=== PATIENT | female | born 1970 | race Caucasian/White ===

== ENCOUNTER 2017-10-12 15:49 | Inpatient (IN) ==
[2017-10-12] MEDS ORDERED: Ondansetron 4 MG/2 ML VIAL IVP ONE ×2 (16:13→19:28)
[2017-10-12] MEDS ORDERED: *HR* FentaNYL (PF) 100 MCG/2 ML VIAL IVP ONE ×2 (16:13→17:16)
--- NOTE | 2017-10-12 16:13 | Emergency Department Note ---
Disposition Clinical Impression: Pyelonephritis, Ureterolithiasis Urinary tract infection Qualifiers: Urinary tract infection type: site unspecified Hematuria presence: without hematuria Qualified Code(s): N39.0 - Urinary tract infection, site not specified Disposition: Admitted As Inpatient Condition: Fair General Adult HPI - General Chief complaint: ED Urogenital-Female Stated complaint: r/o sepsis Time Seen by Provider: 10/12/17 15:53 Source: patient Limitations: no limitations Nursing Notes Reviewed: Yes Vital Signs Reviewed: Yes - History of Present Illness Pain Scale: 7 - Related Data Allergies Allergy/AdvReac Type Severity Reaction Status Date / Time Hydromorphone [From Dilaudid] Allergy Itching Verified 10/12/17 15:51 levofloxacin [From Levaquin] Allergy See Verified 10/12/17 15:51 Comments prochlorperazine Allergy Anxiety Verified 10/12/17 15:51 [From Compazine] Past Medical History - Past Medical History Medical history: Reports: fibromyalgia - Social History Smoking Status: Never smoker Smokeless Tobacco Status: No Alcohol use: Reports: none Drug use: Reports: none Physical Exam - General Limitations: no limitations General appearance: alert Course Vital Signs Temperature 99.8 F H 10/12/17 15:51 Pulse Rate 136 10/12/17 15:51 Respiratory Rate 18 10/12/17 15:51 Blood Pressure 131/80 10/12/17 15:51 O2 Sat by Pulse Oximetry 93 10/12/17 15:51 Temperature 99.8 F H 10/12/17 15:58 Pulse Rate 117 10/12/17 17:55 Respiratory Rate 14 10/12/17 17:55 Blood Pressure 124/85 10/12/17 17:55 O2 Sat by Pulse Oximetry 96 10/12/17 17:55 Oxygen Delivery Oxygen Delivery Nasal Cannula Medical Decision Making - [facility] Narrative Medical decision making narrative: Chest X-Ray 10/12/17 16:09 IMPRESSION: No evidence of acute cardiopulmonary disease. D/ / Darien Hasnen MD / Darien Hansen MD Interpreting Provider: Darien Hansen MD Abdomen/Pelvis CT 10/12/17 16:10 IMPRESSION: 1. Acute obstructing calculus mid to distal left ureter (within the pelvis) measures 4 x 4 mm with mild left hydronephrosis. 2. Bilateral nephrolithiasis. 3. Bilateral benign adrenal adenomas requiring no additional evaluation or follow-up. 4. Mild hepatic steatosis and mild hepatomegaly. D/ / Tomy Rodriguez / Tomy Rodriguez Interpreting Provider: Tomy Rodriguez 1810 hrs.: We will admit her with the stone on CT, the urine and her elevated white count things important to bring her and we will speak with urology probably admit her hospitalist and then urology consult N. The determine if that stone needs to be removed or not. Patient says she said she has had stones removed in the past she has been seen here before but cannot remember who she saw as it was many years ago she has had a history of multiple stones in the past also. She is in agreement this plan. 1850 hrs.: Admit to hospitalist with urology consult N. Urology contacted. - Lab Data Result diagrams: 10/12/17 16:12 10/12/17 16:12 Lab Results 10/12/17 10/12/17 10/12/17 Range/Units 16:12 16:12 16:12 WBC 12.7 H (4.3-11.1) K/mcL RBC 4.84 (3.82-4.97) M/mcL Hgb 15.4 (11.5-15.4) g/dL Hct 44.1 (35.3-44.9) % MCV 91.1 (83.0-100.0) fL MCH 31.8 (28.0-33.3) pg MCHC 34.9 (31.6-35.5) g/dL RDW 12.5 (11.5-14.5) % Plt Count 273 (140-400) K/mcL MPV 11.0 (9.4-12.4) fL Immature Gran % 0.3 (0-4) % Seg Neutrophils % 73.1 % Lymphocytes % 17.2 % Monocytes % 8.2 % Eosinophils % 0.8 % Basophils % 0.4 % Neutrophils # 9.3 H (1.6-8.9) K/mcL Lymphocytes # 2.2 (0.6-4.6) K/mcL Monocytes # 1.0 (0.0-1.3) K/mcL Eosinophils # 0.1 (0.0-0.6) K/mcL Basophils # 0.1 (0.0-0.2) K/mcL Sodium 138 (136-145) mEq/L Potassium 4.1 (3.5-5.1) mEq/L Chloride 101 (98-107) mEq/L Carbon Dioxide 24 (23-29) mEq/L BUN 11 (6-20) mg/dL Creatinine 0.75 (0.60-1.20) mg/dL Est GFR ( Amer) > 60 (> 60) Est GFR (Non-Af Amer) > 60 (> 60) BUN/Creatinine Ratio 15 (6-26) Glucose 131 H (70-105) mg/dL Calculated Osmolality 287 (280-300) Lactic Acid 1.9 (0.5-2.2) mmol/L Calcium 9.9 (8.6-10.3) mg/dL Phosphorus 1.8 L (2.7-4.5) mg/dL Magnesium 1.6 (1.6-2.6) mg/dL Total Bilirubin 0.8 (0.3-1.0) mg/dL Direct Bilirubin 0.2 (0.0-0.2) mg/dL Indirect Bilirubin 0.6 (0.0-1.2) mg/dL AST 41 H (13-39) Units/L ALT 52 (7-52) Units/L Alkaline Phosphatase 116 H (34-104) Units/L Troponin I < 0.03 (< 0.04) ng/mL Serum Total Protein 7.4 (6.4-8.9) g/dL Albumin 4.5 (3.5-5.7) g/dL Globulin 2.9 (2.4-3.5) g/dL Albumin/Globulin Ratio 1.6 (1.1-2.2) Urine Color (Yellow) Urine Clarity (Clear) Urine pH (5.0-8.0) pH Units Ur Specific [place] (1.010-1.025) Urine Protein (Neg-Trace) mg/dL Urine Glucose (UA) (Normal) mg/dL Urine Ketones (Negative) mg/dL Urine Blood (Negative) Urine Nitrite (Negative) Urine Bilirubin (Negative) Urine Urobilinogen (Normal) mg/dL Ur Leukocyte Esterase (Negative) Urine Microscopic RBC (0-3) per hpf Urine Microscopic WBC (0-3) per hpf Ur Squamous Epith Cells (None-Few) per lpf Urine Bacteria (None-Few) per hpf Hyaline Casts (None-Few) per lpf Ur Culture Indicated? (NO) 10/12/17 Range/Units 16:14 WBC (4.3-11.1) K/mcL RBC (3.82-4.97) M/mcL Hgb (11.5-15.4) g/dL Hct (35.3-44.9) % MCV (83.0-100.0) fL MCH (28.0-33.3) pg MCHC (31.6-35.5) g/dL RDW (11.5-14.5) % Plt Count (140-400) K/mcL MPV (9.4-12.4) fL Immature Gran % (0-4) % Seg Neutrophils % % Lymphocytes % % Monocytes % % Eosinophils % % Basophils % % Neutrophils # (1.6-8.9) K/mcL Lymphocytes # (0.6-4.6) K/mcL Monocytes # (0.0-1.3) K/mcL Eosinophils # (0.0-0.6) K/mcL Basophils # (0.0-0.2) K/mcL Sodium (136-145) mEq/L Potassium (3.5-5.1) mEq/L Chloride (98-107) mEq/L Carbon Dioxide (23-29) mEq/L BUN (6-20) mg/dL Creatinine (0.60-1.20) mg/dL Est GFR ( Amer) (> 60) Est GFR (Non-Af Amer) (> 60) BUN/Creatinine Ratio (6-26) Glucose (70-105) mg/dL Calculated Osmolality (280-300) Lactic Acid (0.5-2.2) mmol/L Calcium (8.6-10.3) mg/dL Phosphorus (2.7-4.5) mg/dL Magnesium (1.6-2.6) mg/dL Total Bilirubin (0.3-1.0) mg/dL Direct Bilirubin (0.0-0.2) mg/dL Indirect Bilirubin (0.0-1.2) mg/dL AST (13-39) Units/L ALT (7-52) Units/L Alkaline Phosphatase (34-104) Units/L Troponin I (< 0.04) ng/mL Serum Total Protein (6.4-8.9) g/dL Albumin (3.5-5.7) g/dL Globulin (2.4-3.5) g/dL Albumin/Globulin Ratio (1.1-2.2) Urine Color Yellow (Yellow) Urine Clarity Cloudy A (Clear) Urine pH 7.0 (5.0-8.0) pH Units Ur Specific [place] 1.014 (1.010-1.025) Urine Protein 30 H (Neg-Trace) mg/dL Urine Glucose (UA) Normal (Normal) mg/dL Urine Ketones Negative (Negative) mg/dL Urine Blood Large H (Negative) Urine Nitrite Positive A (Negative) Urine Bilirubin Negative (Negative) Urine Urobilinogen Normal (Normal) mg/dL Ur Leukocyte Esterase Large H (Negative) Urine Microscopic RBC 50-100 H (0-3) per hpf Urine Microscopic WBC TNTC H (0-3) per hpf Ur Squamous Epith Cells Many H (None-Few) per lpf Urine Bacteria Many H (None-Few) per hpf Hyaline Casts None Seen (None-Few) per lpf Ur Culture Indicated? NO. A (NO) Attestation Statement - Attestation Attestation: This documentation is done with the assistance of Dragon dictation. Despite efforts made to ensure accuracy, there may be inaccuracies in as400 analyst or spelling and typographical errors. I examined this patient and my medical decision-making was reviewed with the Resident Physician. I agree with the documented findings, disposition and treatment plan as described except to the extent set forth below. Patient seen and evaluated by Dr. Fitch and myself, I agree with her evaluation and management plan, supervise care the patient's stay. Patient presents today after being at the urgent care she said some urinary symptoms right lower quadrant pain and tachycardia. They sent her over here to rule out Bill. When a CT her abdomen rule out Bill and appendicitis. Check urinalysis and labs and reassess. She is in agreement with this plan.
[2017-10-12 16:26] LABS: Basophils # 0.1 K/mcL (0.0-0.2); Basophils % 0.4 %; Eosinophils # 0.1 K/mcL (0.0-0.6); Eosinophils % 0.8 %; Hematocrit 44.1 % (35.3-44.9); Hemoglobin 15.4 g/dL (11.5-15.4); Immature Granulocytes % 0.3 % (0-4); Lymphocytes # 2.2 K/mcL (0.6-4.6); Lymphocytes % 17.2 %; Mean Corpuscular HGB Conc 34.9 g/dL (31.6-35.5); Mean Corpuscular Hemoglobin 31.8 pg (28.0-33.3); Mean Corpuscular Volume 91.1 fL (83.0-100.0); Monocytes % 8.2 %; Neutrophils # 9.3 K/mcL (1.6-8.9); Platelet Count 273 K/mcL (140-400); Red Blood Count 4.84 M/mcL (3.82-4.97); Red Cell Distribution Width 12.5 % (11.5-14.5); Segmented Neutrophils % 73.1 %
[2017-10-12 16:27] LABS: Bilirubin,Urine Negative (Negative); Blood,Urine Large (Negative); Clarity,Urine Cloudy (Clear); Color,Urine Yellow (Yellow); Glucose,Urine (UA) Normal (Normal); Ketones,Urine Negative (Negative); Leukocyte Esterase,Urine Large (Negative); Nitrite,Urine Positive (Negative); Protein,Urine 30 mg/dL (Neg-Trace); Specific Gravity,Urine 1.014 (1.010-1.025); Urobilinogen,Urine Normal (Normal)
[2017-10-12 16:29] LABS: Bacteria,Urine Many per hpf (None-Few); Hyaline Casts,Urine None Seen per lpf (None-Few); RBC,Urine 50-100 per hpf (0-3); Squamous Epithelial Cell,Urine Many per lpf (None-Few); WBC,Urine TNTC per hpf (0-3)
[2017-10-12] MEDS ORDERED: cefTRIAXone 2,000 MG in Water for inj. (sterile) 20 ML 20 ML IVP ONE (16:30)
[2017-10-12] MEDS: 0.9 % Sodium Chloride 1,000 ML IVC SCH ×3 (16:30→23:06)
--- NOTE | 2017-10-12 16:33 | Emergency Department Note ---
Disposition Clinical Impression: Pyelonephritis, Ureterolithiasis Urinary tract infection Qualifiers: Urinary tract infection type: site unspecified Hematuria presence: without hematuria Qualified Code(s): N39.0 - Urinary tract infection, site not specified Disposition: Admitted As Inpatient Condition: Fair Referrals: Jesse Lovelace MD [Primary Care Provider] - Forms: ED Satisfaction Letter Time of Disposition: 18:39 General Adult HPI - General Chief complaint: ED Urogenital-Female Stated complaint: r/o sepsis Time Seen by Provider: 10/12/17 15:53 Source: patient Limitations: no limitations Nursing Notes Reviewed: Yes Vital Signs Reviewed: Yes - History of Present Illness HPI Narrative: Patient is a 47-year-old female who presents to [facility] ED with a chief complaint of back pain and joint pains as well as subjective fevers. Patient was transferred from the urgent care with concern for possible pyelonephritis. Urine analysis showed signs of urinary tract infection. Patient was tachycardic and had a fever of 100.9 there. Patient states her symptoms started approximately one week ago with the fever. States she has had some urinary frequency. Denies any chest pain. No difficulty breathing at rest though she has had some exertional dyspnea. Onset (ago): week(s) (1) Location: back, abdomen Pain Severity: moderate Pain Scale: 7 Quality: aching Consistency: Worsening Improves with: nothing Worsens with: nothing Associated symptoms: Reports: fever/chills, loss of appetite, malaise, shortness of breath, weakness. Denies: chest pain, cough, headaches, nausea/ vomiting, rash Treatments Prior to Arrival: NSAID - Related Data Allergies Allergy/AdvReac Type Severity Reaction Status Date / Time Hydromorphone [From Dilaudid] Allergy Itching Verified 10/12/17 15:51 levofloxacin [From Levaquin] Allergy See Verified 10/12/17 15:51 Comments prochlorperazine Allergy Anxiety Verified 10/12/17 15:51 [From Compazine] All systems ED: reviewed and negative except as stated. Past Medical History - Past Medical History Attestation: Yes The following information was validated with the patient. Source: patient Medical history: Reports: fibromyalgia - Social History Smoking Status: Never smoker Smokeless Tobacco Status: No Alcohol use: Reports: none Drug use: Reports: none Physical Exam - General Limitations: no limitations General appearance: alert - Head Head exam: atraumatic, normocephalic, normal inspection - Eye Eye exam: Present: normal appearance, PERRL, EOMI - ENT ENT exam: normal exam, normal oropharynx, mucous membranes moist - Neck Neck exam: Present: normal inspection, full ROM, trachea midline - Chest Chest inspection: Present: normal inspection, symmetric chest wall rise - Respiratory Respiratory exam: Present: normal lung sounds bilaterally - Cardiovascular Cardiovascular exam: Present: normal rhythm, tachycardia - Abdominal Exam Abdominal exam: Present: soft, tenderness Abdominal tenderness: Present: RLQ, moderate - Extremities Exam Extremities exam: Present: normal inspection, full ROM. Absent: tenderness, pedal edema - Back Exam Back exam: Present: CVA tenderness (R) - Neurological Exam Neurological exam: Present: alert, oriented X3 - Psychiatric Psychiatric exam: Present: normal affect, normal mood - Skin Skin exam: Present: warm, dry, intact, normal color Course Course Narrative: Patient seen and examined. Abdominal pain and back pain with urine analysis suggestive of possible pyelonephritis. Patient is tachycardic with a low-grade temperature. We will go ahead and do a septic workup on patient. We will repeat a urine analysis. Since she has had some exertional dyspnea with this, we will go ahead and get EKG, chest x-ray and troponin level. She does not have any pleuritic chest pain. I do not feel that this is secondary to a pulmonary embolus. With her fever, this is more likely suggestive of infection. - Reevaluation(s) Reevaluation #1: Labwork shows mild leukocytosis of 12.7. Renal function normal. Urine analysis shows signs of urinary tract infection. 2 g of Rocephin was ordered. CT of the abdomen and pelvis shows an obstructing 4 x 4 millimeter stone in the mid to distal left ureter. With her signs of pyelonephritis, I discussed with the on-call urologist Dr. Benson who will consult on her and likely take her to the OR tonight. I discussed with the hospitalist who has accepted patient for admission. Time: 18:37 Vital Signs Temperature 99.8 F H 10/12/17 15:51 Pulse Rate 136 10/12/17 15:51 Respiratory Rate 18 10/12/17 15:51 Blood Pressure 131/80 10/12/17 15:51 O2 Sat by Pulse Oximetry 93 10/12/17 15:51 Temperature 99.8 F H 10/12/17 15:58 Pulse Rate 117 10/12/17 17:55 Respiratory Rate 14 10/12/17 17:55 Blood Pressure 124/85 10/12/17 17:55 O2 Sat by Pulse Oximetry 96 10/12/17 17:55 Oxygen Delivery Oxygen Delivery Nasal Cannula Medical Decision Making - Medical Records Medical records reviewed: Yes I reviewed the patient's medical records. - Lab Data Lab results reviewed: Yes I reviewed the patient's lab results. Result diagrams: 10/12/17 16:12 10/12/17 16:12 Lab Results 10/12/17 10/12/17 10/12/17 Range/Units 16:12 16:12 16:12 WBC 12.7 H (4.3-11.1) K/mcL RBC 4.84 (3.82-4.97) M/mcL Hgb 15.4 (11.5-15.4) g/dL Hct 44.1 (35.3-44.9) % MCV 91.1 (83.0-100.0) fL MCH 31.8 (28.0-33.3) pg MCHC 34.9 (31.6-35.5) g/dL RDW 12.5 (11.5-14.5) % Plt Count 273 (140-400) K/mcL MPV 11.0 (9.4-12.4) fL Immature Gran % 0.3 (0-4) % Seg Neutrophils % 73.1 % Lymphocytes % 17.2 % Monocytes % 8.2 % Eosinophils % 0.8 % Basophils % 0.4 % Neutrophils # 9.3 H (1.6-8.9) K/mcL Lymphocytes # 2.2 (0.6-4.6) K/mcL Monocytes # 1.0 (0.0-1.3) K/mcL Eosinophils # 0.1 (0.0-0.6) K/mcL Basophils # 0.1 (0.0-0.2) K/mcL Sodium 138 (136-145) mEq/L Potassium 4.1 (3.5-5.1) mEq/L Chloride 101 (98-107) mEq/L Carbon Dioxide 24 (23-29) mEq/L BUN 11 (6-20) mg/dL Creatinine 0.75 (0.60-1.20) mg/dL Est GFR ( Amer) > 60 (> 60) Est GFR (Non-Af Amer) > 60 (> 60) BUN/Creatinine Ratio 15 (6-26) Glucose 131 H (70-105) mg/dL Calculated Osmolality 287 (280-300) Lactic Acid 1.9 (0.5-2.2) mmol/L Calcium 9.9 (8.6-10.3) mg/dL Phosphorus 1.8 L (2.7-4.5) mg/dL Magnesium 1.6 (1.6-2.6) mg/dL Total Bilirubin 0.8 (0.3-1.0) mg/dL Direct Bilirubin 0.2 (0.0-0.2) mg/dL Indirect Bilirubin 0.6 (0.0-1.2) mg/dL AST 41 H (13-39) Units/L ALT 52 (7-52) Units/L Alkaline Phosphatase 116 H (34-104) Units/L Troponin I < 0.03 (< 0.04) ng/mL Serum Total Protein 7.4 (6.4-8.9) g/dL Albumin 4.5 (3.5-5.7) g/dL Globulin 2.9 (2.4-3.5) g/dL Albumin/Globulin Ratio 1.6 (1.1-2.2) Urine Color (Yellow) Urine Clarity (Clear) Urine pH (5.0-8.0) pH Units Ur Specific [place] (1.010-1.025) Urine Protein (Neg-Trace) mg/dL Urine Glucose (UA) (Normal) mg/dL Urine Ketones (Negative) mg/dL Urine Blood (Negative) Urine Nitrite (Negative) Urine Bilirubin (Negative) Urine Urobilinogen (Normal) mg/dL Ur Leukocyte Esterase (Negative) Urine Microscopic RBC (0-3) per hpf Urine Microscopic WBC (0-3) per hpf Ur Squamous Epith Cells (None-Few) per lpf Urine Bacteria (None-Few) per hpf Hyaline Casts (None-Few) per lpf Ur Culture Indicated? (NO) 10/12/17 Range/Units 16:14 WBC (4.3-11.1) K/mcL RBC (3.82-4.97) M/mcL Hgb (11.5-15.4) g/dL Hct (35.3-44.9) % MCV (83.0-100.0) fL MCH (28.0-33.3) pg MCHC (31.6-35.5) g/dL RDW (11.5-14.5) % Plt Count (140-400) K/mcL MPV (9.4-12.4) fL Immature Gran % (0-4) % Seg Neutrophils % % Lymphocytes % % Monocytes % % Eosinophils % % Basophils % % Neutrophils # (1.6-8.9) K/mcL Lymphocytes # (0.6-4.6) K/mcL Monocytes # (0.0-1.3) K/mcL Eosinophils # (0.0-0.6) K/mcL Basophils # (0.0-0.2) K/mcL Sodium (136-145) mEq/L Potassium (3.5-5.1) mEq/L Chloride (98-107) mEq/L Carbon Dioxide (23-29) mEq/L BUN (6-20) mg/dL Creatinine (0.60-1.20) mg/dL Est GFR ( Amer) (> 60) Est GFR (Non-Af Amer) (> 60) BUN/Creatinine Ratio (6-26) Glucose (70-105) mg/dL Calculated Osmolality (280-300) Lactic Acid (0.5-2.2) mmol/L Calcium (8.6-10.3) mg/dL Phosphorus (2.7-4.5) mg/dL Magnesium (1.6-2.6) mg/dL Total Bilirubin (0.3-1.0) mg/dL Direct Bilirubin (0.0-0.2) mg/dL Indirect Bilirubin (0.0-1.2) mg/dL AST (13-39) Units/L ALT (7-52) Units/L Alkaline Phosphatase (34-104) Units/L Troponin I (< 0.04) ng/mL Serum Total Protein (6.4-8.9) g/dL Albumin (3.5-5.7) g/dL Globulin (2.4-3.5) g/dL Albumin/Globulin Ratio (1.1-2.2) Urine Color Yellow (Yellow) Urine Clarity Cloudy A (Clear) Urine pH 7.0 (5.0-8.0) pH Units Ur Specific [place] 1.014 (1.010-1.025) Urine Protein 30 H (Neg-Trace) mg/dL Urine Glucose (UA) Normal (Normal) mg/dL Urine Ketones Negative (Negative) mg/dL Urine Blood Large H (Negative) Urine Nitrite Positive A (Negative) Urine Bilirubin Negative (Negative) Urine Urobilinogen Normal (Normal) mg/dL Ur Leukocyte Esterase Large H (Negative) Urine Microscopic RBC 50-100 H (0-3) per hpf Urine Microscopic WBC TNTC H (0-3) per hpf Ur Squamous Epith Cells Many H (None-Few) per lpf Urine Bacteria Many H (None-Few) per hpf Hyaline Casts None Seen (None-Few) per lpf Ur Culture Indicated? NO. A (NO) - Radiology Data Radiology results reviewed: Yes I reviewed the patient's radiology results. Chest X-Ray 10/12/17 16:09 IMPRESSION: No evidence of acute cardiopulmonary disease. D/ / Darien Hansen MD / Darien Hansen MD Interpreting Provider: Darien Hansen MD Abdomen/Pelvis CT 10/12/17 16:10 IMPRESSION: 1. Acute obstructing calculus mid to distal left ureter (within the pelvis) measures 4 x 4 mm with mild left hydronephrosis. 2. Bilateral nephrolithiasis. 3. Bilateral benign adrenal adenomas requiring no additional evaluation or follow-up. 4. Mild hepatic steatosis and mild hepatomegaly. D/ / Tomy Rodriguez / Tomy Rodriguez Interpreting Provider: Tomy Rodriguez - EKG Data EKG #1 EKG attestation: Yes I reviewed and interpreted this EKG. EKG results narrative: EKG done at 1621 shows sinus tachycardia with a rate of [address] elevation or depression. Normal axis. Inverted T waves noted in lead 3. This is new compared to prior EKG done 07/18/2013.
[2017-10-12 16:48] LABS: Alanine Aminotransferase 52 Units/L (7-52); Albumin 4.5 g/dL (3.5-5.7); Albumin/Globulin Ratio 1.6 (1.1-2.2); Alkaline Phosphatase 116 Units/L (34-104); Aspartate Amino Transferase 41 Units/L (13-39); BUN/Creatinine Ratio 15 (6-26); Bilirubin,Direct 0.2 mg/dL (0.0-0.2); Bilirubin,Indirect 0.6 mg/dL (0.0-1.2); Bilirubin,Total 0.8 mg/dL (0.3-1.0); Blood Urea Nitrogen 11 mg/dL (6-20); Calcium 9.9 mg/dL (8.6-10.3); Carbon Dioxide 24 mEq/L (23-29); Chloride 101 mEq/L (98-107); Globulin 2.9 g/dL (2.4-3.5); Glucose 131 mg/dL (70-105); Magnesium 1.6 mg/dL (1.6-2.6); Osmolality,Calculated 287 (280-300); Phosphorous 1.8 mg/dL (2.7-4.5); Potassium 4.1 mEq/L (3.5-5.1); Sodium 138 mEq/L (136-145); Total Protein 7.4 g/dL (6.4-8.9); Troponin I < 0.03 ng/mL (< 0.04); eGFR For Non-African Americans > 60 (> 60)
[2017-10-12] MEDS ORDERED: Acetaminophen 325 MG TABLET PO ONE (18:04)
--- NOTE | 2017-10-12 19:07 | Anesthesia Evaluation PreOp ---
Date of Encounter: 10/12/17 Time of Encounter: 19:05 - Past History Planned Operation: Cytoscopy, Left stent insertion Cardiac History: Denies any Significant Hx Pulmonary History: Smoker MANAGER SQL History: Other (depression) Other Medical History: Renal (stones), Other (Fibromyalgia, obese) Anesthesia History: No Prior Anesthetic Complications, Past Anesthesia (tummy tuck, renal stones, JOCELYN) : No (JOCELYN) Alcohol Use: none Drug use: none Medications and Allergies 3 Allergy/AdvReac Type Severity Reaction Status Date / Time Hydromorphone [From Dilaudid] Allergy Itching Verified 10/12/17 15:51 levofloxacin [From Levaquin] Allergy See Verified 10/12/17 15:51 Comments prochlorperazine Allergy Anxiety Verified 10/12/17 15:51 [From Compazine] - Meds/Allergy Pre-op Review Medications Reviewed: Yes Allergies Reviewed: Yes Beta Blockers on Current Med List: No Anesthesia Results - Labs 10/12/17 16:12 10/12/17 16:12 Anesthesia Exam O2 Sat Height 1.57 m Height 1.57 m Weight 81.647 kg Weight 81.647 kg O2 Sat by Pulse Oximetry 96 O2 Sat by Pulse Oximetry 95 O2 Sat by Pulse Oximetry 94 O2 Sat by Pulse Oximetry 95 O2 Sat by Pulse Oximetry 98 O2 Sat by Pulse Oximetry 93 O2 Sat by Pulse Oximetry 93 Vital Signs Temp Pulse Resp BP Pulse Ox 99.8 F H 136 18 131/80 93 10/12/17 15:51 10/12/17 15:51 10/12/17 15:51 10/12/17 15:51 10/12/17 15:51 NPO (# of Hours): > 8 hrs - HEENT Pupil (Motor): Pupils equal, EOMI Mallampati: III Teeth: Normal Oral Opening: Greater than 3 - MANAGER SQL LOC: Oriented MANAGER SQL Motor: Normal RUE, Normal LUE, Normal RLE, Normal LLE, Normal Face MANAGER SQL Sensory: Normal: RUE, LUE, RLE, LLE, Face - Cardiac Rhythm: Regular Murmur: None JVD: No Carotid Bruit: No - Pulmonary Breath Sounds: bilateral Clear Respiratory Effort: Symmetrical Anesthesia Assess/Plan ASA Score: 3 Modified [place] Scale for Level of Consciousness: Cooperative, oriented, and tranquil Anesthetic Plan: General Autologous Blood: Yes Monitoring Plan: Standard Monitors Recovery Plan: PACU
[2017-10-12] MEDS ORDERED: *HR* FentaNYL (PF) 100 MCG/2 ML VIAL ONE (19:12)
[2017-10-12] MEDS ORDERED: *HR* Propofol 200 MG/20 ML VIAL IVP ONE (19:12)
[2017-10-12] MEDS ORDERED: Lidocaine -MPF 2% 2 ML VIAL ONE (19:13)
[2017-10-12] MEDS ORDERED: Ondansetron 4 MG/2 ML VIAL ONE (19:13)
[2017-10-12] MEDS ORDERED: Dexamethasone 4 MG/ML VIAL ONE (19:13)
[2017-10-12] MEDS ORDERED: *HR* Succinylcholine 200 MG/10 ML VIAL IVP ONE (19:13)
--- NOTE | 2017-10-12 19:14 | Urology - Consult Note ---
Date of Encounter: 10/12/17 Time of Encounter: 19:12 - Assessment and Plan (1) Ureterolithiasis Current Visit: Yes Status: Acute Assessment and plan: 47-year-old woman with a history of a mid left ureteral stone and urinary tract infection. I recommend proceeding with a cystoscopy and left ureteral stent placement. She was informed of the risks of the procedure which include but are not limited to bleeding, infection, injury to other structures, need for further procedures, stent irritation, need for nephrostomy tube, and the risk of anesthesia. She is willing to proceed. (2) Urinary tract infection Current Visit: Yes Status: Acute Assessment and plan: She received a dose of Rocephin. We will continue IV antibiotic and await results of her urine cultures. Qualifiers: Urinary tract infection type: site unspecified Hematuria presence: without hematuria Qualified Code(s): N39.0 - Urinary tract infection, site not specified Urology CN:HPI Consult date: 10/12/17 Reason for consult Urology: Other (left ureteral stone, uti) Requesting physician: Apple Fitch History of present illness: 47-year-old woman presents with a one-week history of left flank pain. She reports having intermittent fevers. The pain became more severe today and she went to urgent care. Reportedly, she had a temperature to 103 degrees. She was transferred to the [facility] for further care. The pain has been severe and it radiates to the groin. She describes it as being sharp. Pain medication has improved the pain somewhat while she is here. She has a history of nephrolithiasis. She appears to have shockwave lithotripsy. Her CT scan was reviewed. There is a left mid ureteral stone causing hydronephrosis. Within the left kidney there are 2 stones. One of the left renal stone stones is approximately 1 cm in maximal width. There is also a small stone within the right kidney. She had an elevated white blood cell count and is being admitted for IV antibiotic. Past Med Surg Social Fam HX - Past Medical History Medical history: fibromyalgia Additional medical history: kidney stones Psychiatric history: depression - Past Surgical History Additional surgical history: breast reduction - Social History Smoking Status: Never smoker Smokeless Tobacco Status: No Alcohol use: none Drug use: none - Family History Father Hx Family Genitourinary Disorders: No (No family history of kidney stones.) Medications and Allergies 3 Allergy/AdvReac Type Severity Reaction Status Date / Time Hydromorphone [From Dilaudid] Allergy Itching Verified 10/12/17 15:51 levofloxacin [From Levaquin] Allergy See Verified 10/12/17 15:51 Comments prochlorperazine Allergy Anxiety Verified 10/12/17 15:51 [From Compazine] Review of Systems - Constitutional chills, fever(s) - EENT Nose, mouth and throat: no dizziness - Cardiovascular no chest pain - Respiratory no dyspnea - Gastrointestinal nausea - Genitourinary Genitourinary: flank pain, no hematuria - Musculoskeletal no back pain - Integumentary no erythema, no rash - Neurological no weakness - Psychiatric no suicidal ideation - Hematologic/Lymphatic no easy bleeding - Allergic/Immunologic no wheezing Exam Initial Vital Signs Temp Pulse Resp BP Pulse Ox 99.8 F H 136 18 131/80 93 10/12/17 15:51 10/12/17 15:51 10/12/17 15:51 10/12/17 15:51 10/12/17 15:51 - General physical appearance Present: well developed, well nourished, no distress - Eyes Absent: icteric - ENT Present: normal nares - Neck Present: trachea midline - Respiratory Present: normal respiratory effort - Cardiovascular Cardiovascular exam IM: RRR - Abdomen Abdomen: Present: soft - Integumentary Present: no rash - Neurologic Present: normal coordination - Musculoskeletal Present: normal gait Urology Results - Labs 10/12/17 16:12 10/12/17 16:12 Abnormal lab results WBC 12.7 K/mcL (4.3-11.1) H 10/12/17 16:12 Neutrophils # 9.3 K/mcL (1.6-8.9) H 10/12/17 16:12 Glucose 131 mg/dL (70-105) H 10/12/17 16:12 Phosphorus 1.8 mg/dL (2.7-4.5) L 10/12/17 16:12 AST 41 Units/L (13-39) H 10/12/17 16:12 Alkaline Phosphatase 116 Units/L (34-104) H 10/12/17 16:12 Urine Clarity Cloudy (Clear) A 10/12/17 16:14 Urine Protein 30 mg/dL (Neg-Trace) H 10/12/17 16:14 Urine Blood Large (Negative) H 10/12/17 16:14 Urine Nitrite Positive (Negative) A 10/12/17 16:14 Ur Leukocyte Esterase Large (Negative) H 10/12/17 16:14 Urine Microscopic RBC 50-100 per hpf (0-3) H 10/12/17 16:14 Urine Microscopic WBC TNTC per hpf (0-3) H 10/12/17 16:14 Ur Squamous Epith Cells Many per lpf (None-Few) H 10/12/17 16:14 Urine Bacteria Many per hpf (None-Few) H 10/12/17 16:14 Ur Culture Indicated? NO. (NO) A 10/12/17 16:14 All other labs normal. - Imaging CT scan - abdomen: report reviewed, image reviewed CT scan - pelvis: report reviewed, image reviewed Consult Discharge Plan - Plan Referrals: Jesse Lovelace MD [Primary Care Provider] -
[2017-10-12] MEDS ORDERED: Albuterol 2.5 MG/3 ML NEBULIZER ONE (19:24)
[2017-10-12] MEDS ORDERED: *HR* Labetalol 100 MG/20 ML MDV IVP PRN (19:28)
[2017-10-12] MEDS ORDERED: Albuterol 2.5 MG/3 ML NEBULIZER IH ONE ×2 (19:28→19:35)
[2017-10-12] MEDS ORDERED: *HR* Promethazine 25 MG/ML VIAL IVP PRN ×2 (19:28→21:42)
[2017-10-12] MEDS ORDERED: *HR* OxyCODONE/APAP 5/325 TABLET PO PRN (19:28)
[2017-10-12] MEDS ORDERED: *HR* FentaNYL (PF) 100 MCG/2 ML VIAL IVP PRN (19:28)
[2017-10-12] MEDS ORDERED: Acetaminophen IV 1,000 MG/100 ML INFUS..BTL IVPB ONE (19:28)
[2017-10-12] MEDS ORDERED: Isovue-300 50 ML VIAL IVP ONE (19:29)
[2017-10-12] MEDS ORDERED: *HR* HYDROcodone/Acet 5/325 mg TABLET PO PRN (19:38)
[2017-10-12] MEDS ORDERED: Acetaminophen 325 MG TABLET PO PRN ×2 (19:38→21:42)
[2017-10-12] MEDS ORDERED: *HR* OxyCODONE Immed Rel 5 MG TABLET PO PRN (19:38)
[2017-10-12] MEDS ORDERED: Naloxone 0.4 MG/ML INJ IVP PRN ×2 (19:38→21:42)
--- NOTE | 2017-10-12 20:00 | Internal Med History&Physical ---
Date of Encounter: 10/12/17 Time of Encounter: 22:10 Internal Medicine - H&P: HPI Chief complaint: Left flank pain Admitted From: Home History of present illness: Ms. Colon is a 47 year old female with history of nephrolithiasis presented to the ED with one-week history of left flank pain. Sharp, radiates to her left groin, no aggravating or relieving factors. Associated with intermittent subjective fever at home and chills. Her pain got more severe today hence she went to the urgent care and she was noted to have fever and was sent to the ED for further evaluation. Denies any chest pain, shortness of breath, cough, sputum production, abdominal pain, or change in bowel habits. No headache, blurring of vision, or focal weakness/numbness. No joint pain or rash. In the ED, she had low-grade temperature of 99.8 and was tachycardic at 136. Blood pressure was stable and she was saturating well on room air. Workup showed leukocytosis of 12.7 and creatinine of 0.75. Urinalysis revealed large amount of leukocyte esterase and nitrite. CT scan was subsequently performed which revealed acute obstructing calculus mid to distal left ureter associated with mild left-sided hydronephrosis. Urology was consulted and she was taken to the or for cystoscopy and left ureteric stent insertion. She was started on IV Rocephin in the ED and admitted for further management. Past Med Surg Social Fam HX - Past Medical History Attestation: Yes The following information was validated with the patient. Medical history: fibromyalgia Additional medical history: kidney stones Psychiatric history: depression - Past Surgical History Additional surgical history: breast reduction - Social History Smoking Status: Never smoker Smokeless Tobacco Status: No Alcohol use: none Drug use: none - Family History Father Hx Family Genitourinary Disorders: No (No family history of kidney stones.) Internal Medicine - H&P: Meds 3 Allergy/AdvReac Type Severity Reaction Status Date / Time Hydromorphone [From Dilaudid] Allergy Itching Verified 10/12/17 15:51 levofloxacin [From Levaquin] Allergy See Verified 10/12/17 15:51 Comments prochlorperazine Allergy Anxiety Verified 10/12/17 15:51 [From Compazine] All Systems PM: A 10-system review of systems was performed and is negative for pertinent findings except as documented above in the HPI. - Constitutional Vitals: Temp Pulse Resp BP Pulse Ox 99.8 F H 117 14 124/85 96 10/12/17 15:58 10/12/17 17:55 10/12/17 17:55 10/12/17 17:55 10/12/17 17:55 Exam: General: Alert and oriented, mild distress due to pain HEENT:EOM, pupils equal, round, and reactive. Cardiovascular: Normal S1 & S2, no murmurs or gallops. No JVD. Pulse regular. Lungs: Normal breath sounds, no wheezes or crackles. Abdomen:Soft, non-tender. Mild L sided CVA tenderness. Extremities: No deformity, no edema or tenderness, no joint swelling Neurological: Normal cognition and motor skills. Skin: Normal color, no rash, no lesions. Pulses:Carotid and radial pulses normal +2. Rest of the physical exam is non-contributory Internal Med - H&P Results - Labs CBC & Chem 7: 10/12/17 16:12 10/12/17 16:12 - Assessment and plan (1) Sepsis Current Visit: Yes Status: Acute Assessment and plan: Leukocytosis of 12.7 and tachycardia on presentation satisfying 2/4 SIRS criteria. Also had a low-grade temperature on presentation Secondary to complicated UTI Lactic acid normal, no end organ dysfunction Started on IV Rocephin, continue follow up on blood and urine cultures Qualifiers: Sepsis type: sepsis due to unspecified organism Qualified Code(s): A41.9 - Sepsis, unspecified organism (2) Ureterolithiasis Current Visit: Yes Status: Acute Assessment and plan: Presented with left-sided flank pain radiating to the groin, CT finding positive for obstructing ureteric calculus associated with mild hydronephrosis. Urinalysis positive for leukocyte esterase and nitrite as well. s/p cystoscopy and left-sided ureteric stent placement BNO suppository and IV toradol for spasms Follow with urology (3) Urinary tract infection Current Visit: Yes Status: Acute Assessment and plan: Management as above Qualifiers: Urinary tract infection type: site unspecified Hematuria presence: without hematuria Qualified Code(s): N39.0 - Urinary tract infection, site not specified (4) Elevated transaminase level Current Visit: Yes Status: Acute Assessment and plan: Likely due to fatty liver (5) Adrenal adenoma Current Visit: Yes Status: Acute Assessment and plan: Appears to be benign radiologically Qualifiers: Laterality: unspecified laterality Qualified Code(s): D35.00 - Benign neoplasm of unspecified adrenal gland (6) DVT prophylaxis Current Visit: Yes Status: Acute Assessment and plan: Sub-cutaneous heparin - Time Spent With Patient Total time spent is greater than 50% in coordination of care (as documented) at patient's floor/unit and/or counseling patient:
--- NOTE | 2017-10-12 20:36 | Operative Note ---
Date of procedure: 10/12/17 Pre-op diagnosis: Left ureteral stone, urinary tract infection Post-op diagnosis: same Procedure: Cystoscopy, left ureteral stent placement, left retrograde pyelogram Implants: 6-Serbian by 24 cm double-J stent Complications: None Anesthesia: JAMESON Surgeon: Brock Benson Was there an custody assistant present: No Estimated blood loss (cc): 1 Specimen: Left renal aspirate for culture Condition: stable Disposition: PACU Procedure in Detail: Indications: Erika is a 47-year-old woman who has a history of nephrolithiasis. She had a CT which showed a left mid ureteral stone. She has concern for urinary tract infection and fever. She elected to undergo a cystoscopy and left ureteral stent placement. She was aware of the risks of the procedure including but not limited to bleeding, infection, injury to other structures, need for further procedures, stent irritation, need for nephrostomy tube, need for open repair, risks otherwise unforeseen, and the risk of anesthesia. She is willing to proceed. Procedure in Detail: After informed consent was obtained the patient was brought back to the operating room and placed in supine position. A time out was performed. General anesthesia was administered and an endotracheal tube was placed. She was then placed in the lithotomy position. She was prepped and draped in the usual sterile fashion. Cystoscopy was performed. The anterior urethra was normal. There was no evidence of bladder tumors. The ureteral orifices were in the normal orthotopic position. There was no duplication of the ureteral orifices. With the assistance of the open-ended catheter the zip wire was placed in the left ureteral orifice. The wire was brought into the kidney under fluoroscopic guidance. The open-ended catheter was placed over the wire but could not move past the stone. The dual-lumen catheter was placed up to the level the stone. A retrograde pyelogram was performed which showed a filling defect and narrowing of the ureter. Contrast move past this and showed a hydronephrotic left kidney. I then was able to pass a sensor wire through the dual-lumen catheter to have a safety wire. I attempted to pass the stent over the sensor wire, but it did not pass. The dual-lumen catheter was replaced again to the level of the stone. The sensor wire was removed. I did a repeat retrograde pyelogram with some lubrication mixed with the contrast. The sensor wire was then placed again. The dual-lumen catheter was removed. I then passed the open-ended catheter over top of the zip wire and this was able to move past the stone into the kidney. Fluid was obtained from the kidney for culture. Using the cystoscope I was able to pass the 6-Serbian by 24 cm double-J stent over top of the zip wire into the kidney. There was some resistance met at the level of the stone but with some gentle pressure the stent moved past the stone. A good curl was seen in the kidney and the bladder. The dangle string was removed. A Valentin catheter was left in place. The patient was then awakened from general anesthesia and brought to recovery room in good condition. All sponge, needle, and instrument counts were correct.
--- NOTE | 2017-10-12 21:02 | Anesthesia Evaluation Post Op ---
Date of Encounter: 10/12/17 Time of Encounter: 21:01 - Vital Signs Vital Signs: Vital Signs/O2 Sat, Most Current Temp Pulse Resp BP Pulse Ox 98.4 F 99 16 134/92 94 10/12/17 20:37 10/12/17 20:57 10/12/17 20:57 10/12/17 20:57 10/12/17 20:57 - Lungs Lungs: Clear Ascult./Percussion - Airway Airway: Non-obstructed - Cardiovascular Regular Rate - Mental Status Mental Status: Alert & Oriented, Answers Appropriately - Pain Pain Scale: 0 Pain Scale used: Numeric (1 - 10) - Nausea Vomiting Nausea Vomiting: Not Present - Hydration Hydration: Ice chips, Valentin catheter - Discharge PostOp Status: Transfer Patient to floor
[2017-10-12] MEDS: *HR* OxyCODONE Immed Rel 5 MG TABLET PO PRN (21:55)
[2017-10-12] MEDS: Ketorolac 30 MG/ML VIAL IVP PRN (21:56)
[2017-10-12] MEDS: *HR* Belladonna Alkaloids/Opium 60 MG RECTAL SUPPOSITORY RC PRN (23:07)
[2017-10-13] MEDS: *HR* HYDROcodone/Acet 5/325 mg TABLET PO PRN ×3 (00:42→20:40)
[2017-10-13] MEDS: *HR* OxyCODONE Immed Rel 5 MG TABLET PO PRN ×4 (02:49→22:59)
[2017-10-13] MEDS ORDERED: *HR* HYDROcodone/Acet 5/325 mg TABLET PO ONE (03:05)
[2017-10-13] MEDS ORDERED: *HR* LORazepam 0.5 MG TABLET PO ONE (03:06)
[2017-10-13] MEDS: *HR* Belladonna Alkaloids/Opium 60 MG RECTAL SUPPOSITORY RC PRN (05:11)
[2017-10-13] MEDS: Ketorolac 30 MG/ML VIAL IVP PRN ×3 (05:11→18:24)
[2017-10-13 05:15] LABS: Basophils % 0.2 %; Hematocrit 37.6 % (35.3-44.9); Immature Granulocytes % 0.6 % (0-4); Lymphocytes # 1.3 K/mcL (0.6-4.6); Lymphocytes % 12.1 %; Mean Corpuscular HGB Conc 33.2 g/dL (31.6-35.5); Mean Corpuscular Hemoglobin 31.3 pg (28.0-33.3); Mean Corpuscular Volume 94.2 fL (83.0-100.0); Mean Platelet Volume 11.4 fL (9.4-12.4); Monocytes # 0.6 K/mcL (0.0-1.3); Monocytes % 5.9 %; Neutrophils # 8.5 K/mcL (1.6-8.9); Platelet Count 243 K/mcL (140-400); Red Blood Count 3.99 M/mcL (3.82-4.97); Red Cell Distribution Width 12.7 % (11.5-14.5); Segmented Neutrophils % 81.2 %
[2017-10-13 05:17] LABS: Hemoglobin 12.5 g/dL (11.5-15.4)
[2017-10-13 05:34] LABS: BUN/Creatinine Ratio 14 (6-26); Blood Urea Nitrogen 13 mg/dL (6-20); Calcium 8.8 mg/dL (8.6-10.3); Carbon Dioxide 24 mEq/L (23-29); Chloride 104 mEq/L (98-107); Glucose 198 mg/dL (70-105); Magnesium 1.5 mg/dL (1.6-2.6); Osmolality,Calculated 288 (280-300); Potassium 4.3 mEq/L (3.5-5.1); Sodium 136 mEq/L (136-145); eGFR For Non-African Americans > 60 (> 60)
[2017-10-13] MEDS ORDERED: *HR* Heparin 5,000 UNIT/ML VIAL SQ SCH (06:00)
[2017-10-13] MEDS: *HR* Heparin 5,000 UNIT/ML VIAL SQ SCH ×2 (06:10→18:25)
[2017-10-13] MEDS ORDERED: *HR* FentaNYL (PF) 100 MCG/2 ML VIAL IVP ONE (06:20)
[2017-10-13] MEDS: cefTRIAXone 1,000 MG in Water for inj. (sterile) 20 ML 10 ML IVPB SCH (09:05)
[2017-10-13] MEDS: 0.9 % Sodium Chloride 1,000 ML IVC SCH (09:06)
--- NOTE | 2017-10-13 09:11 | Urology Progress Note ---
Date of Encounter: 10/13/17 Time of Encounter: 09:10 - Assessment and Plan (1) Ureterolithiasis Current Visit: Yes Status: Acute Assessment and plan: Postop day #1 status post left ureteral stent placement. Her stone was impacted and it was difficult to get the stent passed the stone. Okay to KAMRON Valentin today. We will see how she does throughout the course of the day. Urine cultures are pending. (2) Urinary tract infection Current Visit: Yes Status: Acute Qualifiers: Urinary tract infection type: site unspecified Hematuria presence: without hematuria Qualified Code(s): N39.0 - Urinary tract infection, site not specified Progress Note Narrative: Postop day #1 status post cystoscopy and left renal stent placement. She is still having some pain issues. She has been ordered narcotics, Toradol, B&O suppository, and Pyridium. No fevers overnight. Objective Initial Vital Signs Temp Pulse Resp BP Pulse Ox 99.8 F H 136 18 131/80 93 10/12/17 15:51 10/12/17 15:51 10/12/17 15:51 10/12/17 15:51 10/12/17 15:51 - General physical appearance Present: well developed, well nourished, no distress - Respiratory Present: normal respiratory effort - Abdomen Present: soft - Genitourinary Urine Appearance: Present: Clear, Hematuria (Clear to orange color.) - Labs 10/13/17 04:26 10/13/17 04:26 Diabetes panel 10/13/17 Range/Units 04:26 Sodium 136 (136-145) mEq/L Potassium 4.3 (3.5-5.1) mEq/L Chloride 104 (98-107) mEq/L Carbon Dioxide 24 (23-29) mEq/L BUN 13 (6-20) mg/dL Creatinine 0.94 (0.60-1.20) mg/dL Glucose 198 H (70-105) mg/dL Calcium 8.8 (8.6-10.3) mg/dL Calcium panel 10/13/17 10/13/17 Range/Units 04:26 04:26 Calcium 8.8 (8.6-10.3) mg/dL Phosphorus 2.7 (2.7-4.5) mg/dL Pituitary panel 10/13/17 Range/Units 04:26 Sodium 136 (136-145) mEq/L Potassium 4.3 (3.5-5.1) mEq/L Chloride 104 (98-107) mEq/L Carbon Dioxide 24 (23-29) mEq/L BUN 13 (6-20) mg/dL Creatinine 0.94 (0.60-1.20) mg/dL Glucose 198 H (70-105) mg/dL Calcium 8.8 (8.6-10.3) mg/dL Adrenal panel 10/13/17 Range/Units 04:26 Sodium 136 (136-145) mEq/L Potassium 4.3 (3.5-5.1) mEq/L Chloride 104 (98-107) mEq/L Carbon Dioxide 24 (23-29) mEq/L BUN 13 (6-20) mg/dL Creatinine 0.94 (0.60-1.20) mg/dL Glucose 198 H (70-105) mg/dL Calcium 8.8 (8.6-10.3) mg/dL - VTE Documentation of Mechanical Device: Intermittent pneumatic compression device Consult Discharge Plan - Plan Referrals: Jesse Lovelace MD [Primary Care Provider] -
--- NOTE | 2017-10-13 09:42 | Internal Med Progress Note ---
Hospitalist Progress Note - Encounter Date of Encounter: 10/13/17 Time of Encounter: 09:29 - Subjective Interval History: Patient was having a lot of pain overnight due to Valentin catheter. Pain has improved after Valentin catheter was removed just this morning. She denies any fevers or chills overnight. No nausea or vomiting at this time. - Exam Vitals: Temp Pulse Resp BP Pulse Ox 97.6 F 95 18 115/67 95 10/13/17 07:22 10/13/17 07:22 10/13/17 07:22 10/13/17 07:22 10/13/17 07:22 Exam: General: Patient is alert, no acute distress, oriented x 3 Head: atraumatic, normocephalic, Eye: normal appearance, PERRL, no scleral icterus, no conjunctival injection Neck: normal inspection, trachea midline, full ROM, no carotid bruits Chest: normal inspection, symmetric chest rise Respiratory: Good respiratory effort. Normal breath sounds. No wheezing or crackles. Cardiovascular: Regular rate and rhythm. s1 and s2 No clicks, rubs, gallops, or murmurs. No pedal edema Abdomen: Abdomen is soft, nontender. Bowel sounds are present Musculoskeletal: Spontaneously moving all extremities Skin: warm, dry, intact. Neuro: Alert oriented x 3 normal cranial nerves, no focal deficits Psych: Patient's affect is normal - Assessment and Plan (1) Urinary tract infection Current Visit: Yes Status: Acute Assessment and Plan: Due to left ureteral stone. Continue IV antibiotics while we await urine culture results. Moderate risk for complications. (2) Ureterolithiasis Current Visit: Yes Status: Acute Assessment and Plan: Status post cystoscopy with left ureteral stent placement and left retrograde pyelogram done yesterday. Patient had impacted stone. Continue Pyridium for pain control. Urology following. (3) Elevated transaminase level Current Visit: Yes Status: Acute Assessment and Plan: Likely related to steatohepatitis (4) Adrenal adenoma Current Visit: Yes Status: Chronic Assessment and Plan: Incidental bilateral benign-appearing adrenal adenomas. No further workup recommended at this time. (5) DVT prophylaxis Current Visit: Yes Status: Acute Assessment and Plan: On subcutaneous heparin (6) Sepsis Current Visit: Yes Status: Suspected Assessment and Plan: On IV antibiotics. Follow culture results. - Time Spent with Patient Total time spent is greater than 50% in coordination of care (as documented) at patient's floor/unit and/or counseling patient: Plan of Care Discussed with: patient Internal Medicine: Result - Labs CBC & Chem 7: 10/13/17 04:26 10/13/17 04:26 Labs: Short CBC 10/13/17 Range/Units 04:26 WBC 10.4 (4.3-11.1) K/mcL Hgb 12.5 D (11.5-15.4) g/dL Hct 37.6 (35.3-44.9) % Plt Count 243 (140-400) K/mcL Neutrophils # 8.5 (1.6-8.9) K/mcL BMP 10/13/17 04:26 Sodium 136 Potassium 4.3 Chloride 104 Carbon Dioxide 24 BUN 13 Creatinine 0.94 Glucose 198 H Calcium 8.8 - VTE Documentation of Mechanical Device: Intermittent pneumatic compression device Consult Discharge Plan - Plan Referrals: Jesse Lovelace MD [Primary Care Provider] - (1) Urinary tract infection Qualifiers: Urinary tract infection type: site unspecified Hematuria presence: without hematuria Qualified Code(s): N39.0 - Urinary tract infection, site not specified (4) Adrenal adenoma Qualifiers: Laterality: unspecified laterality Qualified Code(s): D35.00 - Benign neoplasm of unspecified adrenal gland (6) Sepsis Qualifiers: Sepsis type: Escherichia coli Qualified Code(s): A41.51 - Sepsis due to Escherichia coli [E. coli]
[2017-10-13] MEDS ORDERED: SUMAtriptan succinate 50 MG TABLET PO PRN (14:14)
[2017-10-13] MEDS ORDERED: MODAFINIL 200 MG PO PRN (14:14)
[2017-10-14] MEDS: Ketorolac 30 MG/ML VIAL IVP PRN (00:44)
[2017-10-14] MEDS: *HR* Belladonna Alkaloids/Opium 60 MG RECTAL SUPPOSITORY RC PRN (03:12)
[2017-10-14] MEDS: *HR* HYDROcodone/Acet 5/325 mg TABLET PO PRN ×2 (03:17→09:27)
[2017-10-14] MEDS: *HR* OxyCODONE Immed Rel 5 MG TABLET PO PRN (05:55)
[2017-10-14] MEDS: *HR* Heparin 5,000 UNIT/ML VIAL SQ SCH (05:55)
[2017-10-14 07:03] VITALS: BP 107/64
--- NOTE | 2017-10-14 07:54 | Urology Progress Note ---
Date of Encounter: 10/14/17 Time of Encounter: 07:52 - Assessment and Plan (1) Ureterolithiasis Current Visit: Yes Status: Acute Assessment and plan: Postoperative day #2 status post cystoscopy and left ureteral stent placement. Urine culture is growing out Escherichia coli. She has been afebrile. She would like to be discharged home. I think it is reasonable to discharge her on Omnicef for 10 days. We will arrange for left ureteroscopic stone extraction at a later date. (2) Urinary tract infection Current Visit: Yes Status: Acute Qualifiers: Urinary tract infection type: site unspecified Hematuria presence: without hematuria Qualified Code(s): N39.0 - Urinary tract infection, site not specified Progress Note Narrative: Postop day #2 status post cystoscopy and left ureteral stent placement. Catheter removed yesterday. She has been afebrile. Still with some bladder spasms, but she would like to go home. Objective Initial Vital Signs Temp Pulse Resp BP Pulse Ox 99.8 F H 136 18 131/80 93 10/12/17 15:51 10/12/17 15:51 10/12/17 15:51 10/12/17 15:51 10/12/17 15:51 - General physical appearance Present: well developed, well nourished, no distress - Respiratory Present: normal respiratory effort - Abdomen Present: soft - Labs 10/13/17 04:26 10/13/17 04:26 - VTE Documentation of Mechanical Device: Intermittent pneumatic compression device Consult Discharge Plan - Plan Referrals: Jesse Lovelace MD [Primary Care Provider] -
[2017-10-14] MEDS ORDERED: Multivit/Ca/Min/Fe/FA 1 TAB TABLET PO SCH (09:00)
[2017-10-14] MEDS: cefTRIAXone 1,000 MG in Water for inj. (sterile) 20 ML 10 ML IVPB SCH (09:00)
[2017-10-14] MEDS ORDERED: diazePAM 5 MG TABLET PO SCH (09:00)
--- NOTE | 2017-10-14 09:09 | Discharge Summary ---
- NOTES TO OUTPATIENT PROVIDER Notes to Outpatient Provider: Patient hospitalized with left ureteral colic related to an impacted stone. She was treated with IV antibiotics and fluids and cystoscopy with left ureteral stent placement. Her urine culture is positive for Escherichia coli. Urology is cleared for discharge. She will follow up with urology as outpatient for further management. She will complete antibiotic course for Escherichia coli. Orders not resulted at time of discharge: Pending orders 10/12/17 20:27 Culture,Urine [RM] Routine Date of Encounter: 10/14/17 Time of Encounter: 09:06 - Discharge Diagnosis (1) Urinary tract infection Priority: Primary Status: Acute Qualifiers: Urinary tract infection type: site unspecified Hematuria presence: without hematuria Qualified Code(s): N39.0 - Urinary tract infection, site not specified (2) Ureterolithiasis Priority: Secondary Status: Acute (3) Elevated transaminase level Priority: Secondary Status: Acute (4) Adrenal adenoma Priority: Secondary Status: Chronic Qualifiers: Laterality: unspecified laterality Qualified Code(s): D35.00 - Benign neoplasm of unspecified adrenal gland (5) DVT prophylaxis Priority: Secondary Status: Acute (6) Sepsis Priority: Secondary Status: Acute Qualifiers: Sepsis type: Escherichia coli Qualified Code(s): A41.51 - Sepsis due to Escherichia coli [E. coli] Hospital course: Ms. Colon is a 47 year old female Patient with history of nephrolithiasis was hospitalized with left ureteral colic related to an impacted stone. She was treated with IV antibiotics and fluids . Urology was concentrated and patient underwent cystoscopy with left ureteral stent placement. Her urine culture is positive for Escherichia coli. Urology has cleared her for discharge. She will follow up with urology as outpatient for further management. She will complete antibiotic course for Escherichia coli. Discharge discussed with: patient, nurse - Time Spent with Patient Total time spent providing and/or coordinating discharge services: Greater than 30 minutes (45 min) - Discharge Medications Prescriptions: Belladonna Alkaloids/Opium [B + O] 60 mg RC Q6HR PRN 7 Days #20 supp.rect PRN Reason: Pain Cefdinir [Omnicef] 300 mg PO BID #22 capsule Diaper,Brief,Adult, Disposable [Depend Fit-Flex] 1 each MC TID #30 each Fluconazole [Diflucan] 150 mg PO DAILY PRN #3 tab PRN Reason: Yeast Infection OxyCODONE Immed Rel [Roxicodone 10 MG] 10 mg PO Q8H 5 Days #20 tab Phenazopyridine [Pyridium] 200 mg PO TID PRN #30 tablet PRN Reason: See Comments Home Medications: Cyclobenzaprine [Flexeril] 10 mg PO TID PRN 10/13/17 [History] Dexlansoprazole [Dexilant] 60 mg PO DAILY 10/13/17 [History] Duloxetine HCl [Cymbalta] 60 mg PO BID 10/13/17 [History] Modafinil [Provigil] 200 mg PO DAILY PRN 10/13/17 [History] Multivit-Min/FA/Lycopen/Lutein [A Thru Z Select Multivit Tab] 1 tab PO DAILY 02/18 [History] Promethazine [Phenergan] 25 mg PO Q6HR PRN 10/13/17 [History] SUMAtriptan Succinate [Imitrex] 50 mg PO DAILY PRN 10/13/17 [History] diazePAM [Valium] 5 mg PO DAILY 10/13/17 [History] Belladonna Alkaloids/Opium [B + O] 60 mg RC Q6HR PRN 7 Days #20 supp.rect [Rx] Cefdinir [Omnicef] 300 mg PO BID #22 capsule 10/14/17 [Rx] Diaper,Brief,Adult, Disposable [Depend Fit-Flex] 1 each MC TID #30 each [Rx] Fluconazole [Diflucan] 150 mg PO DAILY PRN #3 tab 10/14/17 [Rx] OxyCODONE Immed Rel [Roxicodone 10 MG] 10 mg PO Q8H 5 Days #20 tab 10/14/17 [Rx] Phenazopyridine [Pyridium] 200 mg PO TID PRN #30 tablet 10/14/17 [Rx] Allergies/Adverse Reactions: 3 Allergy/AdvReac Type Severity Reaction Status Date / Time Hydromorphone [From Dilaudid] Allergy Itching Verified 10/12/17 15:51 levofloxacin [From Levaquin] Allergy See Verified 10/12/17 15:51 Comments prochlorperazine Allergy Anxiety Verified 08/11/18 15:51 [From Compazine] Date of admission: 10/12/17 19:39 Primary care physician: Jesse Lovelace MD Consults: 10/12/17 18:15 Consult to Urology [CONS] Routine Consulting Provider: Urology Patricia Reason for Consult: obstructing stone Time Notified: 18:15 Call Completed: Yes Discharging clinician: Zina Richmond Anticipated date of discharge: 10/14/17 - Constitutional Vitals: Temp Pulse Resp BP Pulse Ox 97.6 F 80 16 107/64 93 10/14/17 07:02 10/14/17 07:02 10/14/17 07:02 10/14/17 07:02 10/14/17 08:50 General appearance: Present: mild distress, A&O X 3, obese, answers questions appropriately Exam: . - Respiratory Respiratory exam: Present: CTAB. Absent: accessory muscle use, rales, rhonchi, wheezes - Cardiovascular Cardiovascular exam: Present: RRR, +S1, +S2. Absent: diastolic murmur, gallop, rubs, systolic murmur - GI/Abdominal GI/Abdominal exam: Present: normal bowel sounds, soft, tenderness (flank and lower quadrants), no peritoneal signs. Absent: distended - Extremities Exam Extremities exam: Present: warm, radial pulses palpable and symmetrical. Absent : calf tenderness, cyanotic, pedal edema - Patient Status Disposition: Home, Self-Care Condition: Good Functional capacity at discharge: independent ambulation Overall status at discharge: patient is back to baseline - Discharge Instructions Instructions: Urinary Tract Infection in Women (DC) Follow Up With: Brock Benson MD [Partnered Physician] - (1-2 weeks Office will call you with a surgery time and date. Thank you) - Diet and Activity Activity: increase activity as tolerated Diet: advance to your usual diet - VTE Documentation of Mechanical Device: Intermittent pneumatic compression device
--- NOTE | 2017-10-14 16:32 | Electrocardiograph Report ---
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
== END 2017-10-14 09:58 | disposition home or self-care (01) | DRG 872 ==
LOC: EMEROO 15:49 → 3ANU 15:49 → SUATTDRO 19:39
PROVIDERS: ADMIT Internal Medicine; ATTEND Internal Medicine

== ENCOUNTER 2017-10-27 11:57 | Inpatient (IN) ==
[2017-10-27] MEDS ORDERED: 0.9 % Sodium Chloride 1,000 ML IVC ONE (12:13)
--- NOTE | 2017-10-27 12:19 | Emergency Department Note ---
Disposition Clinical Impression: Pyelonephritis, Ureteral stent retained Disposition: Admitted As Inpatient Condition: Good Fever HPI - General Chief Complaint: ED Fever Stated Complaint: fever, recent kidney stones Time Seen by Provider: 10/27/17 12:05 Source: patient Mode of arrival: ambulatory Limitations: no limitations Nursing Notes Reviewed: Yes Vital Signs Reviewed: Yes - History of Present Illness HPI Narrative: Patient presents for evaluation of fever. Patient had recent urologic procedure and stent placement secondary to kidney stone. Patient has had urinary tract infections most recently which was diagnosed on 10/12 with culture showing sanchez sensitivity. The patient presents today she has been having fevers as well as feelings of generalized malice. Patient had a fall last night. No significant injury after the fall. Patient's urologic procedure and discharge summary have been evaluated. Patient was told to remove stent after about 3 days. The patient has left this in secondary to the request of the urologist. They called and antibiotics but the patient has not been feeling any better. - Related Data Home Medications Medication Instructions Recorded Confirmed Cyclobenzaprine [Flexeril] 10 mg PO TID PRN 10/13/17 10/27/17 Dexlansoprazole [Dexilant] 60 mg PO DAILY 10/13/17 10/27/17 Duloxetine HCl [Cymbalta] 60 mg PO BID 10/13/17 10/27/17 Modafinil [Provigil] 200 mg PO DAILY PRN 10/13/17 10/27/17 Multivit-Min/FA/Lycopen/Lutein [A 1 tab PO DAILY 10/13/17 10/27/17 Thru Z Select Multivit Tab] Promethazine [Phenergan] 25 mg PO Q6HR PRN 10/13/17 10/27/17 SUMAtriptan Succinate [Imitrex] 50 mg PO DAILY PRN 10/13/17 10/27/17 diazePAM [Valium] 5 mg PO DAILY 10/13/17 10/27/17 ARIPiprazole [Abilify] 2 mg PO DAILY 10/27/17 10/27/17 Previous Rx's Medication Instructions Recorded Fluconazole [Diflucan] 150 mg PO DAILY PRN #7 tab 10/22/17 OxyCODONE Immed Rel [Roxicodone 10 10 mg PO Q8H 5 Days #20 tab 10/22/17 MG] Phenazopyridine [Pyridium] 200 mg PO TID PRN #14 tablet 10/22/17 Allergies Allergy/AdvReac Type Severity Reaction Status Date / Time Hydromorphone [From Dilaudid] Allergy Itching Verified 10/27/17 12:17 levofloxacin [From Levaquin] Allergy Itching Verified 10/27/17 12:17 prochlorperazine Allergy Anxiety Verified 10/27/17 12:17 [From Compazine] Review of Systems: As Per HPI Constitutional: Reports: fever, chills, weakness Cardiovascular: Denies: chest pain, palpitations Respiratory: Denies: cough, dyspnea Gastrointestinal: Reports: abdominal pain (Suprapubic), nausea Genitourinary: Reports: frequency Musculoskeletal: Denies: back pain Fever PMH - Past Medical History Medical history: Reports: fibromyalgia Psychiatric history: Reports: depression - Social History Smoking Status: Never smoker Alcohol use: Reports: none Drug use: Reports: none Physical Exam General: Patient with tears on exam stating that she feels something is wrong. Head: Normocephalic Atraumatic Eyes: PERRL, EOMI ENT: Airway patent, no stridor Neck: supple, no meningismus Chest: Lungs clear to auscultation bilateral Cardiac: Regular rhythm Abdomen: soft, nontender, nondistended; no guarding, rebound, or tenderness to percussion Musculoskeletal: Calves symmetric, nontender Skin: No rash, normal skin tone Neuro: Alert and Oriented to person, place, and time; No focal deficit Course - Reevaluation(s) Reevaluation #1: Patient receiving fluids and antibiotics. Patient and updated about condition and need for antibiotics and admission. Both are in agreement. - Consultations Consultation #1: Discussed with urology. Patient to have stent left in place secondary to concern for complications of worsening hydronephrosis. Recommends broad- spectrum antibiotics and he will evaluate later today. Requests admission to hospitalist. Discussed with hospitalist. Patient accepted for admission. Vital Signs Temperature 100 F H 10/27/17 12:10 Pulse Rate 107 10/27/17 12:10 Respiratory Rate 22 10/27/17 12:10 Blood Pressure 103/64 10/27/17 12:10 O2 Sat by Pulse Oximetry 96 10/27/17 12:10 Temperature 100 F H 10/27/17 12:24 Pulse Rate 100 10/27/17 13:43 Respiratory Rate 20 10/27/17 13:43 Blood Pressure 116/61 10/27/17 13:43 O2 Sat by Pulse Oximetry 92 10/27/17 13:43 Oxygen Delivery Oxygen Delivery Room Air Fever - Medical Records Medical records reviewed: Yes I reviewed the patient's medical records. - Lab Data Lab results reviewed: Yes I reviewed the patient's lab results. Result diagrams: 10/27/17 12:35 10/27/17 12:35 Lab Results 10/27/17 10/27/17 10/27/17 Range/Units 12:21 12:35 12:35 WBC 18.8 H (4.3-11.1) K/mcL RBC 4.30 (3.82-4.97) M/mcL Hgb 13.5 (11.5-15.4) g/dL Hct 40.2 (35.3-44.9) % MCV 93.5 (83.0-100.0) fL MCH 31.4 (28.0-33.3) pg MCHC 33.6 (31.6-35.5) g/dL RDW 13.5 (11.5-14.5) % Plt Count 181 (140-400) K/mcL MPV 11.3 (9.4-12.4) fL Immature Gran % 1.6 (0-4) % Seg Neutrophils % 85.9 % Lymphocytes % 6.0 % Monocytes % 6.2 % Eosinophils % 0.1 % Basophils % 0.2 % Neutrophils # 16.2 H (1.6-8.9) K/mcL Lymphocytes # 1.1 (0.6-4.6) K/mcL Monocytes # 1.2 (0.0-1.3) K/mcL Eosinophils # 0.0 (0.0-0.6) K/mcL Basophils # 0.0 (0.0-0.2) K/mcL Sodium 132 L (136-145) mEq/L Potassium 3.7 (3.5-5.1) mEq/L Chloride 97 L (98-107) mEq/L Carbon Dioxide 23 (23-29) mEq/L BUN 16 (6-20) mg/dL Creatinine 1.21 H (0.60-1.20) mg/dL Est GFR ( Amer) 57 L (> 60) Est GFR (Non-Af Amer) 47 L (> 60) BUN/Creatinine Ratio 13 (6-26) Glucose 113 H (70-105) mg/dL Calculated Osmolality 276 L (280-300) Lactic Acid (0.5-2.2) mmol/L Calcium 9.7 (8.6-10.3) mg/dL Total Bilirubin 1.7 H (0.3-1.0) mg/dL AST 27 (13-39) Units/L ALT 30 (7-52) Units/L Alkaline Phosphatase 111 H (34-104) Units/L Serum Total Protein 7.0 (6.4-8.9) g/dL Albumin 3.8 (3.5-5.7) g/dL Globulin 3.2 (2.4-3.5) g/dL Albumin/Globulin Ratio 1.2 (1.1-2.2) Urine Color Yellow (Yellow) Urine Clarity Cloudy A (Clear) Urine pH 6.5 (5.0-8.0) pH Units Ur Specific [place] 1.020 (1.010-1.025) Urine Protein 100 H (Neg-Trace) mg/dL Urine Glucose (UA) Normal (Normal) mg/dL Urine Ketones Trace H (Negative) mg/dL Urine Blood Large H (Negative) Urine Nitrite Positive A (Negative) Urine Bilirubin Small H (Negative) Urine Urobilinogen Normal (Normal) mg/dL Ur Leukocyte Esterase Large H (Negative) Urine Microscopic RBC TNTC H (0-3) per hpf Urine Microscopic WBC TNTC H (0-3) per hpf Ur Squamous Epith Cells Many H (None-Few) per lpf Urine Bacteria None Seen (None-Few) per hpf Hyaline Casts None Seen (None-Few) per lpf Ur Culture Indicated? NO. A (NO) 10/27/17 Range/Units 12:35 WBC (4.3-11.1) K/mcL RBC (3.82-4.97) M/mcL Hgb (11.5-15.4) g/dL Hct (35.3-44.9) % MCV (83.0-100.0) fL MCH (28.0-33.3) pg MCHC (31.6-35.5) g/dL RDW (11.5-14.5) % Plt Count (140-400) K/mcL MPV (9.4-12.4) fL Immature Gran % (0-4) % Seg Neutrophils % % Lymphocytes % % Monocytes % % Eosinophils % % Basophils % % Neutrophils # (1.6-8.9) K/mcL Lymphocytes # (0.6-4.6) K/mcL Monocytes # (0.0-1.3) K/mcL Eosinophils # (0.0-0.6) K/mcL Basophils # (0.0-0.2) K/mcL Sodium (136-145) mEq/L Potassium (3.5-5.1) mEq/L Chloride (98-107) mEq/L Carbon Dioxide (23-29) mEq/L BUN (6-20) mg/dL Creatinine (0.60-1.20) mg/dL Est GFR ( Amer) (> 60) Est GFR (Non-Af Amer) (> 60) BUN/Creatinine Ratio (6-26) Glucose (70-105) mg/dL Calculated Osmolality (280-300) Lactic Acid 2.5 H (0.5-2.2) mmol/L Calcium (8.6-10.3) mg/dL Total Bilirubin (0.3-1.0) mg/dL AST (13-39) Units/L ALT (7-52) Units/L Alkaline Phosphatase (34-104) Units/L Serum Total Protein (6.4-8.9) g/dL Albumin (3.5-5.7) g/dL Globulin (2.4-3.5) g/dL Albumin/Globulin Ratio (1.1-2.2) Urine Color (Yellow) Urine Clarity (Clear) Urine pH (5.0-8.0) pH Units Ur Specific [place] (1.010-1.025) Urine Protein (Neg-Trace) mg/dL Urine Glucose (UA) (Normal) mg/dL Urine Ketones (Negative) mg/dL Urine Blood (Negative) Urine Nitrite (Negative) Urine Bilirubin (Negative) Urine Urobilinogen (Normal) mg/dL Ur Leukocyte Esterase (Negative) Urine Microscopic RBC (0-3) per hpf Urine Microscopic WBC (0-3) per hpf Ur Squamous Epith Cells (None-Few) per lpf Urine Bacteria (None-Few) per hpf Hyaline Casts (None-Few) per lpf Ur Culture Indicated? (NO) - Radiology Data Radiology results reviewed: Yes I reviewed the patient's radiology results. - EKG Data EKG attestation: Yes I reviewed and interpreted this EKG. EKG results narrative: EKG shows sinus rhythm with a heart rate of 112. MS 150. QRS 86. QTC 440. Patient has no significant ST elevations or depressions. She does have T-wave inversions in lead 3. No significant change from 10/12/17.
[2017-10-27 12:28] LABS: Bilirubin,Urine Small (Negative); Blood,Urine Large (Negative); Clarity,Urine Cloudy (Clear); Glucose,Urine (UA) Normal (Normal); Ketones,Urine Trace mg/dL (Negative); Leukocyte Esterase,Urine Large (Negative); Nitrite,Urine Positive (Negative); PH,Urine 6.5 pH Units (5.0-8.0); Protein,Urine 100 mg/dL (Neg-Trace); Urobilinogen,Urine Normal (Normal)
[2017-10-27 12:30] LABS: Bacteria,Urine None Seen per hpf (None-Few); Hyaline Casts,Urine None Seen per lpf (None-Few); RBC,Urine TNTC per hpf (0-3); Squamous Epithelial Cell,Urine Many per lpf (None-Few); WBC,Urine TNTC per hpf (0-3)
[2017-10-27 12:33] LABS: Color,Urine Yellow (Yellow)
[2017-10-27] MEDS ORDERED: *HR* OxyCODONE/APAP 5/325 TABLET PO ONE (12:33)
[2017-10-27] MEDS ORDERED: Ondansetron 4 MG/2 ML VIAL IVP ONE (12:33)
[2017-10-27] MEDS ORDERED: Ipratropium/Albuterol Neb 3 ML IH ONE (12:33)
[2017-10-27 13:11] LABS: Basophils % 0.2 %; Eosinophils % 0.1 %; Hematocrit 40.2 % (35.3-44.9); Hemoglobin 13.5 g/dL (11.5-15.4); Immature Granulocytes % 1.6 % (0-4); Lymphocytes # 1.1 K/mcL (0.6-4.6); Mean Corpuscular HGB Conc 33.6 g/dL (31.6-35.5); Mean Corpuscular Hemoglobin 31.4 pg (28.0-33.3); Mean Corpuscular Volume 93.5 fL (83.0-100.0); Mean Platelet Volume 11.3 fL (9.4-12.4); Monocytes # 1.2 K/mcL (0.0-1.3); Monocytes % 6.2 %; Neutrophils # 16.2 K/mcL (1.6-8.9); Platelet Count 181 K/mcL (140-400); Red Cell Distribution Width 13.5 % (11.5-14.5); Segmented Neutrophils % 85.9 %
[2017-10-27 13:25] LABS: Albumin 3.8 g/dL (3.5-5.7); Albumin/Globulin Ratio 1.2 (1.1-2.2); Bilirubin,Total 1.7 mg/dL (0.3-1.0); Calcium 9.7 mg/dL (8.6-10.3); Globulin 3.2 g/dL (2.4-3.5); Potassium 3.7 mEq/L (3.5-5.1)
[2017-10-27] MEDS ORDERED: Piperacillin/Tazobactam 3.375 GM in 0.9 % Sodium Chloride Mini Bag 100 ML IVPB ONE (13:27)
[2017-10-27] MEDS ORDERED: Naloxone 0.4 MG/ML INJ IVP PRN (17:02)
--- NOTE | 2017-10-27 17:12 | Internal Med History&Physical ---
Date of Encounter: 10/27/17 Time of Encounter: 17:08 Internal Medicine - H&P: HPI Chief complaint: fever Admitted From: Home Plans for Post Hospital Care: Home History of present illness: Ms. Colon is a 47 year old female presents for evaluation of fever. Patient had recent urologic procedure and stent placement secondary to kidney stone. Patient has had urinary tract infections most recently which was diagnosed on with culture showing sanchez sensitivity. The patient presents today she has been having fevers as well as feelings of generalized malaise. Patient had a fall last night. No significant injury after the fall. Patient's urologic procedure and discharge summary have been evaluated. Patient was told to remove stent after about 3 days. The patient has left this in secondary to the request of the urologist. Abx was prescribed by urology as well but the patient has not been feeling any better. At the ED, she was found to have low fever and tachycardia, labs revealed elevated creatinine and lactic acid. Repeat KUB showed left side JJ stent. Pt received one dose of abx and will be admitted for further evaluation and management. Urology was consulted. Past Med Surg Social Fam HX - Past Medical History Medical history: fibromyalgia Additional medical history: menieres disease Psychiatric history: depression - Past Surgical History Additional surgical history: breast reduction - Social History Smoking Status: Current some day smoker Smokeless Tobacco Status: No Alcohol use: none Drug use: none Internal Medicine - H&P: Meds Cyclobenzaprine [Flexeril] 10 mg PO TID PRN 10/13/17 [History] Dexlansoprazole [Dexilant] 60 mg PO DAILY 10/13/17 [History] Duloxetine HCl [Cymbalta] 60 mg PO BID 10/13/17 [History] Modafinil [Provigil] 200 mg PO DAILY PRN 10/13/17 [History] Multivit-Min/FA/Lycopen/Lutein [A Thru Z Select Multivit Tab] 1 tab PO DAILY 02/18 [History] Promethazine [Phenergan] 25 mg PO Q6HR PRN 10/13/17 [History] SUMAtriptan Succinate [Imitrex] 50 mg PO DAILY PRN 10/13/17 [History] diazePAM [Valium] 5 mg PO DAILY 10/13/17 [History] Fluconazole [Diflucan] 150 mg PO DAILY PRN #7 tab 10/22/17 [Rx] OxyCODONE Immed Rel [Roxicodone 10 MG] 10 mg PO Q8H 5 Days #20 tab 10/22/17 [Rx] Phenazopyridine [Pyridium] 200 mg PO TID PRN #14 tablet 10/22/17 [Rx] ARIPiprazole [Abilify] 2 mg PO DAILY 10/27/17 [History] 3 Allergy/AdvReac Type Severity Reaction Status Date / Time Hydromorphone [From Dilaudid] Allergy Itching Verified 10/27/17 12:17 levofloxacin [From Levaquin] Allergy Itching Verified 10/27/17 12:17 prochlorperazine Allergy Anxiety Verified 10/27/17 12:17 [From Compazine] All Systems PM: A 10-system review of systems was performed and is negative for pertinent findings except as documented above in the HPI. Review of systems: REVIEW OF SYSTEMS: CONSTITUTIONAL: see HPI. HEENT: Eyes: No visual loss, blurred vision, double vision or yellow sclerae. Ears, Nose, Throat: No hearing loss, sneezing, congestion, runny nose or sore throat. SKIN: No rash or itching. CARDIOVASCULAR: No chest pain, chest pressure or chest discomfort. No palpitations or edema. RESPIRATORY: No shortness of breath, cough or sputum. GASTROINTESTINAL: No anorexia, nausea, vomiting or diarrhea. No abdominal pain or blood. GENITOURINARY: No dysuria, urgency, or frequency, see HPI. NEUROLOGICAL: No headache, dizziness, syncope, paralysis, ataxia, numbness or tingling in the extremities. No change in bowel or bladder control. MUSCULOSKELETAL: No muscle, back pain, joint pain or stiffness. HEMATOLOGIC: No anemia, bleeding or bruising. LYMPHATICS: No enlarged nodes. No history of splenectomy. PSYCHIATRIC: No history of depression or anxiety. ENDOCRINOLOGIC: No reports of sweating, cold or heat intolerance. No polyuria or polydipsia. - Constitutional Vitals: Temp Pulse Resp BP Pulse Ox 98.6 F 100 14 110/72 93 10/27/17 16:41 10/27/17 16:41 10/27/17 16:41 10/27/17 16:41 10/27/17 16:41 General appearance: Present: cooperative, A&O X 3, answers questions appropriately Exam: PHYSICAL EXAMINATION: GENERAL APPEARANCE: The patient is alert, oriented and in no acute distress. HEENT: Head is normocephalic. The sinuses are nontender. Pupils are equal and reactive. The nares are patent. Oropharynx clear without lesions. NECK: Supple without lymphadenopathy. HEART: Regular rate and rhythm. LUNGS: No crackles or wheezes are heard. ABDOMEN: Soft, nontender, nondistended with good bowel sounds heard. Inguinal area is normal. EXTREMITIES: Without cyanosis, clubbing or edema. NEUROLOGICAL: Gross nonfocal. SKIN: Warm and dry without any rash. Internal Med - H&P Results - Labs CBC & Chem 7: 10/27/17 12:35 10/27/17 12:35 - Assessment and plan (1) Sepsis Current Visit: No Status: Acute Assessment and plan: Hx of nephrolithiasis, recent JJ stents placement, complicated with UTI, received oral abx as outpatient, presented with fever and fatique, labs showed elevated lactic acid and creatinine, urosepsis was suspected, Pt received one dose of Zosyn at the ED. - Had UTI in last admission, urine culture showed E. Coli, sensitive to all the abx tested including Zosyn. we will continue Zosyn, started IVF. - Cycle lactic acid. monitor renal function. - KUB showed ureteral stents in the left side, Urology following. Qualifiers: Sepsis type: sepsis due to unspecified organism Qualified Code(s): A41.9 - Sepsis, unspecified organism (2) Urinary tract infection Current Visit: No Status: Acute Assessment and plan: - same as above Qualifiers: Urinary tract infection type: site unspecified Hematuria presence: without hematuria Qualified Code(s): N39.0 - Urinary tract infection, site not specified (3) Depression Current Visit: Yes Status: Acute Assessment and plan: continue home meds. Qualifiers: Depression Type: unspecified Qualified Code(s): F32.9 - Major depressive disorder, single episode, unspecified (4) Fibromyalgia Current Visit: Yes Status: Acute Assessment and plan: continue home meds. (5) DVT prophylaxis Current Visit: Yes Status: Acute Assessment and plan: heparin sq (6) Ureteral stent retained Current Visit: Yes Status: Acute Assessment and plan: urology following. - Time Spent With Patient Total time spent is greater than 50% in coordination of care (as documented) at patient's floor/unit and/or counseling patient: Greater than 35 minutes
[2017-10-27] MEDS: Acetaminophen 325 MG TABLET PO PRN (20:36)
[2017-10-27] MEDS: *HR* Heparin 5,000 UNIT/ML VIAL SQ SCH (20:47)
[2017-10-27] MEDS ORDERED: NON-FORMULARY MEDICATION 1 EACH EACH (Duloxetine Hcl [Cymbalta] 60 MG) PO SCH (21:00)
[2017-10-27] MEDS: Ondansetron 4 MG/2 ML VIAL IVP PRN (21:44)
[2017-10-28] MEDS ORDERED: Ondansetron 4 MG/2 ML VIAL IVP SCH
[2017-10-28] MEDS: Piperacillin/Tazobactam 3.375 GM in 0.9 % Sodium Chloride Mini Bag 100 ML IVPB SCH ×4 (00:12→23:49)
[2017-10-28] MEDS: traMADol 50 MG TABLET PO PRN ×3 (00:12→19:00)
[2017-10-28] MEDS: SUMAtriptan succinate 50 MG TABLET PO PRN (01:18)
[2017-10-28] MEDS: Ondansetron 4 MG/2 ML VIAL IVP PRN ×2 (03:50→16:51)
[2017-10-28] MEDS: Acetaminophen 325 MG TABLET PO PRN ×2 (03:57→16:51)
[2017-10-28 04:23] LABS: Basophils % 0.2 %; Eosinophils % 0.3 %; Immature Granulocytes % 1.4 % (0-4); Lymphocytes # 1.4 K/mcL (0.6-4.6); Lymphocytes % 11.8 %; Mean Corpuscular HGB Conc 33.6 g/dL (31.6-35.5); Mean Corpuscular Hemoglobin 31.7 pg (28.0-33.3); Mean Corpuscular Volume 94.3 fL (83.0-100.0); Mean Platelet Volume 11.9 fL (9.4-12.4); Monocytes # 1.5 K/mcL (0.0-1.3); Monocytes % 12.4 %; Neutrophils # 8.9 K/mcL (1.6-8.9); Platelet Count 134 K/mcL (140-400); Red Cell Distribution Width 13.4 % (11.5-14.5); Segmented Neutrophils % 73.9 %
[2017-10-28 04:24] LABS: Hemoglobin 11.1 g/dL (11.5-15.4)
[2017-10-28 04:38] LABS: BUN/Creatinine Ratio 12 (6-26); Blood Urea Nitrogen 13 mg/dL (6-20); Calcium 8.6 mg/dL (8.6-10.3); Carbon Dioxide 23 mEq/L (23-29); Chloride 103 mEq/L (98-107); Glucose 109 mg/dL (70-105); Osmolality,Calculated 263 (280-300); Potassium 3.8 mEq/L (3.5-5.1); Sodium 126 mEq/L (136-145); eGFR For Non-African Americans 54 (> 60)
[2017-10-28] MEDS: *HR* Heparin 5,000 UNIT/ML VIAL SQ SCH ×2 (06:09→18:59)
[2017-10-28] MEDS: Multivit/Ca/Min/Fe/FA 1 TAB TABLET PO SCH (08:09)
[2017-10-28] MEDS: diazePAM 5 MG TABLET PO SCH (08:09)
[2017-10-28] MEDS: ARIPiprazole 2 MG TABLET PO SCH (08:10)
--- NOTE | 2017-10-28 08:49 | Urology - Consult Note ---
<JuanbarbieRomina N - Last Filed: 10/28/17 08:44> Date of Encounter: 10/28/17 Time of Encounter: 08:44 - Assessment and Plan (1) Ureteral stent retained Current Visit: Yes Status: Acute Assessment and plan: Will continue with stent placement until patient is afebrile for at least 24 hours and blood cultures are resulted. (2) Urinary tract infection Current Visit: No Status: Acute Assessment and plan: Patient is a 47 year old female 6 days status post left ureteral stent removal, left distal ureteroscopy, laser lithotripsy, basket stone extraction, stent placement, staged left proximal ureteroscopy, laser lithotripsy. Patient presents with urinary tract infection for which she is being treated with IV Zosyn. Patient feeling overall improvement. Last documented fever approximately 8 hours ago. Will continue to monitor, await blood cultures, and discuss stent removal once patient remains afebrile. Qualifiers: Urinary tract infection type: site unspecified Hematuria presence: without hematuria Qualified Code(s): N39.0 - Urinary tract infection, site not specified Urology CN:HPI Consult date: 10/28/17 Reason for consult Urology: Other (UTI) History of present illness: Patient is a 47-year-old female who is 6 days post operative from left ureteral stent removal, left distal ureteroscopy, laser lithotripsy, basket stone extraction, stent placemen, staged left proximal ureteroscopy, laser lithotripsy. Patient presented to the emergency department with febrile illness , weakness and dysuria. Patient was admitted and placed on IV Zosyn. Urine culture was positive for E. Coli with broad sensitivity on 10/12/17. Blood culture is pending. Patient is sitting upright in bed eating breakfast and states she is feeling better. Patient admits to stent discomfort, dysuria, frequency. Patient denies gross hematuria, flank pain, chills or diaphoresis. Past Med Surg Social Fam HX - Past Medical History Medical history: fibromyalgia Additional medical history: menieres disease Psychiatric history: depression - Past Surgical History Additional surgical history: breast reduction - Social History Smoking Status: Current some day smoker Smokeless Tobacco Status: No Alcohol use: none Drug use: none Medications and Allergies Cyclobenzaprine [Flexeril] 10 mg PO TID PRN 10/13/17 [History] Dexlansoprazole [Dexilant] 60 mg PO DAILY 10/13/17 [History] Duloxetine HCl [Cymbalta] 60 mg PO BID 10/13/17 [History] Modafinil [Provigil] 200 mg PO DAILY PRN 10/13/17 [History] Multivit-Min/FA/Lycopen/Lutein [A Thru Z Select Multivit Tab] 1 tab PO DAILY 02/18 [History] Promethazine [Phenergan] 25 mg PO Q6HR PRN 10/13/17 [History] SUMAtriptan Succinate [Imitrex] 50 mg PO DAILY PRN 10/13/17 [History] diazePAM [Valium] 5 mg PO DAILY 10/13/17 [History] Fluconazole [Diflucan] 150 mg PO DAILY PRN #7 tab 10/22/17 [Rx] OxyCODONE Immed Rel [Roxicodone 10 MG] 10 mg PO Q8H 5 Days #20 tab 10/22/17 [Rx] Phenazopyridine [Pyridium] 200 mg PO TID PRN #14 tablet 10/22/17 [Rx] ARIPiprazole [Abilify] 2 mg PO DAILY 10/27/17 [History] 3 Allergy/AdvReac Type Severity Reaction Status Date / Time Hydromorphone [From Dilaudid] Allergy Itching Verified 10/27/17 12:17 levofloxacin [From Levaquin] Allergy Itching Verified 10/27/17 12:17 prochlorperazine Allergy Anxiety Verified 10/27/17 12:17 [From Compazine] Review of Systems - Constitutional chills, fatigue, fever(s), weakness - EENT Nose, mouth and throat: headache(s), no dizziness - Cardiovascular no chest pain, no dyspnea - Respiratory no cough, no dyspnea - Gastrointestinal nausea, no abdominal pain, no vomiting - Genitourinary Genitourinary: dysuria, urinary frequency, urinary urgency, no flank pain, no hematuria, no urinary hesitancy, no urinary incontinence - Musculoskeletal no back pain, no muscle weakness - Integumentary no erythema, no lesions, no rash - Neurological weakness, other (patient had fall at home but not syncopal episode), no confusion, no syncope - Psychiatric no anxiety, no confusion Exam Initial Vital Signs Temp Pulse Resp BP Pulse Ox 100 F H 107 22 103/64 96 10/27/17 12:10 10/27/17 12:10 10/27/17 12:10 10/27/17 12:10 10/27/17 12:10 - General physical appearance Present: well developed, well nourished, no distress, no pain - Eyes Present: PERRL, normal ocular movement - ENT Present: normal nares, no hearing loss. Absent: nasal discharge - Neck Present: no masses, trachea midline - Respiratory Present: normal respiratory effort - Cardiovascular Cardiovascular exam IM: RRR - Abdomen Abdomen: Present: soft, non tender. Absent: distended - Integumentary Present: no rash, no abnormal pigmentation - Neurologic Present: normal coordination. Absent: disoriented - Musculoskeletal Present: other (normal posture, no pedal edema ) Urology Results - Labs 10/28/17 03:25 10/28/17 03:25 Abnormal lab results WBC 12.0 K/mcL (4.3-11.1) H 10/28/17 03:25 RBC 3.50 M/mcL (3.82-4.97) L 10/28/17 03:25 Hgb 11.1 g/dL (11.5-15.4) L D 10/28/17 03:25 Hct 33.0 % (35.3-44.9) L 10/28/17 03:25 Plt Count 134 K/mcL (140-400) L 10/28/17 03:25 Monocytes # 1.5 K/mcL (0.0-1.3) H 10/28/17 03:25 Sodium 126 mEq/L (136-145) L 10/28/17 03:25 Est GFR (Non-Af Amer) 54 (> 60) L 10/28/17 03:25 Glucose 109 mg/dL (70-105) H 10/28/17 03:25 Calculated Osmolality 263 (280-300) L 10/28/17 03:25 Total Bilirubin 1.7 mg/dL (0.3-1.0) H 10/27/17 12:35 Alkaline Phosphatase 111 Units/L (34-104) H 10/27/17 12:35 Urine Clarity Cloudy (Clear) A 10/27/17 12:21 Urine Protein 100 mg/dL (Neg-Trace) H 10/27/17 12:21 Urine Ketones Trace mg/dL (Negative) H 10/27/17 12:21 Urine Blood Large (Negative) H 10/27/17 12:21 Urine Nitrite Positive (Negative) A 10/27/17 12:21 Urine Bilirubin Small (Negative) H 10/27/17 12:21 Ur Leukocyte Esterase Large (Negative) H 10/27/17 12:21 Urine Microscopic RBC TNTC per hpf (0-3) H 10/27/17 12:21 Urine Microscopic WBC TNTC per hpf (0-3) H 10/27/17 12:21 Ur Squamous Epith Cells Many per lpf (None-Few) H 10/27/17 12:21 Ur Culture Indicated? NO. (NO) A 10/27/17 12:21 Diabetes panel 10/28/17 Range/Units 03:25 Sodium 126 L (136-145) mEq/L Potassium 3.8 (3.5-5.1) mEq/L Chloride 103 (98-107) mEq/L Carbon Dioxide 23 (23-29) mEq/L BUN 13 (6-20) mg/dL Creatinine 1.08 (0.60-1.20) mg/dL Glucose 109 H (70-105) mg/dL Calcium 8.6 (8.6-10.3) mg/dL Calcium panel 10/28/17 Range/Units 03:25 Calcium 8.6 (8.6-10.3) mg/dL Pituitary panel 10/28/17 Range/Units 03:25 Sodium 126 L (136-145) mEq/L Potassium 3.8 (3.5-5.1) mEq/L Chloride 103 (98-107) mEq/L Carbon Dioxide 23 (23-29) mEq/L BUN 13 (6-20) mg/dL Creatinine 1.08 (0.60-1.20) mg/dL Glucose 109 H (70-105) mg/dL Calcium 8.6 (8.6-10.3) mg/dL Adrenal panel 10/28/17 Range/Units 03:25 Sodium 126 L (136-145) mEq/L Potassium 3.8 (3.5-5.1) mEq/L Chloride 103 (98-107) mEq/L Carbon Dioxide 23 (23-29) mEq/L BUN 13 (6-20) mg/dL Creatinine 1.08 (0.60-1.20) mg/dL Glucose 109 H (70-105) mg/dL Calcium 8.6 (8.6-10.3) mg/dL All other labs normal. Consult Discharge Plan - Plan Referrals: Jesse Lovelace MD [Primary Care Provider] - <Brock Benson - Last Filed: 10/28/17 12:46> Date of Encounter: 10/28/17 Exam Initial Vital Signs Temp Pulse Resp BP Pulse Ox 100 F H 107 22 103/64 96 10/27/17 12:10 10/27/17 12:10 10/27/17 12:10 10/27/17 12:10 10/27/17 12:10 Urology Results - Labs 10/28/17 03:25 10/28/17 03:25 Abnormal lab results WBC 12.0 K/mcL (4.3-11.1) H 10/28/17 03:25 RBC 3.50 M/mcL (3.82-4.97) L 10/28/17 03:25 Hgb 11.1 g/dL (11.5-15.4) L D 10/28/17 03:25 Hct 33.0 % (35.3-44.9) L 10/28/17 03:25 Plt Count 134 K/mcL (140-400) L 10/28/17 03:25 Monocytes # 1.5 K/mcL (0.0-1.3) H 10/28/17 03:25 Sodium 126 mEq/L (136-145) L 10/28/17 03:25 Est GFR (Non-Af Amer) 54 (> 60) L 10/28/17 03:25 Glucose 109 mg/dL (70-105) H 10/28/17 03:25 Calculated Osmolality 263 (280-300) L 10/28/17 03:25 Total Bilirubin 1.7 mg/dL (0.3-1.0) H 10/27/17 12:35 Alkaline Phosphatase 111 Units/L (34-104) H 10/27/17 12:35 Urine Clarity Cloudy (Clear) A 10/27/17 12:21 Urine Protein 100 mg/dL (Neg-Trace) H 10/27/17 12:21 Urine Ketones Trace mg/dL (Negative) H 10/27/17 12:21 Urine Blood Large (Negative) H 10/27/17 12:21 Urine Nitrite Positive (Negative) A 10/27/17 12:21 Urine Bilirubin Small (Negative) H 10/27/17 12:21 Ur Leukocyte Esterase Large (Negative) H 10/27/17 12:21 Urine Microscopic RBC TNTC per hpf (0-3) H 10/27/17 12:21 Urine Microscopic WBC TNTC per hpf (0-3) H 10/27/17 12:21 Ur Squamous Epith Cells Many per lpf (None-Few) H 10/27/17 12:21 Ur Culture Indicated? NO. (NO) A 10/27/17 12:21 Diabetes panel 10/28/17 Range/Units 03:25 Sodium 126 L (136-145) mEq/L Potassium 3.8 (3.5-5.1) mEq/L Chloride 103 (98-107) mEq/L Carbon Dioxide 23 (23-29) mEq/L BUN 13 (6-20) mg/dL Creatinine 1.08 (0.60-1.20) mg/dL Glucose 109 H (70-105) mg/dL Calcium 8.6 (8.6-10.3) mg/dL Calcium panel 10/28/17 Range/Units 03:25 Calcium 8.6 (8.6-10.3) mg/dL Pituitary panel 10/28/17 Range/Units 03:25 Sodium 126 L (136-145) mEq/L Potassium 3.8 (3.5-5.1) mEq/L Chloride 103 (98-107) mEq/L Carbon Dioxide 23 (23-29) mEq/L BUN 13 (6-20) mg/dL Creatinine 1.08 (0.60-1.20) mg/dL Glucose 109 H (70-105) mg/dL Calcium 8.6 (8.6-10.3) mg/dL Adrenal panel 10/28/17 Range/Units 03:25 Sodium 126 L (136-145) mEq/L Potassium 3.8 (3.5-5.1) mEq/L Chloride 103 (98-107) mEq/L Carbon Dioxide 23 (23-29) mEq/L BUN 13 (6-20) mg/dL Creatinine 1.08 (0.60-1.20) mg/dL Glucose 109 H (70-105) mg/dL Calcium 8.6 (8.6-10.3) mg/dL All other labs normal. - Attending Attestation Patient seen and examined with the PA. She had left ureteroscopy last week with an indwelling stent with string attached. She has UTI with concern for SIRS. HR and BP are stable. Continue IV antibiotics. Await until her fever has resolved prior to removing stent. Urology will continue to follow along.
--- NOTE | 2017-10-28 10:01 | Internal Med Progress Note ---
Hospitalist Progress Note - Encounter Date of Encounter: 10/28/17 Time of Encounter: 09:59 - Subjective Interval History: Pt had episodes of fever overnight, with associated chills and malaise. No back or flank pain. - Exam Vitals: Temp Pulse Resp BP Pulse Ox 98.9 F 96 16 94/60 92 10/28/17 06:31 10/28/17 06:31 10/28/17 06:31 10/28/17 06:31 10/28/17 06:31 Exam: PHYSICAL EXAMINATION: GENERAL APPEARANCE: The patient is alert, oriented and in no acute distress. HEENT: Head is normocephalic. The sinuses are nontender. Pupils are equal and reactive. The nares are patent. Oropharynx clear without lesions. NECK: Supple without lymphadenopathy. HEART: Regular rate and rhythm. LUNGS: No crackles or wheezes are heard. ABDOMEN: Soft, nontender, nondistended with good bowel sounds heard. Inguinal area is normal. EXTREMITIES: Without cyanosis, clubbing or edema. NEUROLOGICAL: Gross nonfocal. SKIN: Warm and dry without any rash. - Assessment and Plan (1) Sepsis Current Visit: No Status: Acute Assessment and Plan: Hx of nephrolithiasis, recent JJ stents placement, complicated with UTI, received oral abx as outpatient, presented with fever and fatique, labs showed elevated lactic acid and creatinine, urosepsis was suspected, Pt received one dose of Zosyn at the ED. - Had UTI in last admission, urine culture showed E. Coli, sensitive to all the abx tested including Zosyn. we will continue Zosyn, started IVF. - Cycle lactic acid normalized. renal function improved. Leukocytosis improved. - KUB showed ureteral stents in the left side. Had fever overnight, urology rec to leave stents for now. - Urology following. (2) Urinary tract infection Current Visit: No Status: Acute Assessment and Plan: - same as above (3) Depression Current Visit: Yes Status: Acute Assessment and Plan: continue home meds. (4) Fibromyalgia Current Visit: Yes Status: Acute Assessment and Plan: continue home meds. (5) Ureteral stent retained Current Visit: Yes Status: Acute Assessment and Plan: urology following. (6) DVT prophylaxis Current Visit: Yes Status: Acute Assessment and Plan: heparin sq - Time Spent with Patient Total time spent is greater than 50% in coordination of care (as documented) at patient's floor/unit and/or counseling patient: Greater than 35 minutes Plan of Care Discussed with: patient Internal Medicine: Result - Labs CBC & Chem 7: 10/28/17 03:25 10/28/17 03:25 Labs: Short CBC 10/28/17 Range/Units 03:25 WBC 12.0 H (4.3-11.1) K/mcL Hgb 11.1 L D (11.5-15.4) g/dL Hct 33.0 L (35.3-44.9) % Plt Count 134 L (140-400) K/mcL Neutrophils # 8.9 (1.6-8.9) K/mcL BMP 10/28/17 03:25 Sodium 126 L Potassium 3.8 Chloride 103 Carbon Dioxide 23 BUN 13 Creatinine 1.08 Glucose 109 H Calcium 8.6 Consult Discharge Plan - Plan Referrals: Jesse Lovelace MD [Primary Care Provider] - (1) Sepsis Qualifiers: Sepsis type: sepsis due to unspecified organism Qualified Code(s): A41.9 - Sepsis, unspecified organism (2) Urinary tract infection Qualifiers: Urinary tract infection type: site unspecified Hematuria presence: without hematuria Qualified Code(s): N39.0 - Urinary tract infection, site not specified (3) Depression Qualifiers: Depression Type: unspecified Qualified Code(s): F32.9 - Major depressive disorder, single episode, unspecified
[2017-10-28] MEDS: Albuterol 2.5 MG/3 ML NEBULIZER IH PRN (19:29)
[2017-10-29] MEDS: traMADol 50 MG TABLET PO PRN (03:09)
[2017-10-29] MEDS: Ondansetron 4 MG/2 ML VIAL IVP PRN (03:10)
[2017-10-29] MEDS: *HR* Heparin 5,000 UNIT/ML VIAL SQ SCH ×2 (05:26→18:19)
[2017-10-29 06:00] LABS: Hematocrit 33.7 % (35.3-44.9); Hemoglobin 11.2 g/dL (11.5-15.4); Mean Corpuscular HGB Conc 33.2 g/dL (31.6-35.5); Mean Corpuscular Hemoglobin 31.5 pg (28.0-33.3); Mean Corpuscular Volume 94.7 fL (83.0-100.0); Mean Platelet Volume 11.6 fL (9.4-12.4); Platelet Count 178 K/mcL (140-400); Red Blood Count 3.56 M/mcL (3.82-4.97); Red Cell Distribution Width 13.7 % (11.5-14.5)
[2017-10-29 06:14] LABS: BUN/Creatinine Ratio 14 (6-26); Blood Urea Nitrogen 11 mg/dL (6-20); Calcium 8.5 mg/dL (8.6-10.3); Carbon Dioxide 23 mEq/L (23-29); Chloride 104 mEq/L (98-107); Glucose 87 mg/dL (70-105); Osmolality,Calculated 273 (280-300); Potassium 4.1 mEq/L (3.5-5.1); Sodium 132 mEq/L (136-145); eGFR For Non-African Americans > 60 (> 60)
[2017-10-29 06:57] LABS: Lymphocytes # 2.5 K/mcL (0.6-4.6); Monocytes # 0.7 K/mcL (0.0-1.3); Neutrophils # 5.2 K/mcL (1.6-8.9); Platelet Estimate Normal (Normal)
--- NOTE | 2017-10-29 07:56 | Event Note ---
Date of Encounter: 10/29/17 Time of Encounter: 07:54 Patient seen and examined sitting upright in bed. States feeling much better. Ureteral stent was successfully removed at bedside. Patient tolerated well with no complications or concerns.
--- NOTE | 2017-10-29 07:59 | Urology Progress Note ---
Date of Encounter: 10/29/17 Time of Encounter: 07:56 - Assessment and Plan (1) Ureteral stent retained Current Visit: Yes Status: Acute Assessment and plan: Patient is a 47 year old female who is 7 days postoperative from left ureteral stent removal, left distal ureteroscopy, laser lithotripsy, basket stone extraction, stent placement, staged left proximal ureteroscopy, laser lithotripsy. Ureteral stent was removed successfully at bedside, and patient tolerated well. (2) Urinary tract infection Current Visit: No Status: Acute Assessment and plan: Patient is a 47 year old female who presents with urinary tract infection that is culture positive for gram negative rods. Sensitivity report is pending. Blood cultures pending. Patient has been treated with IV Zosyn and is greatly improved. Patient is now 24 hours afebrile and status post ureteral stent removal. Will discharge patient with oral antibiotics after sensitivity report is resulted. Qualifiers: Urinary tract infection type: site unspecified Hematuria presence: without hematuria Qualified Code(s): N39.0 - Urinary tract infection, site not specified Progress Note Subjective: no new complaints, feels better, tolerating a regular diet, voiding w/o difficulty, afebrile Narrative: Patient seen and examined sitting upright in bed in no apparent distress. Patient tolerating normal diet. Voiding without difficulty. Admits to frequency , urgency and mild dysuria. Denies gross hematuria, flank pain, fever, chills. Vital signs stable, and patient is afebrile. Objective Initial Vital Signs Temp Pulse Resp BP Pulse Ox 100 F H 107 22 103/64 96 10/27/17 12:10 10/27/17 12:10 10/27/17 12:10 10/27/17 12:10 10/27/17 12:10 - General physical appearance Present: well developed, well nourished, no distress, no pain - Respiratory Present: normal expansion, normal respiratory effort - Abdomen Present: soft, non tender. Absent: guarding, distended - Genitourinary Present: normal external genitalia - Integumentary Present: no rash, no abnormal pigmentation - Musculoskeletal Present: normal posture, other (no pedal edema ) - Psychiatric Present: oriented to time, oriented to person, oriented to place, speech is normal, memory intact - Labs 10/29/17 04:52 10/29/17 04:52 Diabetes panel 10/29/17 Range/Units 04:52 Sodium 132 L (136-145) mEq/L Potassium 4.1 (3.5-5.1) mEq/L Chloride 104 (98-107) mEq/L Carbon Dioxide 23 (23-29) mEq/L BUN 11 (6-20) mg/dL Creatinine 0.79 (0.60-1.20) mg/dL Glucose 87 (70-105) mg/dL Calcium 8.5 L (8.6-10.3) mg/dL Calcium panel 10/29/17 Range/Units 04:52 Calcium 8.5 L (8.6-10.3) mg/dL Pituitary panel 10/29/17 Range/Units 04:52 Sodium 132 L (136-145) mEq/L Potassium 4.1 (3.5-5.1) mEq/L Chloride 104 (98-107) mEq/L Carbon Dioxide 23 (23-29) mEq/L BUN 11 (6-20) mg/dL Creatinine 0.79 (0.60-1.20) mg/dL Glucose 87 (70-105) mg/dL Calcium 8.5 L (8.6-10.3) mg/dL Adrenal panel 10/29/17 Range/Units 04:52 Sodium 132 L (136-145) mEq/L Potassium 4.1 (3.5-5.1) mEq/L Chloride 104 (98-107) mEq/L Carbon Dioxide 23 (23-29) mEq/L BUN 11 (6-20) mg/dL Creatinine 0.79 (0.60-1.20) mg/dL Glucose 87 (70-105) mg/dL Calcium 8.5 L (8.6-10.3) mg/dL Consult Discharge Plan - Plan Referrals: Jesse Lovelace MD [Primary Care Provider] -
[2017-10-29] MEDS: ARIPiprazole 2 MG TABLET PO SCH (10:05)
[2017-10-29] MEDS: Piperacillin/Tazobactam 3.375 GM in 0.9 % Sodium Chloride Mini Bag 100 ML IVPB SCH ×2 (10:06→18:19)
[2017-10-29] MEDS: diazePAM 5 MG TABLET PO SCH (10:07)
[2017-10-29] MEDS: Multivit/Ca/Min/Fe/FA 1 TAB TABLET PO SCH (10:07)
[2017-10-29] MEDS: DEXLANSOPRAZOLE PO SCH (10:07)
[2017-10-29] MEDS: Albuterol 2.5 MG/3 ML NEBULIZER IH PRN (10:13)
--- NOTE | 2017-10-29 13:21 | Internal Med Progress Note ---
Hospitalist Progress Note - Encounter Date of Encounter: 10/29/17 Time of Encounter: 08:30 - Subjective Interval History: she reports that she is feeling better than yesterday. was evaluated by urology and had her stent removed. she denies any fever, chills, N/V/D, chest pain, SOB her appetite has decreased but she feels hungry this morning so she feels as though its coming back pain is controlled - Exam Vitals: Temp Pulse Resp BP Pulse Ox 98.4 F 100 17 106/71 93 10/29/17 10:42 10/29/17 10:42 10/29/17 10:42 10/29/17 10:42 10/29/17 10:42 Exam: General: Patient is alert, oriented, no acute distress, morbidly obese Head: atraumatic, normocephalic, Eye: normal appearance, PERRL, no scleral icterus, no conjunctival injection ENT: mucous membranes moist, normal external ear exam Neck: normal inspection, trachea midline, full ROM, no carotid bruits Chest: normal inspection, symmetric chest rise Respiratory: Good respiratory effort. Bilateral breath sounds are clear without wheezing, crackles, or rhonchi. Cardiovascular: Regular rate and rhythm. s1 and s2 No clicks, rubs, gallops, or murmors. Abdomen: Bowel sounds present normoactive x-4 quadrants. Abdomen is soft, nondistended. no Epigastric tenderness. No guarding or rebound. No organomegaly noted, obese, no CVA tenderness musculoskeletal: Spontaneously moving all extremities. no edema, no calf tenderness Skin: warm, dry, intact. Neuro: Alert and oriented x4. Sensation light touch intact. Cranial nerves 2- 12 is intact. Not aphasic, no focal deficit Psych: Patient's affect is normal - Assessment and Plan (1) Complicated urinary tract infection Current Visit: Yes Status: Acute Assessment and Plan: complicated UTI secondary to psuedomonas aeruginosa - sanchez sensitive will continue IVF and IV Abx ( Zosyn) tonight urine culture followed - will DC patient tomorrow on levaquin PO ( still is border line hypotensive) urology on board - s/p stent removal on 10/29/17 (2) Sepsis Current Visit: No Status: Acute Assessment and Plan: secondary to above now resolved management as per above bcx remain negative (3) Ureteral stent retained Current Visit: Yes Status: Acute Assessment and Plan: urology following- s/p stent removal on 10/29/17 (4) Depression Current Visit: Yes Status: Acute Assessment and Plan: continue home meds. (5) Fibromyalgia Current Visit: Yes Status: Acute Assessment and Plan: continue home meds. (6) DVT prophylaxis Current Visit: Yes Status: Acute Assessment and Plan: heparin sq (7) Obesity (BMI 35.0-39.9 without comorbidity) Current Visit: Yes Status: Acute Assessment and Plan: was counseled on nutrition (8) Obesity (BMI 30-39.9) Current Visit: Yes Status: Acute DVT Prophylaxis: as per above - Time Spent with Patient Total time spent is greater than 50% in coordination of care (as documented) at patient's floor/unit and/or counseling patient: Internal Medicine: Result - Labs CBC & Chem 7: 10/29/17 04:52 10/29/17 04:52 Consult Discharge Plan - Plan Referrals: Jesse Lovelace MD [Primary Care Provider] - (2) Sepsis Qualifiers: Sepsis type: sepsis due to unspecified organism Qualified Code(s): A41.9 - Sepsis, unspecified organism (4) Depression Qualifiers: Depression Type: unspecified Qualified Code(s): F32.9 - Major depressive disorder, single episode, unspecified
[2017-10-29] MEDS: Acetaminophen 325 MG TABLET PO PRN (19:40)
[2017-10-29] MEDS: SUMAtriptan succinate 50 MG TABLET PO PRN (20:53)
[2017-10-30] MEDS: Piperacillin/Tazobactam 3.375 GM in 0.9 % Sodium Chloride Mini Bag 100 ML IVPB SCH (00:11)
[2017-10-30] MEDS: *HR* Heparin 5,000 UNIT/ML VIAL SQ SCH (06:07)
[2017-10-30] MEDS ORDERED: Ondansetron ODT 4 MG TAB.RAPDIS SL PRN (06:51)
--- NOTE | 2017-10-30 07:40 | Electrocardiograph Report ---
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
[2017-10-30 07:55] VITALS: BP 109/75
--- NOTE | 2017-10-30 08:30 | Urology Progress Note ---
Date of Encounter: 10/30/17 Time of Encounter: 07:40 - Assessment and Plan (1) Ureteral stent retained Current Visit: Yes Status: Acute (2) Urinary tract infection Current Visit: No Status: Acute Assessment and plan: Patient is a 47 year old female who presents with gram negative rods in urine culture. Sensitivity report shows pseudomonas that is susceptible only to Levaquin orally. Patient states she is allergic to Levaquin. Decision has been made to proceed with port placement for IV antibiotic infusions outpatient. Home health care will be arranged to administer antibiotics per hospitalist. Anticipating discharge later today. Qualifiers: Urinary tract infection type: site unspecified Hematuria presence: without hematuria Qualified Code(s): N39.0 - Urinary tract infection, site not specified Progress Note Subjective: no new complaints, feels better, tolerating a regular diet, afebrile Narrative: Patient seen and examined sitting upright in bed in no apparent distress. at bedside. Tolerating normal diet. Voiding without difficulty. Urgency and Frequency have improved since stent removal. Patient states pain is well controlled. TMax 100.0 last night. Patient denies fever, chills, flank pain, hematuria, dysuria. Awaiting port placement. Patient inquiring about discharge. Objective Initial Vital Signs Temp Pulse Resp BP Pulse Ox 100 F H 107 22 103/64 96 10/27/17 12:10 10/27/17 12:10 10/27/17 12:10 10/27/17 12:10 10/27/17 12:10 - General physical appearance Present: well developed, well nourished, no pain - Respiratory Present: normal expansion, normal respiratory effort - Abdomen Present: soft, non tender - Integumentary Present: no rash, no abnormal pigmentation - Musculoskeletal Present: normal posture - Psychiatric Present: oriented to time, oriented to person, oriented to place, speech is normal, memory intact - Labs 10/29/17 04:52 10/29/17 04:52 Consult Discharge Plan - Plan Referrals: Jesse Lovelace MD [Primary Care Provider] -
[2017-10-30] MEDS: ARIPiprazole 2 MG TABLET PO SCH (08:52)
[2017-10-30] MEDS: diazePAM 5 MG TABLET PO SCH (09:01)
[2017-10-30] MEDS: Multivit/Ca/Min/Fe/FA 1 TAB TABLET PO SCH (09:01)
[2017-10-30] MEDS: DEXLANSOPRAZOLE PO SCH (09:07)
--- NOTE | 2017-10-30 09:56 | Discharge Summary ---
- NOTES TO OUTPATIENT PROVIDER Notes to Outpatient Provider: follow up with urology clinic Date of Encounter: 10/30/17 Time of Encounter: 09:52 - Discharge Diagnosis (1) Complicated urinary tract infection Priority: Primary Status: Acute (2) Sepsis Priority: Secondary Status: Acute Qualifiers: Sepsis type: sepsis due to unspecified organism Qualified Code(s): A41.9 - Sepsis, unspecified organism (3) Ureteral stent retained Priority: Secondary Status: Acute (4) Depression Priority: Secondary Status: Acute Qualifiers: Depression Type: unspecified Qualified Code(s): F32.9 - Major depressive disorder, single episode, unspecified (5) Fibromyalgia Priority: Secondary Status: Acute (6) DVT prophylaxis Priority: Secondary Status: Acute (7) Obesity (BMI 35.0-39.9 without comorbidity) Priority: Secondary Status: Acute (8) Obesity (BMI 30-39.9) Priority: Secondary Status: Acute (9) Smoker Priority: Secondary Status: Acute Hospital course: Ms. Colon is a 47 year old female Hx of nephrolithiasis, recent JJ stents placement, complicated with UTI, received oral abx as outpatient, presented with fever and fatigue. She was admitted for sepsis secondary to complicated urinary tract infection. She was started on IV antibiotics. Urology was consulted. Blood cultures and urine cultures were drawn. On October 29 Ureteral stent was removed successfully at bedside by urology team. Vitals remained stable, she remained afebrile. Blood cultures remained negative. Urine cultures showed psuedomonas aeruginosa - sanchez sensitive. Patient is allergic to Levaquin. So peripheral line was inserted by the team and she was discharged on cefepime for 10 days. correctional counselor/case manager and social workers on board and home health aide for infusion assistance was provided patient was counseled on smoking cessation Discharge discussed with: patient, family, social work, case management Time spent discussing smoking cessation with patient: 3 to 10 minutes - Time Spent with Patient Total time spent providing and/or coordinating discharge services: Less than 30 minutes - Discharge Medications Prescriptions: Cefepime HCl/Dextrose, Iso-Osm [Cefepime 2 gm Injection] 2 gm IV Q12H 10 Days # 20 [email or web address] Home Medications: Cyclobenzaprine [Flexeril] 5 mg PO TID PRN 10/13/17 [History] Dexlansoprazole [Dexilant] 60 mg PO DAILY 10/13/17 [History] Duloxetine HCl [Cymbalta] 60 mg PO BID 10/13/17 [History] Modafinil [Provigil] 200 mg PO DAILY PRN 10/13/17 [History] Multivit-Min/FA/Lycopen/Lutein [A Thru Z Select Multivit Tab] 1 tab PO DAILY 02/18 [History] Promethazine [Phenergan] 25 mg PO Q6HR PRN 10/13/17 [History] SUMAtriptan Succinate [Imitrex] 50 mg PO DAILY PRN 10/13/17 [History] diazePAM [Valium] 5 mg PO DAILY 10/13/17 [History] Fluconazole [Diflucan] 150 mg PO DAILY PRN #7 tab 10/22/17 [Rx] OxyCODONE Immed Rel [Roxicodone 10 MG] 10 mg PO Q8H 5 Days #20 tab 10/22/17 [Rx] Phenazopyridine [Pyridium] 200 mg PO TID PRN #14 tablet 10/22/17 [Rx] ARIPiprazole [Abilify] 2 mg PO DAILY 10/27/17 [History] Cefepime HCl/Dextrose, Iso-Osm [Cefepime 2 gm Injection] 2 gm IV Q12H 10 Days # 20 froz.piggy 10/30/17 [Rx] Allergies/Adverse Reactions: 3 Allergy/AdvReac Type Severity Reaction Status Date / Time Hydromorphone [From Dilaudid] Allergy Itching Verified 10/27/17 12:17 levofloxacin [From Levaquin] Allergy Itching Verified 10/27/17 12:17 prochlorperazine Allergy Anxiety Verified 10/27/17 12:17 [From Compazine] Date of admission: 10/29/17 10:01 Primary care physician: Jesse Lovelace MD Consults: 10/29/17 18:10 Consult to Invasive Line Access Team [CONS] Routine Reason for Consult: 10 days antibiotics Line Type: EPIV - Constitutional Vitals: Temp Pulse Resp BP Pulse Ox 98.0 F 87 14 109/75 93 10/30/17 07:52 10/30/17 07:52 10/30/17 07:52 10/30/17 07:52 10/30/17 07:52 General appearance: Present: cooperative, A&O X 3, answers questions appropriately Exam: General: Patient is alert, oriented, no acute distress, morbidly obese Head: atraumatic, normocephalic, Eye: normal appearance, PERRL, no scleral icterus, no conjunctival injection ENT: mucous membranes moist, normal external ear exam Neck: normal inspection, trachea midline, full ROM, no carotid bruits Chest: normal inspection, symmetric chest rise Respiratory: Good respiratory effort. Bilateral breath sounds are clear without wheezing, crackles, or rhonchi. Cardiovascular: Regular rate and rhythm. s1 and s2 No clicks, rubs, gallops, or murmors. Abdomen: Bowel sounds present normoactive x-4 quadrants. Abdomen is soft, nondistended. no Epigastric tenderness. No guarding or rebound. No organomegaly noted, obese, no CVA tenderness musculoskeletal: Spontaneously moving all extremities. no edema, no calf tenderness Skin: warm, dry, intact. Neuro: Alert and oriented x4. Sensation light touch intact. Cranial nerves 2- 12 is intact. Not aphasic, no focal deficit Psych: Patient's affect is normal - Patient Status Disposition: Home Health Service Condition: Good Functional capacity at discharge: independent ambulation Overall status at discharge: patient is progressing back to baseline - Discharge Instructions Instructions: Cefepime (Injection), Urinary Tract Infection in Women (DC) Follow Up With: Jesse Lovelace MD [Primary Care Provider] - 11/05/17 10:00 am Additional Instructions: Patricia MCMAHON will come out at 8pm this evening. If you have any questions please call them at . Follow-up appointments: If there is not an appointment listed below, please call your physician and schedule a follow-up appointment. If you have congestive heart failure and your symptoms return, make an appointment with your physician. Medication List: Carry an up to date list of medications you are taking at all time. We have given you an updated medication list including any new medications that you have been prescribed. Please provide that list to your primary provider Symptoms: If your condition changes or you experience any of the following symptoms, notify your physician immediately: Unusual or worsening pain, fever, persistent nausea and vomiting, bleeding, increase in swelling (especially in your legs), sudden weight gain, extreme dizziness, chest pain, increased drainage or redness from a wound or incision. Go to the emergency department if you experience a problem with breathing. Weights: If you have a history of swelling or shortness of breath, weigh yourself daily and notify your physician if you have a weight gain of two or more pounds in one day or 5 or more pounds in a week. If you experience any of the warning signs for stroke: Sudden numbness or weakness of the face, arm or leg; especially on one side of the body, sudden confusion, trouble speaking or understanding, sudden trouble seeing in one or both eyes, sudden trouble walking, dizziness, loss of balance or coordination, sudden sever headache with no cause; Call 911 or go to the emergency room. Stroke is a medical emergency. Some risk factors for stroke: Age, cigarette smoking, diabetes, excessive alcohol consumption, family history , high blood pressure, overweight, physical inactivity, prior stroke, heart attack, diagnosis of carotid artery stenosis or other artery disease. If you smoke, STOP: Smoking or tobacco use significantly increases your risk of heart and lung disease. Your chance of disease greatly increases if you continue to smoke. For more information, call the [place] tobacco quit line for smoking cessation QUIT-NOW ( ) - Diet and Activity Activity: increase activity as tolerated
[2017-10-30] MEDS ORDERED: Cefepime HCl 2,000 MG in Water for inj. (sterile) 20 ML 20 ML IVP SCH (10:00)
--- NOTE | 2017-10-30 10:06 | Physician Discharge Referral ---
Home Health/Hosp Referral Info Attending Provider: flavia smith Provider in Charge Post Discharge: PCP - Diagnosis (1) Complicated urinary tract infection Priority: Primary Status: Acute (2) Sepsis Priority: Secondary Status: Acute (3) Ureteral stent retained Priority: Secondary Status: Acute (4) Depression Priority: Secondary Status: Acute (5) Fibromyalgia Priority: Secondary Status: Acute (6) DVT prophylaxis Priority: Secondary Status: Acute (7) Obesity (BMI 35.0-39.9 without comorbidity) Priority: Secondary Status: Acute (8) Obesity (BMI 30-39.9) Priority: Secondary Status: Acute (9) Smoker Priority: Secondary Status: Acute - Respiratory Orders Smoking Cessation: Smoking cessation has been advised. For more information, call the [place] Tobacco Quit Line at 8-404-YUMM-NOW. - Activity Activity Orders: Ambulate - Services Needed Following services are medically necessary services: Home Health Aide, Home Infusion - Transfer Medications Prescriptions: Cefepime HCl/Dextrose, Iso-Osm [Cefepime 2 gm Injection] 2 gm IV Q12H 10 Days # 20 froz.piggy Home Medications: Cyclobenzaprine [Flexeril] 5 mg PO TID PRN 10/13/17 [History] Dexlansoprazole [Dexilant] 60 mg PO DAILY 10/13/17 [History] Duloxetine HCl [Cymbalta] 60 mg PO BID 10/13/17 [History] Modafinil [Provigil] 200 mg PO DAILY PRN 10/13/17 [History] Multivit-Min/FA/Lycopen/Lutein [A Thru Z Select Multivit Tab] 1 tab PO DAILY 02/18 [History] Promethazine [Phenergan] 25 mg PO Q6HR PRN 10/13/17 [History] SUMAtriptan Succinate [Imitrex] 50 mg PO DAILY PRN 10/13/17 [History] diazePAM [Valium] 5 mg PO DAILY 10/13/17 [History] Fluconazole [Diflucan] 150 mg PO DAILY PRN #7 tab 10/22/17 [Rx] OxyCODONE Immed Rel [Roxicodone 10 MG] 10 mg PO Q8H 5 Days #20 tab 10/22/17 [Rx] Phenazopyridine [Pyridium] 200 mg PO TID PRN #14 tablet 10/22/17 [Rx] ARIPiprazole [Abilify] 2 mg PO DAILY 10/27/17 [History] Cefepime HCl/Dextrose, Iso-Osm [Cefepime 2 gm Injection] 2 gm IV Q12H 10 Days # 20 rocio 10/30/17 [Rx] Allergies/Adverse Reactions: 3 Allergy/AdvReac Type Severity Reaction Status Date / Time Hydromorphone [From Dilaudid] Allergy Itching Verified 10/27/17 12:17 levofloxacin [From Levaquin] Allergy Itching Verified 10/27/17 12:17 prochlorperazine Allergy Anxiety Verified 10/27/17 12:17 [From Compazine] Certification: Further, I certify that my clinical findings support that this patient is homebound (i.e. absences from home require considerable and taxing effort and are for medical reasons or congregational services or infrequently or short duration when for other reasons) because: Homebound Reason: Patient requires assistance of a person or device to safely leave home Attestation: My signature below is to certify that this patient is under my care and that I, or nurse practitioner, or a physician's respiratory care assistant working with me, has a face-to -face encounter with this patient.
== END 2017-10-30 12:54 | disposition home health service (06) | DRG 698 ==
LOC: EMEROOARM 11:57 → SUATTDRO 13:57 → 3ANU 13:57 → INTOOBSV 13:57 → 3ANU 15:54
PROVIDERS: ADMIT Internal Medicine; ATTEND Internal Medicine

== ENCOUNTER 2017-11-13 13:36 | Inpatient (IN) ==
[2017-11-13] MEDS ORDERED: Levofloxacin 750 MG/150 ML 750 MG/150 ML BAG IVPB ONE (13:55)
[2017-11-13] MEDS: 0.9 % Sodium Chloride 1,000 ML IVC SCH ×3 (14:27→17:11)
[2017-11-13] MEDS ORDERED: Piperacillin/Tazobactam 3.375 GM in 0.9 % Sodium Chloride Mini Bag 100 ML IVPB ONE (14:29)
[2017-11-13] MEDS ORDERED: Ondansetron 4 MG/2 ML VIAL IVP ONE (14:29)
[2017-11-13 14:32] LABS: Basophils # 0.1 K/mcL (0.0-0.2); Basophils % 0.5 %; Eosinophils % 0.4 %; Hematocrit 41.9 % (35.3-44.9); Immature Granulocytes % 0.5 % (0-4); Lymphocytes # 1.5 K/mcL (0.6-4.6); Lymphocytes % 13.6 %; Mean Corpuscular HGB Conc 33.4 g/dL (31.6-35.5); Mean Corpuscular Hemoglobin 30.5 pg (28.0-33.3); Mean Corpuscular Volume 91.3 fL (83.0-100.0); Mean Platelet Volume 11.1 fL (9.4-12.4); Monocytes # 1.3 K/mcL (0.0-1.3); Monocytes % 11.4 %; Neutrophils # 8.1 K/mcL (1.6-8.9); Platelet Count 234 K/mcL (140-400); Red Blood Count 4.59 M/mcL (3.82-4.97); Red Cell Distribution Width 13.4 % (11.5-14.5); Segmented Neutrophils % 73.6 %
--- NOTE | 2017-11-13 14:32 | Emergency Department Note ---
Disposition Clinical Impression: SIRS (systemic inflammatory response syndrome), UTI (urinary tract infection) Disposition: Admitted As Inpatient Referrals: Jesse Lovelace MD [Primary Care Provider] - Forms: ED Satisfaction Letter General Adult HPI - General Chief complaint: ED Urogenital-Female Stated complaint: Possible sepsis, S/P surgery 10/17 Time Seen by Provider: 11/13/17 13:53 Source: patient Limitations: no limitations - History of Present Illness Pain Scale: 10 - Related Data Home Medications Medication Instructions Recorded Confirmed Cyclobenzaprine [Flexeril] 5 mg PO TID PRN 10/13/17 10/29/17 Dexlansoprazole [Dexilant] 60 mg PO DAILY 10/13/17 10/27/17 Duloxetine HCl [Cymbalta] 60 mg PO BID 10/13/17 10/27/17 Modafinil [Provigil] 200 mg PO DAILY PRN 10/13/17 10/27/17 Multivit-Min/FA/Lycopen/Lutein [A 1 tab PO DAILY 10/13/17 10/27/17 Thru Z Select Multivit Tab] Promethazine [Phenergan] 25 mg PO Q6HR PRN 10/13/17 10/27/17 SUMAtriptan Succinate [Imitrex] 50 mg PO DAILY PRN 10/13/17 10/27/17 diazePAM [Valium] 5 mg PO DAILY 10/13/17 10/27/17 ARIPiprazole [Abilify] 2 mg PO DAILY 10/27/17 10/27/17 Previous Rx's Medication Instructions Recorded Fluconazole [Diflucan] 150 mg PO DAILY PRN #7 tab 10/22/17 OxyCODONE Immed Rel [Roxicodone 10 10 mg PO Q8H 5 Days #20 tab 10/22/17 MG] Phenazopyridine [Pyridium] 200 mg PO TID PRN #14 tablet 10/22/17 Cefepime HCl/Dextrose, Iso-Osm 2 gm IV Q12H 10 Days #20 froz.piggy 10/30/17 [Cefepime 2 gm Injection] Allergies Allergy/AdvReac Type Severity Reaction Status Date / Time Hydromorphone [From Dilaudid] Allergy Itching Verified 10/27/17 12:17 levofloxacin [From Levaquin] Allergy Itching Verified 10/27/17 12:17 prochlorperazine Allergy Anxiety Verified 10/27/17 12:17 [From Compazine] Past Medical History - Past Medical History Medical history: Reports: fibromyalgia, other Psychiatric history: Reports: depression - Social History Smoking Status: Current some day smoker Smokeless Tobacco Status: No Alcohol use: Reports: none Drug use: Reports: none Physical Exam - General Limitations: no limitations General appearance: alert, in no apparent distress Course Vital Signs Temperature 100.6 F H 11/13/17 13:43 Pulse Rate 123 11/13/17 13:43 Respiratory Rate 16 11/13/17 13:43 Blood Pressure 94/60 11/13/17 13:43 O2 Sat by Pulse Oximetry 92 11/13/17 13:43 Temperature 100.6 F H 11/13/17 13:58 Pulse Rate 123 11/13/17 13:58 Respiratory Rate 16 11/13/17 13:58 Blood Pressure 94/60 11/13/17 13:58 O2 Sat by Pulse Oximetry 92 11/13/17 13:58 Oxygen Delivery Oxygen Delivery Room Air Medical Decision Making - Medical Records Medical records reviewed: Yes I reviewed the patient's medical records. - Lab Data Lab results reviewed: Yes I reviewed the patient's lab results. Result diagrams: 11/13/17 14:09 Lab Results 11/13/17 11/13/17 11/13/17 Range/Units 14:09 14:15 14:15 WBC 11.0 (4.3-11.1) K/mcL RBC 4.59 (3.82-4.97) M/mcL Hgb 14.0 (11.5-15.4) g/dL Hct 41.9 (35.3-44.9) % MCV 91.3 (83.0-100.0) fL MCH 30.5 (28.0-33.3) pg MCHC 33.4 (31.6-35.5) g/dL RDW 13.4 (11.5-14.5) % Plt Count 234 (140-400) K/mcL MPV 11.1 (9.4-12.4) fL Immature Gran % 0.5 (0-4) % Seg Neutrophils % 73.6 % Lymphocytes % 13.6 % Monocytes % 11.4 % Eosinophils % 0.4 % Basophils % 0.5 % Neutrophils # 8.1 (1.6-8.9) K/mcL Lymphocytes # 1.5 (0.6-4.6) K/mcL Monocytes # 1.3 (0.0-1.3) K/mcL Eosinophils # 0.0 (0.0-0.6) K/mcL Basophils # 0.1 (0.0-0.2) K/mcL Lactic Acid 2.3 H (0.5-2.2) mmol/L Urine Color (Yellow) Urine Clarity (Clear) Urine pH (5.0-8.0) pH Units Ur Specific [place] (1.010-1.025) Urine Protein (Neg-Trace) mg/dL Urine Glucose (UA) (Normal) mg/dL Urine Ketones (Negative) mg/dL Urine Blood (Negative) Urine Nitrite (Negative) Urine Bilirubin (Negative) Urine Urobilinogen (Normal) mg/dL Ur Leukocyte Esterase (Negative) Urine Microscopic RBC (0-3) per hpf Urine Microscopic WBC (0-3) per hpf Ur Squamous Epith Cells (None-Few) per lpf Urine Bacteria (None-Few) per hpf Hyaline Casts (None-Few) per lpf Ur Culture Indicated? (NO) Specimen Rejected Hemolyzed 11/13/17 Range/Units 14:50 WBC (4.3-11.1) K/mcL RBC (3.82-4.97) M/mcL Hgb (11.5-15.4) g/dL Hct (35.3-44.9) % MCV (83.0-100.0) fL MCH (28.0-33.3) pg MCHC (31.6-35.5) g/dL RDW (11.5-14.5) % Plt Count (140-400) K/mcL MPV (9.4-12.4) fL Immature Gran % (0-4) % Seg Neutrophils % % Lymphocytes % % Monocytes % % Eosinophils % % Basophils % % Neutrophils # (1.6-8.9) K/mcL Lymphocytes # (0.6-4.6) K/mcL Monocytes # (0.0-1.3) K/mcL Eosinophils # (0.0-0.6) K/mcL Basophils # (0.0-0.2) K/mcL Lactic Acid (0.5-2.2) mmol/L Urine Color Dark Yellow (Yellow) Urine Clarity Cloudy A (Clear) Urine pH 7.5 (5.0-8.0) pH Units Ur Specific [place] 1.011 (1.010-1.025) Urine Protein 100 H (Neg-Trace) mg/dL Urine Glucose (UA) Normal (Normal) mg/dL Urine Ketones Negative (Negative) mg/dL Urine Blood Negative (Negative) Urine Nitrite Positive A (Negative) Urine Bilirubin Negative (Negative) Urine Urobilinogen Normal (Normal) mg/dL Ur Leukocyte Esterase Moderate H (Negative) Urine Microscopic RBC 3-5 H (0-3) per hpf Urine Microscopic WBC 50-100 H (0-3) per hpf Ur Squamous Epith Cells Many H (None-Few) per lpf Urine Bacteria None Seen (None-Few) per hpf Hyaline Casts None Seen (None-Few) per lpf Ur Culture Indicated? NO. A (NO) Specimen Rejected - Radiology Data Radiology results reviewed: Yes I reviewed the patient's radiology results. Critical Care Time Critical Care Time: Yes Total Critical Care Time: 35 Attestation: Critical care time spent in medical management of possible sepsis with IV fluids and IV antibiotics. Attestation Statement - Attestation Attestation: I examined this patient and my medical decision-making was reviewed with the Resident Physician. I agree with the documented findings, disposition and treatment plan as described except to the extent set forth below. 47-year-old female presented to the emergency room for fevers as well as back pain and concerns for sepsis. Recent admission to the hospital in October in which she had a bad urinary tract infection with pseudomonas that was pansensitive. She had been treated with Ancef. She states she was in the hospital for about 3 days. She admits that she is developing lower back pain in association with fever and Reiger's and chills as well as some dysuria and lower abdominal pain. We will do a septic workup as she is hypoxic at 90-91% on room air and is tachycardic in the 120s. We will we will obtain blood cultures and a lactate. We will start her on Zosyn. Again, her last cultures grew out Pseudomonas. Start on IV fluids.
[2017-11-13 15:02] LABS: Bilirubin,Urine Negative (Negative); Blood,Urine Negative (Negative); Clarity,Urine Cloudy (Clear); Color,Urine Dark Yellow (Yellow); Glucose,Urine (UA) Normal (Normal); Ketones,Urine Negative (Negative); Leukocyte Esterase,Urine Moderate (Negative); Nitrite,Urine Positive (Negative); PH,Urine 7.5 pH Units (5.0-8.0); Protein,Urine 100 mg/dL (Neg-Trace); Specific Gravity,Urine 1.011 (1.010-1.025); Urobilinogen,Urine Normal (Normal)
[2017-11-13 15:03] LABS: Bacteria,Urine None Seen per hpf (None-Few); Hyaline Casts,Urine None Seen per lpf (None-Few); Squamous Epithelial Cell,Urine Many per lpf (None-Few); WBC,Urine 50-100 per hpf (0-3)
[2017-11-13 15:48] LABS: Alanine Aminotransferase 40 Units/L (7-52); Albumin/Globulin Ratio 1.3 (1.1-2.2); Alkaline Phosphatase 108 Units/L (34-104); Aspartate Amino Transferase 37 Units/L (13-39); BUN/Creatinine Ratio 13 (6-26); Bilirubin,Direct 0.3 mg/dL (0.0-0.2); Bilirubin,Indirect 0.7 mg/dL (0.0-1.2); Blood Urea Nitrogen 10 mg/dL (6-20); Calcium 9.5 mg/dL (8.6-10.3); Carbon Dioxide 27 mEq/L (23-29); Chloride 99 mEq/L (98-107); Glucose 110 mg/dL (70-105); Magnesium 1.6 mg/dL (1.6-2.6); Osmolality,Calculated 274 (280-300); Phosphorous 2.2 mg/dL (2.7-4.5); Potassium 4.6 mEq/L (3.5-5.1); Sodium 132 mEq/L (136-145); eGFR For Non-African Americans > 60 (> 60)
--- NOTE | 2017-11-13 15:57 | Emergency Department Note ---
Disposition Clinical Impression: SIRS (systemic inflammatory response syndrome) UTI (urinary tract infection) Qualifiers: Urinary tract infection type: site unspecified Hematuria presence: without hematuria Qualified Code(s): N39.0 - Urinary tract infection, site not specified Sepsis Qualifiers: Sepsis type: sepsis due to unspecified organism Qualified Code(s): A41.9 - Sepsis, unspecified organism Disposition: Admitted As Inpatient Condition: Fair Referrals: Jesse Lovelace MD [Primary Care Provider] - Forms: ED Satisfaction Letter Time of Disposition: 16:12 General Adult HPI - General Chief complaint: ED Urogenital-Female Stated complaint: Possible sepsis, S/P surgery 10/17 Time Seen by Provider: 11/13/17 13:53 Source: patient Limitations: no limitations Nursing Notes Reviewed: Yes Vital Signs Reviewed: Yes - History of Present Illness HPI Narrative: Patient is a 47-year-old female who presents to [facility] ED with a chief complaint of lower abdominal pain, fevers and back pain. States she started having back pain and suprapubic abdominal pain yesterday evening and then started having the fevers again this morning. Patient was recently treated with one month of antibiotics through midline. States the leg was just removed on Saturday. She had grown out Pseudomonas in her urine culture on 10/27/17. Patient admits to nausea, no vomiting. No chest pain, difficulty breathing, problems with bowel movements. Onset (ago): day(s) (1) Location: abdomen Radiation: back Pain Severity: severe Pain Scale: 10 Quality: aching Consistency: constant Improves with: nothing Worsens with: nothing Associated symptoms: Reports: fever/chills, nausea/vomiting, weakness. Denies: chest pain, cough, shortness of breath Treatments Prior to Arrival: none - Related Data Home Medications Medication Instructions Recorded Confirmed Cyclobenzaprine [Flexeril] 5 mg PO TID PRN 10/13/17 10/29/17 Dexlansoprazole [Dexilant] 60 mg PO DAILY 10/13/17 10/27/17 Duloxetine HCl [Cymbalta] 60 mg PO BID 10/13/17 10/27/17 Modafinil [Provigil] 200 mg PO DAILY PRN 10/13/17 10/27/17 Multivit-Min/FA/Lycopen/Lutein [A 1 tab PO DAILY 10/13/17 10/27/17 Thru Z Select Multivit Tab] Promethazine [Phenergan] 25 mg PO Q6HR PRN 10/13/17 10/27/17 SUMAtriptan Succinate [Imitrex] 50 mg PO DAILY PRN 10/13/17 10/27/17 diazePAM [Valium] 5 mg PO DAILY 10/13/17 10/27/17 ARIPiprazole [Abilify] 2 mg PO DAILY 10/27/17 10/27/17 Previous Rx's Medication Instructions Recorded Fluconazole [Diflucan] 150 mg PO DAILY PRN #7 tab 10/22/17 OxyCODONE Immed Rel [Roxicodone 10 10 mg PO Q8H 5 Days #20 tab 10/22/17 MG] Phenazopyridine [Pyridium] 200 mg PO TID PRN #14 tablet 10/22/17 Cefepime HCl/Dextrose, Iso-Osm 2 gm IV Q12H 10 Days #20 [email or web address] 10/30/17 [Cefepime 2 gm Injection] Allergies Allergy/AdvReac Type Severity Reaction Status Date / Time Hydromorphone [From Dilaudid] Allergy Itching Verified 10/27/17 12:17 levofloxacin [From Levaquin] Allergy Itching Verified 10/27/17 12:17 prochlorperazine Allergy Anxiety Verified 10/27/17 12:17 [From Compazine] All systems ED: reviewed and negative except as stated. Past Medical History - Past Medical History Attestation: Yes The following information was validated with the patient. Source: patient Medical history: Reports: fibromyalgia, other Psychiatric history: Reports: depression - Social History Smoking Status: Current some day smoker Smokeless Tobacco Status: No Alcohol use: Reports: none Drug use: Reports: none Physical Exam - General Limitations: no limitations General appearance: alert, in no apparent distress - Head Head exam: atraumatic, normocephalic, normal inspection - Eye Eye exam: Present: EOMI - ENT ENT exam: normal exam, normal oropharynx, mucous membranes moist - Neck Neck exam: Present: normal inspection, full ROM, trachea midline - Chest Chest inspection: Present: normal inspection, symmetric chest wall rise - Respiratory Respiratory exam: Present: normal lung sounds bilaterally - Cardiovascular Cardiovascular exam: Present: normal rhythm, tachycardia, normal heart sounds - Abdominal Exam Abdominal exam: Present: soft, tenderness Abdominal tenderness: Present: suprapubic, diffuse, moderate - Extremities Exam Extremities exam: Present: normal inspection, full ROM. Absent: tenderness, pedal edema - Neurological Exam Neurological exam: Present: alert, oriented X3 - Psychiatric Psychiatric exam: Present: normal affect, normal mood - Skin Skin exam: Present: warm, dry, intact, normal color Course Course Narrative: Patient seen and examined. Suprapubic abdominal pain along with nausea and recent pseudomonas UTI. Patient with concerns for sepsis. Her vital signs on intake show a low blood pressure as well as low-grade fever of 100.6. Septic workup initiated. We will go ahead and start patient on a dose of antibiotics. Zosyn ordered as well as a 30 mL/kg bolus of IV fluids. - Reevaluation(s) Reevaluation #1: Patient's lab work shows a mild lactic acidosis of 2.3. Her CBC is unremarkable. Her urine analysis appeared contaminated. Urine culture was sent. Due to patient's clinical symptoms of urinary tract infection and concern for developing sepsis, we will go ahead and admit to the hospitalist for antibiotics and further evaluation. I discussed with the hospitalist who has accepted patient for admission. Time: 16:11 Vital Signs Temperature 100.6 F H 11/13/17 13:43 Pulse Rate 123 11/13/17 13:43 Respiratory Rate 16 11/13/17 13:43 Blood Pressure 94/60 11/13/17 13:43 O2 Sat by Pulse Oximetry 92 11/13/17 13:43 Temperature 100.6 F H 11/13/17 13:58 Pulse Rate 123 11/13/17 13:58 Respiratory Rate 16 11/13/17 13:58 Blood Pressure 94/60 11/13/17 13:58 O2 Sat by Pulse Oximetry 92 11/13/17 13:58 Oxygen Delivery Oxygen Delivery Room Air Medical Decision Making - Medical Records Medical records reviewed: Yes I reviewed the patient's medical records. - Lab Data Lab results reviewed: Yes I reviewed the patient's lab results. Result diagrams: 11/13/17 14:09 11/13/17 15:17 Lab Results 11/13/17 11/13/17 11/13/17 Range/Units 14:09 14:15 14:15 WBC 11.0 (4.3-11.1) K/mcL RBC 4.59 (3.82-4.97) M/mcL Hgb 14.0 (11.5-15.4) g/dL Hct 41.9 (35.3-44.9) % MCV 91.3 (83.0-100.0) fL MCH 30.5 (28.0-33.3) pg MCHC 33.4 (31.6-35.5) g/dL RDW 13.4 (11.5-14.5) % Plt Count 234 (140-400) K/mcL MPV 11.1 (9.4-12.4) fL Immature Gran % 0.5 (0-4) % Seg Neutrophils % 73.6 % Lymphocytes % 13.6 % Monocytes % 11.4 % Eosinophils % 0.4 % Basophils % 0.5 % Neutrophils # 8.1 (1.6-8.9) K/mcL Lymphocytes # 1.5 (0.6-4.6) K/mcL Monocytes # 1.3 (0.0-1.3) K/mcL Eosinophils # 0.0 (0.0-0.6) K/mcL Basophils # 0.1 (0.0-0.2) K/mcL Sodium (136-145) mEq/L Potassium (3.5-5.1) mEq/L Chloride (98-107) mEq/L Carbon Dioxide (23-29) mEq/L BUN (6-20) mg/dL Creatinine (0.60-1.20) mg/dL Est GFR ( Amer) (> 60) Est GFR (Non-Af Amer) (> 60) BUN/Creatinine Ratio (6-26) Glucose (70-105) mg/dL Calculated Osmolality (280-300) Lactic Acid 2.3 H (0.5-2.2) mmol/L Calcium (8.6-10.3) mg/dL Phosphorus (2.7-4.5) mg/dL Magnesium (1.6-2.6) mg/dL Total Bilirubin (0.3-1.0) mg/dL Direct Bilirubin (0.0-0.2) mg/dL Indirect Bilirubin (0.0-1.2) mg/dL AST (13-39) Units/L ALT (7-52) Units/L Alkaline Phosphatase (34-104) Units/L Serum Total Protein (6.4-8.9) g/dL Albumin (3.5-5.7) g/dL Globulin (2.4-3.5) g/dL Albumin/Globulin Ratio (1.1-2.2) Urine Color (Yellow) Urine Clarity (Clear) Urine pH (5.0-8.0) pH Units Ur Specific [place] (1.010-1.025) Urine Protein (Neg-Trace) mg/dL Urine Glucose (UA) (Normal) mg/dL Urine Ketones (Negative) mg/dL Urine Blood (Negative) Urine Nitrite (Negative) Urine Bilirubin (Negative) Urine Urobilinogen (Normal) mg/dL Ur Leukocyte Esterase (Negative) Urine Microscopic RBC (0-3) per hpf Urine Microscopic WBC (0-3) per hpf Ur Squamous Epith Cells (None-Few) per lpf Urine Bacteria (None-Few) per hpf Hyaline Casts (None-Few) per lpf Ur Culture Indicated? (NO) Specimen Rejected Hemolyzed 11/13/17 11/13/17 Range/Units 14:50 15:17 WBC (4.3-11.1) K/mcL RBC (3.82-4.97) M/mcL Hgb (11.5-15.4) g/dL Hct (35.3-44.9) % MCV (83.0-100.0) fL MCH (28.0-33.3) pg MCHC (31.6-35.5) g/dL RDW (11.5-14.5) % Plt Count (140-400) K/mcL MPV (9.4-12.4) fL Immature Gran % (0-4) % Seg Neutrophils % % Lymphocytes % % Monocytes % % Eosinophils % % Basophils % % Neutrophils # (1.6-8.9) K/mcL Lymphocytes # (0.6-4.6) K/mcL Monocytes # (0.0-1.3) K/mcL Eosinophils # (0.0-0.6) K/mcL Basophils # (0.0-0.2) K/mcL Sodium 132 L (136-145) mEq/L Potassium 4.6 (3.5-5.1) mEq/L Chloride 99 (98-107) mEq/L Carbon Dioxide 27 (23-29) mEq/L BUN 10 (6-20) mg/dL Creatinine 0.77 (0.60-1.20) mg/dL Est GFR ( Amer) > 60 (> 60) Est GFR (Non-Af Amer) > 60 (> 60) BUN/Creatinine Ratio 13 (6-26) Glucose 110 H (70-105) mg/dL Calculated Osmolality 274 L (280-300) Lactic Acid (0.5-2.2) mmol/L Calcium 9.5 (8.6-10.3) mg/dL Phosphorus 2.2 L (2.7-4.5) mg/dL Magnesium 1.6 (1.6-2.6) mg/dL Total Bilirubin 1.0 (0.3-1.0) mg/dL Direct Bilirubin 0.3 H (0.0-0.2) mg/dL Indirect Bilirubin 0.7 (0.0-1.2) mg/dL AST 37 (13-39) Units/L ALT 40 (7-52) Units/L Alkaline Phosphatase 108 H (34-104) Units/L Serum Total Protein 7.0 (6.4-8.9) g/dL Albumin 4.0 (3.5-5.7) g/dL Globulin 3.0 (2.4-3.5) g/dL Albumin/Globulin Ratio 1.3 (1.1-2.2) Urine Color Dark Yellow (Yellow) Urine Clarity Cloudy A (Clear) Urine pH 7.5 (5.0-8.0) pH Units Ur Specific [place] 1.011 (1.010-1.025) Urine Protein 100 H (Neg-Trace) mg/dL Urine Glucose (UA) Normal (Normal) mg/dL Urine Ketones Negative (Negative) mg/dL Urine Blood Negative (Negative) Urine Nitrite Positive A (Negative) Urine Bilirubin Negative (Negative) Urine Urobilinogen Normal (Normal) mg/dL Ur Leukocyte Esterase Moderate H (Negative) Urine Microscopic RBC 3-5 H (0-3) per hpf Urine Microscopic WBC 50-100 H (0-3) per hpf Ur Squamous Epith Cells Many H (None-Few) per lpf Urine Bacteria None Seen (None-Few) per hpf Hyaline Casts None Seen (None-Few) per lpf Ur Culture Indicated? NO. A (NO) Specimen Rejected - Radiology Data Radiology results reviewed: Yes I reviewed the patient's radiology results. Chest X-Ray 11/13/17 14:30 IMPRESSION: No new acute cardiopulmonary findings. D/ / Tanisha Rose MD / Tanisha Rose MD Interpreting Provider: Tanisha Rose MD - EKG Data EKG #1 EKG attestation: Yes I reviewed and interpreted this EKG. EKG results narrative: EKG done at 1359 shows sinus tachycardia with a rate of [address] elevation or depression noted. Normal axis. Appears unchanged from EKG done .
[2017-11-13] MEDS ORDERED: *HR* Nalbuphine 10 MG/ML AMPUL IVP ONE (16:46)
[2017-11-13] MEDS ORDERED: Naloxone 0.4 MG/ML INJ IVP PRN (17:32)
--- NOTE | 2017-11-13 17:50 | Internal Med History&Physical ---
Date of Encounter: 11/13/17 Time of Encounter: 17:48 Internal Medicine - H&P: HPI Chief complaint: Suprapubic pain/low back pain Admitted From: Home Plans for Post Hospital Care: Home History of present illness: This 47-year-old woman has had long-standing history of nephrolithiasis; started at her 20s. She has had several episodes of kidney stone disease. She was recently hospitalized here on 2 occasions for treatment of urinary tract infection. The first time happened on October E. coli in urine culture. The second time happened on October Pseudomonas aeruginosa in urine culture. She has had progressing her suprapubic/lower abdominal pain since yesterday afternoon. It is associated with a feeling of hesitancy with urination; denies increased frequency, pain or burning. She has had mild grade fever and some nausea but not vomiting for the last several hours. She has been treated for GERD, migraine headaches, chronic fatigue syndrome with fibromyalgia and depression. REVIEW OF SYSTEMS: All 14 organ systems were reviewed by me with the patient. Positive and pertinent negative findings are listed above. The rest of organ systems is negative. PHYSICAL EXAM: Skin: Free of rash and discoloration. Eyes: Sclera is white. There is no discharge from eyes. ENMT: Oral/pharyngeal mucosa is normal in appearance. There is no discharge from nose or ears. Respiratory: Normal breath sounds with no crackles and wheezes bilaterally. CV: Heart is regular with no gallop or murmur. GI: There is mild tenderness in suprapubic area. Otherwise, her abdomen is flat and soft with no palpable mass or visceromegaly. : There is no tenderness in patient's flanks bilaterally. Neuro exam: He has good strength in upper and lower extremities. He has normal eye movements. Psychiatric: He has normal affect. His thought process is appropriate to the situation. A/P: Urinary tract infection with sepsis. She is getting her third liter of IV normal saline. She started on IV Zosyn. Her last systolic blood pressure was 94. Urine culture and blood cultures were taken. GERD/migraine headaches. Will continue omeprazole and when necessary Imitrex. Chronic fatigue syndrome with fibromyalgia/depression. We will continue Abilify , Cymbalta, Valium, Flexeril and the Provigil. Past Med Surg Social Fam HX - Past Medical History Medical history: fibromyalgia, other Additional medical history: menieres disease Psychiatric history: depression - Past Surgical History Additional surgical history: breast reduction - Social History Smoking Status: Current some day smoker Smokeless Tobacco Status: No Alcohol use: none Drug use: none Internal Medicine - H&P: Meds Cyclobenzaprine [Flexeril] 5 mg PO TID PRN 10/13/17 [History] Dexlansoprazole [Dexilant] 60 mg PO DAILY 10/13/17 [History] Duloxetine HCl [Cymbalta] 120 mg PO DAILY 10/13/17 [History] Modafinil [Provigil] 200 mg PO DAILY PRN 10/13/17 [History] Promethazine [Phenergan] 25 mg PO Q4-6H PRN 10/13/17 [History] SUMAtriptan Succinate [Imitrex] 50 - 100 mg PO DAILY PRN 10/13/17 [History] diazePAM [Valium] 5 mg PO DAILY PRN 10/13/17 [History] 3 Allergy/AdvReac Type Severity Reaction Status Date / Time Hydromorphone [From Dilaudid] Allergy Itching Verified 11/13/17 17:18 levofloxacin [From Levaquin] Allergy Itching Verified 11/13/17 17:18 prochlorperazine Allergy Anxiety Verified 11/13/17 17:18 [From Compazine] All Systems PM: xxx - Constitutional Vitals: Temp Pulse Resp BP Pulse Ox 100.6 F H 111 18 138/61 96 11/13/17 13:58 11/13/17 16:30 11/13/17 17:32 11/13/17 17:32 11/13/17 16:30 General appearance: Present: A&O X 3, no acute distress, answers questions appropriately Exam: xxx Internal Med - H&P Results - Labs CBC & Chem 7: 11/13/17 14:09 11/13/17 15:17 - Assessment and plan (1) Urinary tract infection Current Visit: Yes Status: Acute Qualifiers: Urinary tract infection type: site unspecified Hematuria presence: without hematuria Qualified Code(s): N39.0 - Urinary tract infection, site not specified (2) Sepsis Current Visit: Yes Status: Acute Qualifiers: Sepsis type: sepsis due to unspecified organism Qualified Code(s): A41.9 - Sepsis, unspecified organism (3) GERD (gastroesophageal reflux disease) Current Visit: Yes Status: Acute Qualifiers: Esophagitis presence: esophagitis presence not specified Qualified Code(s) : K21.9 - Gastro-esophageal reflux disease without esophagitis (4) Migraine headache Current Visit: No Status: Chronic Qualifiers: Migraine type: other Status migrainosus presence: without status migrainosus Intractability: not intractable Qualified Code(s): G43.809 - Other migraine, not intractable, without status migrainosus (5) Chronic fatigue syndrome with fibromyalgia Current Visit: Yes Status: Chronic (6) Depression Current Visit: No Status: Chronic Qualifiers: Depression Type: unspecified Qualified Code(s): F32.9 - Major depressive disorder, single episode, unspecified (7) Recurrent nephrolithiasis Current Visit: No Status: Chronic - Time Spent With Patient Total time spent is greater than 50% in coordination of care (as documented) at patient's floor/unit and/or counseling patient: Greater than 35 minutes - VTE Reasons for not Prescribing Prophylaxis: Treatment not Indicated - Low risk for VTE Deep Vein Thrombosis/Pulmonary Embolism Present on Admission: No
[2017-11-13] MEDS: 0.9 % Sodium Chloride w KCl 20 MEQ/1,000 ML MLS IVC SCH (19:15)
[2017-11-13] MEDS: *HR* OxyCODONE Immed Rel 5 MG TABLET PO PRN (20:18)
[2017-11-13] MEDS: Acetaminophen 325 MG TABLET PO PRN (20:19)
[2017-11-13] MEDS: SUMAtriptan succinate 50 MG TABLET PO PRN (21:41)
[2017-11-13] MEDS: Piperacillin/Tazobactam 3.375 GM in 0.9 % Sodium Chloride Mini Bag 100 ML IVPB SCH (23:36)
[2017-11-13] MEDS: Ondansetron 4 MG/2 ML VIAL IVP PRN (23:36)
[2017-11-14] MEDS: Acetaminophen 325 MG TABLET PO PRN ×3 (00:34→16:24)
[2017-11-14] MEDS: *HR* OxyCODONE Immed Rel 5 MG TABLET PO PRN ×3 (03:37→20:37)
[2017-11-14 05:02] LABS: Basophils % 0.3 %; Eosinophils % 0.1 %; Hematocrit 35.4 % (35.3-44.9); Immature Granulocytes % 1.1 % (0-4); Lymphocytes # 2.6 K/mcL (0.6-4.6); Lymphocytes % 19.2 %; Mean Corpuscular HGB Conc 34.7 g/dL (31.6-35.5); Mean Corpuscular Hemoglobin 32.5 pg (28.0-33.3); Mean Corpuscular Volume 93.7 fL (83.0-100.0); Mean Platelet Volume 11.6 fL (9.4-12.4); Monocytes # 1.6 K/mcL (0.0-1.3); Monocytes % 11.8 %; Neutrophils # 9.1 K/mcL (1.6-8.9); Platelet Count 153 K/mcL (140-400); Red Blood Count 3.78 M/mcL (3.82-4.97); Red Cell Distribution Width 13.5 % (11.5-14.5); Segmented Neutrophils % 67.5 %
[2017-11-14 05:10] LABS: Hemoglobin 12.3 g/dL (11.5-15.4)
[2017-11-14 05:23] LABS: BUN/Creatinine Ratio 10 (6-26); Blood Urea Nitrogen 8 mg/dL (6-20); Calcium 8.8 mg/dL (8.6-10.3); Carbon Dioxide 25 mEq/L (23-29); Chloride 106 mEq/L (98-107); Glucose 131 mg/dL (70-105); Magnesium 1.6 mg/dL (1.6-2.6); Osmolality,Calculated 284 (280-300); Sodium 137 mEq/L (136-145); eGFR For Non-African Americans > 60 (> 60)
[2017-11-14] MEDS: traMADol 50 MG TABLET PO PRN (07:54)
[2017-11-14] MEDS: Piperacillin/Tazobactam 3.375 GM in 0.9 % Sodium Chloride Mini Bag 100 ML IVPB SCH ×2 (07:54→16:25)
[2017-11-14] MEDS: Ondansetron 4 MG/2 ML VIAL IVP PRN ×2 (07:54→16:26)
[2017-11-14] MEDS: 0.9 % Sodium Chloride w KCl 20 MEQ/1,000 ML MLS IVC SCH (10:12)
[2017-11-14] MEDS: SUMAtriptan succinate 50 MG TABLET PO PRN (11:09)
[2017-11-15] MEDS: Acetaminophen 325 MG TABLET PO PRN (00:10)
[2017-11-15] MEDS: Piperacillin/Tazobactam 3.375 GM in 0.9 % Sodium Chloride Mini Bag 100 ML IVPB SCH ×3 (00:15→16:01)
[2017-11-15] MEDS: Ondansetron 4 MG/2 ML VIAL IVP PRN ×3 (00:29→17:44)
[2017-11-15] MEDS: Ringers Solution, Lactated 1,000 ML IVC SCH ×2 (02:06→17:40)
[2017-11-15 02:50] LABS: Bilirubin,Urine Negative (Negative); Blood,Urine Negative (Negative); Clarity,Urine Cloudy (Clear); Color,Urine Yellow (Yellow); Glucose,Urine (UA) Normal (Normal); Ketones,Urine Negative (Negative); Leukocyte Esterase,Urine Small (Negative); Nitrite,Urine Negative (Negative); Protein,Urine 30 mg/dL (Neg-Trace); Specific Gravity,Urine 1.014 (1.010-1.025); Urobilinogen,Urine Normal (Normal)
[2017-11-15 02:52] LABS: Bacteria,Urine None Seen per hpf (None-Few); Hyaline Casts,Urine None Seen per lpf (None-Few); RBC,Urine 0-3 per hpf (0-3); Squamous Epithelial Cell,Urine Many per lpf (None-Few); WBC,Urine 15-30 per hpf (0-3)
[2017-11-15 05:42] LABS: Basophils # 0.1 K/mcL (0.0-0.2); Basophils % 0.4 %; Eosinophils % 0.2 %; Hemoglobin 11.6 g/dL (11.5-15.4); Immature Granulocytes % 0.5 % (0-4); Lymphocytes % 23.3 %; Mean Corpuscular HGB Conc 33.1 g/dL (31.6-35.5); Mean Corpuscular Hemoglobin 31.7 pg (28.0-33.3); Mean Corpuscular Volume 95.6 fL (83.0-100.0); Monocytes # 1.7 K/mcL (0.0-1.3); Monocytes % 13.5 %; Neutrophils # 7.9 K/mcL (1.6-8.9); Platelet Count 142 K/mcL (140-400); Red Blood Count 3.66 M/mcL (3.82-4.97); Red Cell Distribution Width 13.3 % (11.5-14.5); Segmented Neutrophils % 62.1 %
[2017-11-15 05:50] LABS: BUN/Creatinine Ratio 9 (6-26); Blood Urea Nitrogen 7 mg/dL (6-20); Calcium 9.2 mg/dL (8.6-10.3); Carbon Dioxide 23 mEq/L (23-29); Chloride 102 mEq/L (98-107); Glucose 108 mg/dL (70-105); Osmolality,Calculated 275 (280-300); Potassium 4.4 mEq/L (3.5-5.1); Sodium 133 mEq/L (136-145); eGFR For Non-African Americans > 60 (> 60)
--- NOTE | 2017-11-15 06:03 | Internal Med Progress Note ---
Hospitalist Progress Note - Encounter Date of Encounter: 11/14/17 Time of Encounter: 19:00 - Subjective Interval History: SUBJECTIVE: The patient feels better. Her fever is subsiding. She continues to have suprapubic pain/low back pain. She has no problems with ambulation. She has normal appetite. Denies chest pain. Denies difficulty breathing. OBJECTIVE: Skin: Free of rash and discoloration. ENMT: Oral/pharyngeal mucosa is normal in appearance. Eyes: Sclera is white. There is no discharge from eyes. Respiratory: Normal breath sounds; no crackles or wheezes. CV: Heart is regular; no gallop or murmur. GI: Abdomen is soft and not tender. There is no palpable mass or visceromegaly. Neuro: There is no focal deficits. ASSESSMENT AND PLAN: Urinary tract infection. Seems to be responding to treatment with IV Zosyn. This patient was recently treated for UTI; sent home on IV cefepime. She finished that antibiotic only a few days ago. Ultrasound of kidneys does not show any significant abnormalities. Her sepsis basically subsided. We will continue IV Zosyn. Migraine headaches/chronic fatigue syndrome with fibromyalgia/depression. Will continue previously used medications. - Exam Vitals: Temp Pulse Resp BP Pulse Ox 98.0 F 86 17 107/69 95 11/15/17 04:50 11/15/17 04:50 11/15/17 04:50 11/15/17 04:50 11/15/17 04:50 Exam: xx - Assessment and Plan (1) Urinary tract infection Current Visit: Yes Status: Acute (2) Sepsis Current Visit: Yes Status: Acute (3) GERD (gastroesophageal reflux disease) Current Visit: Yes Status: Acute (4) Migraine headache Current Visit: No Status: Chronic (5) Chronic fatigue syndrome with fibromyalgia Current Visit: Yes Status: Chronic (6) Depression Current Visit: No Status: Chronic (7) Recurrent nephrolithiasis Current Visit: No Status: Chronic - Time Spent with Patient Total time spent is greater than 50% in coordination of care (as documented) at patient's floor/unit and/or counseling patient: 25 - 35 minutes Plan of Care Discussed with: patient Internal Medicine: Result - Labs CBC & Chem 7: 11/15/17 04:52 11/15/17 04:52 Labs: Short CBC 11/15/17 Range/Units 04:52 WBC 12.8 H (4.3-11.1) K/mcL Hgb 11.6 (11.5-15.4) g/dL Hct 35.0 L (35.3-44.9) % Plt Count 142 (140-400) K/mcL Neutrophils # 7.9 (1.6-8.9) K/mcL BMP 11/15/17 04:52 Sodium 133 L Potassium 4.4 Chloride 102 Carbon Dioxide 23 BUN 7 Creatinine 0.74 Glucose 108 H Calcium 9.2 Urine 11/15/17 Range/Units 02:27 Urine Color Yellow (Yellow) Urine Clarity Cloudy A (Clear) Urine pH 6.0 (5.0-8.0) pH Units Ur Specific [place] 1.014 (1.010-1.025) Urine Protein 30 H (Neg-Trace) mg/dL Urine Glucose (UA) Normal (Normal) mg/dL - VTE Reasons for not Prescribing Prophylaxis: Treatment not Indicated - Low risk for VTE Deep Vein Thrombosis/Pulmonary Embolism Present on Admission: No Consult Discharge Plan - Plan Referrals: Jesse Lovelace MD [Primary Care Provider] - (1) Urinary tract infection Qualifiers: Urinary tract infection type: site unspecified Hematuria presence: without hematuria Qualified Code(s): N39.0 - Urinary tract infection, site not specified (2) Sepsis Qualifiers: Sepsis type: sepsis due to unspecified organism Qualified Code(s): A41.9 - Sepsis, unspecified organism (3) GERD (gastroesophageal reflux disease) Qualifiers: Esophagitis presence: esophagitis presence not specified Qualified Code(s): K21.9 - Gastro-esophageal reflux disease without esophagitis (4) Migraine headache Qualifiers: Migraine type: other Status migrainosus presence: without status migrainosus Intractability: not intractable Qualified Code(s): G43.809 - Other migraine, not intractable, without status migrainosus (6) Depression Qualifiers: Depression Type: unspecified Qualified Code(s): F32.9 - Major depressive disorder, single episode, unspecified
[2017-11-15] MEDS: SUMAtriptan succinate 50 MG TABLET PO PRN (08:45)
[2017-11-15] MEDS: *HR* OxyCODONE Immed Rel 5 MG TABLET PO PRN ×2 (08:56→17:41)
[2017-11-15] MEDS: traMADol 50 MG TABLET PO PRN ×2 (14:02→20:17)
[2017-11-16] MEDS: Piperacillin/Tazobactam 3.375 GM in 0.9 % Sodium Chloride Mini Bag 100 ML IVPB SCH ×4 (01:00→23:47)
[2017-11-16] MEDS: Ondansetron 4 MG/2 ML VIAL IVP PRN ×3 (01:07→16:56)
--- NOTE | 2017-11-16 04:31 | Internal Med Progress Note ---
Hospitalist Progress Note - Encounter Date of Encounter: 11/15/17 Time of Encounter: 19:00 - Subjective Interval History: SUBJECTIVE: The patient feels progressively better. Her fever subsided. She has less suprapubic pain/low back pain. She does not him on urination. Denies chest pain. Denies difficulty breathing. OBJECTIVE: Skin: Free of rash and discoloration. ENMT: Oral/pharyngeal mucosa is normal in appearance. Eyes: Sclera is white. There is no discharge from eyes. Respiratory: Normal breath sounds; no crackles or wheezes. CV: Heart is regular; no gallop or murmur. GI: Abdomen is soft and not tender. There is no palpable mass or visceromegaly. Neuro: There is no focal deficits. Her urine culture is growing gram-negative aristides. ASSESSMENT AND PLAN: Urinary tract infection. Seems to be responding to treatment with IV Zosyn. This patient was recently treated for UTI; sent home on IV cefepime. She finished that antibiotic only a few days ago. Ultrasound of kidneys does not show any significant abnormalities. Her sepsis subsided. Migraine headaches/chronic fatigue syndrome with fibromyalgia/depression. Will continue previously used medications. - Exam Vitals: Temp Pulse Resp BP Pulse Ox 98.7 F 97 18 103/65 95 11/16/17 00:55 11/16/17 00:55 11/16/17 00:55 11/16/17 00:55 11/16/17 00:55 Exam: xx - Assessment and Plan (1) Urinary tract infection Current Visit: Yes Status: Acute (2) Sepsis Current Visit: Yes Status: Acute (3) GERD (gastroesophageal reflux disease) Current Visit: Yes Status: Acute (4) Migraine headache Current Visit: No Status: Chronic (5) Chronic fatigue syndrome with fibromyalgia Current Visit: Yes Status: Chronic (6) Depression Current Visit: No Status: Chronic (7) Recurrent nephrolithiasis Current Visit: No Status: Chronic - Time Spent with Patient Total time spent is greater than 50% in coordination of care (as documented) at patient's floor/unit and/or counseling patient: 25 - 35 minutes Plan of Care Discussed with: patient Internal Medicine: Result - Labs CBC & Chem 7: 11/15/17 04:52 11/15/17 04:52 Labs: Short CBC 11/15/17 Range/Units 04:52 WBC 12.8 H (4.3-11.1) K/mcL Hgb 11.6 (11.5-15.4) g/dL Hct 35.0 L (35.3-44.9) % Plt Count 142 (140-400) K/mcL Neutrophils # 7.9 (1.6-8.9) K/mcL [facility] 11/15/17 04:52 Sodium 133 L Potassium 4.4 Chloride 102 Carbon Dioxide 23 BUN 7 Creatinine 0.74 Glucose 108 H Calcium 9.2 - VTE Reasons for not Prescribing Prophylaxis: Treatment not Indicated - Low risk for VTE Deep Vein Thrombosis/Pulmonary Embolism Present on Admission: No Consult Discharge Plan - Plan Referrals: Jesse Lovelace MD [Primary Care Provider] - (1) Urinary tract infection Qualifiers: Urinary tract infection type: site unspecified Hematuria presence: without hematuria Qualified Code(s): N39.0 - Urinary tract infection, site not specified (2) Sepsis Qualifiers: Sepsis type: sepsis due to unspecified organism Qualified Code(s): A41.9 - Sepsis, unspecified organism (3) GERD (gastroesophageal reflux disease) Qualifiers: Esophagitis presence: esophagitis presence not specified Qualified Code(s): K21.9 - Gastro-esophageal reflux disease without esophagitis (4) Migraine headache Qualifiers: Migraine type: other Status migrainosus presence: without status migrainosus Intractability: not intractable Qualified Code(s): G43.809 - Other migraine, not intractable, without status migrainosus (6) Depression Qualifiers: Depression Type: unspecified Qualified Code(s): F32.9 - Major depressive disorder, single episode, unspecified
[2017-11-16] MEDS: *HR* OxyCODONE Immed Rel 5 MG TABLET PO PRN ×2 (04:35→16:56)
[2017-11-16] MEDS ORDERED: Fluconazole 100 MG TABLET PO ONE (09:23)
[2017-11-16 10:06] LABS: Basophils % 0.4 %; Eosinophils # 0.1 K/mcL (0.0-0.6); Eosinophils % 1.7 %; Hematocrit 32.6 % (35.3-44.9); Hemoglobin 10.6 g/dL (11.5-15.4); Immature Granulocytes % 0.4 % (0-4); Lymphocytes # 2.4 K/mcL (0.6-4.6); Lymphocytes % 31.6 %; Mean Corpuscular HGB Conc 32.5 g/dL (31.6-35.5); Mean Corpuscular Hemoglobin 31.1 pg (28.0-33.3); Mean Corpuscular Volume 95.6 fL (83.0-100.0); Mean Platelet Volume 11.3 fL (9.4-12.4); Monocytes % 13.6 %; Platelet Count 137 K/mcL (140-400); Red Blood Count 3.41 M/mcL (3.82-4.97); Red Cell Distribution Width 13.2 % (11.5-14.5); Segmented Neutrophils % 52.3 %
[2017-11-16 10:10] LABS: BUN/Creatinine Ratio 11 (6-26); Blood Urea Nitrogen 7 mg/dL (6-20); Calcium 8.8 mg/dL (8.6-10.3); Carbon Dioxide 28 mEq/L (23-29); Chloride 99 mEq/L (98-107); Glucose 116 mg/dL (70-105); Magnesium 1.5 mg/dL (1.6-2.6); Osmolality,Calculated 277 (280-300); Sodium 134 mEq/L (136-145); eGFR For Non-African Americans > 60 (> 60)
[2017-11-16] MEDS: SUMAtriptan succinate 50 MG TABLET PO PRN (12:40)
--- NOTE | 2017-11-16 21:52 | Internal Med Progress Note ---
Hospitalist Progress Note - Encounter Date of Encounter: 11/16/17 Time of Encounter: 19:00 - Subjective Interval History: SUBJECTIVE: The patient feels pretty good. She continues to have her chronic diffuse headache. Her urinary symptoms subsided. Suprapubic pain/low back pain subsided, too. She has not had any fever for the last 24 hours. OBJECTIVE: Skin: Free of rash and discoloration. ENMT: Oral/pharyngeal mucosa is normal in appearance. Eyes: Sclera is white. There is no discharge from eyes. Respiratory: Normal breath sounds; no crackles or wheezes. CV: Heart is regular; no gallop or murmur. GI: Abdomen is soft and not tender. There is no palpable mass or visceromegaly. Neuro: There is no focal deficits. Her urine culture is growing Pseudomonas aeruginosa. It is sensitive to all antibiotics tested. ASSESSMENT AND PLAN: Urinary tract infection. Seems to be responding to treatment with IV Zosyn. This patient was recently treated for Pseudomonas aeruginosa UTI; sent home on IV cefepime. She finished that antibiotic only a few days ago. Ultrasound of kidneys does not show any significant abnormalities. Her sepsis subsided. Migraine headaches/chronic fatigue syndrome with fibromyalgia/depression. Will continue previously used medications. - Exam Vitals: Temp Pulse Resp BP Pulse Ox 98.5 F 98 17 114/85 91 11/16/17 19:19 11/16/17 19:19 11/16/17 19:19 11/16/17 19:19 11/16/17 19:19 Exam: xx - Assessment and Plan (1) Urinary tract infection Current Visit: Yes Status: Acute (2) Sepsis Current Visit: Yes Status: Acute (3) GERD (gastroesophageal reflux disease) Current Visit: Yes Status: Acute (4) Migraine headache Current Visit: No Status: Chronic (5) Chronic fatigue syndrome with fibromyalgia Current Visit: Yes Status: Chronic (6) Depression Current Visit: No Status: Chronic (7) Recurrent nephrolithiasis Current Visit: No Status: Chronic - Time Spent with Patient Total time spent is greater than 50% in coordination of care (as documented) at patient's floor/unit and/or counseling patient: 25 - 35 minutes Plan of Care Discussed with: patient Internal Medicine: Result - Labs CBC & Chem 7: 11/16/17 09:33 11/16/17 09:33 Labs: Short CBC 11/16/17 Range/Units 09:33 WBC 7.6 (4.3-11.1) K/mcL Hgb 10.6 L (11.5-15.4) g/dL Hct 32.6 L (35.3-44.9) % Plt Count 137 L (140-400) K/mcL Neutrophils # 4.0 (1.6-8.9) K/mcL BMP 11/16/17 09:33 Sodium 134 L Potassium 4.0 Chloride 99 Carbon Dioxide 28 BUN 7 Creatinine 0.64 Glucose 116 H Calcium 8.8 - VTE Reasons for not Prescribing Prophylaxis: Treatment not Indicated - Low risk for VTE Deep Vein Thrombosis/Pulmonary Embolism Present on Admission: No Consult Discharge Plan - Plan Referrals: Jesse Lovelace MD [Primary Care Provider] - (1) Urinary tract infection Qualifiers: Urinary tract infection type: site unspecified Hematuria presence: without hematuria Qualified Code(s): N39.0 - Urinary tract infection, site not specified (2) Sepsis Qualifiers: Sepsis type: sepsis due to unspecified organism Qualified Code(s): A41.9 - Sepsis, unspecified organism (3) GERD (gastroesophageal reflux disease) Qualifiers: Esophagitis presence: esophagitis presence not specified Qualified Code(s): K21.9 - Gastro-esophageal reflux disease without esophagitis (4) Migraine headache Qualifiers: Migraine type: other Status migrainosus presence: without status migrainosus Intractability: not intractable Qualified Code(s): G43.809 - Other migraine, not intractable, without status migrainosus (6) Depression Qualifiers: Depression Type: unspecified Qualified Code(s): F32.9 - Major depressive disorder, single episode, unspecified
[2017-11-17] MEDS: *HR* OxyCODONE Immed Rel 5 MG TABLET PO PRN ×2 (04:19→17:39)
[2017-11-17] MEDS: Ondansetron 4 MG/2 ML VIAL IVP PRN ×2 (04:23→20:21)
[2017-11-17] MEDS: Piperacillin/Tazobactam 3.375 GM in 0.9 % Sodium Chloride Mini Bag 100 ML IVPB SCH ×2 (07:59→15:44)
[2017-11-17] MEDS: diazePAM 5 MG TABLET PO PRN (08:04)
--- NOTE | 2017-11-17 21:30 | Internal Med Progress Note ---
Hospitalist Progress Note - Encounter Date of Encounter: 11/17/17 Time of Encounter: 19:00 - Subjective Interval History: SUBJECTIVE: The patient feels pretty good. Her headache subsided.. Her urinary symptoms subsided. She had good quality sleep last night. Denies abdominal pain, nausea and vomiting. She has no urinary symptoms. OBJECTIVE: Skin: Free of rash and discoloration. ENMT: Oral/pharyngeal mucosa is normal in appearance. Eyes: Sclera is white. There is no discharge from eyes. Respiratory: Normal breath sounds; no crackles or wheezes. CV: Heart is regular; no gallop or murmur. GI: Abdomen is soft and not tender. There is no palpable mass or visceromegaly. Neuro: There is no focal deficits. Her urine culture is growing Pseudomonas aeruginosa. It is sensitive to all antibiotics tested (including Zosyn and cefepime). ASSESSMENT AND PLAN: Urinary tract infection. Seems to be responding to treatment with IV Zosyn. This patient was recently treated for Pseudomonas aeruginosa UTI; sent home on IV cefepime. She finished that antibiotic only a few days ago before this admission. Ultrasound of kidneys does not show any significant abnormalities. She needs a power glide IV access. I will get opinion from infectious diseases regarding further treatment of her UTI. Her sepsis subsided. Migraine headaches/chronic fatigue syndrome with fibromyalgia/depression. Will continue previously used medications. - Exam Vitals: Temp Pulse Resp BP Pulse Ox 97.8 F 90 16 111/75 90 11/17/17 20:02 11/17/17 20:02 11/17/17 20:02 11/17/17 20:02 11/17/17 20:02 Exam: xx - Assessment and Plan (1) Urinary tract infection Current Visit: Yes Status: Acute (2) Sepsis Current Visit: Yes Status: Acute (3) GERD (gastroesophageal reflux disease) Current Visit: Yes Status: Acute (4) Migraine headache Current Visit: No Status: Chronic (5) Chronic fatigue syndrome with fibromyalgia Current Visit: Yes Status: Chronic (6) Depression Current Visit: No Status: Chronic (7) Recurrent nephrolithiasis Current Visit: No Status: Chronic - Time Spent with Patient Total time spent is greater than 50% in coordination of care (as documented) at patient's floor/unit and/or counseling patient: 25 - 35 minutes Plan of Care Discussed with: patient Internal Medicine: Result - Labs CBC & Chem 7: 11/16/17 09:33 11/16/17 09:33 - VTE Reasons for not Prescribing Prophylaxis: Treatment not Indicated - Low risk for VTE Deep Vein Thrombosis/Pulmonary Embolism Present on Admission: No Consult Discharge Plan - Plan Referrals: Jesse Lovelace MD [Primary Care Provider] - (1) Urinary tract infection Qualifiers: Urinary tract infection type: site unspecified Hematuria presence: without hematuria Qualified Code(s): N39.0 - Urinary tract infection, site not specified (2) Sepsis Qualifiers: Sepsis type: sepsis due to unspecified organism Qualified Code(s): A41.9 - Sepsis, unspecified organism (3) GERD (gastroesophageal reflux disease) Qualifiers: Esophagitis presence: esophagitis presence not specified Qualified Code(s): K21.9 - Gastro-esophageal reflux disease without esophagitis (4) Migraine headache Qualifiers: Migraine type: other Status migrainosus presence: without status migrainosus Intractability: not intractable Qualified Code(s): G43.809 - Other migraine, not intractable, without status migrainosus (6) Depression Qualifiers: Depression Type: unspecified Qualified Code(s): F32.9 - Major depressive disorder, single episode, unspecified
[2017-11-18] MEDS: Piperacillin/Tazobactam 3.375 GM in 0.9 % Sodium Chloride Mini Bag 100 ML IVPB SCH ×3 (00:06→16:22)
[2017-11-18] MEDS: Ringers Solution, Lactated 1,000 ML IVC SCH ×2 (07:20→07:40)
[2017-11-18] MEDS: *HR* OxyCODONE Immed Rel 5 MG TABLET PO PRN (11:46)
--- NOTE | 2017-11-18 18:37 | Discharge Summary ---
Orders not resulted at time of discharge: Pending orders 11/16/17 09:20 UA w. reflex microscopic [Urinalysis reflex Microscopic] [URIN] Routine Date of Encounter: 11/18/17 Time of Encounter: 18:30 - Discharge Diagnosis (1) Urinary tract infection Priority: Primary Status: Acute Qualifiers: Urinary tract infection type: site unspecified Hematuria presence: without hematuria Qualified Code(s): N39.0 - Urinary tract infection, site not specified (2) Sepsis Priority: Primary Status: Resolved Qualifiers: Sepsis type: sepsis due to unspecified organism Qualified Code(s): A41.9 - Sepsis, unspecified organism (3) GERD (gastroesophageal reflux disease) Priority: Secondary Status: Chronic Qualifiers: Esophagitis presence: esophagitis presence not specified Qualified Code(s) : K21.9 - Gastro-esophageal reflux disease without esophagitis (4) Migraine headache Priority: Secondary Status: Chronic Qualifiers: Migraine type: other Status migrainosus presence: without status migrainosus Intractability: not intractable Qualified Code(s): G43.809 - Other migraine, not intractable, without status migrainosus (5) Chronic fatigue syndrome with fibromyalgia Priority: Secondary Status: Chronic (6) Depression Priority: Secondary Status: Chronic Qualifiers: Depression Type: unspecified Qualified Code(s): F32.9 - Major depressive disorder, single episode, unspecified (7) Recurrent nephrolithiasis Priority: Secondary Status: Chronic Discharge discussed with: patient, nurse - Time Spent with Patient Total time spent providing and/or coordinating discharge services: Greater than 30 minutes (45 minutes) - Discharge Medications Prescriptions: Fluconazole [Diflucan] 150 mg PO DAILY 1 Days #1 tab Home Medications: Cyclobenzaprine [Flexeril] 5 mg PO TID PRN 10/13/17 [History] Dexlansoprazole [Dexilant] 60 mg PO DAILY 10/13/17 [History] Duloxetine HCl [Cymbalta] 120 mg PO DAILY 10/13/17 [History] Modafinil [Provigil] 200 mg PO DAILY PRN 10/13/17 [History] Promethazine [Phenergan] 25 mg PO Q4-6H PRN 10/13/17 [History] SUMAtriptan Succinate [Imitrex] 50 - 100 mg PO DAILY PRN 10/13/17 [History] diazePAM [Valium] 5 mg PO DAILY PRN 10/13/17 [History] Fluconazole [Diflucan] 150 mg PO DAILY 1 Days #1 tab 11/18/17 [Rx] Allergies/Adverse Reactions: 3 Allergy/AdvReac Type Severity Reaction Status Date / Time Hydromorphone [From Dilaudid] Allergy Itching Verified 11/13/17 17:18 levofloxacin [From Levaquin] Allergy Itching Verified 11/13/17 17:18 prochlorperazine Allergy Anxiety Verified 11/13/17 17:18 [From Compazine] Date of admission: 11/13/17 17:13 Primary care physician: Jesse Lovelace MD Consults: 11/18/17 09:49 Consult to Invasive Line Access Team [CONS] Routine Reason for Consult: [employer] 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 Time Notified: 11:00 Call Completed: Yes Discharging clinician: Benjie John Anticipated date of discharge: 11/18/17 - Constitutional Vitals: Temp Pulse Resp BP Pulse Ox 97.4 F L 90 17 111/75 91 11/18/17 16:42 11/18/17 16:42 11/18/17 16:42 11/18/17 16:42 11/18/17 16:42 General appearance: Present: A&O X 3, no acute distress, answers questions appropriately Exam: xx - Patient Status Disposition: Home, Self-Care Condition: Fair Functional capacity at discharge: independent ambulation Overall status at discharge: patient is back to baseline - Discharge Instructions Follow Up With: Jesse Lovelace MD [Primary Care Provider] - Additional Instructions: Follow-up with Dr. Benson, urology - on 11/22/2017.. IV antibitics -- as per Dr. Sheffield.. - VTE Reasons for not Prescribing Prophylaxis: Treatment not Indicated - Low risk for VTE Deep Vein Thrombosis/Pulmonary Embolism Present on Admission: No
--- NOTE | 2017-11-18 23:53 | Internal Med Progress Note ---
Hospitalist Progress Note - Encounter Date of Encounter: 11/18/17 Time of Encounter: 19:00 - Subjective Interval History: SUBJECTIVE: The patient slept last night. She does have mild lower back pain. She denies urinary symptoms. Denies nausea and vomiting. She has normal appetite. OBJECTIVE: Skin: Free of rash and discoloration. ENMT: Oral/pharyngeal mucosa is normal in appearance. Eyes: Sclera is white. There is no discharge from eyes. Respiratory: Normal breath sounds; no crackles or wheezes. CV: Heart is regular; no gallop or murmur. GI: Abdomen is soft and not tender. There is no palpable mass or visceromegaly. Neuro: There is no focal deficits. Her urine culture is growing Pseudomonas aeruginosa. It is sensitive to all antibiotics tested (including Zosyn and cefepime). ASSESSMENT AND PLAN: Urinary tract infection. Seems to be responding to treatment with IV Zosyn. This patient was recently treated for Pseudomonas aeruginosa UTI; sent home on IV cefepime (she was getting cefepime from 10/30 through 11/09. She finished that antibiotic 4 days failure to this admission. Ultrasound of kidneys does not show any significant abnormalities. A power glide IV has been inserted. I will get opinion from infectious diseases regarding further treatment of her UTI. Her sepsis subsided. Migraine headaches/chronic fatigue syndrome with fibromyalgia/depression. Will continue previously used medications. - Exam Vitals: Temp Pulse Resp BP Pulse Ox 98.7 F 85 16 121/98 92 11/18/17 20:55 11/18/17 20:55 11/18/17 20:55 11/18/17 20:55 11/18/17 20:55 Exam: xx - Assessment and Plan (1) Urinary tract infection Current Visit: Yes Status: Acute (2) Sepsis Current Visit: Yes Status: Resolved (3) GERD (gastroesophageal reflux disease) Current Visit: Yes Status: Chronic (4) Migraine headache Current Visit: No Status: Chronic (5) Chronic fatigue syndrome with fibromyalgia Current Visit: Yes Status: Chronic (6) Depression Current Visit: No Status: Chronic (7) Recurrent nephrolithiasis Current Visit: No Status: Chronic - Time Spent with Patient Total time spent is greater than 50% in coordination of care (as documented) at patient's floor/unit and/or counseling patient: 25 - 35 minutes Plan of Care Discussed with: patient (and family) Internal Medicine: Result - Labs CBC & Chem 7: 11/16/17 09:33 11/16/17 09:33 - VTE Reasons for not Prescribing Prophylaxis: Treatment not Indicated - Low risk for VTE Deep Vein Thrombosis/Pulmonary Embolism Present on Admission: No Consult Discharge Plan - Plan Additional Instructions: Follow-up with Dr. Benson, urology - on 11/22/2017.. IV antibitics -- as per Dr. Sheffield.. Referrals: Jesse Lovelace MD [Primary Care Provider] - Prescriptions: Fluconazole [Diflucan] 150 mg PO DAILY 1 Days #1 tab (1) Urinary tract infection Qualifiers: Urinary tract infection type: site unspecified Hematuria presence: without hematuria Qualified Code(s): N39.0 - Urinary tract infection, site not specified (2) Sepsis Qualifiers: Sepsis type: sepsis due to unspecified organism Qualified Code(s): A41.9 - Sepsis, unspecified organism (3) GERD (gastroesophageal reflux disease) Qualifiers: Esophagitis presence: esophagitis presence not specified Qualified Code(s): K21.9 - Gastro-esophageal reflux disease without esophagitis (4) Migraine headache Qualifiers: Migraine type: other Status migrainosus presence: without status migrainosus Intractability: not intractable Qualified Code(s): G43.809 - Other migraine, not intractable, without status migrainosus (6) Depression Qualifiers: Depression Type: unspecified Qualified Code(s): F32.9 - Major depressive disorder, single episode, unspecified
[2017-11-19] MEDS: Piperacillin/Tazobactam 3.375 GM in 0.9 % Sodium Chloride Mini Bag 100 ML IVPB SCH ×2 (00:26→09:23)
[2017-11-19] MEDS: *HR* OxyCODONE Immed Rel 5 MG TABLET PO PRN ×4 (03:55→20:10)
[2017-11-19] MEDS ORDERED: Fluconazole 100 MG TABLET PO ONE (10:04)
--- NOTE | 2017-11-19 10:52 | Internal Med Progress Note ---
Hospitalist Progress Note - Encounter Date of Encounter: 11/19/17 Time of Encounter: 09:10 - Subjective Interval History: pain and fevers/chills improved. overall beginning to feel better. no dysuria, nausea, emesis or cva tenderness. - Exam Vitals: Temp Pulse Resp BP Pulse Ox 98.6 F 77 18 133/88 94 11/19/17 07:55 11/19/17 07:55 11/19/17 07:55 11/19/17 07:55 11/19/17 07:55 Exam: General: awake, alert, appears stated age HEENT:EOM, pupils equal, round, moist mucus membranes Cardiovascular:regular rate and rhythm, normal S1 & S2, no rubs, murmurs or gallops. no lower extremity edema Lungs:Normal breath sounds, no wheezes, or crackles. Normal respiratory effort Abdomen:Soft, non-tender, non-distended, + bowel sounds Neurological: AAOx3 Skin:Normal color, no rash, no pallor - Assessment and Plan (1) Urinary tract infection Current Visit: Yes Status: Acute Assessment and Plan: Urinary tract infection. Seems to be responding to treatment with IV Zosyn. This patient was recently treated for Pseudomonas aeruginosa UTI; sent home on IV cefepime (she was getting cefepime from 10/30 through 11/09. She finished that antibiotic 4 days failure to this admission.) Ultrasound of kidneys does not show any significant abnormalities. A power glide IV has been inserted in anticipation of home iV abx on dc Infectious diseases rconsult placed 11/18 and eval pending for recommendations regarding abx treatment on dc Ucx sanchez sensitive Bl cxs neg CM working on home infusion if needed- will need rx for abx and HHC referral on dc pending ID recs (2) Sepsis Current Visit: Yes Status: Resolved Assessment and Plan: Sepsis with fever 100.6, HR 111 2/2 UTI, resolved CXR neg bl cxs neg treatment as above (3) Depression Current Visit: No Status: Chronic Assessment and Plan: stable-cont home medication (4) GERD (gastroesophageal reflux disease) Current Visit: No Status: Chronic Assessment and Plan: cont omeprazole (5) Migraine headache Current Visit: No Status: Chronic Assessment and Plan: stable, prn pain control (6) Chronic fatigue syndrome with fibromyalgia Current Visit: Yes Status: Chronic Assessment and Plan: stable- cont home medication (7) Recurrent nephrolithiasis Current Visit: No Status: Chronic Assessment and Plan: not an active issue Renal US without stones identified DVT Prophylaxis: scds - Time Spent with Patient Total time spent is greater than 50% in coordination of care (as documented) at patient's floor/unit and/or counseling patient: 25 - 35 minutes Plan of Care Discussed with: patient Internal Medicine: Result - Labs CBC & Chem 7: 11/16/17 09:33 11/16/17 09:33 - VTE Reasons for not Prescribing Prophylaxis: Treatment not Indicated - Low risk for VTE Deep Vein Thrombosis/Pulmonary Embolism Present on Admission: No Consult Discharge Plan - Plan Additional Instructions: Follow-up with Dr. Benson, urology - on 11/22/2017.. IV antibitics -- as per Dr. Sheffield.. Referrals: Jesse Lovelace MD [Primary Care Provider] - Prescriptions: Fluconazole [Diflucan] 150 mg PO DAILY 1 Days #1 tab (1) Urinary tract infection Qualifiers: Urinary tract infection type: site unspecified Hematuria presence: without hematuria Qualified Code(s): N39.0 - Urinary tract infection, site not specified (2) Sepsis Qualifiers: Sepsis type: sepsis due to unspecified organism Qualified Code(s): A41.9 - Sepsis, unspecified organism (3) Depression Qualifiers: Depression Type: unspecified Qualified Code(s): F32.9 - Major depressive disorder, single episode, unspecified (4) GERD (gastroesophageal reflux disease) Qualifiers: Esophagitis presence: esophagitis presence not specified Qualified Code(s): K21.9 - Gastro-esophageal reflux disease without esophagitis (5) Migraine headache Qualifiers: Migraine type: other Status migrainosus presence: without status migrainosus Intractability: not intractable Qualified Code(s): G43.809 - Other migraine, not intractable, without status migrainosus
[2017-11-19] MEDS: diazePAM 5 MG TABLET PO PRN (11:46)
--- NOTE | 2017-11-19 13:21 | Infectious Disease Consult ---
Date of Encounter: 11/19/17 Time of Encounter: 11:30 Assessment and Plan (1) Severe sepsis Status: Resolved Assessment and plan: Resolved. On admission, met 2 SIRS criteria of fever and tachycardia. Lactic acid was elevated at 2.3. Likely secondary to UTI. Urine culture showed Pseudomonas, sanchez-sensitive. Blood cultures drawn 11/13 x2 sets are negative. Powerglide placed 11/18. Recommend stopping zosyn. Recommend starting cefepime. Monitor renal function and for drug toxicity and dose-adjust antibiotics. (2) Urinary tract infection Status: Acute Assessment and plan: Causative organism: Pseudomonas History of Pseudomonas UTI on 10/27/17 treated with zosyn and cefepime. Urinalysis 11/13 showed positive nitrite, moderate leukocyte esterase, and no urine bacteria. Urinalysis 11/15 showed negative nitrite, small leukocyte esterase, and no urine bacteria. Urine culture is positive for Pseudomonas, sanchez-sensitive. Retroperitoneal ultrasound showed mild left hydronephrosis. Urology Dr. Benson consulted for recurrent UTI and hydronephrosis. Antibiotics as above. Qualifiers: Urinary tract infection type: site unspecified Hematuria presence: without hematuria Qualified Code(s): N39.0 - Urinary tract infection, site not specified (3) Hydronephrosis Status: Acute Assessment and plan: Retroperitoneal ultrasound showed mild left hydronephrosis. No stone. Urology consulted. Qualifiers: Hydronephrosis type: other Qualified Code(s): N13.39 - Other hydronephrosis (4) Recurrent nephrolithiasis Status: Chronic Assessment and plan: Retroperitoneal ultrasound showed mild left hydronephrosis. No nephrolithiasis. (5) GERD (gastroesophageal reflux disease) Status: Chronic Assessment and plan: Omeprazole Qualifiers: Esophagitis presence: esophagitis presence not specified Qualified Code(s) : K21.9 - Gastro-esophageal reflux disease without esophagitis (6) Migraine headache Status: Chronic Assessment and plan: Stable. Imitrex. Qualifiers: Migraine type: other Status migrainosus presence: without status migrainosus Intractability: not intractable Qualified Code(s): G43.809 - Other migraine, not intractable, without status migrainosus (7) Chronic fatigue syndrome with fibromyalgia Status: Chronic Assessment and plan: Stable. Home meds - Abilify, Cymbalta, valium, flexeril, Provigil. (8) Depression Status: Chronic Assessment and plan: Stable. Home meds - Abilify, Cymbalta, valium, Provigil. Qualifiers: Depression Type: unspecified Qualified Code(s): F32.9 - Major depressive disorder, single episode, unspecified Infectious Disease HPI - Data of Consult Consult date: 11/19/17 Requesting Physician: Jhoana Longoria Primary Care Provider: Jesse Lovelace MD - Consult Narrative Reason for consult: Recurrent UTI with severe sepsis History of present illness: Ms. Colon is a 47 year old female with past medical history of nephrolithiasis, GERD, migraine, chronic fatigue syndrome, fibromyalgia, depression. The patient was admitted to the hospital on 11/13/17 for sepsis and UTI. We are consulted on 11/18/17 for UTI. Briefly, the patient is a 47 year old female with past medical history as stated above. On review of medical records, patient had recent hospitalization in 10/27/17 for UTI with pseudomonas that was pansensitive and treated with zosyn. Patient is allergic to Levaquin and was discharged on 10/30 on cefepime for 10 days. Finished cefepime on 11/09. Patient presented to the ED on 11/13 complaining of fever/chills, low back pain, and suprapubic pain. On presentation to the ED, the patient was febrile (100.6) and tachycardic (123) without tachypnea. Blood pressure was stable. WBC was normal at 11.0. Lactic acid was elevated at 2.3. Urinalysis showed positive nitrite, moderate leukocyte esterase, and no urine bacteria. There was high microscopic RBC and WBC. Urine and blood cultures were obtained. CXR showed no acute process. Patient was given zosyn. Patient was admitted for further evaluation and management. Patient was started on zosyn. Retroperitoneal ultrasound showed mild left hydronephrosis. Sepsis resolved with improvement of symptoms. Powerglide IV was placed. ID was consulted for opinion regarding treatment of UTI on discharge. On exam today, the patient endorses the history as stated above. No acute events overnight. The patient is resting comfortably in bed with family at bedside. Patient states she feels incomparably better than when she first came in. Admits some lingering low back pain. Reports some tenderness in suprapubic region that comes and goes. Denies suprapubic pain at this time. Reports urinary hesitancy. Denies other urinary symptoms. Denies fever, chills. Denies chest pain, shortness of breath, swelling. Denies abdominal pain, nausea/ vomiting. Denies constipation/diarrhea. Denies numbness, tingling. Patient states Levaquin allergy occurred in . She was placed on Levaquin for multiple bacteria and developed whole leg swelling bilaterally. Patient states she developed cankles. Denies any erythema of legs. Denies itching. States she may have had shortness of breath, but is unsure. CC: Jhoana Longoria Past Med Surg Social Fam HX - Past Medical History Medical history: fibromyalgia, other Additional medical history: menieres disease Psychiatric history: depression - Past Surgical History Additional surgical history: breast reduction - Social History Smoking Status: Current some day smoker Smokeless Tobacco Status: No Alcohol use: none Drug use: none Infectious Disease-CN:Meds Cyclobenzaprine [Flexeril] 5 mg PO TID PRN 10/13/17 [History] Dexlansoprazole [Dexilant] 60 mg PO DAILY 10/13/17 [History] Duloxetine HCl [Cymbalta] 120 mg PO DAILY 10/13/17 [History] Modafinil [Provigil] 200 mg PO DAILY PRN 10/13/17 [History] Promethazine [Phenergan] 25 mg PO Q4-6H PRN 10/13/17 [History] SUMAtriptan Succinate [Imitrex] 50 - 100 mg PO DAILY PRN 10/13/17 [History] diazePAM [Valium] 5 mg PO DAILY PRN 10/13/17 [History] Cefepime HCl [Maxipime] 2,000 mg IVPB Q12HR 14 Days #28 vial 11/20/17 [Rx] Fluconazole [Diflucan] 150 mg PO DAILY 10 Days #10 tab 11/20/17 [Rx] 3 Allergy/AdvReac Type Severity Reaction Status Date / Time Hydromorphone [From Dilaudid] Allergy Itching Verified 11/13/17 17:18 levofloxacin [From Levaquin] Allergy Itching Verified 11/13/17 17:18 prochlorperazine Allergy Anxiety Verified 11/13/17 17:18 [From Compazine] Review of systems: 10 point review of systems done, negative other for what mentioned in history of present illness Exam - Constitutional Vitals: Temp Pulse Resp BP Pulse Ox 98.5 F 88 18 102/59 97 11/19/17 11:38 11/19/17 11:38 11/19/17 11:38 11/19/17 11:38 11/19/17 11:38 General appearance: cooperative, morbidly obese, no acute distress, no febrile - Head Head exam: Present: atraumatic, normal inspection, normocephalic - Eye Eye exam: Present: EOMI, normal appearance, periorbital tenderness - ENT ENT exam: Present: mucous membranes moist, normal oropharynx - Neck Neck exam: Present: normal inspection - Respiratory Respiratory exam: Present: CTAB. Absent: rales, respiratory distress, rhonchi, wheezes - Cardiovascular Cardiovascular exam: Present: RRR, +S1, +S2 - GI/Abdominal GI/Abdominal exam: Present: normal bowel sounds, soft. Absent: distended, tenderness - Extremities Exam Extremities exam: Present: normal inspection. Absent: joint swelling, pedal edema, tenderness - Neurological Exam Neurological exam: Present: alert, oriented X3 - Psychiatric Psychiatric exam: Present: normal affect, normal mood - Skin Skin exam: Present: dry, intact, normal color, warm Infectious Disease CN: Results - Labs CBC & Chem 7: 11/16/17 09:33 11/16/17 09:33 Serology: Serology 11/15/17 Range/Units 02:27 Urine Color Yellow (Yellow) Urine Clarity Cloudy A (Clear) Urine pH 6.0 (5.0-8.0) pH Units Ur Specific [place] 1.014 (1.010-1.025) Urine Protein 30 H (Neg-Trace) mg/dL Urine Glucose (UA) Normal (Normal) mg/dL Urine Ketones Negative (Negative) mg/dL Urine Blood Negative (Negative) Urine Nitrite Negative (Negative) Urine Bilirubin Negative (Negative) Urine Urobilinogen Normal (Normal) mg/dL Ur Leukocyte Esterase Small H (Negative) Urine Microscopic RBC 0-3 (0-3) per hpf Urine Microscopic WBC 15-30 H (0-3) per hpf Ur Squamous Epith Cells Many H (None-Few) per lpf Urine Bacteria None Seen (None-Few) per hpf Hyaline Casts None Seen (None-Few) per lpf Ur Culture Indicated? NO. A (NO) - VTE Reasons for not Prescribing Prophylaxis: Treatment not Indicated - Low risk for VTE Deep Vein Thrombosis/Pulmonary Embolism Present on Admission: No Consult Discharge Plan - Plan Additional Instructions: Follow-up with Dr. Benson, urology - on 11/22/2017.. IV antibitics -- as per Dr. Sheffield.. Referrals: Jesse Lovelace MD [Primary Care Provider] - (web requested 11/20/2017) Prescriptions: Cefepime HCl [Maxipime] 2,000 mg IVPB Q12HR 14 Days #28 vial Fluconazole [Diflucan] 150 mg PO DAILY 10 Days #10 tab - Attending Attestation I examined this patient and my medical decision-making was reviewed with the Resident Physician. I agree with the documented findings, disposition and treatment plan as described except to the extent set forth below. This is an addendum to original report dictated by resident physician. Please refer to resident's note for full detail. Patient is a 47-year-old woman who has recurrent nephrolithiasis was recently admitted was noted to have Pseudomonas urinary tract infection. Patient has severe allergies to levofloxacin and was discharged on cefepime for 14 days. 2 days after stopping the antibiotics her status having suprapubic pain back pain and fevers and chills. Patient came back the hospital was noted to have a recurrent UTI with pseudomonas that is also pansensitive. Patient was started on Zosyn and we were asked to evaluate the patient and make further recommendations. Patient clinically is doing well right now and is asymptomatic. Severe sepsis has resolved. I did speak with Dr. Benson from urology to cause the patient still has some hydronephrosis even though it has been weeks since she had the stent placed. And the fact that the patient has the recurrence of infection so quickly I was concerned that there is a possible nidus of infection that has not been addressed. Dr. Benson said he will be happy to evaluate the patient and he recommended a CT to rule out more nephrolithiasis or an abscess area at this point patient is on Zosyn, I think cefepime should work just fine and it is dosed less frequently and easier to give at home. Duration of treatment depends on what we find on the CT scan and the clinical picture. Await cultures to finalize Await CT results Await Dr. Benson's evaluation Monitor labs and for drug toxicity
[2017-11-19] MEDS: Ondansetron 4 MG/2 ML VIAL IVP PRN (15:28)
--- NOTE | 2017-11-19 16:32 | Urology - Consult Note ---
Date of Encounter: 11/19/17 Time of Encounter: 16:30 - Assessment and Plan (1) Hydronephrosis Current Visit: Yes Status: Acute Assessment and plan: 47-year-old woman with a history of pseudomonas urinary tract infection and nephrolithiasis. She had a renal and bladder ultrasound upon admission which showed mild left hydronephrosis, but there was a ureteral jet. Given that she is redeveloped a pseudomonas infection, I am concerned that she still may have a nidus for this infection in her kidney with a stone. I recommend proceeding with a CT of the abdomen and pelvis. Depending on what that shows may need to proceed with repeat ureteroscopic stone extraction to do what we can to rid her of any possible foreign body that may be a source for infection. I appreciate infectious disease recommendations. I contacted the hospitalist regarding this. We will follow along. Qualifiers: Hydronephrosis type: other Qualified Code(s): N13.39 - Other hydronephrosis (2) Urinary tract infection Current Visit: Yes Status: Acute Qualifiers: Urinary tract infection type: site unspecified Hematuria presence: without hematuria Qualified Code(s): N39.0 - Urinary tract infection, site not specified (3) Ureterolithiasis Current Visit: No Status: Acute Urology CN:HPI Consult date: 11/19/17 Reason for consult Urology: Hydronephrosis Requesting physician: Jeffry Helton History of present illness: 47-year-old woman well known to the urology service was admitted 4 days ago for fevers and left hydronephrosis. She has a history of nephrolithiasis and is status post left ureteroscopy, laser, stent placement from 10/22/2017. She has had issues with UTIs after the surgery. She grew out Pseudomonas while she had a stent in place. She removed her stent. She continued on antibiotic and shortly after she completed her course of antibiotics she redeveloped a fever. She was admitted on 11/13/2017. I was consulted today by Dr. Helton for further evaluation. Erika says she is feeling well today. Her back pain is improved. She is voiding well. She denies any fevers or chills. Past Med Surg Social Fam HX - Past Medical History Medical history: fibromyalgia, other Additional medical history: menieres disease Psychiatric history: depression - Past Surgical History Additional surgical history: breast reduction - Social History Smoking Status: Current some day smoker Smokeless Tobacco Status: No Alcohol use: none Drug use: none Medications and Allergies RX: Cyclobenzaprine [Flexeril] 5 mg PO TID PRN 10/13/17 [History] RX: Dexlansoprazole [Dexilant] 60 mg PO DAILY 10/13/17 [History] RX: Duloxetine HCl [Cymbalta] 120 mg PO DAILY 10/13/17 [History] RX: Modafinil [Provigil] 200 mg PO DAILY PRN 10/13/17 [History] RX: Promethazine [Phenergan] 25 mg PO Q4-6H PRN 10/13/17 [History] RX: SUMAtriptan Succinate [Imitrex] 50 - 100 mg PO DAILY PRN 10/13/17 [History] RX: diazePAM [Valium] 5 mg PO DAILY PRN 10/13/17 [History] Fluconazole [Diflucan] 150 mg PO DAILY 1 Days #1 tab 11/18/17 [Rx] 3 Allergy/AdvReac Type Severity Reaction Status Date / Time Hydromorphone [From Dilaudid] Allergy Itching Verified 11/13/17 17:18 levofloxacin [From Levaquin] Allergy Itching Verified 11/13/17 17:18 prochlorperazine Allergy Anxiety Verified 11/13/17 17:18 [From Compazine] Review of Systems - Constitutional no chills, no fever(s) - EENT Nose, mouth and throat: no dizziness - Cardiovascular no chest pain - Respiratory no dyspnea - Gastrointestinal no nausea, no vomiting - Genitourinary Genitourinary: no flank pain, no hematuria - Musculoskeletal no back pain - Integumentary no erythema, no rash - Neurological no weakness - Psychiatric no suicidal ideation - Hematologic/Lymphatic no easy bleeding - Allergic/Immunologic no wheezing Exam Initial Vital Signs Temp Pulse Resp BP Pulse Ox 100.6 F H 123 16 94/60 92 11/13/17 13:43 11/13/17 13:43 11/13/17 13:43 11/13/17 13:43 11/13/17 13:43 - General physical appearance Present: well developed, well nourished, no distress - Eyes Absent: icteric - ENT Present: normal nares - Neck Present: trachea midline - Respiratory Present: normal respiratory effort - Cardiovascular Cardiovascular exam IM: RRR - Abdomen Abdomen: Present: soft - Integumentary Present: no rash - Neurologic Present: normal coordination - Musculoskeletal Present: other (Grossly normal) Urology Results - Labs 11/16/17 09:33 11/16/17 09:33 Abnormal lab results RBC 3.41 M/mcL (3.82-4.97) L 11/16/17 09:33 Hgb 10.6 g/dL (11.5-15.4) L 11/16/17 09:33 Hct 32.6 % (35.3-44.9) L 11/16/17 09:33 Plt Count 137 K/mcL (140-400) L 11/16/17 09:33 Sodium 134 mEq/L (136-145) L 11/16/17 09:33 Glucose 116 mg/dL (70-105) H 11/16/17 09:33 Calculated Osmolality 277 (280-300) L 11/16/17 09:33 Phosphorus 2.2 mg/dL (2.7-4.5) L 11/13/17 15:17 Magnesium 1.5 mg/dL (1.6-2.6) L 11/16/17 09:33 Direct Bilirubin 0.3 mg/dL (0.0-0.2) H 11/13/17 15:17 Alkaline Phosphatase 108 Units/L (34-104) H 11/13/17 15:17 Urine Clarity Cloudy (Clear) A 11/15/17 02:27 Urine Protein 30 mg/dL (Neg-Trace) H 11/15/17 02:27 Ur Leukocyte Esterase Small (Negative) H 11/15/17 02:27 Urine Microscopic WBC 15-30 per hpf (0-3) H 11/15/17 02:27 Ur Squamous Epith Cells Many per lpf (None-Few) H 11/15/17 02:27 Ur Culture Indicated? NO. (NO) A 11/15/17 02:27 All other labs normal. - Imaging US - kidney/bladder: report reviewed, image reviewed Consult Discharge Plan - Plan Additional Instructions: Follow-up with Dr. Benson, urology - on 11/22/2017.. IV antibitics -- as per Dr. Sheffield.. Referrals: Jesse Lovelace MD [Primary Care Provider] - Prescriptions: Fluconazole [Diflucan] 150 mg PO DAILY 1 Days #1 tab
[2017-11-19] MEDS: Cefepime HCl 2,000 MG in Water for inj. (sterile) 20 ML 20 ML IVP SCH (18:14)
[2017-11-20] MEDS: Cefepime HCl 2,000 MG in Water for inj. (sterile) 20 ML 20 ML IVP SCH (05:36)
--- NOTE | 2017-11-20 08:07 | Internal Med Progress Note ---
Hospitalist Progress Note - Encounter Date of Encounter: 11/20/17 Time of Encounter: 08:30 - Subjective Interval History: overall much improved. no fevers, chills, n/v, cva tenderness or bladder discomfort. no dysuria. - Exam Vitals: Temp Pulse Resp BP Pulse Ox 97.8 F 77 16 95/63 91 11/20/17 07:33 11/20/17 07:33 11/20/17 07:33 11/20/17 07:33 11/20/17 07:33 Exam: General: awake, alert, appears stated age Cardiovascular:regular rate and rhythm, normal S1 & S2, no rubs, murmurs or gallops. no lower extremity edema Lungs:Normal breath sounds, no wheezes, or crackles. Normal respiratory effort Abdomen:Soft, non-tender, non-distended, + bowel sounds Neurological: AAOx3 Skin:Normal color, no rash, no pallor - Assessment and Plan (1) Urinary tract infection Current Visit: Yes Status: Acute Assessment and Plan: Urinary tract infection. Seems to be responding to treatment with IV Zosyn. This patient was recently treated for Pseudomonas aeruginosa UTI; sent home on IV cefepime (she was getting cefepime from 10/30 through 11/09. She finished that antibiotic 4 days failure to this admission.) Ultrasound of kidneys does not show any significant abnormalities. A power glide IV has been inserted in anticipation of home iV abx on dc Ucx sanchez sensitive Bl cxs neg CM working on home infusion if needed- will need rx for abx and [facility] referral on dc 11/19 Infectious diseases consulted--rec to involve Dr Benson as pt well known to him, rec to stop zosyn, start cefepime -Urology consulted and rec for CT scan to definitively rule out addl stones as cause of recurrent infection--d/w Urology and no obstructing stones, no intervention required -on dc with fu with dr Benson 11/22/17, rec for abx as per ID -d/w ID and will dc on 14 days of IV cefepime (2) Sepsis Current Visit: Yes Status: Resolved Assessment and Plan: Sepsis with fever 100.6, HR 111 2/2 UTI, resolved CXR neg bl cxs neg treatment as above (3) Depression Current Visit: No Status: Chronic Assessment and Plan: stable-cont home medication (4) GERD (gastroesophageal reflux disease) Current Visit: No Status: Chronic Assessment and Plan: cont omeprazole (5) Migraine headache Current Visit: No Status: Chronic Assessment and Plan: stable, prn pain control (6) Chronic fatigue syndrome with fibromyalgia Current Visit: Yes Status: Chronic Assessment and Plan: stable- cont home medication (7) Recurrent nephrolithiasis Current Visit: No Status: Chronic Assessment and Plan: Renal US without stones identified CT a/p 11/19 persistent bl non obstructing intra renal stones -fu with Urology outpt DVT Prophylaxis: scds - Time Spent with Patient Total time spent is greater than 50% in coordination of care (as documented) at patient's floor/unit and/or counseling patient: 25 - 35 minutes Plan of Care Discussed with: patient Internal Medicine: Result - Labs CBC & Chem 7: 11/16/17 09:33 11/16/17 09:33 - Impressions Impressions Abdomen/Pelvis CT 11/19/17 16:40 IMPRESSION: 1. Findings consistent with interval resolution of left-sided obstructive uropathy when compared to the study of 10/12/2017. Partial decrease in stone volume within the left kidney with previously described 1.3 cm calculus no longer visualized. 2. Persistent findings of bilateral nonobstructing intrarenal calculi. 3. No evidence of bowel obstruction, intraperitoneal free air, or abscess. 4. Large amount of particulate material within the stomach. Finding could be related to recently ingested meal. D/ / 11/19/2017 18:11:02 Mervin Boone MD / bharat Interpreting Provider: Mervin Boone MD - VTE Reasons for not Prescribing Prophylaxis: Treatment not Indicated - Low risk for VTE Deep Vein Thrombosis/Pulmonary Embolism Present on Admission: No Consult Discharge Plan - Plan Additional Instructions: Follow-up with Dr. Benson, urology - on 11/22/2017.. IV antibitics -- as per Dr. Sheffield.. Referrals: Jesse Lovelace MD [Primary Care Provider] - Prescriptions: Fluconazole [Diflucan] 150 mg PO DAILY 1 Days #1 tab (1) Urinary tract infection Qualifiers: Urinary tract infection type: site unspecified Hematuria presence: without hematuria Qualified Code(s): N39.0 - Urinary tract infection, site not specified (2) Sepsis Qualifiers: Sepsis type: sepsis due to unspecified organism Qualified Code(s): A41.9 - Sepsis, unspecified organism (3) Depression Qualifiers: Depression Type: unspecified Qualified Code(s): F32.9 - Major depressive disorder, single episode, unspecified (4) GERD (gastroesophageal reflux disease) Qualifiers: Esophagitis presence: esophagitis presence not specified Qualified Code(s): K21.9 - Gastro-esophageal reflux disease without esophagitis (5) Migraine headache Qualifiers: Migraine type: other Status migrainosus presence: without status migrainosus Intractability: not intractable Qualified Code(s): G43.809 - Other migraine, not intractable, without status migrainosus
[2017-11-20] MEDS: traMADol 50 MG TABLET PO PRN (08:24)
--- NOTE | 2017-11-20 09:11 | Infectious Disease Progress No ---
Date of Encounter: 11/20/17 Time of Encounter: 08:40 - Assessment and Plan (1) Severe sepsis Status: Resolved Resolved. On admission, met 2 SIRS criteria of fever and tachycardia. Lactic acid was elevated at 2.3. Likely secondary to UTI. Urine culture showed Pseudomonas, sanchez-sensitive. Blood cultures drawn 11/13 x2 sets are negative. (2) Urinary tract infection Status: Acute Causative organism: Pseudomonas History of Pseudomonas UTI on 10/27/17 treated with zosyn and cefepime. Urinalysis 11/13 showed positive nitrite, moderate leukocyte esterase, and no urine bacteria. Urinalysis 11/15 showed negative nitrite, small leukocyte esterase, and no urine bacteria. Urine culture is positive for Pseudomonas, sanchez-sensitive. Retroperitoneal ultrasound showed mild left hydronephrosis. CT abd/pelvis showed bilateral nonobstructing intrarenal stones. Interval resolution of left obstructive uropathy. Powerglide placed 11/18. Zosyn discontinued. Continue cefepime. Monitor renal function and for drug toxicity and dose-adjust antibiotics. Urologist Dr. Benson consulted and following. Qualifiers: Urinary tract infection type: site unspecified Hematuria presence: without hematuria Qualified Code(s): N39.0 - Urinary tract infection, site not specified (3) Hydronephrosis Status: Acute Retroperitoneal ultrasound showed mild left hydronephrosis. CT abd/pelvis showed bilateral nonobstructing intrarenal stones. Interval resolution of left obstructive uropathy. Urology consulted and following. Qualifiers: Hydronephrosis type: other Qualified Code(s): N13.39 - Other hydronephrosis (4) Recurrent nephrolithiasis Status: Chronic Retroperitoneal ultrasound showed mild left hydronephrosis. CT abd/pelvis showed bilateral nonobstructing intrarenal stones. Interval resolution of left obstructive uropathy. (5) GERD (gastroesophageal reflux disease) Status: Chronic Omeprazole Qualifiers: Esophagitis presence: esophagitis presence not specified Qualified Code(s) : K21.9 - Gastro-esophageal reflux disease without esophagitis (6) Migraine headache Status: Chronic Stable. Imitrex. Qualifiers: Migraine type: other Status migrainosus presence: without status migrainosus Intractability: not intractable Qualified Code(s): G43.809 - Other migraine, not intractable, without status migrainosus (7) Chronic fatigue syndrome with fibromyalgia Status: Chronic Stable. Abilify, Cymbalta, valium, flexeril, Provigil. (8) Depression Status: Chronic Stable. Abilify, Cymbalta, valium, Provigil. Qualifiers: Depression Type: unspecified Qualified Code(s): F32.9 - Major depressive disorder, single episode, unspecified - Subjective Interval history: Patient seen and examined. No acute events overnight. The patient is sleeping comfortably in bed with family at bedside. Patient states she feels fine. Admits some lingering low back pain, unchanged from yesterday. Reports some tenderness in suprapubic region that comes and goes, unchanged from yesterday. Denies suprapubic pain at this time. Denies urinary symptoms. Denies fever, chills. Denies chest pain, shortness of breath, swelling. Denies abdominal pain , nausea/vomiting. Denies constipation/diarrhea. Denies numbness, tingling. Infect Dis PN-Objective Data - Labs CBC & Chem 7: 11/16/17 09:33 11/16/17 09:33 Cultures: Serology 11/15/17 Range/Units 02:27 Urine Color Yellow (Yellow) Urine Clarity Cloudy A (Clear) Urine pH 6.0 (5.0-8.0) pH Units Ur Specific [place] 1.014 (1.010-1.025) Urine Protein 30 H (Neg-Trace) mg/dL Urine Glucose (UA) Normal (Normal) mg/dL Urine Ketones Negative (Negative) mg/dL Urine Blood Negative (Negative) Urine Nitrite Negative (Negative) Urine Bilirubin Negative (Negative) Urine Urobilinogen Normal (Normal) mg/dL Ur Leukocyte Esterase Small H (Negative) Urine Microscopic RBC 0-3 (0-3) per hpf Urine Microscopic WBC 15-30 H (0-3) per hpf Ur Squamous Epith Cells Many H (None-Few) per lpf Urine Bacteria None Seen (None-Few) per hpf Hyaline Casts None Seen (None-Few) per lpf Ur Culture Indicated? NO. A (NO) - Impressions Impressions Abdomen/Pelvis CT 11/19/17 16:40 IMPRESSION: 1. Findings consistent with interval resolution of left-sided obstructive uropathy when compared to the study of 10/12/2017. Partial decrease in stone volume within the left kidney with previously described 1.3 cm calculus no longer visualized. 2. Persistent findings of bilateral nonobstructing intrarenal calculi. 3. No evidence of bowel obstruction, intraperitoneal free air, or abscess. 4. Large amount of particulate material within the stomach. Finding could be related to recently ingested meal. D/ / 11/19/2017 18:11:02 Mervin Boone MD / bharat Interpreting Provider: Mervin Boone MD Exam - Constitutional Vitals: Temp Pulse Resp BP Pulse Ox 97.8 F 77 16 95/63 91 11/20/17 07:33 11/20/17 07:33 11/20/17 07:33 11/20/17 07:33 11/20/17 07:33 General appearance: cooperative, morbidly obese, no acute distress, no febrile - Head Head exam: Present: atraumatic, normal inspection, normocephalic - Eye Eye exam: Present: EOMI, normal appearance, PERRL - ENT ENT exam: Present: mucous membranes moist, normal oropharynx - Neck Neck exam: Present: normal inspection - Respiratory Respiratory exam: Present: CTAB. Absent: rales, respiratory distress, rhonchi, wheezes - Cardiovascular Cardiovascular exam: Present: RRR, +S1, +S2 - GI/Abdominal GI/Abdominal exam: Present: normal bowel sounds, soft. Absent: distended, tenderness - Extremities Exam Extremities exam: Present: normal inspection. Absent: joint swelling, pedal edema, tenderness - Back Exam Back exam: Present: normal inspection. Absent: CVA tenderness (L), CVA tenderness (R), tenderness - Neurological Exam Neurological exam: Present: alert, oriented X3 - Psychiatric Psychiatric exam: Present: normal affect, normal mood - Skin Skin exam: Present: dry, intact, normal color, warm - VTE Reasons for not Prescribing Prophylaxis: Treatment not Indicated - Low risk for VTE Deep Vein Thrombosis/Pulmonary Embolism Present on Admission: No Consult Discharge Plan - Plan Additional Instructions: Follow-up with Dr. Benson, urology - on 11/22/2017.. IV antibitics -- as per Dr. Sheffield.. Referrals: Jesse Lovealce MD [Primary Care Provider] - (web requested 11/20/2017) Prescriptions: Cefepime HCl [Maxipime] 2,000 mg IVPB Q12HR 14 Days #28 vial Fluconazole [Diflucan] 150 mg PO DAILY 10 Days #10 tab - Attending Attestation Patient was discharged before I can see her
--- NOTE | 2017-11-20 09:50 | Urology Progress Note ---
Date of Encounter: 11/20/17 Time of Encounter: 09:44 - Assessment and Plan (1) Hydronephrosis Current Visit: Yes Status: Acute Qualifiers: Hydronephrosis type: other Qualified Code(s): N13.39 - Other hydronephrosis (2) Urinary tract infection Current Visit: Yes Status: Acute Assessment and plan: Patient is a 47-year-old woman with a history of pseudomonas urinary tract infection and nephrolithiasis. Patient taking Cefepime with improvement. Patient 's vital signs are stable and afebrile. WBC count reassuring. Patient will follow up as an outpatient with Urology as discussed. Qualifiers: Urinary tract infection type: site unspecified Hematuria presence: without hematuria Qualified Code(s): N39.0 - Urinary tract infection, site not specified (3) Nephrolithiasis Current Visit: Yes Status: Acute Assessment and plan: Patient is 47-year-old woman with a history of pseudomonas urinary tract infection and nephrolithiasis. CT scan of abdomen and pelvis revealed a decreased volume of the left lower pole stone. Patient instructed to follow up with Urology as an outpatient to discuss stone management. Progress Note Subjective: no new complaints, feels better Narrative: Patient seen and examined sitting upright in bed in no apparent distress. Patient states flank pain and nausea have much improved. Patient denies fever or chills gross hematuria. Objective Initial Vital Signs Temp Pulse Resp BP Pulse Ox 100.6 F H 123 16 94/60 92 11/13/17 13:43 11/13/17 13:43 11/13/17 13:43 11/13/17 13:43 11/13/17 13:43 - General physical appearance Present: well developed, no distress, no pain - Respiratory Present: normal expansion, normal respiratory effort - Abdomen Present: soft, non tender - Integumentary Present: no rash, no abnormal pigmentation - Musculoskeletal Present: normal posture - Psychiatric Present: oriented to time, oriented to person, oriented to place, speech is normal, memory intact - Labs 11/16/17 09:33 11/16/17 09:33 - VTE Reasons for not Prescribing Prophylaxis: Treatment not Indicated - Low risk for VTE Deep Vein Thrombosis/Pulmonary Embolism Present on Admission: No Consult Discharge Plan - Plan Additional Instructions: Follow-up with Dr. Benson, urology - on 11/22/2017.. IV antibitics -- as per Dr. Sheffield.. Referrals: Jesse Lovelace MD [Primary Care Provider] - Prescriptions: Fluconazole [Diflucan] 150 mg PO DAILY 1 Days #1 tab
[2017-11-20 11:40] VITALS: BP 113/80
--- NOTE | 2017-11-20 12:15 | Discharge Summary ---
- NOTES TO OUTPATIENT PROVIDER Notes to Outpatient Provider: she requires 2 weeks of cefepime, fu with Dr Benson on 11/22/17 Orders not resulted at time of discharge: Pending orders 11/16/17 09:20 UA w. reflex microscopic [Urinalysis reflex Microscopic] [URIN] Routine 11/21/17 04:00 BMP [Basic Metabolic Panel] AM 0400 CBC [Complete Blood Count] [HEME] AM 0400 Magnesium AM 0400 Date of Encounter: 11/20/17 Time of Encounter: 08:30 - Discharge Diagnosis (1) Urinary tract infection Priority: Primary Status: Acute Assessment and Plan: Urinary tract infection. Seems to be responding to treatment with IV Zosyn. This patient was recently treated for Pseudomonas aeruginosa UTI; sent home on IV cefepime (she was getting cefepime from 10/30 through 11/09. She finished that antibiotic 4 days failure to this admission.) Ultrasound of kidneys does not show any significant abnormalities. A power glide IV has been inserted in anticipation of home iV abx on dc Ucx sanchez sensitive Bl cxs neg CM working on home infusion if needed- will need rx for abx and [facility] referral on dc 11/19 Infectious diseases consulted--rec to involve Dr Benson as pt well known to him, rec to stop zosyn, start cefepime -Urology consulted and rec for CT scan to definitively rule out addl stones as cause of recurrent infection--d/w Urology and no obstructing stones, no intervention required -on dc with fu with dr Benson 11/22/17, rec for abx as per ID -d/w ID and will dc on 14 days of IV cefepime -d/w urology and ok to dc with fluconazole rx for recurrent yeast infections with prolonged abx use Qualifiers: Urinary tract infection type: site unspecified Hematuria presence: without hematuria Qualified Code(s): N39.0 - Urinary tract infection, site not specified (2) Sepsis Priority: Primary Status: Resolved Assessment and Plan: Sepsis with fever 100.6, HR 111 2/2 UTI, resolved CXR neg bl cxs neg treatment as above Qualifiers: Sepsis type: sepsis due to unspecified organism Qualified Code(s): A41.9 - Sepsis, unspecified organism (3) Depression Priority: Secondary Status: Chronic Assessment and Plan: stable-cont home medication Qualifiers: Depression Type: unspecified Qualified Code(s): F32.9 - Major depressive disorder, single episode, unspecified (4) GERD (gastroesophageal reflux disease) Priority: Secondary Status: Chronic Assessment and Plan: cont omeprazole Qualifiers: Esophagitis presence: esophagitis presence not specified Qualified Code(s) : K21.9 - Gastro-esophageal reflux disease without esophagitis (5) Migraine headache Priority: Secondary Status: Chronic Assessment and Plan: stable, prn pain control Qualifiers: Migraine type: other Status migrainosus presence: without status migrainosus Intractability: not intractable Qualified Code(s): G43.809 - Other migraine, not intractable, without status migrainosus (6) Chronic fatigue syndrome with fibromyalgia Priority: Secondary Status: Chronic Assessment and Plan: stable- cont home medication (7) Recurrent nephrolithiasis Priority: Secondary Status: Chronic Assessment and Plan: Renal US without stones identified CT a/p 11/19 persistent bl non obstructing intra renal stones -fu with Urology outpt Hospital course: Ms. Colon is a 47 year old female who presented with recurrent uti. She has had repeated admit for the same and a know hx of nephrolithiasis. She was treated with iv abx and seen by urology and ID. Rec is to dc to home with 2 weeks cefepime and close follow up outpt. Full details of hospital course as noted above. dc to home in stable condition - Time Spent with Patient Total time spent providing and/or coordinating discharge services: Greater than 30 minutes - Discharge Medications Prescriptions: Cefepime HCl [Maxipime] 2,000 mg IVPB Q12HR 14 Days #28 vial Fluconazole [Diflucan] 150 mg PO DAILY 10 Days #10 tab Home Medications: Cyclobenzaprine [Flexeril] 5 mg PO TID PRN 10/13/17 [History] Dexlansoprazole [Dexilant] 60 mg PO DAILY 10/13/17 [History] Duloxetine HCl [Cymbalta] 120 mg PO DAILY 10/13/17 [History] Modafinil [Provigil] 200 mg PO DAILY PRN 10/13/17 [History] Promethazine [Phenergan] 25 mg PO Q4-6H PRN 10/13/17 [History] SUMAtriptan Succinate [Imitrex] 50 - 100 mg PO DAILY PRN 10/13/17 [History] diazePAM [Valium] 5 mg PO DAILY PRN 10/13/17 [History] Cefepime HCl [Maxipime] 2,000 mg IVPB Q12HR 14 Days #28 vial 11/20/17 [Rx] Fluconazole [Diflucan] 150 mg PO DAILY 10 Days #10 tab 11/20/17 [Rx] Allergies/Adverse Reactions: 3 Allergy/AdvReac Type Severity Reaction Status Date / Time Hydromorphone [From Dilaudid] Allergy Itching Verified 11/13/17 17:18 levofloxacin [From Levaquin] Allergy Itching Verified 11/13/17 17:18 prochlorperazine Allergy Anxiety Verified 11/13/17 17:18 [From Compazine] Date of admission: 11/13/17 17:13 Primary care physician: Jesse Lovelace MD Consults: 11/18/17 09:49 Consult to Invasive Line Access Team [CONS] Routine Reason for Consult: senior care IV antibiotics Line Type: EPIV 11/18/17 14:51 Consult to Infectious Diseases [CONS] Routine Consulting Provider: [facility] [place] Reason for Consult: Recurrent UTI.. Time Notified: 11:00 Call Completed: Yes 11/19/17 14:19 Consult to Urology [CONS] Routine Consulting Provider: Urology [place] Reason for Consult: Recurrent UTI, hydronephrosis Call Completed: Yes Discharging clinician: Jhoana Longoria - Constitutional Vitals: Temp Pulse Resp BP Pulse Ox 97.6 F 83 17 113/80 92 11/20/17 11:38 11/20/17 11:38 11/20/17 11:38 11/20/17 11:38 11/20/17 11:38 General appearance: Present: A&O X 3, no acute distress, answers questions appropriately Exam: General: awake, alert, appears stated age Cardiovascular:regular rate and rhythm, normal S1 & S2, no rubs, murmurs or gallops. no lower extremity edema Lungs:Normal breath sounds, no wheezes, or crackles. Normal respiratory effort Abdomen:Soft, non-tender, non-distended, + bowel sounds Neurological: AAOx3 Skin:Normal color, no rash, no pallor - Patient Status Disposition: Home, Self-Care Condition: Good Functional capacity at discharge: independent ambulation Overall status at discharge: patient is progressing back to baseline - Discharge Instructions Follow Up With: Jesse Lovelace MD [Primary Care Provider] - Additional Instructions: Follow-up with Dr. Benson, urology - on 11/22/2017.. IV antibitics -- as per Dr. Sheffield.. - Diet and Activity Activity: increase activity as tolerated Diet: advance to your usual diet - VTE Reasons for not Prescribing Prophylaxis: Treatment not Indicated - Low risk for VTE Deep Vein Thrombosis/Pulmonary Embolism Present on Admission: No
--- NOTE | 2017-11-20 12:20 | Physician Discharge Referral ---
Home Health/Hosp Referral Info Transfer to: Home Health Provider in Charge Post Discharge: PCP - Diagnosis (1) Urinary tract infection Priority: Primary Status: Acute (2) Sepsis Priority: Primary Status: Resolved (3) Depression Priority: Secondary Status: Chronic (4) GERD (gastroesophageal reflux disease) Priority: Secondary Status: Chronic (5) Migraine headache Priority: Secondary Status: Chronic (6) Chronic fatigue syndrome with fibromyalgia Priority: Secondary Status: Chronic (7) Recurrent nephrolithiasis Priority: Secondary Status: Chronic - Respiratory Orders None Smoking Cessation: Smoking cessation has been advised. For more information, call the [place] Tobacco Quit Line at 9-797-KYRL-NOW. - Services Needed Following services are medically necessary services: Nursing, Home Infusion Other Treatments: requires 2 weeks of q 12hr Cefepime home infusions - Transfer Medications Prescriptions: Cefepime HCl [Maxipime] 2,000 mg IVPB Q12HR 14 Days #28 vial Fluconazole [Diflucan] 150 mg PO DAILY 10 Days #10 tab Home Medications: Cyclobenzaprine [Flexeril] 5 mg PO TID PRN 10/13/17 [History] Dexlansoprazole [Dexilant] 60 mg PO DAILY 10/13/17 [History] Duloxetine HCl [Cymbalta] 120 mg PO DAILY 10/13/17 [History] Modafinil [Provigil] 200 mg PO DAILY PRN 10/13/17 [History] Promethazine [Phenergan] 25 mg PO Q4-6H PRN 10/13/17 [History] SUMAtriptan Succinate [Imitrex] 50 - 100 mg PO DAILY PRN 10/13/17 [History] diazePAM [Valium] 5 mg PO DAILY PRN 10/13/17 [History] Cefepime HCl [Maxipime] 2,000 mg IVPB Q12HR 14 Days #28 vial 11/20/17 [Rx] Fluconazole [Diflucan] 150 mg PO DAILY 10 Days #10 tab 11/20/17 [Rx] Allergies/Adverse Reactions: 3 Allergy/AdvReac Type Severity Reaction Status Date / Time Hydromorphone [From Dilaudid] Allergy Itching Verified 11/13/17 17:18 levofloxacin [From Levaquin] Allergy Itching Verified 11/13/17 17:18 prochlorperazine Allergy Anxiety Verified 11/13/17 17:18 [From Compazine] Certification: Further, I certify that my clinical findings support that this patient is homebound (i.e. absences from home require considerable and taxing effort and are for medical reasons or congregational services or infrequently or short duration when for other reasons) because: Homebound Reason: Leaving home requires considerable and taxing effort due to condition Attestation: My signature below is to certify that this patient is under my care and that I, or nurse practitioner, or a physician's administrative sales assistant working with me, has a face-to -face encounter with this patient.
[2017-11-20] MEDS ORDERED: CefOXitin 1,000 MG VIAL ONE (13:55)
[2017-11-20] MEDS ORDERED: Isovue-300 50 ML VIAL IVP ONE (13:55)
[2017-11-20] MEDS ORDERED: CefOXitin 2,000 MG VIAL ONE (13:55)
[2017-11-20] MEDS ORDERED: SUGAMMADEX SODIUM 500 MG/5 ML VIAL IV ONE (15:02)
== END 2017-11-20 13:14 | disposition home or self-care (01) | DRG 872 ==
LOC: EMEROOARM 13:36 → 2ANU 13:36 → SUATTDRO 17:13 → 2ANU 17:38
PROVIDERS: ADMIT Student in an Organized Health Care Education/Training Program; ATTEND Internal Medicine

== ENCOUNTER 2017-12-10 20:46 | Inpatient (IN) ==
[2017-12-10 22:12] LABS: Bilirubin,Urine Negative (Negative); Blood,Urine Small (Negative); Clarity,Urine Cloudy (Clear); Color,Urine Yellow (Yellow); Glucose,Urine (UA) Normal (Normal); Ketones,Urine Negative (Negative); Leukocyte Esterase,Urine Large (Negative); Nitrite,Urine Negative (Negative); PH,Urine 6.5 pH Units (5.0-8.0); Protein,Urine 30 mg/dL (Neg-Trace); Specific Gravity,Urine 1.014 (1.010-1.025); Urobilinogen,Urine Normal (Normal)
[2017-12-10 22:14] LABS: Hyaline Casts,Urine None Seen per lpf (None-Few); RBC,Urine 0-3 per hpf (0-3); Squamous Epithelial Cell,Urine Many per lpf (None-Few); WBC,Urine TNTC per hpf (0-3)
[2017-12-10 22:30] LABS: Bacteria,Urine Few per hpf (None-Few)
[2017-12-10] MEDS ORDERED: 0.9 % Sodium Chloride 1,000 ML IVC ONE (22:51)
[2017-12-10] MEDS ORDERED: *HR* Promethazine 25 MG/ML VIAL IVP ONE (23:20)
[2017-12-10] MEDS ORDERED: Ketorolac 30 MG/ML VIAL IVP ONE (23:20)
--- NOTE | 2017-12-10 23:28 | Emergency Department Note ---
Disposition Clinical Impression: Hydronephrosis with renal and ureteral calculous obstruction Disposition: Admitted As Inpatient Condition: Good General Adult HPI - General Chief complaint: ED Back Pain/Injury Stated complaint: FLANK PAIN Time Seen by Provider: 12/10/17 22:49 Source: patient Mode of arrival: private vehicle Limitations: no limitations Nursing Notes Reviewed: Yes Vital Signs Reviewed: Yes - History of Present Illness HPI Narrative: 47-year-old female with a history of recent severe sepsis related to pyelonephritis, large renal calculi, UTI who just completed 2 weeks cefepime antibiotics at home presents emergency department from a local urgent care for evaluation of "my symptoms have started again". Patient states yesterday she overall felt bad, she had joint pain, headache, nausea, pain in the left flank area, pain at the end of her urination. Today patient states her left kidney feels like it might "explode" with radiation around to the abdomen that is constant but does have waves of worsening. She denies any fevers at home. She went to a local urgent care where urine dipstick was positive for blood and leukocyte esterases, patient was concerned so she came to the emergency department for evaluation of possible sepsis. Patient states she has been hospitalized for sepsis 3 times since October 2017, she had a very large stone that had blocked her ureter and she had a ureter stent placed which has subsequent been removed, she did have a large stone removed by our urology department, apparently a small fragment remained. Patient was septic with Pseudomonas she completed antibiotics here as well as through a long-term IV at home for 2 weeks. Patient states the power one was removed 6 days ago. She had no complications with the power want, the site is healing well without difficulty. Patient states she is also feeling really bad, she has had increasing dizziness (history of Meniere's disease) and feeling like she is disoriented or "out of it ". Patient states pain is a 10 out of 10. This is also causing her to experience nausea and dry heaving. Patient denies fevers at home, chills, shortness of breath, difficulty breathing , chest pain, abdominal pain, constipation, diarrhea. She states she did not notice blood in her urine, she only knows there is blood in her urine because the urgent care providers had told her. Patient states she was informed by both Dr. Helton with infectious disease as well as Dr. Benson with urology should she started feeling bad again she should need to report to the emergency department. Further history includes fibromyalgia, depression, anxiety, migraine headaches. Patient states long-standing history of frequent UTIs. Onset (ago): day(s) Location: back Radiation: abdomen Pain Severity: severe Pain Scale: 10 Consistency: constant, intermittent, Worsening Improves with: nothing Worsens with: nothing Treatments Prior to Arrival: none - Related Data Home Medications Medication Instructions Recorded Confirmed Cyclobenzaprine [Flexeril] 5 mg PO TID PRN 10/13/17 12/10/17 Dexlansoprazole [Dexilant] 60 mg PO DAILY 10/13/17 12/10/17 Duloxetine HCl [Cymbalta] 120 mg PO DAILY 10/13/17 12/10/17 Modafinil [Provigil] 200 mg PO DAILY PRN 10/13/17 12/10/17 Promethazine [Phenergan] 25 mg PO Q4-6H PRN 10/13/17 12/10/17 SUMAtriptan Succinate [Imitrex] 50 - 100 mg PO DAILY PRN 10/13/17 12/10/17 diazePAM [Valium] 5 mg PO DAILY PRN 10/13/17 12/10/17 Previous Rx's Medication Instructions Recorded Cefepime HCl [Maxipime] 2,000 mg IVPB Q12HR 14 Days #28 11/20/17 vial Fluconazole [Diflucan] 150 mg PO DAILY 10 Days #10 tab 11/20/17 Allergies Allergy/AdvReac Type Severity Reaction Status Date / Time Hydromorphone [From Dilaudid] Allergy Itching Verified 12/10/17 20:59 levofloxacin [From Levaquin] Allergy Itching Verified 12/10/17 20:59 prochlorperazine Allergy Anxiety Verified 12/10/17 20:59 [From Compazine] All systems ED: reviewed and negative except as stated. Review of Systems: As Per HPI Past Medical History - Past Medical History Attestation: Yes The following information was validated with the patient. Source: patient, old records reviewed Medical history: Reports: fibromyalgia, kidney stones, migraine, other Psychiatric history: Reports: anxiety, depression - Social History Smoking Status: Never smoker Smokeless Tobacco Status: No Alcohol use: Reports: none Drug use: Reports: none Physical Exam - General Limitations: no limitations General appearance: alert, anxious, in distress (Related to pain) - Head Head exam: atraumatic, normocephalic, normal inspection - Eye Eye exam: Present: normal appearance - ENT ENT exam: mucous membranes moist - Neck Neck exam: Present: normal inspection, full ROM, trachea midline - Chest Chest inspection: Present: normal inspection, symmetric chest wall rise - Respiratory Respiratory exam: Present: normal lung sounds bilaterally - Cardiovascular Cardiovascular exam: Present: normal rhythm, tachycardia (Slight), normal heart sounds - Abdominal Exam Abdominal exam: Present: soft, tenderness, normal bowel sounds. Absent: distention, guarding, rebound, organomegaly, Major's sign, Rovsing's sign, tenderness at McBurney's Point Abdominal tenderness: Present: LLQ - Extremities Exam Extremities exam: Present: normal inspection, full ROM. Absent: tenderness, pedal edema - Back Exam Back exam: Present: CVA tenderness (L) - Neurological Exam Neurological exam: Present: alert, oriented X3 - Psychiatric Psychiatric exam: Present: anxious - Skin Skin exam: Present: warm, dry, intact, normal color Course Course Narrative: Well-developed, well-hydrated female crying out in pain in the room. She cries through initial assessment complaining of pain and anxiety related to fear of possible sepsis. Physical exam reveals tenderness to the left lower quadrant and left suprapubic area, no masses, organomegaly, rigidity, guarding. No peritoneal signs. Patient noted was CVA tenderness on the left side. Patient upon arrival has slight tachycardia with a heart rate of 106, temperature 99.1. We will treat pain, nausea. Due to patient's history we will obtain basic labs , proactively order blood cultures and a lactic acid, initiate a fluid bolus and reevaluate. - Reevaluation(s) Reevaluation #1: We have been managing patient's pain quite well. CBC and basic chemistry have returned unremarkable, UA shows small amount of blood, large leukocyte esterases , culture was not performed due to squama cells, we will repeat UA and sent for culture. Patient has been resting comfortably. She does not show any signs of sepsis, no indications of infection and her CBC, lactic acid is 1.0, metabolic panel within normal limits. Time: 01:25 Reevaluation #2: Patient resting quietly, CT abdomen shows a 4 mm obstructing stone with up low back to the left kidney. Concern for pain management, symptom management at home. Discussed the patient staying in the hospital for management she is agreeable plan of care. She will be able to see urology in the morning. I did speak with urologist on-call Dr. Menendez, he agrees with plan for admission and he will see them in the morning. Spoke with hospitalist Dr. Lopez to except patient to Hospital services. We will transition care to the hospitalist team at this time. Time: 02:32 Vital Signs Temperature 99.1 F 12/10/17 20:59 Pulse Rate 106 12/10/17 20:59 Respiratory Rate 16 12/10/17 20:59 Blood Pressure 128/78 12/10/17 20:59 O2 Sat by Pulse Oximetry 93 12/10/17 20:59 Temperature 98.1 F 12/11/17 23:54 Pulse Rate 95 12/11/17 23:54 Respiratory Rate 16 12/11/17 23:54 Blood Pressure 109/70 12/11/17 23:54 O2 Sat by Pulse Oximetry 94 12/11/17 23:54 Oxygen Delivery Oxygen Delivery Room Air Medical Decision Making - Medical Records Medical records reviewed: Yes I reviewed the patient's medical records. - Lab Data Lab results reviewed: Yes I reviewed the patient's lab results. Result diagrams: 12/11/17 06:38 12/11/17 06:38 Lab Results 12/10/17 12/11/17 12/11/17 Range/Units 21:12 00:11 00:11 WBC 9.2 (4.3-11.1) K/mcL RBC 4.69 (3.82-4.97) M/mcL Hgb 14.4 (11.5-15.4) g/dL Hct 43.2 (35.3-44.9) % MCV 92.1 (83.0-100.0) fL MCH 30.7 (28.0-33.3) pg MCHC 33.3 (31.6-35.5) g/dL RDW 13.2 (11.5-14.5) % Plt Count 166 (140-400) K/mcL MPV 11.4 (9.4-12.4) fL Immature Gran % 0.3 (0-4) % Seg Neutrophils % 53.0 % Lymphocytes % 33.3 % Monocytes % 10.5 % Eosinophils % 2.5 % Basophils % 0.4 % Neutrophils # 4.9 (1.6-8.9) K/mcL Lymphocytes # 3.1 (0.6-4.6) K/mcL Monocytes # 1.0 (0.0-1.3) K/mcL Eosinophils # 0.2 (0.0-0.6) K/mcL Basophils # 0.0 (0.0-0.2) K/mcL Sodium 136 (136-145) mEq/L Potassium 4.0 (3.5-5.1) mEq/L Chloride 103 (98-107) mEq/L Carbon Dioxide 23 (23-29) mEq/L BUN 8 (6-20) mg/dL Creatinine 0.59 L (0.60-1.20) mg/dL Est GFR ( Amer) > 60 (> 60) Est GFR (Non-Af Amer) > 60 (> 60) BUN/Creatinine Ratio 14 (6-26) Glucose 103 (70-105) mg/dL Calculated Osmolality 281 (280-300) Lactic Acid (0.5-2.2) mmol/L Calcium 9.6 (8.6-10.3) mg/dL Urine Color Yellow (Yellow) Urine Clarity Cloudy A (Clear) Urine pH 6.5 (5.0-8.0) pH Units Ur Specific [place] 1.014 (1.010-1.025) Urine Protein 30 H (Neg-Trace) mg/dL Urine Glucose (UA) Normal (Normal) mg/dL Urine Ketones Negative (Negative) mg/dL Urine Blood Small H (Negative) Urine Nitrite Negative (Negative) Urine Bilirubin Negative (Negative) Urine Urobilinogen Normal (Normal) mg/dL Ur Leukocyte Esterase Large H (Negative) Urine Microscopic RBC 0-3 (0-3) per hpf Urine Microscopic WBC TNTC H (0-3) per hpf Ur Squamous Epith Cells Many H (None-Few) per lpf Urine Bacteria Few (None-Few) per hpf Hyaline Casts None Seen (None-Few) per lpf Urine Yeast Test Not Performed Ur Culture Indicated? NO. A (NO) Urine Test (Negative) 12/11/17 12/11/17 12/11/17 Range/Units 00:11 01:40 01:49 WBC (4.3-11.1) K/mcL RBC (3.82-4.97) M/mcL Hgb (11.5-15.4) g/dL Hct (35.3-44.9) % MCV (83.0-100.0) fL MCH (28.0-33.3) pg MCHC (31.6-35.5) g/dL RDW (11.5-14.5) % Plt Count (140-400) K/mcL MPV (9.4-12.4) fL Immature Gran % (0-4) % Seg Neutrophils % % Lymphocytes % % Monocytes % % Eosinophils % % Basophils % % Neutrophils # (1.6-8.9) K/mcL Lymphocytes # (0.6-4.6) K/mcL Monocytes # (0.0-1.3) K/mcL Eosinophils # (0.0-0.6) K/mcL Basophils # (0.0-0.2) K/mcL Sodium (136-145) mEq/L Potassium (3.5-5.1) mEq/L Chloride (98-107) mEq/L Carbon Dioxide (23-29) mEq/L BUN (6-20) mg/dL Creatinine (0.60-1.20) mg/dL Est GFR ( Amer) (> 60) Est GFR (Non-Af Amer) (> 60) BUN/Creatinine Ratio (6-26) Glucose (70-105) mg/dL Calculated Osmolality (280-300) Lactic Acid 1.0 (0.5-2.2) mmol/L Calcium (8.6-10.3) mg/dL Urine Color Yellow (Yellow) Urine Clarity Turbid A (Clear) Urine pH 7.0 (5.0-8.0) pH Units Ur Specific [place] 1.007 L (1.010-1.025) Urine Protein 100 H (Neg-Trace) mg/dL Urine Glucose (UA) Normal (Normal) mg/dL Urine Ketones Negative (Negative) mg/dL Urine Blood Moderate H (Negative) Urine Nitrite Negative (Negative) Urine Bilirubin Negative (Negative) Urine Urobilinogen Normal (Normal) mg/dL Ur Leukocyte Esterase Large H (Negative) Urine Microscopic RBC 15-30 H (0-3) per hpf Urine Microscopic WBC TNTC H (0-3) per hpf Ur Squamous Epith Cells Many H (None-Few) per lpf Urine Bacteria None Seen (None-Few) per hpf Hyaline Casts None Seen (None-Few) per lpf Urine Yeast Ur Culture Indicated? NO. A (NO) Urine Test Negative (Negative) - Radiology Data Radiology results reviewed: Yes I reviewed the patient's radiology results.
[2017-12-11] MEDS ORDERED: *HR* Nalbuphine 10 MG/ML AMPUL IVP ONE (00:03)
[2017-12-11 00:25] LABS: Basophils % 0.4 %; Eosinophils # 0.2 K/mcL (0.0-0.6); Eosinophils % 2.5 %; Hematocrit 43.2 % (35.3-44.9); Hemoglobin 14.4 g/dL (11.5-15.4); Immature Granulocytes % 0.3 % (0-4); Lymphocytes # 3.1 K/mcL (0.6-4.6); Lymphocytes % 33.3 %; Mean Corpuscular HGB Conc 33.3 g/dL (31.6-35.5); Mean Corpuscular Hemoglobin 30.7 pg (28.0-33.3); Mean Corpuscular Volume 92.1 fL (83.0-100.0); Mean Platelet Volume 11.4 fL (9.4-12.4); Monocytes % 10.5 %; Neutrophils # 4.9 K/mcL (1.6-8.9); Platelet Count 166 K/mcL (140-400); Red Blood Count 4.69 M/mcL (3.82-4.97); Red Cell Distribution Width 13.2 % (11.5-14.5)
[2017-12-11 00:43] LABS: BUN/Creatinine Ratio 14 (6-26); Blood Urea Nitrogen 8 mg/dL (6-20); Calcium 9.6 mg/dL (8.6-10.3); Carbon Dioxide 23 mEq/L (23-29); Chloride 103 mEq/L (98-107); Glucose 103 mg/dL (70-105); Osmolality,Calculated 281 (280-300); Sodium 136 mEq/L (136-145); eGFR For Non-African Americans > 60 (> 60)
[2017-12-11] MEDS ORDERED: *HR* Morphine Immed Rel 30 MG TABLET PO ONE (01:19)
[2017-12-11 02:24] LABS: Bilirubin,Urine Negative (Negative); Blood,Urine Moderate (Negative); Clarity,Urine Turbid (Clear); Color,Urine Yellow (Yellow); Glucose,Urine (UA) Normal (Normal); Ketones,Urine Negative (Negative); Leukocyte Esterase,Urine Large (Negative); Nitrite,Urine Negative (Negative); Protein,Urine 100 mg/dL (Neg-Trace); Specific Gravity,Urine 1.007 (1.010-1.025); Urobilinogen,Urine Normal (Normal)
[2017-12-11 02:28] LABS: Bacteria,Urine None Seen per hpf (None-Few); Hyaline Casts,Urine None Seen per lpf (None-Few); RBC,Urine 15-30 per hpf (0-3); Squamous Epithelial Cell,Urine Many per lpf (None-Few); WBC,Urine TNTC per hpf (0-3)
[2017-12-11] MEDS ORDERED: Ondansetron 4 MG/2 ML VIAL IVP ONE ×2 (02:32→16:55)
[2017-12-11] MEDS ORDERED: *HR* FentaNYL (PF) 100 MCG/2 ML VIAL IVP ONE (02:33)
--- NOTE | 2017-12-11 03:23 | Emergency Department Note ---
Disposition Clinical Impression: Hydronephrosis with renal and ureteral calculous obstruction Disposition: Admitted As Inpatient Condition: Good General Adult HPI - General Chief complaint: ED Back Pain/Injury Stated complaint: FLANK PAIN Time Seen by Provider: 12/10/17 22:49 Source: patient Mode of arrival: private vehicle Limitations: no limitations Nursing Notes Reviewed: Yes Vital Signs Reviewed: Yes - History of Present Illness Location: back Pain Scale: 10 Improves with: nothing Worsens with: nothing Treatments Prior to Arrival: none - Related Data Home Medications Medication Instructions Recorded Confirmed Cyclobenzaprine [Flexeril] 5 mg PO TID PRN 10/13/17 12/10/17 Dexlansoprazole [Dexilant] 60 mg PO DAILY 10/13/17 12/10/17 Duloxetine HCl [Cymbalta] 120 mg PO DAILY 10/13/17 12/10/17 Modafinil [Provigil] 200 mg PO DAILY PRN 10/13/17 12/10/17 Promethazine [Phenergan] 25 mg PO Q4-6H PRN 10/13/17 12/10/17 SUMAtriptan Succinate [Imitrex] 50 - 100 mg PO DAILY PRN 10/13/17 12/10/17 diazePAM [Valium] 5 mg PO DAILY PRN 10/13/17 12/10/17 Previous Rx's Medication Instructions Recorded Cefepime HCl [Maxipime] 2,000 mg IVPB Q12HR 14 Days #28 11/20/17 vial Fluconazole [Diflucan] 150 mg PO DAILY 10 Days #10 tab 11/20/17 Allergies Allergy/AdvReac Type Severity Reaction Status Date / Time Hydromorphone [From Dilaudid] Allergy Itching Verified 12/10/17 20:59 levofloxacin [From Levaquin] Allergy Itching Verified 12/10/17 20:59 prochlorperazine Allergy Anxiety Verified 12/10/17 20:59 [From Compazine] Past Medical History - Past Medical History Medical history: Reports: fibromyalgia, kidney stones, migraine, other Psychiatric history: Reports: anxiety, depression - Social History Smoking Status: Never smoker Smokeless Tobacco Status: No Alcohol use: Reports: none Drug use: Reports: none Physical Exam - General Limitations: no limitations General appearance: alert, anxious, in distress (Related to pain) Course Vital Signs Temperature 99.1 F 12/10/17 20:59 Pulse Rate 106 12/10/17 20:59 Respiratory Rate 16 12/10/17 20:59 Blood Pressure 128/78 12/10/17 20:59 O2 Sat by Pulse Oximetry 93 12/10/17 20:59 Temperature 99.1 F 12/10/17 20:59 Pulse Rate 95 12/11/17 00:40 Respiratory Rate 17 12/11/17 03:01 Blood Pressure 125/69 12/11/17 03:01 O2 Sat by Pulse Oximetry 92 12/11/17 03:04 Oxygen Delivery Oxygen Delivery Nasal Cannula Medical Decision Making - Medical Records Medical records reviewed: Yes I reviewed the patient's medical records. - Lab Data Lab results reviewed: Yes I reviewed the patient's lab results. Result diagrams: 12/11/17 00:11 12/11/17 00:11 Lab Results 12/10/17 12/11/17 12/11/17 Range/Units 21:12 00:11 00:11 WBC 9.2 (4.3-11.1) K/mcL RBC 4.69 (3.82-4.97) M/mcL Hgb 14.4 (11.5-15.4) g/dL Hct 43.2 (35.3-44.9) % MCV 92.1 (83.0-100.0) fL MCH 30.7 (28.0-33.3) pg MCHC 33.3 (31.6-35.5) g/dL RDW 13.2 (11.5-14.5) % Plt Count 166 (140-400) K/mcL MPV 11.4 (9.4-12.4) fL Immature Gran % 0.3 (0-4) % Seg Neutrophils % 53.0 % Lymphocytes % 33.3 % Monocytes % 10.5 % Eosinophils % 2.5 % Basophils % 0.4 % Neutrophils # 4.9 (1.6-8.9) K/mcL Lymphocytes # 3.1 (0.6-4.6) K/mcL Monocytes # 1.0 (0.0-1.3) K/mcL Eosinophils # 0.2 (0.0-0.6) K/mcL Basophils # 0.0 (0.0-0.2) K/mcL Sodium 136 (136-145) mEq/L Potassium 4.0 (3.5-5.1) mEq/L Chloride 103 (98-107) mEq/L Carbon Dioxide 23 (23-29) mEq/L BUN 8 (6-20) mg/dL Creatinine 0.59 L (0.60-1.20) mg/dL Est GFR ( Amer) > 60 (> 60) Est GFR (Non-Af Amer) > 60 (> 60) BUN/Creatinine Ratio 14 (6-26) Glucose 103 (70-105) mg/dL Calculated Osmolality 281 (280-300) Lactic Acid (0.5-2.2) mmol/L Calcium 9.6 (8.6-10.3) mg/dL Urine Color Yellow (Yellow) Urine Clarity Cloudy A (Clear) Urine pH 6.5 (5.0-8.0) pH Units Ur Specific [place] 1.014 (1.010-1.025) Urine Protein 30 H (Neg-Trace) mg/dL Urine Glucose (UA) Normal (Normal) mg/dL Urine Ketones Negative (Negative) mg/dL Urine Blood Small H (Negative) Urine Nitrite Negative (Negative) Urine Bilirubin Negative (Negative) Urine Urobilinogen Normal (Normal) mg/dL Ur Leukocyte Esterase Large H (Negative) Urine Microscopic RBC 0-3 (0-3) per hpf Urine Microscopic WBC TNTC H (0-3) per hpf Ur Squamous Epith Cells Many H (None-Few) per lpf Urine Bacteria Few (None-Few) per hpf Hyaline Casts None Seen (None-Few) per lpf Urine Yeast Test Not Performed Ur Culture Indicated? NO. A (NO) 12/11/17 12/11/17 Range/Units 00:11 01:40 WBC (4.3-11.1) K/mcL RBC (3.82-4.97) M/mcL Hgb (11.5-15.4) g/dL Hct (35.3-44.9) % MCV (83.0-100.0) fL MCH (28.0-33.3) pg MCHC (31.6-35.5) g/dL RDW (11.5-14.5) % Plt Count (140-400) K/mcL MPV (9.4-12.4) fL Immature Gran % (0-4) % Seg Neutrophils % % Lymphocytes % % Monocytes % % Eosinophils % % Basophils % % Neutrophils # (1.6-8.9) K/mcL Lymphocytes # (0.6-4.6) K/mcL Monocytes # (0.0-1.3) K/mcL Eosinophils # (0.0-0.6) K/mcL Basophils # (0.0-0.2) K/mcL Sodium (136-145) mEq/L Potassium (3.5-5.1) mEq/L Chloride (98-107) mEq/L Carbon Dioxide (23-29) mEq/L BUN (6-20) mg/dL Creatinine (0.60-1.20) mg/dL Est GFR ( Amer) (> 60) Est GFR (Non-Af Amer) (> 60) BUN/Creatinine Ratio (6-26) Glucose (70-105) mg/dL Calculated Osmolality (280-300) Lactic Acid 1.0 (0.5-2.2) mmol/L Calcium (8.6-10.3) mg/dL Urine Color Yellow (Yellow) Urine Clarity Turbid A (Clear) Urine pH 7.0 (5.0-8.0) pH Units Ur Specific [place] 1.007 L (1.010-1.025) Urine Protein 100 H (Neg-Trace) mg/dL Urine Glucose (UA) Normal (Normal) mg/dL Urine Ketones Negative (Negative) mg/dL Urine Blood Moderate H (Negative) Urine Nitrite Negative (Negative) Urine Bilirubin Negative (Negative) Urine Urobilinogen Normal (Normal) mg/dL Ur Leukocyte Esterase Large H (Negative) Urine Microscopic RBC 15-30 H (0-3) per hpf Urine Microscopic WBC TNTC H (0-3) per hpf Ur Squamous Epith Cells Many H (None-Few) per lpf Urine Bacteria None Seen (None-Few) per hpf Hyaline Casts None Seen (None-Few) per lpf Urine Yeast Ur Culture Indicated? NO. A (NO) - Radiology Data Radiology results reviewed: Yes I reviewed the patient's radiology results. Abdomen/Pelvis CT 12/11/17 01:22 IMPRESSION: 4 mm obstructing stone in the distal left ureter with mild upstream hydroureteronephrosis. Additional nonobstructing left intrarenal stones. Nonobstructive right nephrolithiasis. Hepatomegaly with steatosis. D/ / Dakotah Ramirez / Dakotah Ramirez Interpreting Provider: Dakotah Ramirez Attestation Statement - Attestation Attestation: I, Nicolas Lockett MD, personally evaluated this patient and discussed their management with the midlevel provicer, PAC/FOREST OFFICER. I reviewed the midlevel provider 's note and agree with the documented findings, medical decision making, and plan of care. 47-year-old female persisted emergency department with a complaint of severe left flank pain radiating around to the left mid and lower abdomen. Patient has a history of recurrent kidney stones and action over the past 2 months. She was recently in the hospital and received home IV antibiotics. She finished the antibiotics about a week ago and the pain returned yesterday and became worse today. On examination patient is a well-developed obese female in no acute distress. She is alert and oriented 3. There is no cyanosis or diaphoresis. Breath sounds are clear and equal bilaterally. Heart regular rate and rhythm. Abdomen soft with normal bowel sounds. There is mild left mid and left lower abdominal tenderness with moderate left CVA tenderness. Labs reviewed. UA shows large leukocyte esterase with too numerous to count WBCs however no bacteria noted. CT shows a 4 mm stone in the distal left ureter with obstruction causing left hydroureteronephrosis. Divya discussed with the neurologist air pollution engineer, Dr. Menendez. The hospitalist, Dr. Lopez, was consulted and accepted admission of the patient.
[2017-12-11] MEDS ORDERED: Acetaminophen 325 MG TABLET PO PRN ×2 (03:32→21:11)
[2017-12-11] MEDS ORDERED: traMADol 50 MG TABLET PO PRN (03:32)
[2017-12-11] MEDS ORDERED: Naloxone 0.4 MG/ML INJ IVP PRN ×2 (03:32→21:11)
[2017-12-11] MEDS ORDERED: cefTRIAXone 1,000 MG in Water for inj. (sterile) 20 ML 10 ML IVPB SCH (04:00)
--- NOTE | 2017-12-11 05:39 | Internal Med History&Physical ---
Date of Encounter: 12/11/17 Time of Encounter: 05:29 Internal Medicine - H&P: HPI Chief complaint: Left Flank Pain History of present illness: Ms. Colon is a 47 year old female with a past medical history of long-standing nephrolithiasis who was recently admitted approximately one month ago for the same. Patient reports that she completed her 14 day course of IV antibiotics 1 week ago. She states that yesterday she developed acute left sided flank pain, 10 out of 10 in intensity and radiating around to her left growing region. Patient denies any fever and chills but reports symptoms of weakness and lightheadedness. She reports a low-grade fever of 99.3 just prior to going to urgent care earlier today. Denies any pain with urination. CT scan of the abdomen and pelvis was performed upon arrival which showed a 4 mm obstructing stone in the distal left ureter with mild upstream hydrated year ago nephrosis. Additional nonobstructing left intrarenal stones were present. Patient was hemodynamically stable with a mild transient elevation in heart rate to 107. Laboratory findings showed no evidence of leukocytosis. As stated above, patient recently completed 14 days of IV cefepime for treatment of pseudomonal positive urinary tract infection. Past Med Surg Social Fam HX - Past Medical History Medical history: fibromyalgia, kidney stones, migraine, other Additional medical history: lithrotripsy, uteroscopy Psychiatric history: anxiety, depression - Past Surgical History Additional surgical history: breast reduction - Social History Smoking Status: Never smoker Smokeless Tobacco Status: No Alcohol use: none Drug use: none Internal Medicine - H&P: Meds Cyclobenzaprine [Flexeril] 5 mg PO TID PRN 10/13/17 [History] Dexlansoprazole [Dexilant] 60 mg PO DAILY 10/13/17 [History] Duloxetine HCl [Cymbalta] 120 mg PO DAILY 10/13/17 [History] Modafinil [Provigil] 200 mg PO DAILY PRN 10/13/17 [History] Promethazine [Phenergan] 25 mg PO Q4-6H PRN 10/13/17 [History] SUMAtriptan Succinate [Imitrex] 50 - 100 mg PO DAILY PRN 10/13/17 [History] diazePAM [Valium] 5 mg PO DAILY PRN 10/13/17 [History] Cefepime HCl [Maxipime] 2,000 mg IVPB Q12HR 14 Days #28 vial 11/20/17 [Rx] Fluconazole [Diflucan] 150 mg PO DAILY 10 Days #10 tab 11/20/17 [Rx] 3 Allergy/AdvReac Type Severity Reaction Status Date / Time Hydromorphone [From Dilaudid] Allergy Itching Verified 12/10/17 20:59 levofloxacin [From Levaquin] Allergy Itching Verified 12/10/17 20:59 prochlorperazine Allergy Anxiety Verified 12/10/17 20:59 [From Compazine] All Systems PM: A 10-system review of systems was performed and is negative for pertinent findings except as documented above in the HPI. - Constitutional Constitutional: no chills, no fever(s), no night sweats - EENT Eyes: no change in vision, no discharge, no pain, no photophobia Ears: no ear discharge, no ear pain, no tinnitus Nose, mouth and throat: no dysphagia, no nasal discharge, no neck pain, no sore throat - Cardiovascular Cardiovascular ROS IM: no chest pain, no diaphoresis, no dyspnea, no lightheadedness, no palpitations, no syncope - Respiratory Respiratory: no cough, no dyspnea, no wheezing, no excessive phlegm production - Gastrointestinal Gastrointestinal: no abdominal pain, no diarrhea, no hematemesis, no hematochezia, no melena, no nausea, no vomiting - Genitourinary Genitourinary: no change in urinary stream, no dysuria, no flank pain, no hematuria - Musculoskeletal Musculoskeletal ROS IM: no numbness, no tingling - Integumentary Integumentary IM: no rash, no unusual bruising - Neurological Neurological ROS: no confusion, no convulsions, no focal weakness, no numbness, no tingling, no tremor(s) - Hematologic/Lymphatic Hematologic/Lymphatic: no easy bruising - Constitutional Vitals: Temp Pulse Resp BP Pulse Ox 98 F 107 16 125/84 91 12/11/17 04:28 12/11/17 04:28 12/11/17 04:28 12/11/17 04:28 12/11/17 04:28 Exam: General: Alert and oriented Skin:Normal color, no rash, no lesions. HEENT:EOM, pupils equal, round and reactive. Cardiovascular:Normal S1 & S2, no rubs, murmurs or gallops. No JVD. Pulse regular. Lungs:Normal breath sounds, no wheezes or crackles. Abdomen:Soft, non-tender, no rigidity. Extremities:No deformity, no edema or tenderness, no joint swelling or clubbing. Neurological:Normal cognition and motor skills. Pulses:Carotid and radial pulses normal +2. Rest of the physical exam is non contributory Internal Med - H&P Results - Labs CBC & Chem 7: 12/11/17 00:11 12/11/17 00:11 - Assessment and plan (1) Nephrolithiasis Current Visit: No Status: Acute Assessment and plan: Left flank pain consistent with recurrent nephrolithiasis with findings of 4 mm obstructing stone in the left distal ureter with mild upstream hydro-nephrosis. Patient mildly tachycardic but no other systemic signs of infection or sepsis at this time. Patient received 1 L fluid bolus in the ED. We will continue aggressive fluid hydration, pain regimen and at tamsulosin to aid in stone passage. We will give 1 dose of cefepime at this time. Urology consult in the morning. (2) Hydronephrosis with renal and ureteral calculous obstruction Current Visit: Yes Status: Acute (3) DVT prophylaxis Current Visit: No Status: Acute - Time Spent With Patient Total time spent is greater than 50% in coordination of care (as documented) at patient's floor/unit and/or counseling patient:
[2017-12-11] MEDS: *HR* Heparin 5,000 UNIT/ML VIAL SQ SCH ×3 (05:56→22:00)
[2017-12-11] MEDS: 0.9 % Sodium Chloride 1,000 ML IVC SCH ×2 (05:56→18:35)
[2017-12-11] MEDS: Cefepime HCl 1,000 MG in Water for inj. (sterile) 20 ML 10 ML IVPB SCH ×2 (05:56→18:25)
[2017-12-11] MEDS: *HR* OxyCODONE Immed Rel 5 MG TABLET PO PRN ×3 (05:57→20:28)
[2017-12-11] MEDS ORDERED: Ondansetron 4 MG/2 ML VIAL IVP PRN (07:01)
--- NOTE | 2017-12-11 07:29 | Urology - Consult Note ---
Date of Encounter: 12/11/17 Time of Encounter: 07:27 - Assessment and Plan (1) Hydronephrosis with renal and ureteral calculous obstruction Current Visit: Yes Status: Acute Assessment and plan: We did discuss trial of passage as the stone is smaller. Patient states her pain is too significant and she is concerned about urosepsis. She has had a history of resistant UTIs. Given appropriate antibiotics based on last culture. Patient has been scheduled for a ureteroscopic stone extraction this afternoon. Nothing by mouth. Strain urine for calculi. She understands the procedure and potential risks. She understands that we will not be addressing her renal calculi in this setting. Urology CN:HPI Consult date: 12/11/17 History of present illness: well known patient to the urology service. resistant UTI. sharp pain over last [address] scan with a 4 mm distal ureteral stone. still having pain now. States she is unable to reliably passed stones. She is concerned about developing urosepsis. She denies fever at this time. Past Med Surg Social Fam HX - Past Medical History Medical history: fibromyalgia, kidney stones, migraine, other Additional medical history: lithrotripsy, uteroscopy Psychiatric history: anxiety, depression - Past Surgical History Surgical History: hysterectomy Additional surgical history: breast reduction - Social History Smoking Status: Never smoker Smokeless Tobacco Status: No Alcohol use: none Drug use: none - Family History Mother Living Status: Age at : 60 Cause of : Respiratory failure Hx Family Cardiac Disorders: No Hx Family Respiratory Disorders: Yes (COPD, asthma.) Hx Family Cancer: Yes (Vaginal) Hx Family GI Disorders: Yes (Chrons disease. Colostomy Short bowel syndrome.) Hx Family Endocrine Disorder: Yes (Graves Disease.) Hx Family Musculoskeletal Disorders: Yes (Osteoarthritis.) Medications and Allergies Cyclobenzaprine [Flexeril] 5 mg PO TID PRN 10/13/17 [History] Dexlansoprazole [Dexilant] 60 mg PO DAILY 10/13/17 [History] Duloxetine HCl [Cymbalta] 120 mg PO DAILY 10/13/17 [History] Modafinil [Provigil] 200 mg PO DAILY PRN 10/13/17 [History] Promethazine [Phenergan] 25 mg PO Q4-6H PRN 10/13/17 [History] SUMAtriptan Succinate [Imitrex] 50 - 100 mg PO DAILY PRN 10/13/17 [History] diazePAM [Valium] 5 mg PO DAILY PRN 10/13/17 [History] Cefepime HCl [Maxipime] 2,000 mg IVPB Q12HR 14 Days #28 vial 11/20/17 [Rx] Fluconazole [Diflucan] 150 mg PO DAILY 10 Days #10 tab 11/20/17 [Rx] 3 Allergy/AdvReac Type Severity Reaction Status Date / Time Hydromorphone [From Dilaudid] Allergy Itching Verified 12/10/17 20:59 levofloxacin [From Levaquin] Allergy Itching Verified 12/10/17 20:59 prochlorperazine Allergy Anxiety Verified 12/10/17 20:59 [From Compazine] Review of Systems - Constitutional fatigue, no chills, no fever(s) - EENT Nose, mouth and throat: no dizziness - Cardiovascular no chest pain - Respiratory no cough - Gastrointestinal abdominal pain, nausea - Genitourinary Genitourinary: flank pain - Musculoskeletal back pain - Integumentary no erythema - Neurological no confusion - Psychiatric no anxiety Exam Initial Vital Signs Temp Pulse Resp BP Pulse Ox 99.1 F 106 16 128/78 93 12/10/17 20:59 12/10/17 20:59 12/10/17 20:59 12/10/17 20:59 12/10/17 20:59 - General physical appearance Present: no distress, no pain - Eyes Present: PERRL - ENT Present: normal nares - Neck Present: no masses, no lymphadenopathy - Respiratory Present: normal respiratory effort - Cardiovascular Cardiovascular exam IM: RRR - Abdomen Abdomen: Present: soft, suprapubic tenderness - Integumentary Present: no rash, no growths, no abnormal pigmentation - Neurologic Present: normal coordination. Absent: disoriented, confused Urology Results - Labs 12/11/17 00:11 12/11/17 00:11 Abnormal lab results Creatinine 0.59 mg/dL (0.60-1.20) L 12/11/17 00:11 Urine Clarity Turbid (Clear) A 12/11/17 01:40 Ur Specific [place] 1.007 (1.010-1.025) L 12/11/17 01:40 Urine Protein 100 mg/dL (Neg-Trace) H 12/11/17 01:40 Urine Blood Moderate (Negative) H 12/11/17 01:40 Ur Leukocyte Esterase Large (Negative) H 12/11/17 01:40 Urine Microscopic RBC 15-30 per hpf (0-3) H 12/11/17 01:40 Urine Microscopic WBC TNTC per hpf (0-3) H 12/11/17 01:40 Ur Squamous Epith Cells Many per lpf (None-Few) H 12/11/17 01:40 Ur Culture Indicated? NO. (NO) A 12/11/17 01:40 All other labs normal. Consult Discharge Plan - Plan Referrals: Jesse Lovelace MD [Primary Care Provider] -
[2017-12-11 08:07] LABS: Basophils % 0.4 %; Eosinophils # 0.3 K/mcL (0.0-0.6); Eosinophils % 2.4 %; Hemoglobin 14.5 g/dL (11.5-15.4); Immature Granulocytes % 0.4 % (0-4); Lymphocytes # 3.4 K/mcL (0.6-4.6); Lymphocytes % 31.8 %; Mean Corpuscular HGB Conc 32.2 g/dL (31.6-35.5); Mean Corpuscular Hemoglobin 30.5 pg (28.0-33.3); Mean Corpuscular Volume 94.7 fL (83.0-100.0); Mean Platelet Volume 12.2 fL (9.4-12.4); Monocytes # 1.4 K/mcL (0.0-1.3); Monocytes % 13.5 %; Neutrophils # 5.5 K/mcL (1.6-8.9); Platelet Count 140 K/mcL (140-400); Red Blood Count 4.75 M/mcL (3.82-4.97); Red Cell Distribution Width 13.4 % (11.5-14.5); Segmented Neutrophils % 51.5 %
[2017-12-11 09:26] LABS: Alanine Aminotransferase 45 Units/L (7-52); Albumin/Globulin Ratio 1.4 (1.1-2.2); Alkaline Phosphatase 108 Units/L (34-104); Aspartate Amino Transferase 51 Units/L (13-39); BUN/Creatinine Ratio 13 (6-26); Bilirubin,Total 0.7 mg/dL (0.3-1.0); Blood Urea Nitrogen 9 mg/dL (6-20); Calcium 9.3 mg/dL (8.6-10.3); Carbon Dioxide 16 mEq/L (23-29); Chloride 106 mEq/L (98-107); Globulin 2.9 g/dL (2.4-3.5); Glucose 88 mg/dL (70-105); Osmolality,Calculated 282 (280-300); Potassium 4.8 mEq/L (3.5-5.1); Sodium 137 mEq/L (136-145); Total Protein 6.9 g/dL (6.4-8.9); eGFR For Non-African Americans > 60 (> 60)
--- NOTE | 2017-12-11 12:40 | Event Note ---
Date of Encounter: 12/11/17 Time of Encounter: 12:38 Patient seen and evaluated at bedside. Hemodynamically stable. Patient admitted for UTI, 4 mm obstructing stone in the distal left ureter with mild upstream hydroureteronephrosis. Patient being manage with IV fluids, IV antibiotics, pain control, scheduled for ureteroscopic stone extraction this afternoon. Continue current plan of care.
--- NOTE | 2017-12-11 15:27 | Anesthesia Evaluation PreOp ---
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 FOLDER History: Other (ANXIETY, DEPRESSION, FIBROMYALGIA) Other Medical History: GERD, Other (OBESITY, BMI 41) Anesthesia History: No Prior Anesthetic Complications, Past Anesthesia (KIDNEY STONES, BREAST REDUCTION) : No Test: Negative Alcohol Use: none Drug use: none Medications and Allergies Cyclobenzaprine [Flexeril] 5 mg PO TID PRN 10/13/17 [History] Dexlansoprazole [Dexilant] 60 mg PO DAILY 10/13/17 [History] Duloxetine HCl [Cymbalta] 120 mg PO DAILY 10/13/17 [History] Modafinil [Provigil] 200 mg PO DAILY PRN 10/13/17 [History] Promethazine [Phenergan] 25 mg PO Q4-6H PRN 10/13/17 [History] SUMAtriptan Succinate [Imitrex] 50 - 100 mg PO DAILY PRN 10/13/17 [History] diazePAM [Valium] 5 mg PO DAILY PRN 10/13/17 [History] Cefepime HCl [Maxipime] 2,000 mg IVPB Q12HR 14 Days #28 vial 11/20/17 [Rx] Fluconazole [Diflucan] 150 mg PO DAILY 10 Days #10 tab 11/20/17 [Rx] 3 Allergy/AdvReac Type Severity Reaction Status Date / Time Hydromorphone [From Dilaudid] Allergy Itching Verified 12/10/17 20:59 levofloxacin [From Levaquin] Allergy Itching Verified 12/10/17 20:59 prochlorperazine Allergy Anxiety Verified 12/10/17 20:59 [From Compazine] - Meds/Allergy Pre-op Review Medications Reviewed: Yes Allergies Reviewed: Yes Beta Blockers on Current Med List: No Anesthesia Results - Labs 12/11/17 06:38 12/11/17 06:38 Laboratory Last Values WBC 10.6 K/mcL (4.3-11.1) 12/11/17 06:38 RBC 4.75 M/mcL (3.82-4.97) 12/11/17 06:38 Hgb 14.5 g/dL (11.5-15.4) 12/11/17 06:38 Hct 45.0 % (35.3-44.9) H 12/11/17 06:38 MCV 94.7 fL (83.0-100.0) 12/11/17 06:38 MCH 30.5 pg (28.0-33.3) 12/11/17 06:38 MCHC 32.2 g/dL (31.6-35.5) 12/11/17 06:38 RDW 13.4 % (11.5-14.5) 12/11/17 06:38 Plt Count 140 K/mcL (140-400) 12/11/17 06:38 MPV 12.2 fL (9.4-12.4) 12/11/17 06:38 Immature Gran % 0.4 % (0-4) 12/11/17 06:38 Seg Neutrophils % 51.5 % 12/11/17 06:38 Lymphocytes % 31.8 % 12/11/17 06:38 Monocytes % 13.5 % 12/11/17 06:38 Eosinophils % 2.4 % 12/11/17 06:38 Basophils % 0.4 % 12/11/17 06:38 Neutrophils # 5.5 K/mcL (1.6-8.9) 12/11/17 06:38 Lymphocytes # 3.4 K/mcL (0.6-4.6) 12/11/17 06:38 Monocytes # 1.4 K/mcL (0.0-1.3) H 12/11/17 06:38 Eosinophils # 0.3 K/mcL (0.0-0.6) 12/11/17 06:38 Basophils # 0.0 K/mcL (0.0-0.2) 12/11/17 06:38 Sodium 137 mEq/L (136-145) 12/11/17 06:38 Potassium 4.8 mEq/L (3.5-5.1) 12/11/17 06:38 Chloride 106 mEq/L (98-107) 12/11/17 06:38 Carbon Dioxide 16 mEq/L (23-29) L 12/11/17 06:38 BUN 9 mg/dL (6-20) 12/11/17 06:38 Creatinine 0.69 mg/dL (0.60-1.20) 12/11/17 06:38 Est GFR ( Amer) > 60 (> 60) 12/11/17 06:38 Est GFR (Non-Af Amer) > 60 (> 60) 12/11/17 06:38 BUN/Creatinine Ratio 13 (6-26) 12/11/17 06:38 Glucose 88 mg/dL (70-105) 12/11/17 06:38 Calculated Osmolality 282 (280-300) 12/11/17 06:38 Lactic Acid 1.0 mmol/L (0.5-2.2) 12/11/17 00:11 Calcium 9.3 mg/dL (8.6-10.3) 12/11/17 06:38 Total Bilirubin 0.7 mg/dL (0.3-1.0) 12/11/17 06:38 AST 51 Units/L (13-39) H 12/11/17 06:38 ALT 45 Units/L (7-52) 12/11/17 06:38 Alkaline Phosphatase 108 Units/L (34-104) H 12/11/17 06:38 Serum Total Protein 6.9 g/dL (6.4-8.9) 12/11/17 06:38 Albumin 4.0 g/dL (3.5-5.7) 12/11/17 06:38 Globulin 2.9 g/dL (2.4-3.5) 12/11/17 06:38 Albumin/Globulin Ratio 1.4 (1.1-2.2) 12/11/17 06:38 Serum , Qual Negative (Negative) 12/11/17 08:58 Urine Color Yellow (Yellow) 12/11/17 01:40 Urine Clarity Turbid (Clear) A 12/11/17 01:40 Urine pH 7.0 pH Units (5.0-8.0) 12/11/17 01:40 Ur Specific [place] 1.007 (1.010-1.025) L 12/11/17 01:40 Urine Protein 100 mg/dL (Neg-Trace) H 12/11/17 01:40 Urine Glucose (UA) Normal mg/dL (Normal) 12/11/17 01:40 Urine Ketones Negative mg/dL (Negative) 12/11/17 01:40 Urine Blood Moderate (Negative) H 12/11/17 01:40 Urine Nitrite Negative (Negative) 12/11/17 01:40 Urine Bilirubin Negative (Negative) 12/11/17 01:40 Urine Urobilinogen Normal mg/dL (Normal) 12/11/17 01:40 Ur Leukocyte Esterase Large (Negative) H 12/11/17 01:40 Urine Microscopic RBC 15-30 per hpf (0-3) H 12/11/17 01:40 Urine Microscopic WBC TNTC per hpf (0-3) H 12/11/17 01:40 Ur Squamous Epith Cells Many per lpf (None-Few) H 12/11/17 01:40 Urine Bacteria None Seen per hpf (None-Few) 12/11/17 01:40 Hyaline Casts None Seen per lpf (None-Few) 12/11/17 01:40 Urine Yeast Test Not Performed 12/10/17 21:12 Ur Culture Indicated? NO. (NO) A 12/11/17 01:40 Anesthesia Exam Vital Signs/O2 Sat, Most Current Temp Pulse Resp BP Pulse Ox 98.1 F 97 16 97/66 91 12/11/17 11:08 12/11/17 11:08 12/11/17 11:08 12/11/17 11:08 12/11/17 11:08 Weight: 103 kg - BMI 41 NPO (# of Hours): 8 - Cardiac Rhythm: Regular - Pulmonary Breath Sounds: bilateral Clear Respiratory Effort: Symmetrical - Additional Findings MAR Administrations Heparin Sodium (Porcine) (Heparin) 5,000 unit SQ Q8HCO [facility] Stop: 06/12/18 06:01 Last Admin: 12/11/17 05:56 Dose: Not Given Non-Admin Reason: Patient Refused Sodium Chloride (0.9 % Sodium Chloride) 1,000 mls @ 150 mls/hr IVC .Q6H40M [facility] Stop: 12/11/17 17:04 Last Admin: 12/11/17 05:56 Dose: 150 mls/hr Cefepime HCl 1,000 mg/ Sterile (Water) 10 mls @ 300 mls/hr IVPB Q12HR [facility] Stop: 06/12/18 06:01 Last Admin: 12/11/17 05:56 Dose: 300 mls/hr Ondansetron HCl (Zofran) 8 mg IVP Q8HR PRN; Protocol PRN Reason: Nausea And Vomiting Stop: 06/12/18 07:02 Last Admin: 12/11/17 09:26 Dose: 8 mg Oxycodone HCl (Roxicodone) 10 mg PO Q6HR PRN PRN Reason: Severe Pain Stop: 06/12/18 03:33 Last Admin: 12/11/17 12:30 Dose: 10 mg Admin: 12/11/17 05:57 Dose: 10 mg Tramadol HCl (Ultram) 50 mg PO Q6HR PRN PRN Reason: Moderate Pain Stop: 06/12/18 03:33 Last Admin: 12/11/17 09:25 Dose: 50 mg Anesthesia Assess/Plan ASA Score: 3 Modified [place] Scale for Level of Consciousness: Cooperative, oriented, and tranquil Anesthetic Plan: General Monitoring Plan: Standard Monitors Recovery Plan: PACU Anes Supervising Prov Stmt: Patient informed and consented. Risks, benefits, and alternatives discussed. Patient wishes to proceed.
[2017-12-11] MEDS ORDERED: Lidocaine -MPF 2% 2 ML VIAL ONE (16:18)
[2017-12-11] MEDS ORDERED: Dexamethasone 4 MG/ML VIAL ONE (16:18)
[2017-12-11] MEDS ORDERED: Ondansetron 4 MG/2 ML VIAL ONE (16:18)
[2017-12-11] MEDS ORDERED: *HR* FentaNYL (PF) 100 MCG/2 ML VIAL ONE (16:19)
[2017-12-11] MEDS ORDERED: *HR* Propofol 200 MG/20 ML VIAL IVP ONE (16:20)
[2017-12-11] MEDS ORDERED: Isovue-300 50 ML VIAL IVP ONE (16:21)
[2017-12-11] MEDS ORDERED: *HR* Belladonna Alkaloids/Opium 60 MG RECTAL SUPPOSITORY RC PRN (16:32)
[2017-12-11] MEDS ORDERED: *HR* Belladonna Alkaloids/Opium 30 MG RECTAL SUPPOSITORY RC ONE (16:38)
[2017-12-11] MEDS ORDERED: *HR* Belladonna Alkaloids/Opium 30 MG RECTAL SUPPOSITORY RC PRN (16:40)
--- NOTE | 2017-12-11 16:53 | Operative Note ---
Date of procedure: 12/11/17 Pre-op diagnosis: left 4 mm Ureteral stone Post-op diagnosis: same Procedure: left ureteroscopic stone extraction Left retrograde pyelogram and ureteral stent Anesthesia: GETA Surgeon: Dimitry Menendez Was there an financial services assistant present: No Estimated blood loss (cc): 0 Specimen: stone Condition: stable Disposition: PACU Procedure in Detail: PROCEDURE IN DETAIL: Patient was taken back to the operating room, positioned supine on the operating table. Anesthesia was applied without complication. They were moved into dorsal lithotomy. Careful attention was maintained to cushion all pressure points for patient's safety. They were prepped and draped in sterile fashion. Time-out was performed with the proper patient and procedure. A 21-Guy[place] rigid cystoscope was inserted into the bladder without difficulty. Systematic examination of bladder revealed no abnormalities. The ureteral orifice was cannulated using a 5-Guyanese ureteral Catheter and a retrograde pyelogram was performed using Isovue. A filling defect was identified which corresponded to the stone in the distal/mid ureter on the left. At that point, a zip wire was placed through the 5-Guyanese and confirmed in the renal pelvis with fluoroscopy. An 8-10 dilator was then placed over the zip wire to passively dilate the ureteral orifice. A semi-rigid ureteroscope was carefully inserted into the bladder and guided into the ureteral oriface. At that point, the stone was encountered and I was able to basket the stone out of the ureter with a 1.9 tipless basket without laser lithotripsy. All stone in the ureter was removed. A 4.8 x 26 ureteral stent was placed over the zip wire under fluoroscopy without complication. The bladder was drained. The stone was collected and sent for stone analysis. The string was left attached to the stent and secured to the patient for easy removal in approximately 72 hours
[2017-12-11] MEDS ORDERED: *HR* OxyCODONE Immed Rel 5 MG TABLET PO PRN (16:55)
[2017-12-11] MEDS ORDERED: *HR* Promethazine 25 MG/ML VIAL IVP PRN (16:55)
--- NOTE | 2017-12-11 18:23 | Anesthesia Evaluation Post Op ---
Date of Encounter: 12/11/17 Time of Encounter: 17:47 - Discharge PostOp Status: Transfer Patient to floor (Patient's vital signs have been reviewed. Patient is stable postoperatively and has adequately recovered from anesthesia. Patient is determined to have stable airway patency and respiratory function including respiratory rate and oxygen saturation. Patient has a stable heart rate, blood pressure and adequate hydration. Patients mental status is acceptable. Patients temperature is appropriate. Pain and nausea are adequately controlled.)
[2017-12-12] MEDS: *HR* OxyCODONE Immed Rel 5 MG TABLET PO PRN ×4 (02:45→21:32)
[2017-12-12] MEDS: Ondansetron 4 MG/2 ML VIAL IVP PRN (02:47)
[2017-12-12] MEDS: *HR* Heparin 5,000 UNIT/ML VIAL SQ SCH ×3 (06:25→21:39)
[2017-12-12] MEDS: Cefepime HCl 1,000 MG in Water for inj. (sterile) 20 ML 10 ML IVPB SCH ×2 (06:26→18:46)
[2017-12-12] MEDS: *HR* Belladonna Alkaloids/Opium 30 MG RECTAL SUPPOSITORY RC PRN ×3 (06:28→21:43)
[2017-12-12] MEDS: diazePAM 5 MG TABLET PO PRN (08:04)
[2017-12-12] MEDS ORDERED: DULOXETINE HCL 120 MG PO SCH (09:00)
[2017-12-12] MEDS ORDERED: NON-FORMULARY MEDICATION 1 EACH EACH (Dexlansoprazole [Dexilant] 60 MG) PO SCH (09:00)
--- NOTE | 2017-12-12 09:55 | Urology Progress Note ---
<Romina Chavez Amanda - Last Filed: 12/12/17 10:04> Date of Encounter: 12/12/17 Time of Encounter: 09:00 - Assessment and Plan (1) Ureterolithiasis Current Visit: Yes Status: Acute Assessment and plan: Patient is a 47-year-old female who is one day status post left ureteroscopic stone extraction, left retrograde pyelogram and ureteral stent placement. Ureteral stent was displaced by patient. Patient was presented with two options including removal of ureteral stent versus repositioning ureteral stent at bedside. Patient initially requested Dr. Benson to take her back to surgery to reposition the stent, but ultimately, patient decided to proceed with bedside repositioning with Dr. Menendez, as Dr. Benson is not healthcare risk control consultant. Progress Note Narrative: POD #1. Patient seen and examined sitting upright in chair eating breakfast. Patient is tearful, stating night nursing staff did not give her pain medicine on schedule. Patient also states she accidentally pulled stent down into urethra while using the restroom and is now feeling increased frequency, urgency , hesitancy and incontinence. Patient wishes to have stent repositioned. Objective Initial Vital Signs Temp Pulse Resp BP Pulse Ox 99.1 F 106 16 128/78 93 12/10/17 20:59 12/10/17 20:59 12/10/17 20:59 12/10/17 20:59 12/10/17 20:59 - General physical appearance Present: well developed, well nourished - Respiratory Present: normal expansion, normal respiratory effort - Abdomen Present: soft, non tender - Integumentary Present: no rash, no abnormal pigmentation - Musculoskeletal Present: normal posture - Psychiatric Present: oriented to time, oriented to person, oriented to place, speech is normal, memory intact - Labs 12/11/17 06:38 12/11/17 06:38 Consult Discharge Plan - Plan Referrals: Jesse Lovelace MD [Primary Care Provider] - 12/18/17 1:00 pm Brock Benson MD [Partnered Physician] - 12/20/17 11:15 am <Dimitry Menendez - Last Filed: 12/14/17 07:37> Date of Encounter: 12/14/17 - Assessment and Plan (1) Hydronephrosis with renal and ureteral calculous obstruction Current Visit: Yes Status: Resolved Assessment and plan: Patient was also evaluated by M.D. later in the day. Please see that note for further details. I agree with the physician assistants assessment Objective Initial Vital Signs Temp Pulse Resp BP Pulse Ox 99.1 F 106 16 128/78 93 12/10/17 20:59 12/10/17 20:59 12/10/17 20:59 12/10/17 20:59 12/10/17 20:59 - Labs 12/14/17 04:10 12/14/17 04:10 Diabetes panel 12/14/17 Range/Units 04:10 Sodium 140 (136-145) mEq/L Potassium 4.2 (3.5-5.1) mEq/L Chloride 102 (98-107) mEq/L Carbon Dioxide 33 H (23-29) mEq/L BUN 14 (6-20) mg/dL Creatinine 0.84 (0.60-1.20) mg/dL Glucose 88 (70-105) mg/dL Calcium 9.2 (8.6-10.3) mg/dL Calcium panel 12/14/17 Range/Units 04:10 Calcium 9.2 (8.6-10.3) mg/dL Pituitary panel 12/14/17 Range/Units 04:10 Sodium 140 (136-145) mEq/L Potassium 4.2 (3.5-5.1) mEq/L Chloride 102 (98-107) mEq/L Carbon Dioxide 33 H (23-29) mEq/L BUN 14 (6-20) mg/dL Creatinine 0.84 (0.60-1.20) mg/dL Glucose 88 (70-105) mg/dL Calcium 9.2 (8.6-10.3) mg/dL Adrenal panel 12/14/17 Range/Units 04:10 Sodium 140 (136-145) mEq/L Potassium 4.2 (3.5-5.1) mEq/L Chloride 102 (98-107) mEq/L Carbon Dioxide 33 H (23-29) mEq/L BUN 14 (6-20) mg/dL Creatinine 0.84 (0.60-1.20) mg/dL Glucose 88 (70-105) mg/dL Calcium 9.2 (8.6-10.3) mg/dL
[2017-12-12] MEDS: Ketorolac 15 MG/ML VIAL IVP PRN ×2 (11:59→23:14)
--- NOTE | 2017-12-12 13:33 | Internal Med Progress Note ---
Hospitalist Progress Note - Encounter Date of Encounter: 12/12/17 Time of Encounter: 13:25 - Subjective Interval History: Pt with multiple questions/complaints. States her stent got displaced. She is reporting urinary incontinence and reporting burning at the urethra due to location of the stent. She states her pain medication are out of order and are not the way she takes them at home Nurse attempted to help pt get her meds back on schedule by asking her to wait a few hours on one med so she can get both meds at the same time and pt refused. Pt reporting mild dysuria and left flank pain. States she recently completed 14 days of cefepime via power glide. Pt states she urinates in a hat instead of using the sterile sample cup directly. She states she cannot use sterile cup directly. - Exam Vitals: Temp Pulse Resp BP Pulse Ox 98.0 F 104 18 121/83 91 12/12/17 12:12 12/12/17 12:12 12/12/17 12:12 12/12/17 12:12 12/12/17 12:12 Exam: General: Alert and oriented Skin:Normal color, no rash, no lesions. HEENT:EOM, pupils equal, round and reactive. Cardiovascular:Normal S1 & S2, no rubs, murmurs or gallops. No JVD. Pulse regular. Lungs:Normal breath sounds, no wheezes or crackles. Abdomen:Soft, non-tender, no rigidity. Extremities:No deformity, no edema or tenderness, no joint swelling or clubbing. Neurological:Normal cognition and motor skills. Pulses:Carotid and radial pulses normal +2. Rest of the physical exam is non contributory - Assessment and Plan (1) Nephrolithiasis Current Visit: No Status: Acute Assessment and Plan: Left flank pain consistent with recurrent nephrolithiasis with findings of 4 mm obstructing stone in the left distal ureter with mild upstream hydro-nephrosis. Patient mildly tachycardia but no other systemic signs of infection or sepsis at this time. Patient received 1 L fluid bolus in the ED. We will continue aggressive fluid hydration, pain regimen and tamsulosin added to aid in stone passage. On cefepime at this time. Sen by Urology and s/p stent palcement, however, pt somehow displaced her stent while using the rest room. Dr. Menendez aware and plans to replace stent at bed side sometime this evening (2) Hydronephrosis with renal and ureteral calculous obstruction Current Visit: Yes Status: Acute Assessment and Plan: Improving, POD# 1 status post left ureteroscopic stone extraction, left retrograde pyelogram and ureteral stent placement. PRN pain control. Stent displaced and presented option to replace at bedside. Urology following (3) Left flank pain Current Visit: Yes Status: Acute Assessment and Plan: Checking urine analysis via straight cath. Continue on Cefepime for now. DVT Prophylaxis: Heparin - Summary of Assessment and Plan Summary of Assessment and Plan: Ms. Colon is a 47 year old female with a past medical history of long-standing nephrolithiasis who was recently admitted approximately one month ago for the same. Patient reports that she completed her 14 day course of IV antibiotics 1 week ago. She states that yesterday she developed acute left sided flank pain, 10 out of 10 in intensity and radiating around to her left growing region. Patient denies any fever and chills but reports symptoms of weakness and lightheadedness. She reports a low-grade fever of 99.3 just prior to going to urgent care earlier today. Denies any pain with urination. CT scan of the abdomen and pelvis was performed upon arrival which showed a 4 mm obstructing stone in the distal left ureter with mild upstream hydrated year ago nephrosis. Additional non-obstructing left intra-renal stones were present. Patient was hemodynamically stable with a mild transient elevation in heart rate to 107. Laboratory findings showed no evidence of leukocytosis. As stated above, patient recently completed 14 days of IV cefepime for treatment of pseudomonal positive urinary tract infection. - Time Spent with Patient Total time spent is greater than 50% in coordination of care (as documented) at patient's floor/unit and/or counseling patient: less than 15 minutes Plan of Care Discussed with: patient Internal Medicine: Result - Labs CBC & Chem 7: 12/11/17 06:38 12/11/17 06:38 Consult Discharge Plan - Plan Referrals: Jesse Lovelace MD [Primary Care Provider] - 12/18/17 1:00 pm Brock Benson MD [Partnered Physician] - 12/20/17 11:15 am
[2017-12-12] MEDS: traMADol 50 MG TABLET PO PRN (16:17)
--- NOTE | 2017-12-12 17:07 | Event Note ---
Date of Encounter: 12/12/17 Time of Encounter: 17:05 No need to straight cath. Urine done at urgent care 12/10/2017 sent for culture and showing gram negative aristides. Awaiting final results on that. Pt requesting ID consult if culture positive. Per urology possibly due to renal calculi which has been removed and hopefully should resolve.
--- NOTE | 2017-12-12 17:41 | Urology Progress Note ---
Date of Encounter: 12/12/17 Time of Encounter: 17:35 - Assessment and Plan (1) Hydronephrosis with renal and ureteral calculous obstruction Current Visit: Yes Status: Resolved Assessment and plan: After discussion of options - remove stent, leave stent and manage incontinence for 2-3 days then remove, replace stent at bedside. pt elects to have stent removed at bedside. she understands risk for increased pain from spasms and swelling. will attempt to manage the best we can tonight. no discharge until pain controlled Progress Note Subjective: still having pain Narrative: stent migrated out and she has incontinence. Objective Initial Vital Signs Temp Pulse Resp BP Pulse Ox 99.1 F 106 16 128/78 93 12/10/17 20:59 12/10/17 20:59 12/10/17 20:59 12/10/17 20:59 12/10/17 20:59 - General physical appearance Absent: no distress - Psychiatric Present: other (crying.) - Additional Exam I removed stent per discussion. done by MD - Labs 12/11/17 06:38 12/11/17 06:38 Consult Discharge Plan - Plan Referrals: Jesse Lovelace MD [Primary Care Provider] - 12/18/17 1:00 pm Brock Benson MD [Partnered Physician] - 12/20/17 11:15 am
[2017-12-12] MEDS: Melatonin 3 MG TABLET PO PRN (23:14)
[2017-12-13] MEDS: Ondansetron 4 MG/2 ML VIAL IVP PRN (04:24)
[2017-12-13] MEDS: *HR* OxyCODONE Immed Rel 5 MG TABLET PO PRN ×3 (04:31→21:33)
[2017-12-13] MEDS: Cefepime HCl 1,000 MG in Water for inj. (sterile) 20 ML 10 ML IVPB SCH (05:06)
[2017-12-13] MEDS: *HR* Heparin 5,000 UNIT/ML VIAL SQ SCH ×3 (05:07→21:32)
[2017-12-13] MEDS: *HR* Belladonna Alkaloids/Opium 30 MG RECTAL SUPPOSITORY RC PRN ×3 (05:07→21:38)
--- NOTE | 2017-12-13 06:43 | Urology Progress Note ---
Date of Encounter: 12/13/17 Time of Encounter: 06:41 - Assessment and Plan (1) Hydronephrosis with renal and ureteral calculous obstruction Current Visit: Yes Status: Resolved Assessment and plan: feels better. stent removed yesterday. sign off. pt can follow with Dr Benson in 6 weeks. Progress Note Subjective: no new complaints, feels better Objective Initial Vital Signs Temp Pulse Resp BP Pulse Ox 99.1 F 106 16 128/78 93 12/10/17 20:59 12/10/17 20:59 12/10/17 20:59 12/10/17 20:59 12/10/17 20:59 - General physical appearance Present: no distress - Abdomen Present: soft - Labs 12/11/17 06:38 12/11/17 06:38 Consult Discharge Plan - Plan Referrals: Jesse Lovelace MD [Primary Care Provider] - 12/18/17 1:00 pm Brock Benson MD [Partnered Physician] - 12/20/17 11:15 am
[2017-12-13] MEDS: Ketorolac 15 MG/ML VIAL IVP PRN (08:08)
[2017-12-13] MEDS: diazePAM 5 MG TABLET PO PRN (11:14)
--- NOTE | 2017-12-13 13:09 | Internal Med Progress Note ---
Hospitalist Progress Note - Encounter Date of Encounter: 12/13/17 Time of Encounter: 13:06 - Subjective Interval History: Patient at bedside with significant other. No acute distress, pleasant. Patient states suprapubic pain is 10/10, with a cramping sensation. She denies fevers/chills. She admits to urinary frequency and dysuria. . - Exam Vitals: Temp Pulse Resp BP Pulse Ox 97.8 F 99 16 121/79 91 12/13/17 12:05 12/13/17 12:05 12/13/17 12:05 12/13/17 12:05 12/13/17 12:05 Exam: General: Alert and oriented Skin:Normal color, no rash, no lesions. HEENT:EOM, pupils equal, round and reactive. Cardiovascular:Normal S1 & S2, no rubs, murmurs or gallops. No JVD. Pulse regular. Lungs:Normal breath sounds, no wheezes or crackles. Abdomen:Soft, no rigidity. Suprapubic region mild TTP. Extremities: trace bipedal edema - Assessment and Plan (1) Nephrolithiasis Current Visit: No Status: Acute Assessment and Plan: Left flank pain consistent with recurrent nephrolithiasis with findings of 4 mm obstructing stone in the left distal ureter with mild upstream hydro-nephrosis. Patient mildly tachycardia but no other systemic signs of infection or sepsis at this time. Patient received 1 L fluid bolus in the ED. We will continue aggressive fluid hydration, pain regimen and tamsulosin added to aid in stone passage. On cefepime at this time. Sen by Urology and s/p stent palcement, however, pt somehow displaced her stent while using the rest room. Stent removed 12/12. No acute issues. States she still has significant pain. Patient is insisting she has a UTI. A urine culture from 12/10 shows sanchez- sensitive Pseudomonas aeruginosa. She is afebrile, no leukocytosis. She does complain of dysuria and frequency. This might be improved with relief of stone obstruction. Will consult ID. Currently she has Cefepime IV, but would appreciate recommendations if this needs continued or not. She states she received 14 days of Cefepime outpatient. She is allergic to Levaquin which causes her to have lower leg edema. (2) Hydronephrosis with renal and ureteral calculous obstruction Current Visit: Yes Status: Resolved Assessment and Plan: Improving, POD# 2 status post left ureteroscopic stone extraction, left retrograde pyelogram and ureteral stent placement. PRN pain control. Urology following, signed off, would like to see patient in 6 weeks as outpatient. Stent displaced and patient opted for stent removal which was done yesterday, (3) Left flank pain Current Visit: Yes Status: Acute Assessment and Plan: Now has ureter stent removed. Will assess if pain improves with this. DVT Prophylaxis: Heparin - Summary of Assessment and Plan Summary of Assessment and Plan: Ms. Colon is a 47 year old female with a past medical history of long-standing nephrolithiasis who was recently admitted approximately one month ago for the same. Patient reports that she completed her 14 day course of IV antibiotics 1 week ago. She states that yesterday she developed acute left sided flank pain, 10 out of 10 in intensity and radiating around to her left growing region. Patient denies any fever and chills but reports symptoms of weakness and lightheadedness. She reports a low-grade fever of 99.3 just prior to going to urgent care earlier today. Denies any pain with urination. CT scan of the abdomen and pelvis was performed upon arrival which showed a 4 mm obstructing stone in the distal left ureter with mild upstream hydrated year ago nephrosis. Additional non-obstructing left intra-renal stones were present. Patient was hemodynamically stable with a mild transient elevation in heart rate to 107. Laboratory findings showed no evidence of leukocytosis. As stated above, patient recently completed 14 days of IV cefepime for treatment of pseudomonal positive urinary tract infection. - Time Spent with Patient Total time spent is greater than 50% in coordination of care (as documented) at patient's floor/unit and/or counseling patient: Internal Medicine: Result - Labs CBC & Chem 7: 12/11/17 06:38 12/11/17 06:38 Consult Discharge Plan - Plan Referrals: Jesse Lovelace MD [Primary Care Provider] - 12/18/17 1:00 pm Brock Benson MD [Partnered Physician] - 12/20/17 11:15 am
[2017-12-13] MEDS: traMADol 50 MG TABLET PO PRN (17:11)
--- NOTE | 2017-12-13 18:27 | Infectious Disease Consult ---
Date of Encounter: 12/13/17 Time of Encounter: 18:13 Assessment and Plan (1) Urinary tract infection Status: Acute Assessment and plan: 10/22/2017: Patient underwent left ureteral stent removal, left distal ureters copy, laser lithotripsy, basket stone extraction, stent placement. 10/27/2017: Patient came in with pyelonephritis complicated UTI secondary to pansensitive pseudomonas aeruginosa. Patient was treated and discharged home on cefepime 2 g IV every 12 hours. 11/13/2017 patient was readmitted with severe sepsis and had a UTI with p seudomonas aeruginosa. Patient at that time had a retroperitoneal ultrasound which was read as mild left hydronephrosis. I was concerned so spoke with urology Dr. Benson. A CT was done and it revealed a interval resolution of left sided obstructive uropathy when compared to the study from 10/12/2017. Partial decrease in stone volume within the left kidney with previously described 1.3 cm calculus no longer visualized. Persistent findings of bilateral nonobstructive intrarenal calculi. Urology was not concerned for a nidus of infection so we discharged patient on IV antibiotics after they said no surgical intervention at this time Urine culture on 12/10/2017 positive for pseudomonas aeruginosa pansensitive Status post left ureteroscopic stone extraction and left retrograde pyelogram and ureteral stent placement Patient was started on cefepime I did discuss with Dr. Menendez and maybe all these renal calculi are the nidus of infection Agree with cefepime will continue treatment duration of treatment at least 2 weeks maybe longer Monitor labs and for drug toxicity Spoke with the PICC line team please place power glide We will increase the dose of cefepime to 2 g IV every 12 hours Patient also complaining of increase infection so we will start her on Diflucan Qualifiers: Urinary tract infection type: site unspecified Hematuria presence: with hematuria Qualified Code(s): N39.0 - Urinary tract infection, site not specified; R31.9 - Hematuria, unspecified (2) Pyelonephritis Status: Acute (3) Ureterolithiasis Status: Acute Assessment and plan: Status post left ureteroscopic stone extraction and left retrograde pyelogram and ureteral stent on 12/11/[address] Menendez's recommendations (4) Depression Status: Chronic Qualifiers: Depression Type: unspecified Qualified Code(s): F32.9 - Major depressive disorder, single episode, unspecified (5) Fibromyalgia Status: Chronic (6) Morbid obesity with BMI of 40.0-44.9, adult Status: Acute Infectious Disease HPI - Data of Consult Patient: known to practice within the last 3 years Consult date: 12/13/17 Requesting Physician: Cely Romeo MD Primary Care Provider: Jesse Lovelace MD - Consult Narrative Reason for consult: Recurrent pyelonephritis History of present illness: Ms. Colon is a 47 year old female Patient is a 47-year-old woman well-known to my service presented to [place] on with left flank pain. We are consulted today on 12/13/2017 for recurrent pyelonephritis. Patient is a 47-year-old woman with 1 to my service who was seen by me on 2017 for recurrent UTI with pseudomonas aeruginosa pansensitive. Patient apparently has severe allergies to levofloxacin. Apparently was starting to have urinary symptoms and urinary spasm and left flank pain. Patient went to an urgent care and was referred to the emergency department. Patient did not have any fevers or chills. No rigors. No nausea or vomiting. Briefly patient underwent a left ureteral stent placement and cystoscopy for left ureteral stone and urinary tract infection on 10/12/2017.. At that time the causative organism was Escherichia coli and patient was discharged home on Omnicef 300 mg by mouth twice a day 11 days. 10/22/2017: Patient underwent left ureteral stent removal, left distal ureters copy, laser lithotripsy, basket stone extraction, stent placement. 10/27/2017: Patient came in with pyelonephritis complicated UTI secondary to pansensitive pseudomonas aeruginosa. Patient was treated and discharged home on cefepime 2 g IV every 12 hours. 11/13/2017 patient was readmitted with severe sepsis and had a UTI with pseudomonas aeruginosa. Patient at that time had a retroperitoneal ultrasound which was read as mild left hydronephrosis. I was concerned so spoke with urology Dr. Benson. A CT was done and it revealed a interval resolution of left sided obstructive uropathy when compared to the study from 10/12/2017. Partial decrease in stone volume within the left kidney with previously described 1.3 cm calculus no longer visualized. Persistent findings of bilateral nonobstructive intrarenal calculi. Urology was not concerned for a nidus of infection so we discharged patient on IV antibiotics after they said no surgical intervention at this time Since admission, patient has been febrile with a MAXIMUM TEMPERATURE of 100.5 Fahrenheit, tachycardic. Presenting labs revealed a WBC of 10.6 with normal differential no bands. Chemistry was reviewed and was not impressive. No lactic acidosis. Urine and blood cultures were obtained. Results noted. On this admission. Had a CT abdomen and pelvis on 12/11/2017 and revealed a 4 mm obstructing stone in the distal left ureter with mild upstream hydronephrosis. Additional nonobstructing left intrarenal stones. Patient was taken to surgery where she underwent a left ureteroscopic stone extraction. Left retrograde pyelogram and ureteral stent. Cultures were obtained and were positive for pansensitive pseudomonas aeruginosa. Patient was started on cefepime and I was asked to evaluate the patient's make further recommendations. CC: Cely Romeo MD Past Med Surg Social Fam HX - Past Medical History Medical history: fibromyalgia, kidney stones, migraine, other Additional medical history: lithrotripsy, uteroscopy Psychiatric history: anxiety, depression - Past Surgical History Surgical History: hysterectomy Additional surgical history: breast reduction - Social History Smoking Status: Never smoker Smokeless Tobacco Status: No Alcohol use: none Drug use: none - Family History Mother Living Status: Age at : 60 Cause of : Respiratory failure Hx Family Cardiac Disorders: No Hx Family Respiratory Disorders: Yes (COPD, asthma.) Hx Family Cancer: Yes (Vaginal) Hx Family GI Disorders: Yes (Chrons disease. Colostomy Short bowel syndrome.) Hx Family Endocrine Disorder: Yes (Graves Disease.) Hx Family Musculoskeletal Disorders: Yes (Osteoarthritis.) Infectious Disease-CN:Meds Cyclobenzaprine [Flexeril] 5 mg PO TID PRN 10/13/17 [History] Dexlansoprazole [Dexilant] 60 mg PO DAILY 10/13/17 [History] Duloxetine HCl [Cymbalta] 120 mg PO DAILY 10/13/17 [History] Modafinil [Provigil] 200 mg PO DAILY PRN 10/13/17 [History] Promethazine [Phenergan] 25 mg PO Q4-6H PRN 10/13/17 [History] SUMAtriptan Succinate [Imitrex] 50 - 100 mg PO DAILY PRN 10/13/17 [History] diazePAM [Valium] 5 mg PO DAILY PRN 10/13/17 [History] 3 Allergy/AdvReac Type Severity Reaction Status Date / Time Hydromorphone [From Dilaudid] Allergy Itching Verified 12/10/17 20:59 levofloxacin [From Levaquin] Allergy Itching Verified 12/10/17 20:59 prochlorperazine Allergy Anxiety Verified 12/10/17 20:59 [From Compazine] Exam - Constitutional Vitals: Temp Pulse Resp BP Pulse Ox 97.7 F 100 18 122/85 93 12/13/17 16:45 12/13/17 16:45 12/13/17 16:45 12/13/17 16:45 12/13/17 16:45 Infectious Disease CN: Results - Labs CBC & Chem 7: 12/11/17 06:38 12/11/17 06:38 Cultures: Cultures 12/11/17 07:10 Urine Culture - Final Urine,Clean Catch Consult Discharge Plan - Plan Referrals: Jesse Lovelace MD [Primary Care Provider] - 12/18/17 1:00 pm Brock Benson MD [Partnered Physician] - 12/20/17 11:15 am
[2017-12-13] MEDS: Cefepime HCl 2,000 MG in 0.9 % Sodium Chloride Mini Bag 100 ML IVPB SCH (18:48)
[2017-12-13] MEDS: Melatonin 3 MG TABLET PO PRN (21:36)
[2017-12-14] MEDS: *HR* OxyCODONE Immed Rel 5 MG TABLET PO PRN ×4 (03:46→22:55)
[2017-12-14] MEDS: *HR* Belladonna Alkaloids/Opium 30 MG RECTAL SUPPOSITORY RC PRN ×3 (04:04→18:41)
[2017-12-14 04:27] LABS: Basophils % 0.7 %; Eosinophils # 0.3 K/mcL (0.0-0.6); Hematocrit 35.2 % (35.3-44.9); Immature Granulocytes % 0.5 % (0-4); Lymphocytes # 2.6 K/mcL (0.6-4.6); Lymphocytes % 44.1 %; Mean Corpuscular HGB Conc 32.4 g/dL (31.6-35.5); Mean Corpuscular Hemoglobin 30.4 pg (28.0-33.3); Mean Corpuscular Volume 93.9 fL (83.0-100.0); Mean Platelet Volume 11.1 fL (9.4-12.4); Monocytes # 0.6 K/mcL (0.0-1.3); Monocytes % 10.1 %; Neutrophils # 2.3 K/mcL (1.6-8.9); Platelet Count 166 K/mcL (140-400); Red Blood Count 3.75 M/mcL (3.82-4.97); Red Cell Distribution Width 12.9 % (11.5-14.5); Segmented Neutrophils % 39.6 %
[2017-12-14 04:37] LABS: Hemoglobin 11.4 g/dL (11.5-15.4)
[2017-12-14 04:46] LABS: BUN/Creatinine Ratio 17 (6-26); Blood Urea Nitrogen 14 mg/dL (6-20); Calcium 9.2 mg/dL (8.6-10.3); Carbon Dioxide 33 mEq/L (23-29); Chloride 102 mEq/L (98-107); Glucose 88 mg/dL (70-105); Osmolality,Calculated 290 (280-300); Potassium 4.2 mEq/L (3.5-5.1); Sodium 140 mEq/L (136-145); eGFR For Non-African Americans > 60 (> 60)
[2017-12-14] MEDS: Cefepime HCl 2,000 MG in 0.9 % Sodium Chloride Mini Bag 100 ML IVPB SCH ×2 (05:45→17:31)
[2017-12-14] MEDS: *HR* Heparin 5,000 UNIT/ML VIAL SQ SCH ×3 (05:45→21:29)
[2017-12-14] MEDS: Ketorolac 15 MG/ML VIAL IVP PRN (05:45)
[2017-12-14] MEDS: Ondansetron 4 MG/2 ML VIAL IVP PRN (07:42)
[2017-12-14] MEDS ORDERED: Fluconazole 40 MG/ML UDC PO SCH (09:00)
[2017-12-14] MEDS: Fluconazole 100 MG TABLET PO SCH (10:06)
[2017-12-14] MEDS: Sennosides/Docusate Sodium TABLET PO PRN (10:48)
[2017-12-14] MEDS ORDERED: *HR* Promethazine 25 MG/ML VIAL IVP ONE (11:34)
--- NOTE | 2017-12-14 12:43 | Internal Med Progress Note ---
Hospitalist Progress Note - Encounter Date of Encounter: 12/14/17 Time of Encounter: 12:50 - Subjective Interval History: Patient at bedside with significant other. No acute distress, pleasant. Patient states suprapubic pain is 10/10, with a cramping sensation. She denies fevers/chills. She admits to urinary frequency and dysuria. 12/13: states pain is about the same. - Exam Vitals: Temp Pulse Resp BP Pulse Ox 97.7 F 91 16 108/66 91 12/14/17 12:17 12/14/17 12:17 12/14/17 12:17 12/14/17 12:12/14/17 12:17 Exam: General: Alert and oriented Skin:Normal color, no rash, no lesions. HEENT:EOM, pupils equal, round and reactive. Cardiovascular:RRR Abdomen:Soft, no rigidity. Suprapubic region mild TTP. Extremities: no edema - Assessment and Plan (1) Urinary tract infection Current Visit: No Status: Acute Assessment and Plan: Patient has recent cultures from 12/10/17 positive for sanchez sensitvit pseudomonas Currently still has complaints of dysuria. UA shows signs of UTI and with her recent obstruction with nephrolithiasis that is likely cause. Stones extracted but still symptomatic. Does not appear sepsis. ID consulted, recommendations appreciated. Patient will stay here until Saturday for re evaluation. Continue Cefepime at current dose 2 g IV Q12H. (2) Nephrolithiasis Current Visit: No Status: Acute Assessment and Plan: Left flank pain consistent with recurrent nephrolithiasis with findings of 4 mm obstructing stone in the left distal ureter with mild upstream hydro-nephrosis. Patient mildly tachycardia but no other systemic signs of infection or sepsis at this time. Patient received 1 L fluid bolus in the ED. We will continue aggressive fluid hydration, pain regimen and tamsulosin added to aid in stone passage. On cefepime at this time. Sen by Urology and s/p stent palcement, however, pt somehow displaced her stent while using the rest room. Stent removed 12/12. No acute issues. States she still has significant pain. Continue pain medication. (3) Hydronephrosis with renal and ureteral calculous obstruction Current Visit: Yes Status: Resolved Assessment and Plan: Improving, POD# 2 status post left ureteroscopic stone extraction, left retrograde pyelogram and ureteral stent placement. PRN pain control. Urology following, signed off, would like to see patient in 6 weeks as outpatient. Stent displaced and patient opted for stent removal which was done 12/12 (4) Left flank pain Current Visit: Yes Status: Acute Assessment and Plan: Now has ureter stent removed. Will assess if pain improves with this. (5) DVT prophylaxis Current Visit: No Status: Acute Assessment and Plan: Heparin SQ (6) GERD (gastroesophageal reflux disease) Current Visit: No Status: Chronic Assessment and Plan: Continue home ppi - states Prilosec doesn't work Add IV Pepcid. - Time Spent with Patient Total time spent is greater than 50% in coordination of care (as documented) at patient's floor/unit and/or counseling patient: Internal Medicine: Result - Labs CBC & Chem 7: 12/14/17 04:10 12/14/17 04:10 Labs: Short CBC 12/14/17 Range/Units 04:10 WBC 5.8 (4.3-11.1) K/mcL Hgb 11.4 L D (11.5-15.4) g/dL Hct 35.2 L (35.3-44.9) % Plt Count 166 (140-400) K/mcL Neutrophils # 2.3 (1.6-8.9) K/mcL BMP 12/14/17 04:10 Sodium 140 Potassium 4.2 Chloride 102 Carbon Dioxide 33 H BUN 14 Creatinine 0.84 Glucose 88 Calcium 9.2 Consult Discharge Plan - Plan Referrals: Jesse Lovelace MD [Primary Care Provider] - 12/18/17 1:00 pm Brock Benson MD [Partnered Physician] - 12/20/17 11:15 am (1) Urinary tract infection Qualifiers: Urinary tract infection type: site unspecified Hematuria presence: with hematuria Qualified Code(s): N39.0 - Urinary tract infection, site not specified; R31.9 - Hematuria, unspecified (6) GERD (gastroesophageal reflux disease) Qualifiers: Esophagitis presence: esophagitis presence not specified Qualified Code(s): K21.9 - Gastro-esophageal reflux disease without esophagitis
[2017-12-14] MEDS: Famotidine 20 MG/2 ML VIAL IVP SCH ×2 (13:30→17:31)
[2017-12-14] MEDS: traMADol 50 MG TABLET PO PRN ×2 (15:48→20:07)
[2017-12-14] MEDS: Melatonin 3 MG TABLET PO PRN (21:29)
[2017-12-15 04:51] LABS: Basophils % 0.7 %; Eosinophils # 0.3 K/mcL (0.0-0.6); Hematocrit 33.4 % (35.3-44.9); Hemoglobin 11.2 g/dL (11.5-15.4); Immature Granulocytes % 0.3 % (0-4); Lymphocytes # 2.2 K/mcL (0.6-4.6); Lymphocytes % 37.1 %; Mean Corpuscular HGB Conc 33.5 g/dL (31.6-35.5); Mean Corpuscular Hemoglobin 31.4 pg (28.0-33.3); Mean Corpuscular Volume 93.6 fL (83.0-100.0); Monocytes # 0.7 K/mcL (0.0-1.3); Monocytes % 11.6 %; Neutrophils # 2.7 K/mcL (1.6-8.9); Platelet Count 171 K/mcL (140-400); Red Blood Count 3.57 M/mcL (3.82-4.97); Red Cell Distribution Width 12.6 % (11.5-14.5); Segmented Neutrophils % 45.3 %
[2017-12-15] MEDS: Famotidine 20 MG/2 ML VIAL IVP SCH ×2 (06:22→17:09)
[2017-12-15] MEDS: *HR* Heparin 5,000 UNIT/ML VIAL SQ SCH ×3 (06:22→21:52)
[2017-12-15] MEDS: Cefepime HCl 2,000 MG in 0.9 % Sodium Chloride Mini Bag 100 ML IVPB SCH ×2 (06:23→17:09)
[2017-12-15] MEDS: *HR* OxyCODONE Immed Rel 5 MG TABLET PO PRN ×3 (06:34→18:24)
[2017-12-15] MEDS: Fluconazole 100 MG TABLET PO SCH (07:42)
[2017-12-15] MEDS: Sennosides/Docusate Sodium TABLET PO PRN (07:42)
[2017-12-15] MEDS: DEXILANT 60 MG PO SCH (07:42)
--- NOTE | 2017-12-15 13:20 | Internal Med Progress Note ---
Hospitalist Progress Note - Encounter Date of Encounter: 12/16/17 Time of Encounter: 17:20 - Subjective Interval History: Patient at bedside with significant other. No acute distress, pleasant. Patient states suprapubic pain is 10/10, with a cramping sensation. She denies fevers/chills. She admits to urinary frequency and dysuria. 12: states pain is about the same. - Exam Vitals: Temp Pulse Resp BP Pulse Ox 97.9 F 100 16 138/84 94 12/15/17 11:21 12/15/17 11:21 12/15/17 11:21 12/15/17 11:21 12/15/17 11:21 Exam: Gen: NAD CVS: RRR Lungs: CTAB Abd: soft, NT/ND Ext: no edema . - Assessment and Plan (1) Urinary tract infection Current Visit: No Status: Acute Assessment and Plan: Patient has recent cultures from 12/10/17 positive for sanchez sensitvit pseudomonas Dysuria symptoms resolving UA shows signs of UTI and with her recent obstruction with nephrolithiasis that is likely cause. Stones were extracted but she still has some soreness after stent displaced. But now stent removed. Continue Cefepime at current dose 2 g IV Q12H. (2) Nephrolithiasis Current Visit: No Status: Acute (3) Hydronephrosis with renal and ureteral calculous obstruction Current Visit: Yes Status: Resolved (4) Left flank pain Current Visit: Yes Status: Acute (5) DVT prophylaxis Current Visit: No Status: Acute (6) GERD (gastroesophageal reflux disease) Current Visit: No Status: Chronic - Time Spent with Patient Total time spent is greater than 50% in coordination of care (as documented) at patient's floor/unit and/or counseling patient: Internal Medicine: Result - Labs CBC & Chem 7: 12/16/17 04:00 12/16/17 04:20 Labs: Short CBC 12/15/17 Range/Units 04:30 WBC 6.0 (4.3-11.1) K/mcL Hgb 11.2 L (11.5-15.4) g/dL Hct 33.4 L (35.3-44.9) % Plt Count 171 (140-400) K/mcL Neutrophils # 2.7 (1.6-8.9) K/mcL Consult Discharge Plan - Plan Referrals: Jesse Lovelace MD [Primary Care Provider] - 12/18/17 1:00 pm Brock Benson MD [Partnered Physician] - 12/20/17 11:15 am Jeffry Helton MD [Partnered Physician] - 12/26/17 3:00 pm Prescriptions: RX: Belladonna Alkaloids/Opium [B + O] 30 mg RC Q6HR PRN 5 Days #20 supp.rect PRN Reason: Spasms Famotidine [Pepcid] 10 mg PO BID #30 tablet RX: Oxycodone HCl 5 mg PO Q6H PRN 5 Days #20 tablet PRN Reason: Pain RX: Phenazopyridine [Pyridium] 200 mg PO TID PRN #30 tablet PRN Reason: See Comments RX: Tamsulosin [Flomax] 0.4 mg PO HS #30 capsule (1) Urinary tract infection Qualifiers: Urinary tract infection type: site unspecified Hematuria presence: with hematuria Qualified Code(s): N39.0 - Urinary tract infection, site not specified; R31.9 - Hematuria, unspecified (6) GERD (gastroesophageal reflux disease) Qualifiers: Esophagitis presence: esophagitis presence not specified Qualified Code(s): K21.9 - Gastro-esophageal reflux disease without esophagitis
[2017-12-15] MEDS: Multivit/Ca/Min/Fe/FA 1 TAB TABLET PO SCH (13:46)
[2017-12-15] MEDS: Cholecalciferol (D-3) 1,000 UNIT TABLET PO SCH (13:46)
[2017-12-15] MEDS: Ringers Solution, Lactated 1,000 ML IVC SCH ×2 (13:46→21:51)
[2017-12-15] MEDS: traMADol 50 MG TABLET PO PRN (19:50)
[2017-12-15] MEDS: diazePAM 5 MG TABLET PO PRN (21:46)
[2017-12-15] MEDS: Melatonin 3 MG TABLET PO PRN (21:47)
[2017-12-16 05:07] LABS: BUN/Creatinine Ratio 19 (6-26); Blood Urea Nitrogen 12 mg/dL (6-20); Calcium 9.1 mg/dL (8.6-10.3); Carbon Dioxide 33 mEq/L (23-29); Chloride 101 mEq/L (98-107); Glucose 115 mg/dL (70-105); Osmolality,Calculated 287 (280-300); Potassium 4.1 mEq/L (3.5-5.1); Sodium 138 mEq/L (136-145); eGFR For Non-African Americans > 60 (> 60)
[2017-12-16] MEDS: *HR* Heparin 5,000 UNIT/ML VIAL SQ SCH ×2 (05:56→14:00)
[2017-12-16] MEDS: Famotidine 20 MG/2 ML VIAL IVP SCH ×2 (06:02→17:02)
[2017-12-16] MEDS: Cefepime HCl 2,000 MG in 0.9 % Sodium Chloride Mini Bag 100 ML IVPB SCH ×2 (06:02→17:01)
[2017-12-16 06:29] LABS: Basophils % 0.5 %; Eosinophils # 0.3 K/mcL (0.0-0.6); Eosinophils % 4.8 %; Hematocrit 33.2 % (35.3-44.9); Hemoglobin 11.1 g/dL (11.5-15.4); Immature Granulocytes % 0.6 % (0-4); Lymphocytes # 2.1 K/mcL (0.6-4.6); Lymphocytes % 33.1 %; Mean Corpuscular HGB Conc 33.4 g/dL (31.6-35.5); Mean Corpuscular Volume 92.7 fL (83.0-100.0); Mean Platelet Volume 11.1 fL (9.4-12.4); Monocytes # 0.5 K/mcL (0.0-1.3); Monocytes % 8.2 %; Neutrophils # 3.3 K/mcL (1.6-8.9); Platelet Count 157 K/mcL (140-400); Red Blood Count 3.58 M/mcL (3.82-4.97); Red Cell Distribution Width 12.8 % (11.5-14.5); Segmented Neutrophils % 52.8 %
--- NOTE | 2017-12-16 07:54 | Internal Med Progress Note ---
Hospitalist Progress Note - Encounter Date of Encounter: 12/16/17 Time of Encounter: 07:52 - Subjective Interval History: Patient at bedside with significant other. No acute distress, pleasant. Patient states suprapubic pain is 10/10, with a cramping sensation. She denies fevers/chills. She admits to urinary frequency and dysuria. 12/13: states pain is about the same. 12/14: patient feels somewhat dehydrated, otherwise denies fevers/chills, n/v 12/15: patient had no acute events. Denies fevers/chills, dysuria. Ambulates in hallways now and requests heparin SQ dc'd. - Exam Vitals: Temp Pulse Resp BP Pulse Ox 98.0 F 89 16 104/68 91 12/16/17 07:12 12/16/17 07:12 12/16/17 07:12 12/16/17 07:12 12/16/17 07:12 Exam: General: Alert and oriented Skin:Normal color, no rash, no lesions. HEENT:EOM, pupils equal, round and reactive. mucus membranes moist Cardiovascular:RRR Abdomen:Soft, no rigidity. Suprapubic region mild TTP. Extremities: no edema - Assessment and Plan (1) Urinary tract infection Current Visit: No Status: Acute Assessment and Plan: Patient has recent cultures from 12/10/17 positive for sanchez sensitvit pseudomonas Dysuria symptoms resolving UA shows signs of UTI and with her recent obstruction with nephrolithiasis that is likely cause. Stones were extracted but she still has some soreness after stent displaced. But now stent removed. Continue Cefepime at current dose 2 g IV Q12H. Disposition: Likely home today/tomorrow, await ID recommendations for discharge needs. (2) Nephrolithiasis Current Visit: No Status: Acute Assessment and Plan: Left flank pain consistent with recurrent nephrolithiasis with findings of 4 mm obstructing stone in the left distal ureter with mild upstream hydro-nephrosis. Patient mildly tachycardia but no other systemic signs of infection or sepsis at this time. Patient received 1 L fluid bolus in the ED. We will continue aggressive fluid hydration, pain regimen and tamsulosin added to aid in stone passage. On cefepime at this time. Sen by Urology and s/p stent palcement, however, pt somehow displaced her stent while using the rest room. Stent removed 12/12. No acute issues. States she still has significant pain but does get relief with pain medication. (3) Hydronephrosis with renal and ureteral calculous obstruction Current Visit: Yes Status: Resolved Assessment and Plan: Status post left ureteroscopic stone extraction, left retrograde pyelogram and ureteral stent placement. Stent displaced and patient opted for stent removal which was done 12/12. She states she still has soreness even though stent was removed. Continue pain control. (4) Left flank pain Current Visit: Yes Status: Acute Assessment and Plan: Now has ureter stent removed. Plan as above. (5) DVT prophylaxis Current Visit: No Status: Acute Assessment and Plan: She is ambulating in ortiz now without issues. Will DC heparin (6) GERD (gastroesophageal reflux disease) Current Visit: No Status: Chronic Assessment and Plan: Continue home ppi - states Prilosec doesn't work Continue Pepcid on discharge. - Time Spent with Patient Total time spent is greater than 50% in coordination of care (as documented) at patient's floor/unit and/or counseling patient: Internal Medicine: Result - Labs CBC & Chem 7: 12/16/17 04:00 12/16/17 04:20 Labs: Short CBC 12/16/17 Range/Units 04:00 WBC 6.2 (4.3-11.1) K/mcL Hgb 11.1 L (11.5-15.4) g/dL Hct 33.2 L (35.3-44.9) % Plt Count 157 (140-400) K/mcL Neutrophils # 3.3 (1.6-8.9) K/mcL BMP 12/16/17 04:20 Sodium 138 Potassium 4.1 Chloride 101 Carbon Dioxide 33 H BUN 12 Creatinine 0.64 Glucose 115 H Calcium 9.1 Consult Discharge Plan - Plan Referrals: Jesse Lovelace MD [Primary Care Provider] - 12/18/17 1:00 pm Brock Benson MD [Partnered Physician] - 12/20/17 11:15 am (1) Urinary tract infection Qualifiers: Urinary tract infection type: site unspecified Hematuria presence: with hematuria Qualified Code(s): N39.0 - Urinary tract infection, site not specified; R31.9 - Hematuria, unspecified (6) GERD (gastroesophageal reflux disease) Qualifiers: Esophagitis presence: esophagitis presence not specified Qualified Code(s): K21.9 - Gastro-esophageal reflux disease without esophagitis
[2017-12-16] MEDS: Cholecalciferol (D-3) 1,000 UNIT TABLET PO SCH (08:14)
[2017-12-16] MEDS: Multivit/Ca/Min/Fe/FA 1 TAB TABLET PO SCH (08:14)
[2017-12-16] MEDS: traMADol 50 MG TABLET PO PRN ×2 (08:14→18:06)
[2017-12-16] MEDS: Fluconazole 100 MG TABLET PO SCH (08:15)
[2017-12-16] MEDS: DEXILANT 60 MG PO SCH (08:16)
[2017-12-16 12:21] LABS: Calculi Mass 52 mg
[2017-12-16] MEDS: *HR* OxyCODONE Immed Rel 5 MG TABLET PO PRN (12:27)
--- NOTE | 2017-12-16 13:29 | Infectious Disease Progress No ---
Date of Encounter: 12/16/17 Time of Encounter: 13:27 - Assessment and Plan (1) Urinary tract infection Current Visit: No Status: Acute 10/22/2017: Patient underwent left ureteral stent removal, left distal ureters copy, laser lithotripsy, basket stone extraction, stent placement. 10/27/2017: Patient came in with pyelonephritis complicated UTI secondary to pansensitive pseudomonas aeruginosa. Patient was treated and discharged home on cefepime 2 g IV every 12 hours. 11/13/2017 patient was readmitted with severe sepsis and had a UTI with p seudomonas aeruginosa. Patient at that time had a retroperitoneal ultrasound which was read as mild left hydronephrosis. I was concerned so spoke with urology Dr. Benson. A CT was done and it revealed a interval resolution of left sided obstructive uropathy when compared to the study from 10/12/2017. Partial decrease in stone volume within the left kidney with previously described 1.3 cm calculus no longer visualized. Persistent findings of bilateral nonobstructive intrarenal calculi. Urology was not concerned for a nidus of infection so we discharged patient on IV antibiotics after they said no surgical intervention at this time Urine culture on 12/10/2017 positive for pseudomonas aeruginosa pansensitive Status post left ureteroscopic stone extraction and left retrograde pyelogram and ureteral stent placement Patient was started on cefepime Clinically improved. Continue cefepime 2 g IV every 12 hours. Duration of treatment likely 2 weeks but I will see the patient before stopping antibiotics. I am concerned because this is the third recurrence of infection and likely due to pneumonitis so I might have to treat longer Monitor labs and for drug toxicity while on medication she needs weekly CBC, BMP. Patient to follow-up with me in clinic on December 26 at 3 PM. Qualifiers: Urinary tract infection type: site unspecified Hematuria presence: with hematuria Qualified Code(s): N39.0 - Urinary tract infection, site not specified; R31.9 - Hematuria, unspecified (2) Pyelonephritis Current Visit: No Status: Acute (3) Ureterolithiasis Current Visit: Yes Status: Acute (4) Depression Current Visit: No Status: Chronic Qualifiers: Depression Type: unspecified Qualified Code(s): F32.9 - Major depressive disorder, single episode, unspecified (5) Fibromyalgia Current Visit: No Status: Chronic (6) Morbid obesity with BMI of 40.0-44.9, adult Current Visit: Yes Status: Acute (7) Vaginal yeast infection Current Visit: Yes Status: Acute Continue Diflucan Take probiotics (8) Shortness of breath Current Visit: Yes Status: Acute Check a chest x-ray prior to discharge make sure the patient has no pneumonia This could be due to atelectasis - Subjective Interval history: Patient seen and examined. Laying in bed. Was wearing O2 nasal cannula because she told me she had decreased O2 sats. Patient denies any chest pain or shortness of breath. Denies any cough. Patient denies any nausea or vomiting. No diarrhea if anything she is constipated. Patient tells me she still has some urinary symptoms but they are not specific. She states that she feels that her kidneys are sore. Patient states he states infection has improved. Infect Dis PN-Objective Data - Labs CBC & Chem 7: 12/16/17 04:00 12/16/17 04:20 Labs: Laboratory Results - last 24 hr 12/16/17 12/16/17 04:00 04:20 WBC 6.2 RBC 3.58 L Hgb 11.1 L Hct 33.2 L MCV 92.7 MCH 31.0 MCHC 33.4 RDW 12.8 Plt Count 157 MPV 11.1 Immature Gran % 0.6 Seg Neutrophils % 52.8 Lymphocytes % 33.1 Monocytes % 8.2 Eosinophils % 4.8 Basophils % 0.5 Neutrophils # 3.3 Lymphocytes # 2.1 Monocytes # 0.5 Eosinophils # 0.3 Basophils # 0.0 Sodium 138 Potassium 4.1 Chloride 101 Carbon Dioxide 33 H BUN 12 Creatinine 0.64 Est GFR ( Amer) > 60 Est GFR (Non-Af Amer) > 60 BUN/Creatinine Ratio 19 Glucose 115 H Calculated Osmolality 287 Calcium 9.1 - Impressions Impressions Chest X-Ray 12/16/17 11:59 IMPRESSION: No evidence for acute cardiopulmonary process. D/ / Torres Steiner MD / Torrse Steiner MD Interpreting Provider: Torres Steiner MD Exam - Constitutional Vitals: Temp Pulse Resp BP Pulse Ox 97.9 F 98 16 143/93 95 12/16/17 11:56 12/16/17 11:56 12/16/17 11:56 12/16/17 11:56 12/16/17 11:56 General appearance: cooperative, no febrile - Head Head exam: Present: atraumatic, normocephalic - Respiratory Respiratory exam: Present: CTAB. Absent: wheezes - Cardiovascular Cardiovascular exam: Present: RRR, +S1, +S2 - GI/Abdominal GI/Abdominal exam: Present: normal bowel sounds, soft. Absent: tenderness - Back Exam Back exam: Absent: CVA tenderness (L), CVA tenderness (R) Consult Discharge Plan - Plan Referrals: Jesse Lovelace MD [Primary Care Provider] - 12/18/17 1:00 pm Brock Benson MD [Partnered Physician] - 12/20/17 11:15 am Jeffry Helton MD [Partnered Physician] - 12/26/17 3:00 pm
--- NOTE | 2017-12-16 15:44 | Discharge Summary ---
Orders not resulted at time of discharge: Pending orders 12/17/17 04:00 BMP [Basic Metabolic Panel] AM 0400 12/18/17 04:00 BMP [Basic Metabolic Panel] AM 04012/19/17 04:00 BMP [Basic Metabolic Panel] AM 04012/20/17 04:00 BMP [Basic Metabolic Panel] AM 0400 Date of Encounter: 12/16/17 Time of Encounter: 15:42 - Discharge Diagnosis (1) Nephrolithiasis Priority: Primary Status: Acute (2) Urinary tract infection Priority: Secondary Status: Acute Qualifiers: Urinary tract infection type: site unspecified Hematuria presence: with hematuria Qualified Code(s): N39.0 - Urinary tract infection, site not specified; R31.9 - Hematuria, unspecified (3) Hydronephrosis with renal and ureteral calculous obstruction Priority: Secondary Status: Resolved (4) Left flank pain Priority: Secondary (p[) Status: Acute (5) DVT prophylaxis Priority: Secondary Status: Acute (6) GERD (gastroesophageal reflux disease) Priority: Secondary Status: Chronic Qualifiers: Esophagitis presence: esophagitis presence not specified Qualified Code(s) : K21.9 - Gastro-esophageal reflux disease without esophagitis Hospital course: Ms. Colon is a 47 year old female with a past medical history of long-standing nephrolithiasis who was recently admitted approximately one month ago for the same. Patient reports that she completed her 14 day course of IV antibiotics 1 week ago. She states that yesterday she developed acute left sided flank pain, 10 out of 10 in intensity and radiating around to her left growing region. Patient denies any fever and chills but reports symptoms of weakness and lightheadedness. She reports a low-grade fever of 99.3 just prior to going to urgent care earlier today. Denies any pain with urination. CT scan of the abdomen and pelvis was performed upon arrival which showed a 4 mm obstructing stone in the distal left ureter with mild upstream hydrated year ago nephrosis. Additional nonobstructing left intrarenal stones were present. Patient was hemodynamically stable with a mild transient elevation in heart rate to 107. Laboratory findings showed no evidence of leukocytosis. As stated above, patient recently completed 14 days of IV cefepime for treatment of pseudomonal positive urinary tract infection. She was admitted for nephrolithiasis and hydronephrosis. Urology was consulted and she had left ureteroscopic stone extracted on 12/11 and ureteral stent placed. Pain did improve but at some time did get worse and it was found that her stent was displaced while using the rest room. The stent was then removed and patient symptomatically improved. Patient did have signs of UTI however, and given her recent history, ID was consulted. She is to be discharged on Cefepime until her follow-up appointment with ID on Dec 26. - Time Spent with Patient Total time spent providing and/or coordinating discharge services: - Discharge Medications Prescriptions: Belladonna Alkaloids/Opium [B + O] 30 mg RC Q6HR PRN 5 Days #20 supp.rect PRN Reason: Spasms OxyCODONE Immed Rel [Roxicodone 5 MG] 10 mg PO Q6HR PRN 5 Days #20 tablet PRN Reason: Severe Pain Phenazopyridine [Pyridium] 200 mg PO TID PRN #30 tablet PRN Reason: See Comments Tamsulosin [Flomax] 0.4 mg PO HS #30 capsule Home Medications: Cyclobenzaprine [Flexeril] 5 mg PO TID PRN 10/13/17 [History] Dexlansoprazole [Dexilant] 60 mg PO DAILY 10/13/17 [History] Duloxetine HCl [Cymbalta] 120 mg PO DAILY 10/13/17 [History] Modafinil [Provigil] 200 mg PO DAILY PRN 10/13/17 [History] Promethazine [Phenergan] 25 mg PO Q4-6H PRN 10/13/17 [History] SUMAtriptan Succinate [Imitrex] 50 - 100 mg PO DAILY PRN 10/13/17 [History] diazePAM [Valium] 5 mg PO DAILY PRN 10/13/17 [History] Belladonna Alkaloids/Opium [B + O] 30 mg RC Q6HR PRN 5 Days #20 supp.rect [Rx] Cholecalciferol (D-3) [Vitamin D] 1,000 unit PO DAILY tablet 12/16/17 [Rx] Famotidine [Pepcid] 10 mg PO BID #30 tablet 12/16/17 [Rx] Multivit/Ca/Min/Fe/FA [Thera M Plus] 1 tab PO DAILY tablet 12/16/17 [Rx] OxyCODONE Immed Rel [Roxicodone 5 MG] 10 mg PO Q6HR PRN 5 Days #20 tablet [Rx] Phenazopyridine [Pyridium] 200 mg PO TID PRN #30 tablet 12/16/17 [Rx] Tamsulosin [Flomax] 0.4 mg PO HS #30 capsule 12/16/17 [Rx] Allergies/Adverse Reactions: 3 Allergy/AdvReac Type Severity Reaction Status Date / Time Hydromorphone [From Dilaudid] Allergy Itching Verified 12/10/17 20:59 levofloxacin [From Levaquin] Allergy Itching Verified 12/10/17 20:59 prochlorperazine Allergy Anxiety Verified 12/10/17 20:59 [From Compazine] Date of admission: 12/14/17 18:56 Primary care physician: Jesse Lovelace MD Discharging clinician: Cely Romeo - Constitutional Vitals: Temp Pulse Resp BP Pulse Ox 97.9 F 98 16 143/93 95 12/16/17 11:56 12/16/17 11:56 12/16/17 11:56 12/16/17 11:56 12/16/17 11:56 Exam: . - Head Head exam: Present: atraumatic, normocephalic - Eye Eye exam: Present: PERRL, conjuntiva pink, sclera anicteric Pupils: Present: PERRL - Neck Neck exam general surgery: Present: supple, trachea midline. Absent: lymphadenopathy - Respiratory Respiratory exam: Present: CTAB. Absent: accessory muscle use, rales, rhonchi, wheezes - Cardiovascular Cardiovascular exam: Present: RRR, +S1, +S2. Absent: diastolic murmur, gallop, rubs, systolic murmur - GI/Abdominal GI/Abdominal exam: Present: normal bowel sounds, soft, no peritoneal signs. Absent: distended, tenderness - Extremities Exam Extremities exam: Present: warm, radial pulses palpable and symmetrical. Absent : calf tenderness, cyanotic, pedal edema - Neurological Exam Neurological exam: Present: CN II-XII intact, oriented X3, no focal deficits. Absent: pronater drift, facial droop, speech deficit - Skin Skin exam: Present: dry, intact - Patient Status Disposition: Home Health Service Condition: Good Functional capacity at discharge: independent ambulation Overall status at discharge: patient is back to baseline - Discharge Instructions Follow Up With: Jesse Lovelace MD [Primary Care Provider] - 12/18/17 1:00 pm Brock Benson MD [Partnered Physician] - 12/20/17 11:15 am Jeffry Helton MD [Partnered Physician] - 12/26/17 3:00 pm - Diet and Activity Activity: increase activity as tolerated Diet: advance to your usual diet
[2017-12-16 15:52] VITALS: BP 124/79
--- NOTE | 2017-12-16 16:15 | Physician Discharge Referral ---
Home Health/Hosp Referral Info Transfer to: Home Health Provider in Charge Post Discharge: PCP - Diagnosis (1) Nephrolithiasis Priority: Primary Status: Acute (2) Urinary tract infection Priority: Secondary Status: Acute (3) Hydronephrosis with renal and ureteral calculous obstruction Priority: Secondary Status: Resolved (4) Left flank pain Priority: Secondary Status: Acute (5) DVT prophylaxis Priority: Secondary Status: Acute (6) GERD (gastroesophageal reflux disease) Priority: Secondary Status: Chronic - Respiratory Orders Smoking Cessation: Smoking cessation has been advised. For more information, call the [place] Tobacco Quit Line at 0-879-LWTT-NOW. - Diet/Nutrition Diet/Nutrition Orders: Regular - Activity Activity Orders: Up ad frank - Services Needed Following services are medically necessary services: Nursing, Home Infusion Home Care Orders: For antibiotics - Transfer Medications Prescriptions: Belladonna Alkaloids/Opium [B + O] 30 mg RC Q6HR PRN 5 Days #20 supp.rect PRN Reason: Spasms OxyCODONE Immed Rel [Roxicodone 5 MG] 10 mg PO Q6HR PRN 5 Days #20 tablet PRN Reason: Severe Pain Famotidine [Pepcid] 10 mg PO BID #30 tablet Phenazopyridine [Pyridium] 200 mg PO TID PRN #30 tablet PRN Reason: See Comments Tamsulosin [Flomax] 0.4 mg PO HS #30 capsule Home Medications: Cyclobenzaprine [Flexeril] 5 mg PO TID PRN 10/13/17 [History] Dexlansoprazole [Dexilant] 60 mg PO DAILY 10/13/17 [History] Duloxetine HCl [Cymbalta] 120 mg PO DAILY 10/13/17 [History] Modafinil [Provigil] 200 mg PO DAILY PRN 10/13/17 [History] Promethazine [Phenergan] 25 mg PO Q4-6H PRN 10/13/17 [History] SUMAtriptan Succinate [Imitrex] 50 - 100 mg PO DAILY PRN 10/13/17 [History] diazePAM [Valium] 5 mg PO DAILY PRN 10/13/17 [History] Belladonna Alkaloids/Opium [B + O] 30 mg RC Q6HR PRN 5 Days #20 supp.rect [Rx] Cholecalciferol (D-3) [Vitamin D] 1,000 unit PO DAILY tablet 12/16/17 [Rx] Famotidine [Pepcid] 10 mg PO BID #30 tablet 12/16/17 [Rx] Multivit/Ca/Min/Fe/FA [Thera M Plus] 1 tab PO DAILY tablet 12/16/17 [Rx] OxyCODONE Immed Rel [Roxicodone 5 MG] 10 mg PO Q6HR PRN 5 Days #20 tablet [Rx] Phenazopyridine [Pyridium] 200 mg PO TID PRN #30 tablet 12/16/17 [Rx] Tamsulosin [Flomax] 0.4 mg PO HS #30 capsule 12/16/17 [Rx] Allergies/Adverse Reactions: 3 Allergy/AdvReac Type Severity Reaction Status Date / Time Hydromorphone [From Dilaudid] Allergy Itching Verified 12/10/17 20:59 levofloxacin [From Levaquin] Allergy Itching Verified 12/10/17 20:59 prochlorperazine Allergy Anxiety Verified 12/10/17 20:59 [From Compazine] Certification: Further, I certify that my clinical findings support that this patient is homebound (i.e. absences from home require considerable and taxing effort and are for medical reasons or orthodox services or infrequently or short duration when for other reasons) because: Homebound Reason: Patient requires assistance of a person or device to safely leave home Attestation: My signature below is to certify that this patient is under my care and that I, or nurse practitioner, or a physician's specimen preparation assistant working with me, has a face-to -face encounter with this patient.
== END 2017-12-16 19:00 | disposition home health service (06) | DRG 660 ==
LOC: EMEROOARM 20:46 → 3BNU 20:46 → SUATTDRO 12-11 03:14 → 3BNU 12-11 04:16
PROVIDERS: ADMIT Internal Medicine; ATTEND Student in an Organized Health Care Education/Training Program

== ENCOUNTER 2018-08-28 16:35 | Inpatient (IN) ==
[2018-08-28 17:29] LABS: Basophils # 0.1 K/mcL (0.0-0.2); Basophils % 0.6 %; Eosinophils # 0.2 K/mcL (0.0-0.6); Eosinophils % 2.7 %; Hematocrit 39.4 % (35.3-44.9); Hemoglobin 13.4 g/dL (11.5-15.4); Immature Granulocytes % 0.3 % (0-4); Lymphocytes # 2.2 K/mcL (0.6-4.6); Lymphocytes % 25.3 %; Mean Corpuscular Hemoglobin 30.9 pg (28.0-33.3); Mean Corpuscular Volume 90.8 fL (83.0-100.0); Mean Platelet Volume 11.4 fL (9.4-12.4); Monocytes # 0.7 K/mcL (0.0-1.3); Monocytes % 8.4 %; Neutrophils # 5.4 K/mcL (1.6-8.9); Platelet Count 180 K/mcL (140-400); Red Blood Count 4.34 M/mcL (3.82-4.97); Red Cell Distribution Width 12.4 % (11.5-14.5); Segmented Neutrophils % 62.7 %; White Blood Count 8.7 K/mcL (4.3-11.1)
[2018-08-28 17:48] LABS: BUN/Creatinine Ratio 15 (6-26); Blood Urea Nitrogen 10 mg/dL (6-20); Calcium 9.9 mg/dL (8.6-10.3); Carbon Dioxide 30 mEq/L (23-29); Chloride 102 mEq/L (98-107); Glucose 114 mg/dL (70-105); Osmolality,Calculated 286 (280-300); Potassium 4.5 mEq/L (3.5-5.1); Sodium 138 mEq/L (136-145); eGFR For African Americans > 60 (> 60); eGFR For Non-African Americans > 60 (> 60)
[2018-08-28] MEDS ORDERED: 0.9 % Sodium Chloride 1,000 ML IVC ONE (18:00)
[2018-08-28] MEDS ORDERED: *HR* FentaNYL (PF) 100 MCG/2 ML VIAL IVP ONE (18:01)
[2018-08-28 18:45] LABS: Bilirubin,Urine Negative (Negative); Blood,Urine Negative (Negative); Clarity,Urine Clear (Clear); Color,Urine Dark Yellow (Yellow); Glucose,Urine (UA) Normal (Normal); Ketones,Urine Negative (Negative); Leukocyte Esterase,Urine Moderate (Negative); Nitrite,Urine Negative (Negative); Protein,Urine Negative (Neg-Trace); Specific Gravity,Urine 1.019 (1.010-1.025); Urobilinogen,Urine Normal (Normal)
[2018-08-28 18:51] LABS: Bacteria,Urine None Seen per hpf (None-Few); Hyaline Casts,Urine Moderate per lpf (None-Few); RBC,Urine 0-3 per hpf (0-3); Squamous Epithelial Cell,Urine Many per lpf (None-Few); WBC,Urine 30-50 per hpf (0-3)
[2018-08-28 18:55] LABS: Renal Epithelial Cells,Urine Few per hpf (None-Few)
--- NOTE | 2018-08-28 19:21 | Emergency Department Note ---
Disposition Clinical Impression: Pyelonephritis Disposition: Admitted As Inpatient Condition: Good Time of Disposition: 21:20 General Adult HPI - General Chief complaint: ED Urogenital-Female Stated complaint: Dysuria / UTI From Kathy Time Seen by Provider: 08/28/18 17:38 Source: patient, family () Mode of arrival: ambulatory Limitations: no limitations Nursing Notes Reviewed: Yes Vital Signs Reviewed: Yes - History of Present Illness HPI Narrative: 48-year-old female history of urosepsis presents emergency department for dysuria. She states over the past week she has been having symptoms similar to an urinary tract infections including urgency frequency and dysuria. She has a history of prior infection most recent 2 months ago requiring admission and IV antibiotics. History of Pseudomonoas. She was seen by her primary care provider who obtained a urinalysis which was consistent with infection but no culture was obtained. She was placed on Omnicef which she finished but continues to have symptoms. She has developed some right flank pain without radiation. She does have a history of kidney stones but does not believe this feels similar. Some nausea no vomiting. No fevers. She has been taken ibuprofen without significant relief. She also reports every time she has sees infection she developed sepsis gets quite ill. She has followed with infectious disease in the past and she typically takes cefepime through a PICC line. Pain Scale: 10 - Related Data Home Medications Medication Instructions Recorded Confirmed Cyclobenzaprine [Flexeril] 5 mg PO TID PRN 10/13/17 08/28/18 Dexlansoprazole [Dexilant] 60 mg PO DAILY 10/13/17 08/28/18 Duloxetine HCl [Cymbalta] 120 mg PO DAILY 10/13/17 08/28/18 Modafinil [Provigil] 200 mg PO DAILY PRN 10/13/17 08/28/18 Promethazine [Phenergan] 25 mg PO Q4-6H PRN 10/13/17 08/28/18 SUMAtriptan Succinate [Imitrex] 50 - 100 mg PO DAILY PRN 10/13/17 08/28/18 diazePAM [Valium] 5 mg PO DAILY PRN 10/13/17 08/28/18 L. Acidophilus/Pectin, [place] 1 cap PO BID 12/30/17 08/28/18 [Acidophilus Capsule] ARIPiprazole [Abilify] 5 mg PO QAM 06/17/18 08/28/18 Metformin HCl [Glucophage Xr] 750 mg PO HS 08/28/18 08/28/18 Vitamin E 400 unit PO DAILY 08/28/18 08/28/18 Previous Rx's Medication Instructions Recorded Multivit/Ca/Min/Fe/FA [Thera M 1 tab PO DAILY tablet 12/16/17 Plus] Allergies Allergy/AdvReac Type Severity Reaction Status Date / Time hydromorphone [From Dilaudid] Allergy Itching Verified 12/30/17 12:53 levofloxacin [From Levaquin] Allergy Itching Verified 12/30/17 12:53 prochlorperazine Allergy Anxiety Verified 12/30/17 12:53 [From Compazine] All systems ED: reviewed and negative except as stated. Review of Systems: As Per HPI Constitutional: Denies: fever, chills ENT ED: Denies: congestion Cardiovascular: Denies: chest pain Respiratory: Denies: dyspnea Gastrointestinal: Reports: abdominal pain, nausea. Denies: vomiting Genitourinary: Reports: urgency, dysuria, frequency Musculoskeletal: Reports: back pain (Flank) Integumentary: Denies: rash, abrasion Past Medical History - Past Medical History Attestation: Yes The following information was validated with the patient. Source: patient Medical history: Reports: asthma, fibromyalgia, GERD, kidney stones, migraine, other Surgical history: Reports: hysterectomy Psychiatric history: Reports: anxiety, depression - Social History Smoking Status: Former smoker Smokeless Tobacco Status: No Alcohol use: Reports: none Drug use: Reports: none Physical Exam - General Limitations: no limitations General appearance: alert, obese - Head Head exam: atraumatic, normocephalic, normal inspection - Eye Eye exam: Present: normal appearance, EOMI - ENT ENT exam: normal exam, normal oropharynx, mucous membranes moist - Neck Neck exam: Present: normal inspection, full ROM, trachea midline - Chest Chest inspection: Present: normal inspection, symmetric chest wall rise - Respiratory Respiratory exam: Present: normal lung sounds bilaterally. Absent: respiratory distress, wheezes - Cardiovascular Cardiovascular exam: Present: regular rate, normal rhythm, normal heart sounds - Abdominal Exam Abdominal exam: Present: soft, Non-Tender, normal bowel sounds. Absent: tenderness, distention, guarding, rebound, rigidity, tenderness at McBurney's Point Abdominal tenderness: Absent: RLQ - Extremities Exam Extremities exam: Present: normal inspection, full ROM. Absent: tenderness, pedal edema - Back Exam Back exam: Present: normal inspection, full ROM, CVA tenderness (R). Absent: tenderness, CVA tenderness (L) - Neurological Exam Neurological exam: Present: alert, oriented X3 - Psychiatric Psychiatric exam: Present: normal affect, normal mood - Skin Skin exam: Present: warm, dry, intact, normal color. Absent: rash, cyanosis, diaphoresis Course Course Narrative: Patient presents with urinary symptoms similar to prior. Recently treated for urinary tract infection with persistent symptoms and now developing nausea in right flank pain. Denies any fever chills. She is afebrile here. Her abdomen is soft nontender nondistended. She does have a history kidney stones but does not recall if this is the same. Given her history of prior infection will obtain a urinalysis basic labs also obtain a CT scan to evaluate for possible septic stone. IV fluids and pain medication. - Reevaluation(s) Reevaluation #1: Urinalysis reveals leuk esterase with WBC. There is no bacteria. However given her symptoms in her history concern for pyelonephritis. Review of her allergies , prior culture/sensitivities and her prior medications will place her on IV cefepime. Patient states she does not feel comfortable going home given her history of sepsis and requests to be admitted to the hospital. Given her physical presentation she does appear to have clinical pyelonephritis and does warrant admission and further observation her CT scan shows evidence of cystitis as well. No evidence of nephrolithiasis. Patient will be admitted to the [facility] service in stable condition. She is not septic. - Consultations Consultation #1: Spoke with on-call hospitalist aly Stovall to admit for pyelonephritis. No further orders at this time Vital Signs Temperature 97.8 F 08/28/18 16:39 Pulse Rate 119 08/28/18 16:39 Respiratory Rate 20 08/28/18 16:39 Blood Pressure 114/91 08/28/18 16:39 O2 Sat by Pulse Oximetry 94 08/28/18 16:39 Temperature 97.6 F 08/28/18 21:20 Pulse Rate 104 08/28/18 21:20 Respiratory Rate 17 08/28/18 21:20 Blood Pressure 139/88 08/28/18 21:20 O2 Sat by Pulse Oximetry 93 08/28/18 21:20 Oxygen Delivery Oxygen Delivery Room Air Medical Decision Making - MDM Narrative Medical decision making narrative: Patient was discussed with my attending physician who agrees with ED management and final disposition. They independently evaluated the patient. Please refer to their attestation to this encounter for additional information. This note was generated by [employer] voice recognition software and as a result grammatical or spelling errors may occur using this program. - Medical Records Medical records reviewed: Yes I reviewed the patient's medical records. - Lab Data Lab results reviewed: Yes I reviewed the patient's lab results. Result diagrams: 08/28/18 17:16 08/28/18 17:16 Lab Results 08/28/18 08/28/18 08/28/18 Range/Units 17:16 17:16 17:16 WBC 8.7 (4.3-11.1) K/mcL RBC 4.34 (3.82-4.97) M/mcL Hgb 13.4 (11.5-15.4) g/dL Hct 39.4 (35.3-44.9) % MCV 90.8 (83.0-100.0) fL MCH 30.9 (28.0-33.3) pg MCHC 34.0 (31.6-35.5) g/dL RDW 12.4 (11.5-14.5) % Plt Count 180 (140-400) K/mcL MPV 11.4 (9.4-12.4) fL Immature Gran % 0.3 (0-4) % Seg Neutrophils % 62.7 % Lymphocytes % 25.3 % Monocytes % 8.4 % Eosinophils % 2.7 % Basophils % 0.6 % Neutrophils # 5.4 (1.6-8.9) K/mcL Lymphocytes # 2.2 (0.6-4.6) K/mcL Monocytes # 0.7 (0.0-1.3) K/mcL Eosinophils # 0.2 (0.0-0.6) K/mcL Basophils # 0.1 (0.0-0.2) K/mcL Sodium 138 (136-145) mEq/L Potassium 4.5 (3.5-5.1) mEq/L Chloride 102 (98-107) mEq/L Carbon Dioxide 30 H (23-29) mEq/L BUN 10 (6-20) mg/dL Creatinine 0.66 (0.60-1.20) mg/dL Est GFR ( Amer) > 60 (> 60) Est GFR (Non-Af Amer) > 60 (> 60) BUN/Creatinine Ratio 15 (6-26) Glucose 114 H (70-105) mg/dL Calculated Osmolality 286 (280-300) Lactic Acid 1.5 (0.5-2.2) mmol/L Calcium 9.9 (8.6-10.3) mg/dL Ur Specimen Adequacy Urine Color (Yellow) Urine Clarity (Clear) Urine pH (5.0-8.0) pH Units Ur Specific [place] (1.010-1.025) Urine Protein (Neg-Trace) mg/dL Urine Glucose (UA) (Normal) mg/dL Urine Ketones (Negative) mg/dL Urine Blood (Negative) Urine Nitrite (Negative) Urine Bilirubin (Negative) Urine Urobilinogen (Normal) mg/dL Ur Leukocyte Esterase (Negative) Urine Microscopic RBC (0-3) per hpf Urine Microscopic WBC (0-3) per hpf Ur Squamous Epith Cells (None-Few) per lpf Ur Renal Epithelial Cell (None-Few) per hpf Urine Bacteria (None-Few) per hpf Hyaline Casts (None-Few) per lpf Ur Culture Indicated? (NO) 08/28/18 Range/Units 18:32 WBC (4.3-11.1) K/mcL RBC (3.82-4.97) M/mcL Hgb (11.5-15.4) g/dL Hct (35.3-44.9) % MCV (83.0-100.0) fL MCH (28.0-33.3) pg MCHC (31.6-35.5) g/dL RDW (11.5-14.5) % Plt Count (140-400) K/mcL MPV (9.4-12.4) fL Immature Gran % (0-4) % Seg Neutrophils % % Lymphocytes % % Monocytes % % Eosinophils % % Basophils % % Neutrophils # (1.6-8.9) K/mcL Lymphocytes # (0.6-4.6) K/mcL Monocytes # (0.0-1.3) K/mcL Eosinophils # (0.0-0.6) K/mcL Basophils # (0.0-0.2) K/mcL Sodium (136-145) mEq/L Potassium (3.5-5.1) mEq/L Chloride (98-107) mEq/L Carbon Dioxide (23-29) mEq/L BUN (6-20) mg/dL Creatinine (0.60-1.20) mg/dL Est GFR ( Amer) (> 60) Est GFR (Non-Af Amer) (> 60) BUN/Creatinine Ratio (6-26) Glucose (70-105) mg/dL Calculated Osmolality (280-300) Lactic Acid (0.5-2.2) mmol/L Calcium (8.6-10.3) mg/dL Ur Specimen Adequacy See below A Urine Color Dark Yellow (Yellow) Urine Clarity Clear (Clear) Urine pH 7.0 (5.0-8.0) pH Units Ur Specific [place] 1.019 (1.010-1.025) Urine Protein Negative (Neg-Trace) mg/dL Urine Glucose (UA) Normal (Normal) mg/dL Urine Ketones Negative (Negative) mg/dL Urine Blood Negative (Negative) Urine Nitrite Negative (Negative) Urine Bilirubin Negative (Negative) Urine Urobilinogen Normal (Normal) mg/dL Ur Leukocyte Esterase Moderate H (Negative) Urine Microscopic RBC 0-3 (0-3) per hpf Urine Microscopic WBC 30-50 H (0-3) per hpf Ur Squamous Epith Cells Many H (None-Few) per lpf Ur Renal Epithelial Cell Few (None-Few) per hpf Urine Bacteria None Seen (None-Few) per hpf Hyaline Casts Moderate H (None-Few) per lpf Ur Culture Indicated? YES A (NO) - Radiology Data Radiology results reviewed: Yes I reviewed the patient's radiology results. Abdomen/Pelvis CT 08/28/18 17:58 IMPRESSION: Small hiatal hernia. Question wall thickening of the gastric body. Correlation for inflammation is recommended. Endoscopy could be performed as clinically warranted. Fatty infiltration of the liver. Morphology of the liver is slightly nodular. Correlation for chronic disease is recommended. Focus of gas within the urinary bladder lumen, possibly related to recent instrumentation. Correlation for infection is recommended. D/ / Raysa Damon Cha, MD / Raysa Damon Cha, MD Interpreting Provider: Raysa Damon Cha, MD Attestation Statement - Attestation Attestation: I, Shashi Hughes, examined this patient and my medical decision-making was reviewed with the SATELL[facility] TECHNICIAN/PA/Advanced Practice Nurse/Resident Physician. I agree with the documented findings, disposition and treatment plan as described except to the extent set forth below. 48-year-old female presents emergency department for evaluation of flank pain and dysuria. Patient states she has a long history of urinary tract infections in become septic. She has a history of multidrug resistant bacterial infections and has been treated for pseudomonas in her urine multiple times. Patient is allergic to levofloxacin secondary to itching. She states she also often requires a PICC line in order to receive antibiotics at home. Patient reports having right-sided flank pain that is worse over the past few days. She reports fever at home, took ibuprofen prior to arrival to the emergency department. She is tachycardic in the emergency department. She was given IV fluids and antibiotics in the emergency department. She will be admitted to the hospital for further care and evaluation of likely pyelonephritis until cultures return.
[2018-08-28] MEDS ORDERED: Piperacillin/Tazobactam 3.375 GM in 0.9 % Sodium Chloride Mini Bag 100 ML IVPB ONE (19:22)
[2018-08-28] MEDS ORDERED: *HR* OxyCODONE Immed Rel 5 MG TABLET PO ONE (19:53)
[2018-08-28] MEDS ORDERED: Cefepime HCl 2,000 MG in Water for inj. (sterile) 20 ML IVP ONE (19:53)
[2018-08-28] MEDS ORDERED: Ondansetron ODT 4 MG TAB.RAPDIS SL ONE (19:54)
[2018-08-28] MEDS ORDERED: Acetaminophen IV 500 MG/50 ML INFUS..BTL IVPB ONE (21:50)
[2018-08-29] MEDS ORDERED: Ondansetron 4 MG/2 ML VIAL IVP ONE (00:43)
[2018-08-29] MEDS ORDERED: Naloxone 0.4 MG/ML INJ IVP PRN (03:13)
[2018-08-29] MEDS ORDERED: D5% in Water 1,000 ML IVC PRN (03:17)
[2018-08-29] MEDS ORDERED: *HR* Dextrose 50 % in Water (Syg) 50 ML SYRINGE IVP PRN (03:17)
[2018-08-29] MEDS ORDERED: Dextrose Gel 15 GM/37.5 ML TUBE PO PRN ×2 (03:17)
--- NOTE | 2018-08-29 03:37 | Internal Med History&Physical ---
Date of Encounter: 08/29/18 Time of Encounter: 01:00 Internal Medicine - H&P: HPI Chief complaint: Urinary Symptoms, Flank Pain Admitted From: Home Plans for Post Hospital Care: Home History of present illness: Ms. Colon is a 48 year old female with past medical history significant for asthma, fibromyalgia, GERD, kidney stones, complicated UTI, migraine, fatty liver disease, cirrhosis, Meniere's disease, vertigo, IBS, anxiety, and depression who presents for complaints of symptoms similar to previous urinary tract infections including frequency, dysuria, feeling of incomplete emptying, and foul smelling dark urine getting progressively worse since last Saturday. Patient also reports right-sided flank pain and fevers at home with the highest reading of 101. Patient was started on Omnicef by urology on Saturday, however her symptoms have continued to progressively get worse and was advised by urology to come to the ER for further evaluation. ER obtained a CT of the abdomen and pelvis which showed a small hiatal hernia, questionable wall thickening of the gastric body recommending correlation for inflammation and endoscopy if clinically warranted, fatty infiltration of liver with morphology slightly nodular recommending correlation for chronic disease, and focus of gas within the urinary bladder lumen possibly related to recent instrumentation recommending correlation for infection. Received IV fluids, antibiotics, pain, and nausea medications while in ER. Currently reports her pain and nausea have somewhat improved. Currently denies any headache, chest pain, shortness of breath, abdominal pain, nausea, or bowel changes. Patient was most recently admitted to the hospital in June 2018 for complicated UTI and treated with cefepime per sensitivity and required urology and infectious disease co nsultation. Patient reports following regularly with PCP, neurology, gastroenterology, and psychiatry. Reports recently being started on metformin and diabetic diet for aggressive treatment of prediabetes. Past Med Surg Social Fam HX - Past Medical History Medical history: asthma, fibromyalgia, GERD, kidney stones, migraine, other Additional medical history: nephrolithiasis, vertigo, fatty liver disease. non etoh cirrhosis, IBS Psychiatric history: anxiety, depression - Past Surgical History Surgical History: hysterectomy Additional surgical history: breast reduction, nasal surgery, ureteral stent, ureteroscopy, lithrotripsy - Social History Smoking Status: Former smoker Smokeless Tobacco Status: No Alcohol use: none Drug use: none - Family History Mother Living Status: Hx Family Cardiac Disorders: No Hx Family Respiratory Disorders: Yes (resp failure) Hx Family Cancer: Yes Hx Family GI Disorders: Yes (Chrons disease. Colostomy Short bowel syndrome.) Hx Family Endocrine Disorder: Yes (Graves Disease.) Hx Family Autoimmune Disorders: Yes Father Living Status: Still Living Internal Medicine - H&P: Meds Cyclobenzaprine [Flexeril] 5 mg PO TID PRN 10/13/17 [History] Dexlansoprazole [Dexilant] 60 mg PO DAILY 10/13/17 [History] Duloxetine HCl [Cymbalta] 120 mg PO DAILY 10/13/17 [History] Modafinil [Provigil] 200 mg PO DAILY PRN 10/13/17 [History] Promethazine [Phenergan] 25 mg PO Q4-6H PRN 10/13/17 [History] SUMAtriptan Succinate [Imitrex] 50 - 100 mg PO DAILY PRN 10/13/17 [History] diazePAM [Valium] 5 mg PO DAILY PRN 10/13/17 [History] Multivit/Ca/Min/Fe/FA [Thera M Plus] 1 tab PO DAILY tablet 12/16/17 [Rx] L. Acidophilus/Pectin, [place] [Acidophilus Capsule] 1 cap PO BID 12/30/17 [History] ARIPiprazole [Abilify] 5 mg PO QAM 06/17/18 [History] Metformin HCl [Glucophage Xr] 750 mg PO HS 08/28/18 [History] Vitamin E 400 unit PO DAILY 08/28/18 [History] Allergy/AdvReac Type Severity Reaction Status Date / Time hydromorphone [From Dilaudid] Allergy Itching Verified 12/30/17 12:53 levofloxacin [From Levaquin] Allergy Itching Verified 12/30/17 12:53 prochlorperazine Allergy Anxiety Verified 12/30/17 12:53 [From Compazine] All Systems PM: A 10-system review of systems was performed and is negative for pertinent fi ndings except as documented above in the HPI. - Constitutional Vitals: Temp Pulse Resp BP Pulse Ox 97.6 F 108 17 113/71 92 08/28/18 23:22 08/28/18 23:22 08/28/18 23:22 08/28/18 23:22 08/28/18 23:22 Exam: General: Alert and oriented. Skin:Normal color, no rash, no lesions. HEENT:Pupils equal, round and reactive. Cardiovascular:Normal S1 & S2, no rubs, murmurs or gallops. No JVD. Pulse regular. Lungs:Normal breath sounds, no wheezes or crackles. Abdomen:Soft, non-tender, no rigidity. Tenderness to right flank. Extremities:No deformity, no edema or tenderness, no joint swelling or clubbing. Neurological:Normal cognition and motor skills. Pulses:Carotid and radial pulses normal +2. Rest of the physical exam is non contributory. Internal Med - H&P Results - Labs CBC & Chem 7: 08/28/18 17:16 08/28/18 17:16 Labs: Short CBC 08/28/18 Range/Units 17:16 WBC 8.7 (4.3-11.1) K/mcL Hgb 13.4 (11.5-15.4) g/dL Hct 39.4 (35.3-44.9) % Plt Count 180 (140-400) K/mcL Neutrophils # 5.4 (1.6-8.9) K/mcL BMP 08/28/18 17:16 Sodium 138 Potassium 4.5 Chloride 102 Carbon Dioxide 30 H BUN 10 Creatinine 0.66 Glucose 114 H Calcium 9.9 Urine 08/28/18 Range/Units 18:32 Urine Color Dark Yellow (Yellow) Urine Clarity Clear (Clear) Urine pH 7.0 (5.0-8.0) pH Units Ur Specific [place] 1.019 (1.010-1.025) Urine Protein Negative (Neg-Trace) mg/dL Urine Glucose (UA) Normal (Normal) mg/dL - Impressions ITS Impressions Abdomen/Pelvis CT 08/28/18 17:58 IMPRESSION: Small hiatal hernia. Question wall thickening of the gastric body. Correlation for inflammation is recommended. Endoscopy could be performed as clinically warranted. Fatty infiltration of the liver. Morphology of the liver is slightly nodular. Correlation for chronic disease is recommended. Focus of gas within the urinary bladder lumen, possibly related to recent instrumentation. Correlation for infection is recommended. D/ / Raysa Damon Cha, MD / Raysa Damon Cha, MD Interpreting Provider: Raysa Damon Cha, MD - Assessment and Plan (1) Urinary tract infection Current Visit: Yes Status: Acute Assessment and plan: UA obtained in ER showed moderate leukocyte esterase with microscopic white blood cells and hyaline casts. History of complicated UTI treated with cefepime per sensitivity. CT of abdomen and pelvis obtained in ER showed no acute abnormality to the kidneys, nondistended urinary bladder, tiny focus of gas within the urinary bladder lumen related to recent instrumentation or infection. Dose of Zosyn and cefepime received in ER, will continue cefepime. Cultures pending. 1 L fluids received in ER. Urology consult ordered, will need called in a.m. Infectious disease consult ordered, will need called in a.m. Qualifiers: Qualified Code(s): N39.0 - Urinary tract infection, site not specified (2) Flank pain Current Visit: Yes Status: Acute Assessment and plan: Patient reports this is typical with her UTI symptoms. Plan as stated above. (3) Abnormal CT of the abdomen Current Visit: Yes Status: Acute Assessment and plan: CT of the abdomen and pelvis showed a small hiatal hernia, questionable wall thickening of the gastric body recommending correlation for inflammation and endoscopy if clinically warranted, fatty infiltration of liver with morphology slightly nodular recommending correlation for chronic disease, and focus of gas within the urinary bladder lumen possibly related to recent instrumentation recommending correlation for infection. Continue outpatient follow-up with gastroenterology. Reports plans for EGD with GI later this year. Labs ordered. Consider further imaging/testing if not improving with above treatment during admission. (4) Prediabetes Current Visit: Yes Status: Chronic Assessment and plan: Diabetic diet ordered. Accu-Cheks ACHS. (5) Anxiety and depression Current Visit: Yes Status: Chronic Assessment and plan: Continue home medications once verified. (6) GERD (gastroesophageal reflux disease) Current Visit: Yes Status: Chronic Assessment and plan: Continue home medications once verified. Qualifiers: Esophagitis presence: esophagitis presence not specified Qualified Code(s): K21.9 - Gastro-esophageal reflux disease without esophagitis - Time Spent With Patient Total time spent is greater than 50% in coordination of care (as documented) at patient's floor/unit and/or counseling patient:
[2018-08-29 05:31] LABS: Basophils % 0.5 %; Eosinophils # 0.2 K/mcL (0.0-0.6); Eosinophils % 2.8 %; Hematocrit 38.1 % (35.3-44.9); Hemoglobin 12.4 g/dL (11.5-15.4); Immature Granulocytes % 0.2 % (0-4); Lymphocytes # 1.1 K/mcL (0.6-4.6); Lymphocytes % 17.7 %; Mean Corpuscular HGB Conc 32.5 g/dL (31.6-35.5); Mean Corpuscular Hemoglobin 30.4 pg (28.0-33.3); Mean Corpuscular Volume 93.4 fL (83.0-100.0); Mean Platelet Volume 11.6 fL (9.4-12.4); Monocytes # 0.6 K/mcL (0.0-1.3); Monocytes % 10.1 %; Neutrophils # 4.2 K/mcL (1.6-8.9); Platelet Count 128 K/mcL (140-400); Red Blood Count 4.08 M/mcL (3.82-4.97); Red Cell Distribution Width 12.8 % (11.5-14.5); Segmented Neutrophils % 68.7 %; White Blood Count 6.1 K/mcL (4.3-11.1)
[2018-08-29] MEDS: *HR* Heparin 5,000 UNIT/ML VIAL SQ SCH ×2 (05:31→18:29)
[2018-08-29] MEDS: Cefepime HCl 2,000 MG in 0.9 % Sodium Chloride Mini Bag 100 ML IVPB SCH ×2 (05:32→18:29)
[2018-08-29 05:54] LABS: Alanine Aminotransferase 50 Units/L (7-52); Albumin/Globulin Ratio 1.3 (1.1-2.2); Alkaline Phosphatase 121 Units/L (34-104); Aspartate Amino Transferase 50 Units/L (13-39); BUN/Creatinine Ratio 14 (6-26); Bilirubin,Total 0.5 mg/dL (0.3-1.0); Blood Urea Nitrogen 10 mg/dL (6-20); Calcium 9.1 mg/dL (8.6-10.3); Carbon Dioxide 27 mEq/L (23-29); Chloride 104 mEq/L (98-107); Glucose 103 mg/dL (70-105); Osmolality,Calculated 291 (280-300); Potassium 4.5 mEq/L (3.5-5.1); Sodium 141 mEq/L (136-145); eGFR For African Americans > 60 (> 60); eGFR For Non-African Americans > 60 (> 60)
[2018-08-29] MEDS: Ondansetron 4 MG/2 ML VIAL IVP PRN ×3 (06:07→18:29)
--- NOTE | 2018-08-29 08:53 | Infectious Disease Consult ---
Infectious Disease-Consult - Encounter Date/Time Date of Encounter: 08/29/18 Time of Encounter: 11:29 - Data of Consult Patient: known to practice within the last 3 years Reason for consult: UTI Consult date: 08/29/18 Requesting Physician: Zina Richmond MD Primary Care Provider: Jesse Lovelace MD - HPI HPI: Ms. Colon is a 48-year-old female with past medical history of asthma, fibromyalgia, GERD, kidney stones, migraines, anxiety, depression, recurrent UTI, fatty liver disease, Meniere's disease, and irritable bowel syndrome. The patient was admitted to the hospital 08/28/18 for UTI. We are consulted 08/29/18 for further workup and treatment recommendations for UTI. Briefly, the patient's a 48-year-old female, known to the infectious disease service as we were consulted on her case in the past. Back in June, she was diagnosed with a UTI and was treated with 14 days of IV cefepime due to her Levaquin allergy. She has continued to follow with urology since then. Apparently, last Saturday she developed dysuria, urinary frequency, right flank pain, and fever with a MAXIMUM TEMPERATURE of 101 at home. She was started on Omnicef on Saturday by her urologist, but was not getting any better so she p resented to the ER for evaluation. Upon arrival, she was afebrile. She was tachycardic, but was otherwise hemodynamically stable. WBC was normal. Renal function and lactic acid were normal. Urinalysis was positive for moderate leukocyte esterase, 30-50 white cells, many epithelial cells, but no bacteria. Urine culture is pending. She had a CT of the abdomen and pelvis that showed possible wall thickening of the gastric body, fatty liver disease, and a foci of gas in the bladder likely related to recent instrumentation. The patient did undergo straight catheterization in the emergency department to obtain her urine specimen. Due to her past history of pseudomonas, she was given a dose of IV cefepime and Zosyn in the ER and was admitted to the hospital for further evaluation and treatment. Since admission, the patient has remained afebrile and hemodynamically stable. Blood cultures were obtained 2 sets are pending. Her urine culture also remains pending. Urology has been consulted and her evaluation is pending. Currently, the patient is on IV cefepime. We have been asked to evaluate and make further recommendations. During my exam today, the patient endorses a history as stated above. She reports a fever of 101.6 at home. Denies chills or rigors. Does endorse a he adache, but denies any neck pain or stiffness. Denies chest pain, shortness of breath, or cough. Reports some nausea with vomiting, but no diarrhea. She does report chronic constipation and states she would likely need a bowel regimen to assist with bowel movements here in the hospital. She reports some lower abdominal pain with radiation around to her right flank. She denies any lower back or left flank pain. She denies oral thrush or skin rashes. The patient lives at home with her . She has not been sexually active since 2005. She denies tobacco, alcohol, or illicit drug use. Denies chronic infectious diseases. Denies recent travel outside the [facility]. - ROS Review of Systems: All systems reviewed and no additional remarkable complaints except as stated. - Results CBC & Chem 7: 08/29/18 05:05 08/29/18 05:05 - Exam Vitals: Temp Pulse Resp BP Pulse Ox 97.9 F 89 16 107/68 94 08/29/18 08:18 08/29/18 08:18 08/29/18 08:18 08/29/18 08:18 08/29/18 08:18 Exam: Head: Atraumatic, normal inspection, normocephalic. Eye: EOMI, PERRLA, no scleral icterus noted. ENT: Mucous membranes moist. No odontogenic infection noted. Neck: Normal inspection, no meningismus. Respiratory: Clear to auscultation. No rales, respiratory distress, rhonchi, or wheezes noted. Cardiovascular: Regular rate and rhythm, S1 and S2 audible. No murmurs, rubs, or gallops. GI: Soft, nondistended, normal bowel sounds. Right lower quadrant tenderness with radiation around to the right flank. Extremities:No joint swelling, pedal edema, or tenderness noted. Back: Normal inspection. No vertebral tenderness noted. Right CVA tenderness noted. Neurological: Alert, oriented 3, no focal deficits. Psychiatric: normal affect, normal mood. Skin: Dry, intact, warm. Normal color. No rashes. Dexlansoprazole [Dexilant] 60 mg PO DAILY 10/13/17 [History] Duloxetine HCl [Cymbalta] 120 mg PO DAILY 10/13/17 [History] Modafinil [Provigil] 200 mg PO DAILY PRN 10/13/17 [History] Promethazine [Phenergan] 25 mg PO BID PRN 10/13/17 [History] SUMAtriptan Succinate [Imitrex] 50 - 100 mg PO AD PRN 10/13/17 [History] diazePAM [Valium] 5 mg PO DAILY PRN 10/13/17 [History] L. Acidophilus/Pectin, [place] [Acidophilus Capsule] 1 cap PO BID 12/30/17 [History] ARIPiprazole [Abilify] 5 mg PO QAM 06/17/18 [History] Metformin HCl [Glucophage Xr] 750 mg PO QPM 08/28/18 [History] Vitamin E 400 unit PO DAILY 08/28/18 [History] Cefdinir [Omnicef] 300 mg PO BID 08/29/18 [History] Cyclobenzaprine HCl 5 mg PO TID PRN 08/29/18 [History] Methenamine Hippurate [Hiprex] 1 gm PO BID 08/29/18 [History] Multivitamin [One Daily Multivitamin] 1 tab PO DAILY 08/29/18 [History] Allergy/AdvReac Type Severity Reaction Status Date / Time hydromorphone [From Dilaudid] Allergy Itching Verified 08/29/18 17:22 levofloxacin [From Levaquin] Allergy LEGS SWELL Verified 08/29/18 17:22 prochlorperazine Allergy "SEVERE Verified 08/29/18 17:22 [From Compazine] PANIC ATTACK" - Assessment and Plan (1) Sepsis Current Visit: No Status: Resolved The patient had fever and tachycardia. Likely secondary to UTI. Improved. Afebrile since admission. Tachycardia resolved. Blood cultures drawn 08/29/18 are pending 2 sets. Qualifiers: Sepsis type: sepsis due to unspecified organism Qualified Code(s): A41.9 - Sepsis, unspecified organism SNOMED Code(s): 38554747 (2) Urinary tract infection Current Visit: No Status: Acute Causative organism: Unclear. The patient has a history of Pseudomonas in the urine dating back to June 2018 at which time she was treated with 14 days of IV cefepime. Complicated due to symptoms of pyelonephritis. CT of the abdomen and pelvis negative for abscess or hydronephrosis. Currently on IV cefepime. Qualifiers: Urinary tract infection type: site unspecified Hematuria presence: with hematuria Qualified Code(s): N39.0 - Urinary tract infection, site not specified; R31.9 - Hematuria, unspecified SNOMED Code(s): 85038083 (3) Elevated transaminase level Current Visit: No Status: Acute Likely secondary to fatty liver disease and cirrhosis. Continue to trend. SNOMED Code(s): 792001052, 689890040 (4) Fibromyalgia Current Visit: No Status: Chronic SNOMED Code(s): 440267971 (5) Morbid obesity with BMI of 40.0-44.9, adult Current Visit: No Status: Acute SNOMED Code(s): 950871563, 16041510497511 (6) Drug allergy, antibiotic Current Visit: No Status: Acute Levaquin-leg swelling. SNOMED Code(s): 286880551495597 (7) Fatty liver Current Visit: No Status: Acute ESPITIA/cirrhosis with FLD. Follows with Dr. Ryan with [facility]. Unable to calculate MELD score since INR was not checked. SNOMED Code(s): 398093375 (8) Prediabetes Current Visit: Yes Status: Chronic Recommend aggressive glucose monitoring and control. Management per the primary team. SNOMED Code(s): 457154350 (9) Anxiety and depression Current Visit: Yes Status: Chronic SNOMED Code(s): 588127588 - Recommendations Recommendations: Await blood cultures to finalize. Await urine culture finalized. Await further recommendations from urology. Continue cefepime 2 g IV every 12 hours. Duration of treatment depends on the clinical picture. Monitor renal function and dose adjust antibiotics. Past Med Surg Social Fam HX - Past Medical History Medical history: asthma, fibromyalgia, GERD, kidney stones, migraine, other Additional medical history: nephrolithiasis, vertigo, fatty liver disease. non etoh cirrhosis, IBS Psychiatric history: anxiety, depression - Past Surgical History Surgical History: hysterectomy Additional surgical history: breast reduction, nasal surgery, ureteral stent, ureteroscopy, lithrotripsy - Social History Smoking Status: Former smoker Smokeless Tobacco Status: No Alcohol use: none Drug use: none - Family History Mother Living Status: Hx Family Cardiac Disorders: No Hx Family Respiratory Disorders: Yes (resp failure) Hx Family Cancer: Yes Hx Family GI Disorders: Yes (Chrons disease. Colostomy Short bowel syndrome.) Hx Family Endocrine Disorder: Yes (Graves Disease.) Hx Family Autoimmune Disorders: Yes Father Living Status: Still Living Consult Discharge Plan - Plan Referrals: Jesse Lovelace MD [Primary Care Provider] - - Attending Attestation I have personally performed a face to face evaluation on this patient. I have reviewed and agree with the care plan. History and Exam by me shows: rEika is a 48-year-old woman who is well-known to my service was seen multiple times before for recurrent UTI with pseudomonas and patient has allergies to fluoroquinolones so we had to put power glide's and treated with cefepime multiple occasions in the past presented with UTI-like symptoms. She tells me she was having fevers and chills at home and back pain and severe dysuria. Since she has been here a CT of the abdomen pelvis reveals no pyelonephritis. Urine cultures pending. Patient was started on empiric antibiotics. Assessment and plan 1.Sepsis 2.Urinary tract infection causative organism not clear 3.Elevated transaminases level 4.Fibromyalgia 5.Morbid obesity 6.Allergies to Levaquin Recommendations Await blood cultures to finalize. Await urine culture finalized. Await further recommendations from urology. Continue cefepime 2 g IV every 12 hours. Duration of treatment depends on the clinical picture. Monitor renal function and dose adjust antibiotics.
[2018-08-29] MEDS ORDERED: diazePAM 5 MG TABLET PO PRN (09:34)
[2018-08-29] MEDS ORDERED: SUMAtriptan succinate 50 MG TABLET PO PRN (09:40)
--- NOTE | 2018-08-29 10:00 | Urology - Consult Note ---
<Romina Chavez N - Last Filed: 08/29/18 09:58> Date of Encounter: 08/29/18 Time of Encounter: 08:15 - Assessment and Plan (1) Urinary tract infection Current Visit: Yes Status: Acute Assessment and plan: Patient is a 48-year-old female who presents with recurrent urinary tract infection. Patient was recently admitted in June 2018 for a pansensitive pseudomonas aeruginosa urinary tract infection. We reviewed urologic CT findings, and the patient underwent straight catheterization the emergency department to collect a urine sample. Vital signs are currently stable and afebrile. White blood cell count and renal function are both reassuring. Blood and urine cultures are pending. Patient is receiving IV cefepime and received Zosyn in the emergency department. Infectious disease support and recommendat ions are much appreciated. At this time, there is no urologic surgical intervention anticipated. We will plan to conservatively manage patient with IV fluids and hydration, await final culture and sensitivity report, and plan to follow up within 1 week of discharge with Dr. Benson as an outpatient. Qualifiers: Urinary tract infection type: site unspecified Hematuria presence: without hematuria Qualified Code(s): N39.0 - Urinary tract infection, site not specified Urology CN:HPI Consult date: 08/29/18 Reason for consult Urology: Other (urinary tract infection) Requesting physician: Conrad Chaidez History of present illness: Patient is a 48-year-old female well-known to our urology service who presents with a history of recurrent urinary tract infections. Patient was admitted approximately 2 months ago for pansensitive pseudomonas aeruginosa urinary tract infection. Patient has multiple drug allergies, and she required PICC line placement with antibiotic infusions to treat her last infection. Patient called our office 4 days ago reporting symptoms of dysuria, urgency, frequency and malodorous urine. Patient was treated with oral Omnicef, but she reports her symptoms progressed into right flank pain and fever over the last 24 hours. Patient subsequently presented to the emergency department where she underwent a CT of the abdomen and pelvis revealing focal gas in the bladder lumen, but there was no evidence of hydronephrosis or calculi. Patient is currently sitting upright in bed in no apparent distress, and she denies any fever, chills, pneumaturia, or gross hematuria. Infectious disease has been consulted, and patient is receiving IV cefepime. Past Med Surg Social Fam HX - Past Medical History Medical history: asthma, fibromyalgia, GERD, kidney stones, migraine, other Additional medical history: nephrolithiasis, vertigo, fatty liver disease. non etoh cirrhosis, IBS Psychiatric history: anxiety, depression - Past Surgical History Surgical History: hysterectomy Additional surgical history: breast reduction, nasal surgery, ureteral stent, ureteroscopy, lithrotripsy - Social History Smoking Status: Former smoker Smokeless Tobacco Status: No Alcohol use: none Drug use: none - Family History Mother Living Status: Hx Family Cardiac Disorders: No Hx Family Respiratory Disorders: Yes (resp failure) Hx Family Cancer: Yes Hx Family GI Disorders: Yes (Chrons disease. Colostomy Short bowel syndrome.) Hx Family Endocrine Disorder: Yes (Graves Disease.) Hx Family Autoimmune Disorders: Yes Father Living Status: Still Living Medications and Allergies Cyclobenzaprine [Flexeril] 5 mg PO TID PRN 10/13/17 [History] Dexlansoprazole [Dexilant] 60 mg PO DAILY 10/13/17 [History] Duloxetine HCl [Cymbalta] 120 mg PO DAILY 10/13/17 [History] Modafinil [Provigil] 200 mg PO DAILY PRN 10/13/17 [History] Promethazine [Phenergan] 25 mg PO Q4-6H PRN 10/13/17 [History] SUMAtriptan Succinate [Imitrex] 50 - 100 mg PO DAILY PRN 10/13/17 [History] diazePAM [Valium] 5 mg PO DAILY PRN 10/13/17 [History] Multivit/Ca/Min/Fe/FA [Thera M Plus] 1 tab PO DAILY tablet 12/16/17 [Rx] L. Acidophilus/Pectin, [place] [Acidophilus Capsule] 1 cap PO BID 12/30/17 [History] ARIPiprazole [Abilify] 5 mg PO QAM 06/17/18 [History] Metformin HCl [Glucophage Xr] 750 mg PO HS 08/28/18 [History] Vitamin E 400 unit PO DAILY 08/28/18 [History] Allergy/AdvReac Type Severity Reaction Status Date / Time hydromorphone [From Dilaudid] Allergy Itching Verified 12/30/17 12:53 levofloxacin [From Levaquin] Allergy Itching Verified 12/30/17 12:53 prochlorperazine Allergy Anxiety Verified 12/30/17 12:53 [From Compazine] Review of Systems - Constitutional chills, fatigue, fever(s), weakness - EENT Nose, mouth and throat: headache(s), no dizziness - Cardiovascular no chest pain, no diaphoresis, no dyspnea - Respiratory no cough, no dyspnea - Gastrointestinal abdominal pain, nausea, no vomiting - Genitourinary Genitourinary: dysuria, flank pain, urinary frequency, urinary urgency, no difficulty urinating, no hematuria, no urinary hesitancy, no urinary incontinence - Musculoskeletal no back pain, no muscle weakness - Integumentary no erythema, no rash - Neurological no confusion, no syncope - Psychiatric no anxiety, no confusion - Hematologic/Lymphatic no easy bleeding, no easy bruising - Allergic/Immunologic no throat swelling, no wheezing Exam Initial Vital Signs Temp Pulse Resp BP Pulse Ox 97.8 F 119 20 114/91 94 08/28/18 16:39 08/28/18 16:39 08/28/18 16:39 08/28/18 16:39 08/28/18 16:39 - General physical appearance Present: no distress, no pain - Eyes Present: PERRL, normal ocular movement - ENT Present: normal nares, no hearing loss, no congestion - Neck Present: no masses, trachea midline, no lymphadenopathy - Respiratory Present: normal respiratory effort - Cardiovascular Cardiovascular exam IM: RRR - Abdomen Abdomen: Present: soft, non tender. Absent: distended - Integumentary Present: no rash, no abnormal pigmentation - Neurologic Present: normal coordination - Musculoskeletal Present: other (Normal posture) Urology Results - Labs 08/29/18 05:05 08/29/18 05:05 Abnormal lab results Plt Count 128 K/mcL (140-400) L 08/29/18 05:05 Carbon Dioxide 30 mEq/L (23-29) H 08/28/18 17:16 Glucose 114 mg/dL (70-105) H 08/28/18 17:16 AST 50 Units/L (13-39) H 08/29/18 05:05 121 Units/L (34-104) H 08/29/18 05:05 Ur Specimen Adequacy See below A 08/28/18 18:32 Ur Leukocyte Esterase Moderate (Negative) H 08/28/18 18:32 30-50 per hpf (0-3) H 08/28/18 18:32 Ur Squamous Epith Cells Many per lpf (None-Few) H 08/28/18 18:32 Hyaline Casts Moderate per lpf (None-Few) H 08/28/18 18:32 Ur Culture Indicated? YES (NO) A 08/28/18 18:32 Diabetes panel 08/28/18 08/29/18 Range/Units 17:16 05:05 Sodium 138 141 (136-145) mEq/L Potassium 4.5 4.5 (3.5-5.1) mEq/L Chloride 102 104 (98-107) mEq/L Carbon Dioxide 30 H 27 (23-29) mEq/L BUN 10 10 (6-20) mg/dL Creatinine 0.66 0.70 (0.60-1.20) mg/dL Glucose 114 H 103 (70-105) mg/dL Calcium 9.9 9.1 (8.6-10.3) mg/dL AST 50 H (13-39) Units/L ALT 50 (7-52) Units/L Alkaline Phosphatase 121 H (34-104) Units/L Albumin 4.0 (3.5-5.7) g/dL Calcium panel 08/28/18 08/29/18 Range/Units 17:16 05:05 Calcium 9.9 9.1 (8.6-10.3) mg/dL Albumin 4.0 (3.5-5.7) g/dL Pituitary panel 08/28/18 08/29/18 Range/Units 17:16 05:05 Sodium 138 141 (136-145) mEq/L Potassium 4.5 4.5 (3.5-5.1) mEq/L Chloride 102 104 (98-107) mEq/L Carbon Dioxide 30 H 27 (23-29) mEq/L BUN 10 10 (6-20) mg/dL Creatinine 0.66 0.70 (0.60-1.20) mg/dL Glucose 114 H 103 (70-105) mg/dL Calcium 9.9 9.1 (8.6-10.3) mg/dL Adrenal panel 08/28/18 08/29/18 Range/Units 17:16 05:05 Sodium 138 141 (136-145) mEq/L Potassium 4.5 4.5 (3.5-5.1) mEq/L Chloride 102 104 (98-107) mEq/L Carbon Dioxide 30 H 27 (23-29) mEq/L BUN 10 10 (6-20) mg/dL Creatinine 0.66 0.70 (0.60-1.20) mg/dL Glucose 114 H 103 (70-105) mg/dL Calcium 9.9 9.1 (8.6-10.3) mg/dL Total Bilirubin 0.5 (0.3-1.0) mg/dL AST 50 H (13-39) Units/L ALT 50 (7-52) Units/L Alkaline Phosphatase 121 H (34-104) Units/L Albumin 4.0 (3.5-5.7) g/dL All other labs normal. - Imaging CT scan - abdomen: report reviewed, image reviewed CT scan - pelvis: report reviewed, image reviewed Consult Discharge Plan - Plan Referrals: Jesse Lovelace MD [Primary Care Provider] - <Dimitry Menendez - Last Filed: 08/29/18 17:12> Date of Encounter: 08/29/18 - Assessment and Plan (1) Urinary tract infection Current Visit: Yes Status: Acute Assessment and plan: Patient evaluated by physician certified medical technician assistant. In the past the patient has only preferred management by Dr. Benson. I did not examine or evaluate the patient today. Contact urology service if any urgent urologic intervention is required. The patient would either need to agree to see me or would require transfer Qualifiers: Urinary tract infection type: site unspecified Hematuria presence: without hematuria Qualified Code(s): N39.0 - Urinary tract infection, site not specified Exam Initial Vital Signs Temp Pulse Resp BP Pulse Ox 97.8 F 119 20 114/91 94 08/28/18 16:39 08/28/18 16:39 08/28/18 16:39 08/28/18 16:39 08/28/18 16:39 Urology Results - Labs 08/29/18 05:05 08/29/18 05:05 Abnormal lab results Plt Count 128 K/mcL (140-400) L 08/29/18 05:05 Carbon Dioxide 30 mEq/L (23-29) H 08/28/18 17:16 Glucose 114 mg/dL (70-105) H 08/28/18 17:16 AST 50 Units/L (13-39) H 08/29/18 05:05 121 Units/L (34-104) H 08/29/18 05:05 Ur Specimen Adequacy See below A 08/28/18 18:32 Ur Leukocyte Esterase Moderate (Negative) H 08/28/18 18:32 30-50 per hpf (0-3) H 08/28/18 18:32 Ur Squamous Epith Cells Many per lpf (None-Few) H 08/28/18 18:32 Hyaline Casts Moderate per lpf (None-Few) H 08/28/18 18:32 Ur Culture Indicated? YES (NO) A 08/28/18 18:32 Diabetes panel 08/28/18 08/29/18 Range/Units 17:16 05:05 Sodium 138 141 (136-145) mEq/L Potassium 4.5 4.5 (3.5-5.1) mEq/L Chloride 102 104 (98-107) mEq/L Carbon Dioxide 30 H 27 (23-29) mEq/L BUN 10 10 (6-20) mg/dL Creatinine 0.66 0.70 (0.60-1.20) mg/dL Glucose 114 H 103 (70-105) mg/dL Calcium 9.9 9.1 (8.6-10.3) mg/dL AST 50 H (13-39) Units/L ALT 50 (7-52) Units/L Alkaline Phosphatase 121 H (34-104) Units/L Albumin 4.0 (3.5-5.7) g/dL Calcium panel 08/28/18 08/29/18 Range/Units 17:16 05:05 Calcium 9.9 9.1 (8.6-10.3) mg/dL Albumin 4.0 (3.5-5.7) g/dL Pituitary panel 08/28/18 08/29/18 Range/Units 17:16 05:05 Sodium 138 141 (136-145) mEq/L Potassium 4.5 4.5 (3.5-5.1) mEq/L Chloride 102 104 (98-107) mEq/L Carbon Dioxide 30 H 27 (23-29) mEq/L BUN 10 10 (6-20) mg/dL Creatinine 0.66 0.70 (0.60-1.20) mg/dL Glucose 114 H 103 (70-105) mg/dL Calcium 9.9 9.1 (8.6-10.3) mg/dL Adrenal panel 08/28/18 08/29/18 Range/Units 17:16 05:05 Sodium 138 141 (136-145) mEq/L Potassium 4.5 4.5 (3.5-5.1) mEq/L Chloride 102 104 (98-107) mEq/L Carbon Dioxide 30 H 27 (23-29) mEq/L BUN 10 10 (6-20) mg/dL Creatinine 0.66 0.70 (0.60-1.20) mg/dL Glucose 114 H 103 (70-105) mg/dL Calcium 9.9 9.1 (8.6-10.3) mg/dL Total Bilirubin 0.5 (0.3-1.0) mg/dL AST 50 H (13-39) Units/L ALT 50 (7-52) Units/L Alkaline Phosphatase 121 H (34-104) Units/L Albumin 4.0 (3.5-5.7) g/dL All other labs normal.
[2018-08-29] MEDS: ARIPiprazole 5 MG TABLET PO SCH (10:18)
[2018-08-29] MEDS: Ibuprofen 600 MG TABLET PO PRN (12:08)
--- NOTE | 2018-08-29 12:08 | Event Note ---
Date of Encounter: 08/29/18 Time of Encounter: 09:25 Patient complains of headache. Requesting ibuprofen. Patient does have a history of migraines and takes Imitrex. No fever or chills reported overnight. Discussed with urology. Continue IV cefepime for now while we await culture results.
--- NOTE | 2018-08-29 13:35 | Electrocardiograph Report ---
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
[2018-08-30] MEDS: Ibuprofen 600 MG TABLET PO PRN ×2 (03:40→15:13)
[2018-08-30] MEDS: *HR* Heparin 5,000 UNIT/ML VIAL SQ SCH ×2 (06:02→17:53)
[2018-08-30] MEDS: Cefepime HCl 2,000 MG in 0.9 % Sodium Chloride Mini Bag 100 ML IVPB SCH ×2 (06:02→17:54)
[2018-08-30] MEDS: Multivit/Ca/Min/Fe/FA 1 TAB TABLET PO SCH (09:01)
[2018-08-30] MEDS: ARIPiprazole 5 MG TABLET PO SCH (09:01)
[2018-08-30] MEDS: Lactobacillus 1 EACH CAP.SPRINK PO SCH (09:01)
[2018-08-30] MEDS: DEXILANT 60 MG PO SCH (09:02)
--- NOTE | 2018-08-30 10:25 | Internal Med Progress Note ---
Hospitalist Progress Note - Encounter Date of Encounter: 08/30/18 Time of Encounter: 09:15 - Subjective Interval History: Patient is doing much better today. Complains of intermittent headache but much improved compared to yesterday. No fever reported overnight. She does continue to have dysuria. No nausea or vomiting. No abdominal pain or flank pain. - Exam Vitals: Temp Pulse Resp BP Pulse Ox 98.0 F 89 16 122/82 91 08/30/18 07:35 08/30/18 07:35 08/30/18 07:35 08/30/18 07:35 08/30/18 07:35 Exam: General: Patient is alert, mild distress, oriented x 3 Respiratory: Good respiratory effort. Normal breath sounds. No wheezing or crackles. Cardiovascular: Regular rate and rhythm. s1 and s2 normal No clicks, rubs, gallops, or murmurs. No pedal edema Abdomen: Abdomen is soft, nontender. Bowel sounds are present Musculoskeletal: Spontaneously moving all extremities Skin: warm, dry, intact. Neuro: Alert oriented x 3 normal cranial nerves, no focal deficits - Assessment and Plan (1) Urinary tract infection Current Visit: Yes Status: Acute (2) Prediabetes Current Visit: Yes Status: Chronic (3) Anxiety and depression Current Visit: Yes Status: Chronic (4) Abnormal CT of the abdomen Current Visit: Yes Status: Acute (5) GERD (gastroesophageal reflux disease) Current Visit: Yes Status: Chronic (6) Flank pain Current Visit: Yes Status: Acute DVT Prophylaxis: On subcutaneous heparin - Summary of Assessment and Plan Summary of Assessment and Plan: Sepsis from Acute pyelonephritis: Continue IV antibiotics. Patient previously infected with Pseudomonas requiring intravenous antibiotics. Current cultures are pending. Blood cultures have been negative so far. Will continue cefepime. Intractable headache: Now improved. Continue Motrin/Imitrex for this. Prediabetes: Blood sugars are well controlled. Gastroesophageal reflux disease: Continue Dexilant Moderate risk for complications - Time Spent with Patient Total time spent is greater than 50% in coordination of care (as documented) at patient's floor/unit and/or counseling patient: Internal Medicine: Result - Labs CBC & Chem 7: 08/29/18 05:05 08/29/18 05:05 Consult Discharge Plan - Plan Referrals: Jesse Lovelace MD [Primary Care Provider] - (1) Urinary tract infection Qualifiers: Urinary tract infection type: acute pyelonephritis Qualified Code(s): N10 - Acute pyelonephritis (5) GERD (gastroesophageal reflux disease) Qualifiers: Esophagitis presence: esophagitis presence not specified Qualified Code(s): K21.9 - Gastro-esophageal reflux disease without esophagitis
[2018-08-30] MEDS: (Methenamine Hippurate [Hiprex] 1 GM) PO SCH (20:32)
[2018-08-31] MEDS: Ibuprofen 600 MG TABLET PO PRN (05:08)
[2018-08-31] MEDS: Cefepime HCl 2,000 MG in 0.9 % Sodium Chloride Mini Bag 100 ML IVPB SCH (05:56)
[2018-08-31] MEDS: *HR* Heparin 5,000 UNIT/ML VIAL SQ SCH (05:57)
[2018-08-31] MEDS: Multivit/Ca/Min/Fe/FA 1 TAB TABLET PO SCH (07:38)
[2018-08-31] MEDS: ARIPiprazole 5 MG TABLET PO SCH (07:38)
[2018-08-31] MEDS: Lactobacillus 1 EACH CAP.SPRINK PO SCH (07:38)
[2018-08-31] MEDS: (Methenamine Hippurate [Hiprex] 1 GM) PO SCH (07:40)
[2018-08-31] MEDS: DEXILANT 60 MG PO SCH (07:58)
[2018-08-31] MEDS ORDERED: Fluconazole 100 MG TABLET PO ONE (11:13)
--- NOTE | 2018-08-31 11:16 | Discharge Summary ---
- NOTES TO OUTPATIENT PROVIDER Notes to Outpatient Provider: Patient with a history of recurrent UTIs with pseudomonas was hospitalized here with complaints of flank pain and dysuria and suspected of having acute pyelonephritis. Given her prior infections with pseudomonas, she was treated with cefepime intravenously. Her urine cultures were sent and have been negative. Blood cultures have also been negative. Clinically patient is doing better now. She is stable to be discharged home. Discussed with infectious disease and they have recommended that the patient be discharged on a 5 day course of Macrobid. Patient will be discharged home with this antibiotic and will follow up with her PCP and urologist as outpatient. Orders not resulted at time of discharge: Pending orders 08/29/18 05:05 Culture,Blood [BC] Routine Date of Encounter: 08/31/18 Time of Encounter: 11:14 - Discharge Diagnosis (1) Urinary tract infection Priority: Primary Status: Acute Qualifiers: Urinary tract infection type: acute pyelonephritis Qualified Code(s): N10 - Acute pyelonephritis (2) Prediabetes Priority: Secondary Status: Chronic (3) Anxiety and depression Priority: Secondary Status: Chronic (4) Abnormal CT of the abdomen Priority: Secondary Status: Acute (5) GERD (gastroesophageal reflux disease) Priority: Secondary Status: Chronic Qualifiers: Esophagitis presence: esophagitis presence not specified Qualified Code(s): K21.9 - Gastro-esophageal reflux disease without esophagitis (6) Flank pain Priority: Secondary Status: Acute Hospital course: Ms. Colon is a 48 year old female Patient with a history of recurrent UTIs with pseudomonas was hospitalized here with complaints of flank pain and dysuria and suspected of having acute pyelonephritis. Given her prior infections with pseudomonas, she was treated with cefepime intravenously. Her urine cultures were sent and have been negative. Blood cultures have also been negative. Clinically patient is doing better now. She is stable to be discharged home. Discussed with infectious disease and they have recommended that the patient be discharged on a 5 day course of Macrobid. Patient will be discharged home with this antibiotic and will follow up with her PCP and urologist as outpatient. Discharge discussed with: patient - Time Spent with Patient Total time spent providing and/or coordinating discharge services: Time spent: Greater than 30 minutes (32 min) - Discharge Medications Prescriptions: New Nitrofurantoin (BID) [Macrobid] 100 mg PO BID #10 capsule Continued Duloxetine HCl [Cymbalta] 120 mg PO DAILY diazePAM [Valium] 5 mg PO DAILY PRN PRN Reason: Anxiety Dexlansoprazole [Dexilant] 60 mg PO DAILY Modafinil [Provigil] 200 mg PO DAILY PRN PRN Reason: Sleep Promethazine [Phenergan] 25 mg PO BID PRN PRN Reason: Nausea SUMAtriptan Succinate [Imitrex] 50 - 100 mg PO AD PRN PRN Reason: Migraine Headache L. Acidophilus/Pectin, [place] [Acidophilus Capsule] 1 cap PO BID ARIPiprazole [Abilify] 5 mg PO QAM Vitamin E 400 unit PO DAILY Metformin HCl [Glucophage Xr] 750 mg PO QPM Cyclobenzaprine HCl 5 mg PO TID PRN PRN Reason: Muscle Spasm Methenamine Hippurate [Hiprex] 1 gm PO BID Multivitamin [One Daily Multivitamin] 1 tab PO DAILY Discontinued Cefdinir [Omnicef] 300 mg PO BID Home Medications: Dexlansoprazole [Dexilant] 60 mg PO DAILY 10/13/17 [History] Duloxetine HCl [Cymbalta] 120 mg PO DAILY 10/13/17 [History] Modafinil [Provigil] 200 mg PO DAILY PRN 10/13/17 [History] Promethazine [Phenergan] 25 mg PO BID PRN 10/13/17 [History] SUMAtriptan Succinate [Imitrex] 50 - 100 mg PO AD PRN 10/13/17 [History] diazePAM [Valium] 5 mg PO DAILY PRN 10/13/17 [History] L. Acidophilus/Pectin, [place] [Acidophilus Capsule] 1 cap PO BID 12/30/17 [History] ARIPiprazole [Abilify] 5 mg PO QAM 06/17/18 [History] Metformin HCl [Glucophage Xr] 750 mg PO QPM 08/28/18 [History] Vitamin E 400 unit PO DAILY 08/28/18 [History] Cyclobenzaprine HCl 5 mg PO TID PRN 08/29/18 [History] Methenamine Hippurate [Hiprex] 1 gm PO BID 08/29/18 [History] Multivitamin [One Daily Multivitamin] 1 tab PO DAILY 08/29/18 [History] Nitrofurantoin (BID) [Macrobid] 100 mg PO BID #10 capsule 08/31/18 [Rx] Allergies/Adverse Reactions: Allergy/AdvReac Type Severity Reaction Status Date / Time hydromorphone [From Dilaudid] Allergy Itching Verified 08/29/18 17:22 levofloxacin [From Levaquin] Allergy LEGS SWELL Verified 08/29/18 17:22 prochlorperazine Allergy "SEVERE Verified 08/29/18 17:22 [From Compazine] PANIC ATTACK" Date of admission: 08/30/18 12:16 Primary care physician: Jesse Lovelace MD Consults: 08/29/18 03:19 Consult to Infectious Diseases [CONS] Routine Consulting Provider: [facility] Reason for Consult: Presents for UTI symptoms. History of complicated UTI's requiring urology and infectious disease consultation. Failed outpatient treatment with Omnicef. Most recently admitted for same in June 2018 and treated with Cefepime per sensitivity. Call Completed: No 08/29/18 03:20 Consult to Urology [CONS] Routine Consulting Provider: [facility] Reason for Consult: Presents for UTI symptoms. Follows regularly with Urology. History of complicated UTI's requiring urology and infectious disease consultation. Failed outpatient treatment with Omnicef. Most recently admitted for same in June 2018 and treated with Cefepime per sensitivity. Call Completed: No Discharging clinician: Zina Richmond Anticipated date of discharge: 08/31/18 - Constitutional Vitals: Temp Pulse Resp BP Pulse Ox 98.7 F 78 14 153/85 97 08/31/18 06:54 08/31/18 06:54 08/31/18 06:54 08/31/18 06:54 08/31/18 06:54 General appearance: Present: cooperative, A&O X 3, pleasant, answers questions appropriately Exam: General: Patient is alert, no acute distress, oriented x 3 Respiratory: Good respiratory effort. Normal breath sounds. No wheezing or crackles. Cardiovascular: Regular rate and rhythm. s1 and s2 normal No clicks, rubs, gallops, or murmurs. No pedal edema Abdomen: Abdomen is soft, nontender. Bowel sounds are present Musculoskeletal: Spontaneously moving all extremities - Patient Status Disposition: Home, Self-Care Condition: Good Functional capacity at discharge: independent ambulation Overall status at discharge: patient is progressing back to baseline - Discharge Instructions Instructions: Urinary Tract Infection in Women (DC) Follow Up With: Jesse Lovelace MD [Primary Care Provider] - (in 1 week) - Diet and Activity Activity: increase activity as tolerated Diet: low fat, low cholesterol, low salt diet
[2018-08-31 11:27] VITALS: BP 121/73
== END 2018-08-31 12:20 | disposition home or self-care (01) | DRG 690 ==
LOC: EMEROOARM 16:35 → 3ANU 16:35 → SUATTDRO 20:36 → 3ANU 21:11
PROVIDERS: ADMIT Family Medicine; ATTEND Internal Medicine

== ENCOUNTER 2018-12-17 18:10 | Observation (INO) ==
[2018-12-17 18:51] LABS: Bacteria,Urine Many per hpf (None-Few); Bilirubin,Urine Negative (Negative); Blood,Urine Negative (Negative); Clarity,Urine Clear (Clear); Color,Urine Yellow (Yellow); Glucose,Urine (UA) Normal (Normal); Hyaline Casts,Urine None Seen per lpf (None-Few); Ketones,Urine Negative (Negative); Leukocyte Esterase,Urine Moderate (Negative); Nitrite,Urine Negative (Negative); PH,Urine 6.5 pH Units (5.0-8.0); Protein,Urine Negative (Neg-Trace); Specific Gravity,Urine 1.015 (1.010-1.025); Squamous Epithelial Cell,Urine Moderate per lpf (None-Few); Urobilinogen,Urine Normal (Normal); WBC,Urine 50-100 per hpf (0-3)
[2018-12-17 19:04] LABS: Basophils % 0.4 %; Eosinophils # 0.2 K/mcL (0.0-0.6); Eosinophils % 2.1 %; Hematocrit 41.9 % (35.3-44.9); Hemoglobin 14.2 g/dL (11.5-15.4); Immature Granulocytes % 0.3 % (0-4); Lymphocytes # 2.9 K/mcL (0.6-4.6); Lymphocytes % 29.7 %; Mean Corpuscular HGB Conc 33.9 g/dL (31.6-35.5); Mean Corpuscular Hemoglobin 30.1 pg (28.0-33.3); Mean Platelet Volume 11.2 fL (9.4-12.4); Monocytes # 0.9 K/mcL (0.0-1.3); Monocytes % 9.1 %; Neutrophils # 5.6 K/mcL (1.6-8.9); Platelet Count 235 K/mcL (140-400); Red Blood Count 4.71 M/mcL (3.82-4.97); Red Cell Distribution Width 13.2 % (11.5-14.5); Segmented Neutrophils % 58.4 %; White Blood Count 9.6 K/mcL (4.3-11.1)
[2018-12-17 19:24] LABS: Alanine Aminotransferase 41 Units/L (7-52); Albumin 4.7 g/dL (3.5-5.7); Albumin/Globulin Ratio 1.5 (1.1-2.2); Alkaline Phosphatase 146 Units/L (34-104); Aspartate Amino Transferase 40 Units/L (13-39); BUN/Creatinine Ratio 16 (6-26); Bilirubin,Direct 0.1 mg/dL (0.0-0.2); Bilirubin,Indirect 0.3 mg/dL (0.0-1.2); Bilirubin,Total 0.4 mg/dL (0.3-1.0); Blood Urea Nitrogen 11 mg/dL (6-20); Calcium 10.3 mg/dL (8.6-10.3); Carbon Dioxide 23 mEq/L (23-29); Chloride 104 mEq/L (98-107); Globulin 3.1 g/dL (2.4-3.5); Glucose 115 mg/dL (70-105); Osmolality,Calculated 282 (280-300); Potassium 4.3 mEq/L (3.5-5.1); Sodium 136 mEq/L (136-145); Total Protein 7.8 g/dL (6.4-8.9); eGFR For African Americans > 60 (> 60); eGFR For Non-African Americans > 60 (> 60)
[2018-12-17] MEDS ORDERED: 0.9 % Sodium Chloride 1,000 ML IVC ONE (20:17)
[2018-12-17] MEDS ORDERED: Morphine Sulfate 2 MG/ML SYRINGE IVP ONE ×2 (20:17→22:14)
[2018-12-17] MEDS ORDERED: Piperacillin/Tazobactam 4.5 GM in Water for inj. (sterile) 20 ML IVP ONE (20:29)
[2018-12-17] MEDS ORDERED: Piperacillin/Tazobactam 3.375 GM in 0.9 % Sodium Chloride Mini Bag 100 ML IVPB ONE (20:32)
[2018-12-17] MEDS ORDERED: Ondansetron 4 MG/2 ML VIAL IVP ONE (21:04)
[2018-12-18] MEDS ORDERED: Naloxone 0.4 MG/ML INJ IVP PRN (05:26)
[2018-12-18] MEDS ORDERED: Morphine Sulfate 2 MG/ML SYRINGE IVP PRN (05:28)
[2018-12-18] MEDS ORDERED: D5% in Water 1,000 ML IVC PRN (05:28)
[2018-12-18] MEDS ORDERED: *HR* Dextrose 50 % in Water (Syg) 50 ML SYRINGE IVP PRN (05:28)
[2018-12-18] MEDS ORDERED: Dextrose Gel 15 GM/37.5 ML TUBE PO PRN ×2 (05:28)
[2018-12-18] MEDS: 0.9 % Sodium Chloride 1,000 ML IVC SCH (05:49)
[2018-12-18 06:14] LABS: Hematocrit 38.1 % (35.3-44.9); Mean Corpuscular HGB Conc 32.8 g/dL (31.6-35.5); Mean Corpuscular Hemoglobin 30.2 pg (28.0-33.3); Mean Platelet Volume 11.3 fL (9.4-12.4); Platelet Count 188 K/mcL (140-400); Red Blood Count 4.14 M/mcL (3.82-4.97); Red Cell Distribution Width 13.3 % (11.5-14.5); White Blood Count 8.3 K/mcL (4.3-11.1)
[2018-12-18] MEDS: Ondansetron 4 MG/2 ML VIAL IVP PRN ×2 (06:14→16:24)
[2018-12-18 06:25] LABS: Hemoglobin 12.5 g/dL (11.5-15.4)
[2018-12-18 07:32] LABS: BUN/Creatinine Ratio 17 (6-26); Blood Urea Nitrogen 13 mg/dL (6-20); Carbon Dioxide 24 mEq/L (23-29); Chloride 106 mEq/L (98-107); Glucose 104 mg/dL (70-105); Osmolality,Calculated 290 (280-300); Potassium 4.3 mEq/L (3.5-5.1); Sodium 140 mEq/L (136-145); eGFR For African Americans > 60 (> 60); eGFR For Non-African Americans > 60 (> 60)
[2018-12-18] MEDS: Piperacillin/Tazobactam 3.375 GM in 0.9 % Sodium Chloride Mini Bag 100 ML IVPB SCH ×2 (07:41→16:24)
[2018-12-18] MEDS: Insulin LISPRO 300 UNITS/3 ML VIAL SQ SCH ×3 (07:44→16:26)
[2018-12-18] MEDS ORDERED: diazePAM 5 MG TABLET PO PRN (10:16)
[2018-12-18] MEDS: *HR* OxyCODONE Oral Soln 5 MG/5 ML UD.LIQ PO PRN ×2 (10:22→14:42)
[2018-12-18] MEDS ORDERED: SUMAtriptan succinate 50 MG TABLET PO PRN (10:38)
[2018-12-18] MEDS: ARIPiprazole 5 MG TABLET PO SCH (11:19)
[2018-12-18] MEDS: Lactobacillus 1 EACH CAP.SPRINK PO SCH (20:17)
[2018-12-18] MEDS ORDERED: AMPHETAMINE PO SCH (21:00)
[2018-12-18] MEDS ORDERED: Insulin LISPRO 300 UNITS/3 ML VIAL SQ SCH (21:00)
[2018-12-18] MEDS ORDERED: DEXTROAMPHETAMINE PO SCH (21:00)
[2018-12-19] MEDS ORDERED: 0.9 % Sodium Chloride 1,000 ML ONE (03:13)
[2018-12-19] MEDS: 0.9 % Sodium Chloride 1,000 ML IVC SCH (03:16)
[2018-12-19] MEDS: *HR* OxyCODONE Oral Soln 5 MG/5 ML UD.LIQ PO PRN ×3 (06:53→17:13)
[2018-12-19] MEDS: Insulin LISPRO 300 UNITS/3 ML VIAL SQ SCH ×2 (08:22→11:28)
[2018-12-19] MEDS: Lactobacillus 1 EACH CAP.SPRINK PO SCH (08:28)
[2018-12-19] MEDS: ARIPiprazole 5 MG TABLET PO SCH (08:28)
[2018-12-19] MEDS: Piperacillin/Tazobactam 3.375 GM in 0.9 % Sodium Chloride Mini Bag 100 ML IVPB SCH ×2 (08:30)
[2018-12-19] MEDS ORDERED: DEXLANSOPRAZOLE 60 MG PO SCH ×2 (09:00)
[2018-12-19] MEDS ORDERED: Vitamin E 200 UNIT (90MG) CAPSULE PO SCH (09:00)
[2018-12-19] MEDS ORDERED: Dextroamphetamine/Amphetamine [Adderall] PO SCH (09:00)
[2018-12-19] MEDS ORDERED: VILAZODONE 20 MG PO SCH (09:00)
[2018-12-19] MEDS: Ondansetron 4 MG/2 ML VIAL IVP PRN (11:29)
[2018-12-19] MEDS ORDERED: Ertapenem 1,000 MG in 0.9 % Sodium Chloride Mini Bag 100 ML IVPB SCH (11:45)
[2018-12-19 11:47] VITALS: BP 144/70
[2018-12-19] MEDS ORDERED: AMPHETAMINE PO SCH ×2 (15:00)
[2018-12-19] MEDS ORDERED: DEXTROAMPHETAMINE PO SCH ×2 (15:00)
[2018-12-19] MEDS ORDERED: FLU Vac QV 19-20 (6Month+)/PF 0.5 ML SYRINGE IM ONE (16:16)
== END 2018-12-19 18:29 | disposition home or self-care (01) ==
LOC: 2ANU 18:10 → EMEROOARM 18:10 → SUATTDRO 22:22 → 2ANU 22:50
PROVIDERS: ADMIT Internal Medicine; ATTEND Internal Medicine

== ENCOUNTER 2019-05-02 16:03 | Observation (INO) ==
[2019-05-02] MEDS ORDERED: Isovue-370 500 ML BOTTLE IVP ONE (16:26)
[2019-05-02] MEDS ORDERED: Ibuprofen 600 MG TABLET PO ONE (16:27)
[2019-05-02 16:50] LABS: Clarity,Urine Cloudy (Clear); Color,Urine Orange (Yellow)
[2019-05-02 16:52] LABS: Bacteria,Urine Few per hpf (None-Few); Mucus,Urine Many per lpf (Few); WBC,Urine 50-100 per hpf (0-3)
[2019-05-02 17:10] LABS: Basophils # 0.1 K/mcL (0.0-0.2); Basophils % 0.6 %; Eosinophils # 0.2 K/mcL (0.0-0.6); Eosinophils % 2.2 %; Hematocrit 41.3 % (35.3-44.9); Hemoglobin 13.9 g/dL (11.5-15.4); Immature Granulocytes % 0.2 % (0-4); Lymphocytes # 2.7 K/mcL (0.6-4.6); Lymphocytes % 31.6 %; Mean Corpuscular HGB Conc 33.7 g/dL (31.6-35.5); Mean Corpuscular Hemoglobin 30.5 pg (28.0-33.3); Mean Corpuscular Volume 90.6 fL (83.0-100.0); Mean Platelet Volume 11.2 fL (9.4-12.4); Monocytes # 0.9 K/mcL (0.0-1.3); Monocytes % 10.6 %; Neutrophils # 4.7 K/mcL (1.6-8.9); Platelet Count 256 K/mcL (140-400); Red Blood Count 4.56 M/mcL (3.82-4.97); Red Cell Distribution Width 12.9 % (11.5-14.5); Segmented Neutrophils % 54.8 %; White Blood Count 8.6 K/mcL (4.3-11.1)
[2019-05-02 17:31] LABS: Alanine Aminotransferase 43 Units/L (7-52); Albumin 4.6 g/dL (3.5-5.7); Albumin/Globulin Ratio 1.5 (1.1-2.2); Alkaline Phosphatase 97 Units/L (34-104); Aspartate Amino Transferase 36 Units/L (13-39); BUN/Creatinine Ratio 20 (6-26); Bilirubin,Direct 0.2 mg/dL (0.0-0.2); Bilirubin,Indirect 0.4 mg/dL (0.0-1.0); Bilirubin,Total 0.6 mg/dL (0.3-1.0); Blood Urea Nitrogen 17 mg/dL (6-20); Calcium 10.3 mg/dL (8.6-10.3); Carbon Dioxide 28 mEq/L (23-29); Chloride 103 mEq/L (98-107); Globulin 3.1 g/dL (2.4-3.5); Glucose 90 mg/dL (70-105); Lipase 42 Units/L (11-82); Osmolality,Calculated 289 (280-300); Potassium 3.9 mEq/L (3.5-5.1); Sodium 139 mEq/L (136-145); Total Protein 7.7 g/dL (6.4-8.9); eGFR For African Americans > 60 (> 60); eGFR For Non-African Americans > 60 (> 60)
[2019-05-02] MEDS ORDERED: Acetaminophen 325 MG TABLET PO ONE (17:48)
[2019-05-02] MEDS ORDERED: *HR* FentaNYL (PF) 100 MCG/2 ML VIAL IVP ONE (18:14)
[2019-05-02] MEDS ORDERED: Meropenem 1,000 MG in Water for inj. (sterile) 20 ML IVP STA (18:15)
[2019-05-02] MEDS ORDERED: Naloxone 0.4 MG/ML INJ IVP PRN (20:01)
[2019-05-02] MEDS ORDERED: 0.9 % Sodium Chloride 1,000 ML IVC SCH (20:15)
[2019-05-02] MEDS: Ketorolac 30 MG/ML VIAL IVP PRN (22:49)
[2019-05-03] MEDS: Meropenem 1,000 MG in 0.9 % Sodium Chloride Mini Bag 100 ML IVPB SCH ×3 (01:09→17:24)
[2019-05-03] MEDS ORDERED: diazePAM 5 MG TABLET PO PRN (04:17)
[2019-05-03] MEDS: Ketorolac 30 MG/ML VIAL IVP PRN (05:44)
[2019-05-03] MEDS: ARIPiprazole 5 MG TABLET PO SCH (08:51)
[2019-05-03] MEDS ORDERED: (Vilazodone Hcl [Viibryd] 40 MG) PO SCH (09:00)
[2019-05-03] MEDS ORDERED: AMPHETAMINE PO SCH (09:00)
[2019-05-03] MEDS ORDERED: DEXTROAMPHETAMINE PO SCH (09:00)
[2019-05-03 10:34] LABS: Hematocrit 35.8 % (35.3-44.9); Mean Corpuscular Hemoglobin 30.3 pg (28.0-33.3); Mean Platelet Volume 11.4 fL (9.4-12.4); Platelet Count 173 K/mcL (140-400); Red Blood Count 3.89 M/mcL (3.82-4.97); White Blood Count 4.3 K/mcL (4.3-11.1)
[2019-05-03 10:35] LABS: Hemoglobin 11.8 g/dL (11.5-15.4)
[2019-05-03 10:53] LABS: BUN/Creatinine Ratio 19 (6-26); Blood Urea Nitrogen 16 mg/dL (6-20); Calcium 9.4 mg/dL (8.6-10.3); Carbon Dioxide 28 mEq/L (23-29); Chloride 106 mEq/L (98-107); Glucose 113 mg/dL (70-105); Osmolality,Calculated 292 (280-300); Potassium 4.1 mEq/L (3.5-5.1); Sodium 140 mEq/L (136-145); eGFR For African Americans > 60 (> 60); eGFR For Non-African Americans > 60 (> 60)
[2019-05-03] MEDS ORDERED: Ringers Solution, Lactated 1,000 ML IVC SCH (11:00)
[2019-05-04] MEDS: Meropenem 1,000 MG in 0.9 % Sodium Chloride Mini Bag 100 ML IVPB SCH ×3 (02:21→16:24)
[2019-05-04] MEDS: ARIPiprazole 5 MG TABLET PO SCH (08:11)
[2019-05-04] MEDS: ESTRADIOL 42.5 GM VG SCH (08:12)
[2019-05-04] MEDS: (Vilazodone Hcl [Viibryd] 40 MG) PO SCH (08:20)
[2019-05-04] MEDS ORDERED: Sennosides/Docusate Sodium TABLET PO PRN (09:35)
[2019-05-04] MEDS: Ondansetron 4 MG/2 ML VIAL IVP PRN (19:57)
[2019-05-04] MEDS: *HR* Heparin 5,000 UNIT/ML VIAL SQ SCH (20:12)
[2019-05-05] MEDS: *HR* Heparin 5,000 UNIT/ML VIAL SQ SCH ×2 (04:28→17:36)
[2019-05-05 05:44] LABS: Basophils % 0.7 %; Eosinophils # 0.1 K/mcL (0.0-0.6); Eosinophils % 1.5 %; Hematocrit 37.7 % (35.3-44.9); Hemoglobin 12.4 g/dL (11.5-15.4); Immature Granulocytes % 0.3 % (0-4); Lymphocytes # 1.7 K/mcL (0.6-4.6); Lymphocytes % 29.4 %; Mean Corpuscular HGB Conc 32.9 g/dL (31.6-35.5); Mean Corpuscular Hemoglobin 30.5 pg (28.0-33.3); Mean Corpuscular Volume 92.6 fL (83.0-100.0); Mean Platelet Volume 10.9 fL (9.4-12.4); Monocytes # 0.6 K/mcL (0.0-1.3); Monocytes % 10.5 %; Neutrophils # 3.4 K/mcL (1.6-8.9); Platelet Count 182 K/mcL (140-400); Red Blood Count 4.07 M/mcL (3.82-4.97); Red Cell Distribution Width 12.7 % (11.5-14.5); Segmented Neutrophils % 57.6 %; White Blood Count 5.9 K/mcL (4.3-11.1)
[2019-05-05 06:06] LABS: BUN/Creatinine Ratio 15 (6-26); Blood Urea Nitrogen 11 mg/dL (6-20); Calcium 9.6 mg/dL (8.6-10.3); Carbon Dioxide 31 mEq/L (23-29); Chloride 103 mEq/L (98-107); Glucose 104 mg/dL (70-105); Osmolality,Calculated 286 (280-300); Potassium 4.7 mEq/L (3.5-5.1); Sodium 138 mEq/L (136-145); eGFR For African Americans > 60 (> 60); eGFR For Non-African Americans > 60 (> 60)
[2019-05-05 07:02] LABS: Platelet Estimate Normal (Normal); Reactive Lymphocytes Present (Not Present)
[2019-05-05] MEDS: ARIPiprazole 5 MG TABLET PO SCH (08:46)
[2019-05-05] MEDS: Ondansetron 4 MG/2 ML VIAL IVP PRN (09:03)
[2019-05-05] MEDS: Ertapenem 1,000 MG in 0.9 % Sodium Chloride Mini Bag 100 ML IVPB SCH (09:04)
[2019-05-05] MEDS: (Vilazodone Hcl [Viibryd] 40 MG) PO SCH (09:05)
[2019-05-05] MEDS ORDERED: Ketorolac 30 MG/ML VIAL IVP ONE (09:39)
[2019-05-05] MEDS: Ondansetron 4 MG/2 ML VIAL IVP SCH ×2 (12:07→17:36)
[2019-05-06] MEDS: Ondansetron 4 MG/2 ML VIAL IVP SCH ×2 (00:55→06:16)
[2019-05-06] MEDS: Ondansetron 4 MG/2 ML VIAL IVP PRN (03:04)
[2019-05-06] MEDS ORDERED: SUMAtriptan succinate 25 MG TABLET PO ONE (05:05)
[2019-05-06] MEDS: *HR* Heparin 5,000 UNIT/ML VIAL SQ SCH (06:16)
[2019-05-06 07:25] VITALS: BP 108/76
[2019-05-06 07:29] LABS: Basophils % 0.4 %; Eosinophils # 0.1 K/mcL (0.0-0.6); Eosinophils % 3.1 %; Hematocrit 37.8 % (35.3-44.9); Hemoglobin 12.2 g/dL (11.5-15.4); Immature Granulocytes % 0.2 % (0-4); Lymphocytes # 1.2 K/mcL (0.6-4.6); Lymphocytes % 25.9 %; Mean Corpuscular HGB Conc 32.3 g/dL (31.6-35.5); Mean Corpuscular Hemoglobin 29.8 pg (28.0-33.3); Mean Corpuscular Volume 92.2 fL (83.0-100.0); Mean Platelet Volume 11.5 fL (9.4-12.4); Monocytes # 0.5 K/mcL (0.0-1.3); Monocytes % 11.1 %; Neutrophils # 2.7 K/mcL (1.6-8.9); Platelet Count 163 K/mcL (140-400); Red Cell Distribution Width 12.7 % (11.5-14.5); Segmented Neutrophils % 59.3 %; White Blood Count 4.5 K/mcL (4.3-11.1)
[2019-05-06 07:36] LABS: BUN/Creatinine Ratio 17 (6-26); Blood Urea Nitrogen 12 mg/dL (6-20); Carbon Dioxide 30 mEq/L (23-29); Chloride 105 mEq/L (98-107); Glucose 98 mg/dL (70-105); Osmolality,Calculated 288 (280-300); Potassium 4.6 mEq/L (3.5-5.1); Sodium 139 mEq/L (136-145); eGFR For African Americans > 60 (> 60); eGFR For Non-African Americans > 60 (> 60)
[2019-05-06] MEDS: Ertapenem 1,000 MG in 0.9 % Sodium Chloride Mini Bag 100 ML IVPB SCH (07:39)
[2019-05-06] MEDS: (Vilazodone Hcl [Viibryd] 40 MG) PO SCH (07:39)
[2019-05-06] MEDS: ESTRADIOL 42.5 GM VG SCH (07:40)
[2019-05-06] MEDS: ARIPiprazole 5 MG TABLET PO SCH (07:40)
[2019-05-06] MEDS ORDERED: Fosfomycin Tromethamine 3 GM Packet PO ONE (09:45)
== END 2019-05-06 10:43 | disposition home or self-care (01) ==
LOC: 3BNU 16:03 → EMEROOARM 16:03 → SUATTDRO 19:56 → 3BNU 20:14
PROVIDERS: ADMIT Internal Medicine; ATTEND Internal Medicine

== ENCOUNTER 2019-09-18 16:50 | Observation (INO) ==
[2019-09-18] MEDS ORDERED: Ketorolac 15 MG/ML VIAL IVP ONE (17:18)
[2019-09-18] MEDS ORDERED: Ondansetron 4 MG/2 ML VIAL IVP ONE (17:18)
[2019-09-18] MEDS ORDERED: 0.9 % Sodium Chloride 1,000 ML IVC ONE (17:18)
[2019-09-18 18:08] LABS: INR 1.1; Prothrombin Time 12.8 Seconds (9.4-12.1)
[2019-09-18 18:09] LABS: Basophils % 0.4 %; Eosinophils # 0.1 K/mcL (0.0-0.6); Eosinophils % 1.5 %; Immature Granulocytes % 0.3 % (0-4); Lymphocytes % 27.5 %; Mean Corpuscular HGB Conc 32.5 g/dL (31.6-35.5); Mean Corpuscular Hemoglobin 29.5 pg (28.0-33.3); Mean Corpuscular Volume 90.7 fL (83.0-100.0); Mean Platelet Volume 11.5 fL (9.4-12.4); Monocytes # 0.8 K/mcL (0.0-1.3); Monocytes % 11.2 %; Neutrophils # 4.3 K/mcL (1.6-8.9); Platelet Count 222 K/mcL (140-400); Red Blood Count 4.41 M/mcL (3.82-4.97); Red Cell Distribution Width 12.9 % (11.5-14.5); Segmented Neutrophils % 59.1 %; White Blood Count 7.2 K/mcL (4.3-11.1)
[2019-09-18 18:11] LABS: Activated Partial Thrombo Time 41.5 Seconds (26.0-36.0)
[2019-09-18 18:25] LABS: Alanine Aminotransferase 49 Units/L (7-52); Albumin 4.3 g/dL (3.5-5.7); Albumin/Globulin Ratio 1.4 (1.1-2.2); Alkaline Phosphatase 120 Units/L (34-104); Aspartate Amino Transferase 47 Units/L (13-39); BUN/Creatinine Ratio 21 (6-26); Bilirubin,Direct 0.1 mg/dL (0.0-0.2); Bilirubin,Indirect 0.3 mg/dL (0.0-1.0); Bilirubin,Total 0.4 mg/dL (0.3-1.0); Blood Urea Nitrogen 16 mg/dL (6-20); Calcium 9.9 mg/dL (8.6-10.3); Carbon Dioxide 27 mEq/L (23-29); Chloride 103 mEq/L (98-107); Globulin 3.1 g/dL (2.4-3.5); Glucose 99 mg/dL (70-105); Lipase 44 Units/L (11-82); Osmolality,Calculated 287 (280-300); Potassium 4.3 mEq/L (3.5-5.1); Sodium 138 mEq/L (136-145); Total Protein 7.4 g/dL (6.4-8.9); Troponin I < 0.03 ng/mL (< 0.04); eGFR For African Americans > 60 (> 60); eGFR For Non-African Americans > 60 (> 60)
[2019-09-18] MEDS ORDERED: Morphine Sulfate 2 MG/ML SYRINGE IVP ONE (18:43)
[2019-09-18] MEDS ORDERED: Promethazine 12.5 MG in 0.9 % Sodium Chloride 50 ML IVPB ONE (18:43)
[2019-09-18 18:48] LABS: Bilirubin,Urine Negative (Negative); Blood,Urine Trace (Negative); Clarity,Urine Clear (Clear); Color,Urine Light-Yellow (Yellow); Glucose,Urine (UA) Normal (Normal); Ketones,Urine Negative (Negative); Leukocyte Esterase,Urine Trace (Negative); Mucus,Urine Few per lpf (None-Few); Nitrite,Urine Negative (Negative); Protein,Urine Negative (Neg-Trace); Specific Gravity,Urine 1.018 (1.010-1.025); Urobilinogen,Urine Normal (Normal)
[2019-09-18] MEDS ORDERED: Naloxone 0.4 MG/ML INJ IVP PRN (21:14)
[2019-09-18] MEDS ORDERED: Acetaminophen 325 MG TABLET PO PRN (21:14)
[2019-09-18] MEDS ORDERED: *HR* Promethazine 25 MG/ML VIAL IVP PRN (21:14)
[2019-09-18] MEDS ORDERED: diazePAM 5 MG TABLET PO PRN (21:48)
[2019-09-18] MEDS: 0.9 % Sodium Chloride 1,000 ML IVC SCH (21:50)
[2019-09-18] MEDS ORDERED: Dextrose Gel 15 GM/37.5 ML TUBE PO PRN ×2 (21:51)
[2019-09-18] MEDS ORDERED: *HR* Dextrose 50 % in Water (Vial) 50 ML VIAL IVP PRN (21:51)
[2019-09-18] MEDS ORDERED: D5% in Water 1,000 ML IVC PRN (21:51)
[2019-09-18] MEDS: Insulin LISPRO 300 UNITS/3 ML VIAL SQ SCH (22:16)
[2019-09-18] MEDS: Morphine Sulfate 2 MG/ML SYRINGE IVP PRN (22:27)
[2019-09-18] MEDS: Lactobacillus 1 EACH CAP.SPRINK PO SCH (22:29)
[2019-09-19 03:23] LABS: White Blood Count 5.8 K/mcL (4.3-11.1)
[2019-09-19 03:24] LABS: Basophils % 0.7 %; Eosinophils # 0.1 K/mcL (0.0-0.6); Eosinophils % 2.3 %; Hematocrit 36.4 % (35.3-44.9); Hemoglobin 11.8 g/dL (11.5-15.4); Immature Granulocytes % 0.3 % (0-4); Lymphocytes # 1.8 K/mcL (0.6-4.6); Lymphocytes % 31.4 %; Mean Corpuscular HGB Conc 32.4 g/dL (31.6-35.5); Mean Corpuscular Hemoglobin 30.3 pg (28.0-33.3); Mean Corpuscular Volume 93.3 fL (83.0-100.0); Mean Platelet Volume 11.6 fL (9.4-12.4); Monocytes # 0.6 K/mcL (0.0-1.3); Monocytes % 10.7 %; Neutrophils # 3.2 K/mcL (1.6-8.9); Platelet Count 178 K/mcL (140-400); Segmented Neutrophils % 54.6 %
[2019-09-19] MEDS: Morphine Sulfate 2 MG/ML SYRINGE IVP PRN ×2 (03:28→08:12)
[2019-09-19 03:39] LABS: BUN/Creatinine Ratio 22 (6-26); Blood Urea Nitrogen 17 mg/dL (6-20); Calcium 9.2 mg/dL (8.6-10.3); Carbon Dioxide 26 mEq/L (23-29); Chloride 106 mEq/L (98-107); Glucose 145 mg/dL (70-105); Magnesium 1.9 mg/dL (1.6-2.6); Osmolality,Calculated 290 (280-300); Phosphorous 3.7 mg/dL (2.7-4.5); Potassium 3.8 mEq/L (3.5-5.1); Sodium 138 mEq/L (136-145); eGFR For African Americans > 60 (> 60); eGFR For Non-African Americans > 60 (> 60)
[2019-09-19] MEDS ORDERED: Cefepime HCl 1,000 MG in Water for inj. (sterile) 10 ML IVP SCH (06:00)
[2019-09-19] MEDS: Insulin LISPRO 300 UNITS/3 ML VIAL SQ SCH ×3 (07:34→16:44)
[2019-09-19] MEDS: 0.9 % Sodium Chloride 1,000 ML IVC SCH (08:11)
[2019-09-19] MEDS: Lactobacillus 1 EACH CAP.SPRINK PO SCH (08:12)
[2019-09-19] MEDS ORDERED: (Adderall 30 Mg Tablet) PO SCH (09:00)
[2019-09-19] MEDS ORDERED: (Vilazodone Hcl [Viibryd] 40 MG) PO SCH (09:00)
[2019-09-19] MEDS ORDERED: ARIPiprazole 5 MG TABLET PO SCH (09:00)
[2019-09-19] MEDS ORDERED: *HR* Belladonna Alkaloids/Opium 30 MG RECTAL SUPPOSITORY RC ONE (09:41)
[2019-09-19] MEDS ORDERED: Ketorolac 15 MG/ML VIAL IVP PRN (13:31)
[2019-09-19] MEDS ORDERED: Morphine Sulfate 2 MG/ML SYRINGE IVP PRN (13:31)
[2019-09-19 16:11] VITALS: BP 105/72
[2019-09-19] MEDS ORDERED: Cefepime HCl 1,000 MG in 0.9 % Sodium Chloride Mini Bag 100 ML IVPB ONE (20:01)
== END 2019-09-19 17:38 | disposition home or self-care (01) ==
LOC: 3BNU 16:50 → EMEROOARM 16:50 → SUATTDRO 20:14 → 3BNU 21:01
PROVIDERS: ADMIT Student in an Organized Health Care Education/Training Program; ATTEND Internal Medicine

== ENCOUNTER 2020-03-08 16:31 | Observation (INO) ==
[2020-03-08] MEDS ORDERED: 0.9 % Sodium Chloride 1,000 ML IVC ONE (17:10)
[2020-03-08] MEDS ORDERED: Famotidine 20 MG/2 ML VIAL IVP ONE (17:10)
[2020-03-08] MEDS: Ondansetron 4 MG/2 ML VIAL IVP ONE ×2 (17:15→17:45)
[2020-03-08] MEDS ORDERED: *HR* Promethazine 25 MG/ML VIAL IM ONE ×2 (17:15→19:21)
[2020-03-08 17:39] LABS: Basophils % 0.5 %; Eosinophils # 0.2 K/mcL (0.0-0.6); Eosinophils % 1.8 %; Hematocrit 41.6 % (35.3-44.9); Hemoglobin 13.8 g/dL (11.5-15.4); Immature Granulocytes % 0.3 % (0-4); Lymphocytes # 2.7 K/mcL (0.6-4.6); Lymphocytes % 30.6 %; Mean Corpuscular HGB Conc 33.2 g/dL (31.6-35.5); Mean Corpuscular Hemoglobin 28.9 pg (28.0-33.3); Mean Corpuscular Volume 87.2 fL (83.0-100.0); Mean Platelet Volume 12.5 fL (9.4-12.4); Monocytes # 0.8 K/mcL (0.0-1.3); Monocytes % 8.7 %; Neutrophils # 5.1 K/mcL (1.6-8.9); Platelet Count 278 K/mcL (140-400); Red Blood Count 4.77 M/mcL (3.82-4.97); Segmented Neutrophils % 58.1 %; White Blood Count 8.8 K/mcL (4.3-11.1)
[2020-03-08 17:52] LABS: Alanine Aminotransferase 46 Units/L (7-52); Albumin 4.8 g/dL (3.5-5.7); Albumin/Globulin Ratio 1.5 (1.1-2.2); Alkaline Phosphatase 205 Units/L (34-104); Aspartate Amino Transferase 43 Units/L (13-39); BUN/Creatinine Ratio 14 (6-26); Bilirubin,Direct 0.2 mg/dL (0.0-0.2); Bilirubin,Indirect 0.3 mg/dL (0.0-1.0); Bilirubin,Total 0.5 mg/dL (0.3-1.0); Blood Urea Nitrogen 14 mg/dL (6-20); Calcium 10.4 mg/dL (8.6-10.3); Carbon Dioxide 25 mEq/L (23-29); Chloride 102 mEq/L (98-107); Globulin 3.2 g/dL (2.4-3.5); Glucose 112 mg/dL (70-105); Lipase 87 Units/L (11-82); Magnesium 2.4 mg/dL (1.6-2.6); Osmolality,Calculated 289 (280-300); Sodium 139 mEq/L (136-145); Troponin I < 0.03 ng/mL (< 0.04); eGFR For African Americans > 60 (> 60); eGFR For Non-African Americans > 60 (> 60)
[2020-03-08] MEDS ORDERED: *HR* FentaNYL (PF) 100 MCG/2 ML VIAL IVP ONE ×2 (18:08→19:22)
[2020-03-08] MEDS ORDERED: Gadolinium Contrast Agent (WT Based) IV PRN ×2 (19:07→19:59)
[2020-03-08] MEDS ORDERED: diazePAM 5 MG TABLET PO PRN (19:15)
[2020-03-08] MEDS ORDERED: NON-FORMULARY MEDICATION 1 EACH EACH (Sumatriptan Succinate [Imitrex] 100 MG) PO PRN (19:15)
[2020-03-08] MEDS ORDERED: Acetaminophen 325 MG TABLET PO PRN (19:19)
[2020-03-08] MEDS ORDERED: Naloxone 0.4 MG/ML INJ IVP PRN (19:19)
[2020-03-08] MEDS: *HR* HYDROcodone/Acet 5/325 mg TABLET PO PRN (20:43)
[2020-03-08] MEDS: Ondansetron 4 MG/2 ML VIAL IVP PRN (20:59)
[2020-03-08 21:10] LABS: Phosphorous 3.6 mg/dL (2.7-4.5)
[2020-03-08 21:46] LABS: Folate > 22.3 ng/mL (3.0-16.0); Vitamin B12 > 1500 pg/mL (250-1100)
[2020-03-08] MEDS: ursodioL 300 MG CAPSULE PO SCH (23:38)
[2020-03-08] MEDS: Ascorbic Acid 500 MG TABLET PO SCH (23:39)
[2020-03-08] MEDS: 0.9 % Sodium Chloride 1,000 ML IVC SCH (23:51)
[2020-03-09] MEDS: *HR* HYDROcodone/Acet 5/325 mg TABLET PO PRN ×2 (03:26→10:12)
[2020-03-09 06:23] LABS: Basophils % 0.6 %; Eosinophils # 0.1 K/mcL (0.0-0.6); Eosinophils % 2.1 %; Hemoglobin 12.6 g/dL (11.5-15.4); Immature Granulocytes % 0.3 % (0-4); Lymphocytes # 2.3 K/mcL (0.6-4.6); Lymphocytes % 35.9 %; Mean Corpuscular HGB Conc 32.3 g/dL (31.6-35.5); Mean Corpuscular Hemoglobin 29.3 pg (28.0-33.3); Mean Corpuscular Volume 90.7 fL (83.0-100.0); Monocytes # 0.6 K/mcL (0.0-1.3); Monocytes % 9.3 %; Neutrophils # 3.3 K/mcL (1.6-8.9); Platelet Count 215 K/mcL (140-400); Red Cell Distribution Width 14.1 % (11.5-14.5); Segmented Neutrophils % 51.8 %; White Blood Count 6.3 K/mcL (4.3-11.1)
[2020-03-09] MEDS: Ondansetron 4 MG/2 ML VIAL IVP PRN ×2 (06:36→15:32)
[2020-03-09 06:49] LABS: Alanine Aminotransferase 41 Units/L (7-52); Albumin 4.4 g/dL (3.5-5.7); Albumin/Globulin Ratio 1.6 (1.1-2.2); Alkaline Phosphatase 175 Units/L (34-104); Aspartate Amino Transferase 43 Units/L (13-39); BUN/Creatinine Ratio 15 (6-26); Bilirubin,Total 0.4 mg/dL (0.3-1.0); Blood Urea Nitrogen 12 mg/dL (6-20); Calcium 9.9 mg/dL (8.6-10.3); Carbon Dioxide 27 mEq/L (23-29); Chloride 106 mEq/L (98-107); Globulin 2.8 g/dL (2.4-3.5); Glucose 99 mg/dL (70-105); Osmolality,Calculated 294 (280-300); Sodium 142 mEq/L (136-145); Total Protein 7.2 g/dL (6.4-8.9); eGFR For African Americans > 60 (> 60); eGFR For Non-African Americans > 60 (> 60)
[2020-03-09] MEDS: 0.9 % Sodium Chloride 1,000 ML IVC SCH (08:26)
[2020-03-09] MEDS: Ascorbic Acid 500 MG TABLET PO SCH ×6 (08:30→22:39)
[2020-03-09] MEDS: ARIPiprazole 5 MG TABLET PO SCH (08:30)
[2020-03-09] MEDS: ursodioL 300 MG CAPSULE PO SCH ×2 (08:30→22:38)
[2020-03-09] MEDS: AMPHETAMINE PO SCH ×3 (08:43→22:49)
[2020-03-09] MEDS: DEXTROAMPHETAMINE PO SCH ×3 (08:43→22:49)
[2020-03-09] MEDS: Fluticasone Propionate Nasal 50 MCG/SPRAY BOTTLE NS SCH (08:45)
[2020-03-09] MEDS ORDERED: (Vilazodone Hcl [Viibryd] 40 MG) PO SCH ×2 (09:00→17:00)
[2020-03-09] MEDS: (Vilazodone Hcl [Viibryd] 40 MG) PO SCH (11:10)
[2020-03-09] MEDS: Sennosides 8.6 MG TABLET PO PRN (15:21)
[2020-03-09] MEDS ORDERED: ESTRADIOL 42.5 GM VG SCH (19:15)
[2020-03-10 07:48] LABS: Hematocrit 34.8 % (35.3-44.9); Hemoglobin 11.4 g/dL (11.5-15.4); Mean Corpuscular HGB Conc 32.8 g/dL (31.6-35.5); Mean Corpuscular Hemoglobin 29.5 pg (28.0-33.3); Mean Corpuscular Volume 89.9 fL (83.0-100.0); Mean Platelet Volume 12.5 fL (9.4-12.4); Platelet Count 170 K/mcL (140-400); Red Blood Count 3.87 M/mcL (3.82-4.97); Red Cell Distribution Width 14.2 % (11.5-14.5)
[2020-03-10] MEDS: ARIPiprazole 5 MG TABLET PO SCH (07:53)
[2020-03-10] MEDS: ursodioL 300 MG CAPSULE PO SCH ×2 (07:53→21:16)
[2020-03-10] MEDS: Ascorbic Acid 500 MG TABLET PO SCH ×6 (07:53→21:17)
[2020-03-10] MEDS: 0.9 % Sodium Chloride 1,000 ML IVC SCH ×2 (07:55→21:27)
[2020-03-10] MEDS: Fluticasone Propionate Nasal 50 MCG/SPRAY BOTTLE NS SCH (08:10)
[2020-03-10] MEDS: DEXTROAMPHETAMINE PO SCH ×2 (08:11→21:17)
[2020-03-10] MEDS: (Vilazodone Hcl [Viibryd] 40 MG) PO SCH (08:11)
[2020-03-10] MEDS: AMPHETAMINE PO SCH ×2 (08:11→21:17)
[2020-03-10 08:14] LABS: Alanine Aminotransferase 35 Units/L (7-52); Albumin 3.9 g/dL (3.5-5.7); Albumin/Globulin Ratio 1.6 (1.1-2.2); Alkaline Phosphatase 151 Units/L (34-104); Aspartate Amino Transferase 37 Units/L (13-39); BUN/Creatinine Ratio 17 (6-26); Bilirubin,Total 0.5 mg/dL (0.3-1.0); Blood Urea Nitrogen 12 mg/dL (6-20); Calcium 9.5 mg/dL (8.6-10.3); Carbon Dioxide 26 mEq/L (23-29); Chloride 104 mEq/L (98-107); Globulin 2.5 g/dL (2.4-3.5); Glucose 96 mg/dL (70-105); Osmolality,Calculated 286 (280-300); Sodium 138 mEq/L (136-145); Total Protein 6.4 g/dL (6.4-8.9); eGFR For African Americans > 60 (> 60); eGFR For Non-African Americans > 60 (> 60)
[2020-03-10] MEDS: *HR* HYDROcodone/Acet 5/325 mg TABLET PO PRN ×2 (09:49→15:51)
[2020-03-10 12:06] LABS: Influenza A PCR Negative (Negative); Influenza B PCR Negative (Negative); Resp. Syncytial Virus PCR Negative (Negative)
[2020-03-10 12:15] LABS: SARS-CoV-2 by PCR (In House) Negative (Negative)
[2020-03-10] MEDS ORDERED: *HR* Propofol 200 MG/20 ML VIAL IVP ONE (19:25)
[2020-03-10] MEDS ORDERED: Ondansetron 4 MG/2 ML VIAL IVP ONE (19:25)
[2020-03-10] MEDS ORDERED: Lidocaine -MPF 2% 5 ML VIAL SQ ONE (19:25)
[2020-03-10] MEDS: Sennosides 8.6 MG TABLET PO PRN (21:22)
[2020-03-11] MEDS: Ondansetron 4 MG/2 ML VIAL IVP PRN (00:17)
[2020-03-11 02:53] LABS: Hematocrit 33.7 % (35.3-44.9); Hemoglobin 10.9 g/dL (11.5-15.4); Mean Corpuscular HGB Conc 32.3 g/dL (31.6-35.5); Mean Corpuscular Hemoglobin 28.9 pg (28.0-33.3); Mean Corpuscular Volume 89.4 fL (83.0-100.0); Mean Platelet Volume 12.2 fL (9.4-12.4); Platelet Count 171 K/mcL (140-400); Red Blood Count 3.77 M/mcL (3.82-4.97); White Blood Count 5.2 K/mcL (4.3-11.1)
[2020-03-11 03:13] LABS: BUN/Creatinine Ratio 16 (6-26); Blood Urea Nitrogen 10 mg/dL (6-20); Calcium 9.3 mg/dL (8.6-10.3); Carbon Dioxide 26 mEq/L (23-29); Chloride 106 mEq/L (98-107); Glucose 89 mg/dL (70-105); Osmolality,Calculated 287 (280-300); Potassium 4.1 mEq/L (3.5-5.1); Sodium 139 mEq/L (136-145); eGFR For African Americans > 60 (> 60); eGFR For Non-African Americans > 60 (> 60)
[2020-03-11 08:18] VITALS: BP 102/67
[2020-03-11] MEDS: Fluticasone Propionate Nasal 50 MCG/SPRAY BOTTLE NS SCH (09:12)
[2020-03-11] MEDS: (Vilazodone Hcl [Viibryd] 40 MG) PO SCH (09:13)
[2020-03-11] MEDS: ARIPiprazole 5 MG TABLET PO SCH (09:14)
[2020-03-11] MEDS: ursodioL 300 MG CAPSULE PO SCH (09:15)
[2020-03-11] MEDS: Ascorbic Acid 500 MG TABLET PO SCH ×2 (09:24→09:25)
[2020-03-13] MEDS ORDERED: Fosfomycin Tromethamine 3 GM Packet PO SCH (09:00)
== END 2020-03-11 12:04 | disposition home or self-care (01) ==
LOC: 3BNU 16:31 → EMEROOARM 16:31 → 3BNU 20:08
PROVIDERS: ADMIT Family Medicine; ATTEND Family Medicine

== ENCOUNTER 2020-03-15 19:45 | Observation (INO) ==
[2020-03-15] MEDS ORDERED: Isovue-370 500 ML BOTTLE IVP ONE (21:03)
[2020-03-15 21:34] LABS: Basophils % 0.5 %; Eosinophils # 0.2 K/mcL (0.0-0.6); Eosinophils % 2.3 %; Hematocrit 39.5 % (35.3-44.9); Hemoglobin 12.9 g/dL (11.5-15.4); Immature Granulocytes % 0.2 % (0-4); Lymphocytes # 2.5 K/mcL (0.6-4.6); Lymphocytes % 30.8 %; Mean Corpuscular HGB Conc 32.7 g/dL (31.6-35.5); Mean Corpuscular Hemoglobin 28.9 pg (28.0-33.3); Mean Corpuscular Volume 88.4 fL (83.0-100.0); Mean Platelet Volume 11.7 fL (9.4-12.4); Monocytes # 0.9 K/mcL (0.0-1.3); Neutrophils # 4.5 K/mcL (1.6-8.9); Platelet Count 231 K/mcL (140-400); Red Blood Count 4.47 M/mcL (3.82-4.97); Red Cell Distribution Width 14.3 % (11.5-14.5); Segmented Neutrophils % 55.2 %; White Blood Count 8.1 K/mcL (4.3-11.1)
[2020-03-15] MEDS ORDERED: Isovue-370 500 ML BOTTLE PO ONE (21:36)
[2020-03-15 21:41] LABS: INR 1.3; Prothrombin Time 14.5 Seconds (9.4-12.1)
[2020-03-15] MEDS ORDERED: Ondansetron 4 MG/2 ML VIAL IVP ONE (21:45)
[2020-03-15] MEDS ORDERED: Famotidine 20 MG/2 ML VIAL IVP ONE (21:46)
[2020-03-15 21:57] LABS: Bacteria,Urine Few per hpf (None-Few); Bilirubin,Urine Negative (Negative); Blood,Urine Negative (Negative); Budding Yeast,Urine Many per hpf (None Seen); Clarity,Urine Turbid (Clear); Color,Urine Yellow (Yellow); Glucose,Urine (UA) Normal (Normal); Ketones,Urine Negative (Negative); Leukocyte Esterase,Urine Large (Negative); Mucus,Urine Few per lpf (None-Few); Nitrite,Urine Negative (Negative); PH,Urine 6.5 pH Units (5.0-8.0); Protein,Urine Trace mg/dL (Neg-Trace); Specific Gravity,Urine 1.022 (1.010-1.025); Squamous Epithelial Cell,Urine Few per hpf (None-Few); Urobilinogen,Urine Normal (Normal); WBC,Urine TNTC per hpf (0-3)
[2020-03-15 21:59] LABS: Alanine Aminotransferase 39 Units/L (7-52); Albumin 4.5 g/dL (3.5-5.7); Albumin/Globulin Ratio 1.5 (1.1-2.2); Alkaline Phosphatase 170 Units/L (34-104); Aspartate Amino Transferase 38 Units/L (13-39); BUN/Creatinine Ratio 20 (6-26); Bilirubin,Direct 0.1 mg/dL (0.0-0.2); Bilirubin,Indirect 0.3 mg/dL (0.0-1.0); Bilirubin,Total 0.4 mg/dL (0.3-1.0); Blood Urea Nitrogen 17 mg/dL (6-20); Carbon Dioxide 24 mEq/L (23-29); Chloride 106 mEq/L (98-107); Globulin 3.1 g/dL (2.4-3.5); Glucose 92 mg/dL (70-105); Lipase 54 Units/L (11-82); Osmolality,Calculated 291 (280-300); Potassium 4.5 mEq/L (3.5-5.1); Sodium 140 mEq/L (136-145); Total Protein 7.6 g/dL (6.4-8.9); eGFR For African Americans > 60 (> 60); eGFR For Non-African Americans > 60 (> 60)
[2020-03-15] MEDS ORDERED: *HR* FentaNYL (PF) 100 MCG/2 ML VIAL IVP ONE ×2 (22:10→23:35)
[2020-03-16] MEDS ORDERED: Ertapenem 1,000 MG in 0.9 % Sodium Chloride Mini Bag 100 ML IVPB ONE (01:50)
[2020-03-16] MEDS ORDERED: Ondansetron 4 MG/2 ML VIAL IVP PRN (02:36)
[2020-03-16] MEDS ORDERED: Naloxone 0.4 MG/ML INJ IVP PRN (02:36)
[2020-03-16] MEDS ORDERED: Acetaminophen 325 MG TABLET PO PRN (02:36)
[2020-03-16 04:26] LABS: Basophils % 0.5 %; Eosinophils # 0.2 K/mcL (0.0-0.6); Eosinophils % 2.7 %; Hematocrit 37.2 % (35.3-44.9); Hemoglobin 12.3 g/dL (11.5-15.4); Immature Granulocytes % 0.2 % (0-4); Lymphocytes # 2.1 K/mcL (0.6-4.6); Lymphocytes % 32.5 %; Mean Corpuscular HGB Conc 33.1 g/dL (31.6-35.5); Mean Corpuscular Hemoglobin 29.9 pg (28.0-33.3); Mean Corpuscular Volume 90.3 fL (83.0-100.0); Monocytes # 0.6 K/mcL (0.0-1.3); Monocytes % 9.4 %; Neutrophils # 3.5 K/mcL (1.6-8.9); Platelet Count 190 K/mcL (140-400); Red Blood Count 4.12 M/mcL (3.82-4.97); Red Cell Distribution Width 14.1 % (11.5-14.5); Segmented Neutrophils % 54.7 %; White Blood Count 6.4 K/mcL (4.3-11.1)
[2020-03-16 04:46] LABS: BUN/Creatinine Ratio 19 (6-26); Blood Urea Nitrogen 16 mg/dL (6-20); Calcium 9.7 mg/dL (8.6-10.3); Carbon Dioxide 22 mEq/L (23-29); Chloride 104 mEq/L (98-107); Glucose 132 mg/dL (70-105); Osmolality,Calculated 287 (280-300); Phosphorous 3.7 mg/dL (2.7-4.5); Potassium 3.5 mEq/L (3.5-5.1); Sodium 137 mEq/L (136-145); eGFR For African Americans > 60 (> 60); eGFR For Non-African Americans > 60 (> 60)
[2020-03-16] MEDS: 0.9 % Sodium Chloride 1,000 ML IVC SCH (06:27)
[2020-03-16] MEDS: *HR* Enoxaparin 40 MG/0.4 ML SYRINGE SQ SCH (09:01)
[2020-03-16] MEDS ORDERED: SUMAtriptan succinate 50 MG TABLET PO PRN (13:34)
[2020-03-16] MEDS ORDERED: diazePAM 5 MG TABLET PO PRN (13:34)
[2020-03-16] MEDS ORDERED: ESTRADIOL 42.5 GM VG SCH (13:45)
[2020-03-16] MEDS: ARIPiprazole 5 MG TABLET PO SCH (14:08)
[2020-03-16] MEDS: Ascorbic Acid 500 MG TABLET PO SCH ×2 (14:09→20:29)
[2020-03-16] MEDS: Fluticasone Propionate Nasal 50 MCG/SPRAY BOTTLE NS SCH (14:10)
[2020-03-16] MEDS: (Vilazodone Hcl [Viibryd] 40 MG) PO SCH (14:18)
[2020-03-16] MEDS: Piperacillin/Tazobactam 3.375 GM in 0.9 % Sodium Chloride Mini Bag 100 ML IVPB SCH ×2 (15:54→23:46)
[2020-03-16] MEDS: ursodioL 300 MG CAPSULE PO SCH (20:28)
[2020-03-16] MEDS: (Dextroamphetamine/Amphetamine [Dextroamp-Amphetamin PO SCH (20:29)
[2020-03-17 03:27] LABS: Basophils % 0.3 %; Eosinophils # 0.2 K/mcL (0.0-0.6); Eosinophils % 3.2 %; Hemoglobin 11.7 g/dL (11.5-15.4); Immature Granulocytes % 0.3 % (0-4); Lymphocytes # 2.1 K/mcL (0.6-4.6); Lymphocytes % 33.9 %; Mean Corpuscular HGB Conc 32.5 g/dL (31.6-35.5); Mean Corpuscular Hemoglobin 29.3 pg (28.0-33.3); Mean Platelet Volume 12.2 fL (9.4-12.4); Monocytes # 0.6 K/mcL (0.0-1.3); Monocytes % 9.2 %; Neutrophils # 3.3 K/mcL (1.6-8.9); Platelet Count 166 K/mcL (140-400); Red Cell Distribution Width 14.1 % (11.5-14.5); Segmented Neutrophils % 53.1 %; White Blood Count 6.2 K/mcL (4.3-11.1)
[2020-03-17 03:42] LABS: BUN/Creatinine Ratio 26 (6-26); Blood Urea Nitrogen 18 mg/dL (6-20); Calcium 9.5 mg/dL (8.6-10.3); Carbon Dioxide 24 mEq/L (23-29); Chloride 106 mEq/L (98-107); Glucose 89 mg/dL (70-105); Osmolality,Calculated 289 (280-300); Potassium 4.2 mEq/L (3.5-5.1); Sodium 139 mEq/L (136-145); eGFR For African Americans > 60 (> 60); eGFR For Non-African Americans > 60 (> 60)
[2020-03-17] MEDS: 0.9 % Sodium Chloride 1,000 ML IVC SCH (04:54)
[2020-03-17 06:38] VITALS: BP 103/68
[2020-03-17] MEDS: Piperacillin/Tazobactam 3.375 GM in 0.9 % Sodium Chloride Mini Bag 100 ML IVPB SCH (07:37)
[2020-03-17] MEDS: *HR* Enoxaparin 40 MG/0.4 ML SYRINGE SQ SCH (07:38)
[2020-03-17] MEDS: ARIPiprazole 5 MG TABLET PO SCH (07:39)
[2020-03-17] MEDS: Ascorbic Acid 500 MG TABLET PO SCH ×2 (07:39→07:53)
[2020-03-17] MEDS: ursodioL 300 MG CAPSULE PO SCH (07:39)
[2020-03-17] MEDS: Fluticasone Propionate Nasal 50 MCG/SPRAY BOTTLE NS SCH (07:40)
[2020-03-17] MEDS: (Vilazodone Hcl [Viibryd] 40 MG) PO SCH (07:41)
[2020-03-17] MEDS ORDERED: Ertapenem 1,000 MG in 0.9 % Sodium Chloride Mini Bag 100 ML IVPB SCH (09:00)
[2020-03-17] MEDS: (Dextroamphetamine/Amphetamine [Dextroamp-Amphetamin PO SCH (10:23)
== END 2020-03-17 10:46 | disposition home or self-care (01) ==
LOC: EMEROOARM 19:45 → 3BNU 19:45
PROVIDERS: ADMIT Internal Medicine; ATTEND Internal Medicine

== ENCOUNTER 2021-01-17 16:13 | Observation (INO) ==
[2021-01-17] MEDS ORDERED: Acetaminophen 325 MG TABLET PO ONE (18:37)
[2021-01-17] MEDS ORDERED: 0.9 % Sodium Chloride 1,000 ML IV ONE (18:44)
[2021-01-17 19:20] LABS: Basophils % 0.3 %; Eosinophils # 0.2 K/mcL (0.0-0.6); Eosinophils % 1.3 %; Hematocrit 38.6 % (35.3-44.9); Hemoglobin 12.9 g/dL (11.5-15.4); Immature Granulocytes % 0.4 % (0-4); Lymphocytes # 1.9 K/mcL (0.6-4.6); Lymphocytes % 16.8 %; Mean Corpuscular HGB Conc 33.4 g/dL (31.6-35.5); Mean Corpuscular Hemoglobin 31.5 pg (28.0-33.3); Mean Corpuscular Volume 94.4 fL (83.0-100.0); Mean Platelet Volume 11.6 fL (9.4-12.4); Monocytes # 0.7 K/mcL (0.0-1.3); Monocytes % 6.6 %; Neutrophils # 8.4 K/mcL (1.6-8.9); Platelet Count 165 K/mcL (140-400); Red Blood Count 4.09 M/mcL (3.82-4.97); Red Cell Distribution Width 13.3 % (11.5-14.5); Segmented Neutrophils % 74.6 %; White Blood Count 11.2 K/mcL (4.3-11.1)
[2021-01-17 19:34] LABS: Alanine Aminotransferase 35 Units/L (7-52); Albumin 3.8 g/dL (3.5-5.7); Albumin/Globulin Ratio 1.6 (1.1-2.2); Alkaline Phosphatase 163 Units/L (34-104); Amylase 29 Units/L (29-103); Aspartate Amino Transferase 26 Units/L (13-39); BUN/Creatinine Ratio 17 (6-26); Bilirubin,Total 0.3 mg/dL (0.3-1.0); Blood Urea Nitrogen 13 mg/dL (6-20); Calcium 9.2 mg/dL (8.6-10.3); Carbon Dioxide 30 mEq/L (23-29); Chloride 101 mEq/L (98-107); Globulin 2.4 g/dL (2.4-3.5); Glucose 122 mg/dL (70-105); Lipase 23 Units/L (11-82); Osmolality,Calculated 283 (280-300); Potassium 4.1 mEq/L (3.5-5.1); Sodium 136 mEq/L (136-145); Total Protein 6.2 g/dL (6.4-8.9); eGFR For African Americans > 60 (> 60); eGFR For Non-African Americans > 60 (> 60)
[2021-01-17 20:04] LABS: Bacteria,Urine Moderate per hpf (None-Few); Bilirubin,Urine Negative (Negative); Blood,Urine Negative (Negative); Clarity,Urine Turbid (Clear); Color,Urine Yellow (Yellow); Glucose,Urine (UA) Normal (Normal); Ketones,Urine Negative (Negative); Leukocyte Esterase,Urine Small (Negative); Nitrite,Urine Negative (Negative); PH,Urine 7.5 pH Units (5.0-8.0); Protein,Urine Negative (Neg-Trace); RBC,Urine 0-3 per hpf (0-3); Specific Gravity,Urine 1.017 (1.010-1.025); Squamous Epithelial Cell,Urine Few per hpf (None-Few); Urobilinogen,Urine Normal (Normal); WBC,Urine 15-30 per hpf (0-3)
[2021-01-17] MEDS ORDERED: Isovue-370 500 ML BOTTLE IVP ONE (21:37)
[2021-01-17] MEDS ORDERED: cefTRIAXone 1,000 MG in Water for inj. (sterile) 10 ML IVP ONE (23:26)
[2021-01-18] MEDS ORDERED: Ondansetron 4 MG/2 ML VIAL IVP ONE (00:20)
[2021-01-18] MEDS ORDERED: Ondansetron 4 MG/2 ML VIAL IVP PRN (01:19)
[2021-01-18] MEDS ORDERED: Naloxone 0.4 MG/ML INJ IVP PRN (01:19)
[2021-01-18] MEDS ORDERED: Sennosides 8.6 MG TABLET PO PRN (01:21)
[2021-01-18] MEDS ORDERED: 0.9 % Sodium Chloride 1,000 ML IVC SCH (01:30)
[2021-01-18] MEDS ORDERED: Ketorolac 30 MG/ML VIAL IVP PRN (04:38)
[2021-01-18 05:00] LABS: Red Cell Distribution Width 13.6 % (11.5-14.5); White Blood Count 8.7 K/mcL (4.3-11.1)
[2021-01-18 05:02] LABS: Hematocrit 36.7 % (35.3-44.9); Immature Platelets 8.3 % (1.1-6.1); Mean Corpuscular HGB Conc 32.7 g/dL (31.6-35.5); Mean Corpuscular Hemoglobin 31.7 pg (28.0-33.3); Mean Corpuscular Volume 96.8 fL (83.0-100.0); Mean Platelet Volume 11.6 fL (9.4-12.4); Red Blood Count 3.79 M/mcL (3.82-4.97)
[2021-01-18 05:24] LABS: BUN/Creatinine Ratio 17 (6-26); Blood Urea Nitrogen 10 mg/dL (6-20); Calcium 8.6 mg/dL (8.6-10.3); Carbon Dioxide 25 mEq/L (23-29); Chloride 106 mEq/L (98-107); Glucose 98 mg/dL (70-105); Osmolality,Calculated 281 (280-300); Potassium 4.3 mEq/L (3.5-5.1); Sodium 136 mEq/L (136-145); eGFR For African Americans > 60 (> 60); eGFR For Non-African Americans > 60 (> 60)
[2021-01-18] MEDS: cefTRIAXone 1,000 MG in Water for inj. (sterile) 10 ML IVP SCH (09:34)
[2021-01-18] MEDS: polyethylene glycoL 3350 17 GM POWD.PACK PO SCH (09:37)
[2021-01-18] MEDS ORDERED: clonazePAM 1 MG TABLET PO PRN (11:20)
[2021-01-18] MEDS: ARIPiprazole 5 MG TABLET PO SCH (12:18)
[2021-01-18] MEDS: (Dextroamphetamine/Amphetamine [Adderall 30 Mg Tablet]) PO SCH (15:35)
[2021-01-18] MEDS: Nitrofurantoin (BID) 100 MG CAPSULE PO SCH (17:15)
[2021-01-18] MEDS: *HR* Heparin 5,000 UNIT/ML VIAL SQ SCH (17:16)
[2021-01-19 01:57] LABS: Basophils % 0.4 %; Eosinophils # 0.3 K/mcL (0.0-0.6); Eosinophils % 3.8 %; Hematocrit 36.6 % (35.3-44.9); Hemoglobin 12.1 g/dL (11.5-15.4); Immature Granulocytes % 0.3 % (0-4); Mean Corpuscular HGB Conc 33.1 g/dL (31.6-35.5); Mean Corpuscular Hemoglobin 31.6 pg (28.0-33.3); Mean Corpuscular Volume 95.6 fL (83.0-100.0); Mean Platelet Volume 12.1 fL (9.4-12.4); Monocytes # 0.8 K/mcL (0.0-1.3); Monocytes % 12.3 %; Neutrophils # 3.4 K/mcL (1.6-8.9); Platelet Count 150 K/mcL (140-400); Red Blood Count 3.83 M/mcL (3.82-4.97); Red Cell Distribution Width 13.4 % (11.5-14.5); Segmented Neutrophils % 50.2 %; White Blood Count 6.8 K/mcL (4.3-11.1)
[2021-01-19 02:06] LABS: Lymphocytes # 2.2 K/mcL (0.6-4.6)
[2021-01-19 02:16] LABS: BUN/Creatinine Ratio 16 (6-26); Blood Urea Nitrogen 10 mg/dL (6-20); Calcium 8.8 mg/dL (8.6-10.3); Carbon Dioxide 28 mEq/L (23-29); Chloride 108 mEq/L (98-107); Glucose 93 mg/dL (70-105); Osmolality,Calculated 289 (280-300); Potassium 4.5 mEq/L (3.5-5.1); Sodium 140 mEq/L (136-145); eGFR For African Americans > 60 (> 60); eGFR For Non-African Americans > 60 (> 60)
[2021-01-19 02:27] LABS: Platelet Estimate Normal (Normal)
[2021-01-19] MEDS: *HR* Heparin 5,000 UNIT/ML VIAL SQ SCH (05:26)
[2021-01-19 07:35] VITALS: O2SAT 95
[2021-01-19] MEDS: (Dextroamphetamine/Amphetamine [Adderall 30 Mg Tablet]) PO SCH (07:50)
[2021-01-19] MEDS: Nitrofurantoin (BID) 100 MG CAPSULE PO SCH (09:13)
[2021-01-19] MEDS: polyethylene glycoL 3350 17 GM POWD.PACK PO SCH (09:15)
[2021-01-19] MEDS: ARIPiprazole 5 MG TABLET PO SCH (09:19)
[2021-01-19] MEDS: cefTRIAXone 1,000 MG in Water for inj. (sterile) 10 ML IVP SCH (09:21)
[2021-01-19 11:02] VITALS: BP 100/65; PULSE 59; TEMP 97.6
== END 2021-01-19 12:06 | disposition home or self-care (01) ==
LOC: EMEROOARM 16:13 → 3BNU 16:13 → SUATTDRO 01-18 00:24 → 3BNU 01-18 01:12
PROVIDERS: ADMIT Internal Medicine; ATTEND Internal Medicine

== ENCOUNTER 2021-04-18 02:35 | Observation (INO) ==
[2021-04-18] MEDS ORDERED: Morphine Sulfate 2 MG/ML SYRINGE IVP ONE ×2 (03:00→06:45)
[2021-04-18] MEDS ORDERED: Metoclopramide 10 MG/2 ML VIAL IVP ONE ×2 (03:00→06:45)
[2021-04-18 03:16] LABS: Basophils % 0.5 %; Eosinophils # 0.2 K/mcL (0.0-0.6); Hematocrit 35.8 % (35.3-44.9); Hemoglobin 11.9 g/dL (11.5-15.4); Immature Granulocytes % 0.2 % (0-4); Lymphocytes # 2.4 K/mcL (0.6-4.6); Mean Corpuscular HGB Conc 33.2 g/dL (31.6-35.5); Mean Corpuscular Hemoglobin 31.2 pg (28.0-33.3); Mean Corpuscular Volume 93.7 fL (83.0-100.0); Mean Platelet Volume 11.3 fL (9.4-12.4); Monocytes # 0.8 K/mcL (0.0-1.3); Monocytes % 13.3 %; Neutrophils # 2.6 K/mcL (1.6-8.9); Platelet Count 162 K/mcL (140-400); Red Blood Count 3.82 M/mcL (3.82-4.97); Red Cell Distribution Width 12.6 % (11.5-14.5); White Blood Count 6.1 K/mcL (4.3-11.1)
[2021-04-18 03:31] LABS: INR 1.1; Prothrombin Time 12.5 Seconds (9.4-12.1)
[2021-04-18 03:34] LABS: Activated Partial Thrombo Time 36.2 Seconds (26.0-36.0)
[2021-04-18 03:35] LABS: D-Dimer < 215 ng/mLFEU (0-500)
[2021-04-18 03:37] LABS: Alanine Aminotransferase 28 Units/L (7-52); Albumin 3.8 g/dL (3.5-5.7); Albumin/Globulin Ratio 1.9 (1.1-2.2); Alkaline Phosphatase 123 Units/L (34-104); Aspartate Amino Transferase 20 Units/L (13-39); BUN/Creatinine Ratio 18 (6-26); Bilirubin,Direct 0.1 mg/dL (0.0-0.2); Bilirubin,Indirect 0.2 mg/dL (0.0-1.0); Bilirubin,Total 0.3 mg/dL (0.3-1.0); Blood Urea Nitrogen 13 mg/dL (6-20); Calcium 8.6 mg/dL (8.6-10.3); Carbon Dioxide 28 mEq/L (23-29); Chloride 107 mEq/L (98-107); Glucose 82 mg/dL (70-105); Osmolality,Calculated 291 (280-300); Potassium 3.8 mEq/L (3.5-5.1); Sodium 141 mEq/L (136-145); Total Protein 5.8 g/dL (6.4-8.9); Troponin I < 0.03 ng/mL (< 0.04); eGFR For African Americans > 60 (> 60); eGFR For Non-African Americans > 60 (> 60)
[2021-04-18] MEDS ORDERED: 0.9 % Sodium Chloride 1,000 ML IV ONE (04:19)
[2021-04-18] MEDS ORDERED: Acetaminophen 325 MG TABLET PO PRN (05:32)
[2021-04-18] MEDS ORDERED: Naloxone 0.4 MG/ML INJ IVP PRN (05:32)
[2021-04-18] MEDS ORDERED: Melatonin 3 MG TABLET PO PRN (05:32)
[2021-04-18] MEDS ORDERED: *HR* Dextrose 50 % in Water (Syg) 50 ML SYRINGE IVP PRN (06:28)
[2021-04-18] MEDS ORDERED: D5% in Water 1,000 ML IVC PRN (06:28)
[2021-04-18] MEDS ORDERED: Dextrose Gel 15 GM/37.5 ML TUBE PO PRN ×2 (06:28)
[2021-04-18] MEDS ORDERED: Perflutren Lipid Microsphere 1.3 ML in 0.9 % Sodium Chloride 8.7 ML IVP PRN (06:30)
[2021-04-18] MEDS ORDERED: Saliva Stimulant 44.3ml BOTTLE PO PRN (06:37)
[2021-04-18] MEDS ORDERED: clonazePAM 1 MG TABLET PO PRN (07:50)
[2021-04-18] MEDS ORDERED: Regadenoson 0.4 MG/5 ML SYRINGE IVP ONE (07:52)
[2021-04-18] MEDS: Venlafaxine XR (24 HR) 150 MG CAP.ER.24H PO SCH (09:31)
[2021-04-18 09:37] LABS: Basophils % 0.8 %; Eosinophils # 0.2 K/mcL (0.0-0.6); Eosinophils % 3.1 %; Hemoglobin 12.4 g/dL (11.5-15.4); Immature Granulocytes % 0.2 % (0-4); Lymphocytes # 2.2 K/mcL (0.6-4.6); Lymphocytes % 43.6 %; Mean Corpuscular HGB Conc 33.5 g/dL (31.6-35.5); Mean Corpuscular Hemoglobin 31.8 pg (28.0-33.3); Mean Corpuscular Volume 94.9 fL (83.0-100.0); Mean Platelet Volume 11.4 fL (9.4-12.4); Monocytes # 0.6 K/mcL (0.0-1.3); Monocytes % 10.7 %; Neutrophils # 2.1 K/mcL (1.6-8.9); Platelet Count 157 K/mcL (140-400); Red Cell Distribution Width 12.5 % (11.5-14.5); Segmented Neutrophils % 41.6 %; White Blood Count 5.1 K/mcL (4.3-11.1)
[2021-04-18 09:42] LABS: INR 1.1; Prothrombin Time 12.1 Seconds (9.4-12.1)
[2021-04-18 09:57] LABS: Alanine Aminotransferase 28 Units/L (7-52); Albumin/Globulin Ratio 2.2 (1.1-2.2); Alkaline Phosphatase 127 Units/L (34-104); Aspartate Amino Transferase 21 Units/L (13-39); BUN/Creatinine Ratio 20 (6-26); Bilirubin,Total 0.3 mg/dL (0.3-1.0); Blood Urea Nitrogen 13 mg/dL (6-20); Calcium 9.1 mg/dL (8.6-10.3); Carbon Dioxide 27 mEq/L (23-29); Chloride 109 mEq/L (98-107); Globulin 1.8 g/dL (2.4-3.5); Glucose 84 mg/dL (70-105); Magnesium 2.1 mg/dL (1.6-2.6); Osmolality,Calculated 297 (280-300); Potassium 4.1 mEq/L (3.5-5.1); Sodium 144 mEq/L (136-145); Total Protein 5.8 g/dL (6.4-8.9); Troponin I < 0.03 ng/mL (< 0.04); eGFR For African Americans > 60 (> 60); eGFR For Non-African Americans > 60 (> 60)
[2021-04-18 10:09] LABS: Thyroid Stimulating Hormone 1.352 mcIU/mL (0.340-5.600)
[2021-04-18 10:30] LABS: Folate > 22.3 ng/mL (3.0-16.0); Vitamin B12 > 1500 pg/mL (250-1100)
[2021-04-19 07:02] VITALS: O2SAT 96
[2021-04-19] MEDS ORDERED: ARIPiprazole 10 MG TABLET PO SCH (09:00)
[2021-04-19] MEDS: Venlafaxine XR (24 HR) 150 MG CAP.ER.24H PO SCH (10:31)
[2021-04-19 10:55] VITALS: PULSE 95; TEMP 97.6
[2021-04-19 12:08] VITALS: BP 102/62
== END 2021-04-19 13:10 | disposition home or self-care (01) ==
LOC: 3BNU 02:35 → EMEROOARM 02:35 → SUATTDRO 05:23 → 3BNU 06:55
PROVIDERS: ADMIT Internal Medicine; ATTEND Internal Medicine